=== PATIENT | female | born 1940 | race Caucasian/White ===

== ENCOUNTER 2018-08-30 08:45 | Inpatient (IN) | payer MEDICAID, MEDICARE, OTHER ==
[~2018-08-30] VITALS: Ht 144.8 cm; Wt 104.4 kg
[~2018-08-30 08:45] MED LIST: ACET325T9 PO; ASPI-630 PO; BENZ1LOZ48 MM; BISA10SU2 RC; BUSP5TAB PO; CHOL10003 PO; DEXT38GE2 PO; DICY20TA3 PO; DIVA125C2 PO; DULO30CA2 PO; EMU OIL TP; GABA600T PO; INSU100V13 SQ; LEVO150T5 PO; LEVO25TA4 PO; LIDO700A4 TP; LISI-334 PO; MAGN2400 PO; MELA3TAB2 PO; MEMA28CA PO; MICO45CR VG; MORP15TA80 PO; NA P133E2 RC; NITR1PAT5 TD; NYST15PO9 TP; OMEP20CA10 PO; ONDA4TAB10 PO; OXYC5TAB88 PO; POLY17PO5 PO; PREN1TAB58 PO; QUET50TA5 PO; RISP0.5T24 PO; SALI45SP PO; SENN8.6T67 PO; SIME125C PO; TAMS0.4C97 PO; TRAZ-120 PO; TRAZ-86 PO; [UNRECOGNIZED DRUG - MIXTURE] TP
[2018-08-30] MEDS ORDERED: MAG HYDROX/AL HYDROX/SIMETH 30 ML ORAL.SUSP PO PRN (10:15)
[2018-08-30] MEDS ORDERED: MAGNESIUM HYDROXIDE 2,400 MG/30 ML ORAL.SUSP. PO PRN ×2 (10:15→11:15)
[2018-08-30] MEDS ORDERED: ACETAMINOPHEN 325 MG TABLET PO PRN (10:15)
[2018-08-30] MEDS ORDERED: METHYL SALICYLATE/MENTHOL TOPICAL OINTMENT 29GM TUBE. TP PRN (10:15)
[2018-08-30] MEDS ORDERED: DEXT15DR5 OU (11:03)
[2018-08-30] MEDS ORDERED: CAPS42.513 TP (11:03)
[2018-08-30] MEDS ORDERED: INSU100I17 SQ (11:03)
[2018-08-30] MEDS ORDERED: POTA10TA10 PO (11:03)
[2018-08-30] MEDS ORDERED: [UNRECOGNIZED DRUG - CODE] PO (11:03)
[2018-08-30] MEDS ORDERED: METF500T16 PO (11:03)
[2018-08-30] MEDS ORDERED: IPRA3AMP29 NEB (11:03)
[2018-08-30] MEDS ORDERED: FURO20TA3 PO (11:03)
[2018-08-30] MEDS ORDERED: LIDO76.5 TP (11:03)
[2018-08-30] MEDS ORDERED: QUET100T4 PO (11:03)
[2018-08-30] MEDS ORDERED: IPRATRPIUM/ALBUTEROL 0.5/2.5MG 3 ML NEBU. NEB PRN (11:15)
[2018-08-30] MEDS ORDERED: guaiFENesin 300 MG/15 ML LIQUID PO PRN (11:15)
[2018-08-30] MEDS ORDERED: NITR100C62 PO (11:33)
[2018-08-30] MEDS ORDERED: QUEtiapine 50 MG TABLET. PO ONE (12:00)
[2018-08-30] MEDS ORDERED: MEMANTINE 10 MG TABLET. PO ONE (12:00)
[2018-08-30] MEDS: INSULIN LISPRO 300 UNITS/3 ML INSULN.PEN. SQ SCH ×2 (12:38→17:48)
[2018-08-30 13:53] LABS: BILIRUBIN,URINE NEG (NEG); CLARITY,URINE CLOUDY; COLOR,URINE AMBER; GLUCOSE,URINE NEG (NEG); NITRITE,URINE NEG (NEG); RBC,URINE 0 /HPF (0-2); UROBILINOGEN,URINE 0.2 mg/dL (0.2 mg/dL)
[2018-08-30 13:54] LABS: BACTERIA,URINE FEW /HPF (0-FEW); SQUAMOUS EPITHELIAL CELL,UR OCC /LPF
[2018-08-30] MEDS: oxyCODONE IR 5 MG TABLET PO SCH ×2 (13:58→21:04)
[2018-08-30] MEDS: GABAPENTIN 400 MG CAPSULE. PO SCH ×2 (13:58→21:05)
--- NOTE | 2018-08-30 17:16 | EKG ---
[address] [address] Test Date: 2018-08-30 Test Time: 16:08:53 Pat Name: DENYS MIDDLETON Department: Room: [address] [place] [address] Gender: F Sightseeing Guide: : 1940 Requested By: GRAEME DIAZ Order Number: [id number] Reading MD: Measurements Intervals [place] Rate: 95 P: 39 DC: 188 QRS: 9 QRSD: 76 T: 66 QT: 340 QTc: 430 Interpretive Statements SINUS RHYTHM ATRIAL PREMATURE COMPLEX(ES) NO SPECIFIC ECG ABNORMALITIES RI6.02 No previous ECG available for comparison
[2018-08-30] MEDS: metFORMIN 500 MG TABLET PO SCH (17:47)
[2018-08-30] MEDS: CAPSAICIN 0.025% TOPICAL CREAM 60GM TUBE. TP SCH (21:03)
[2018-08-30] MEDS: SENNOSIDES 8.6 MG TABLET PO SCH (21:04)
[2018-08-30] MEDS: QUEtiapine 50 MG TABLET. PO SCH (21:04)
[2018-08-30] MEDS: QUEtiapine 100 MG TABLET. PO SCH (21:04)
[2018-08-30] MEDS: MELATONIN 3 MG TABLET PO SCH (21:04)
[2018-08-30] MEDS: traZODone 150 MG TABLET. PO SCH (21:04)
[2018-08-30] MEDS: NYSTATIN TOPICAL POWDER 15GM BOTTLE. TP SCH (21:05)
[2018-08-30] MEDS: INSULIN GLARGINE 300 UNITS/3 ML INSULN.PEN. SQ SCH (21:11)
--- NOTE | 2018-08-30 22:34 | PDOC ---
Exam Note: Darren Note: Please also refer to the separate dictated note~for this date of service dictated separately. Discussed the patient with Nursing staff reviewed the chart.~Reviewed interim history and current functioning. Reviewed vital signs,~Labs/ Radiology~and current medications noted below. Continue current treatment with the changes noted in the dictated addendum note Assessment: Vital Signs/I&O: Vital Signs Date Time Temp Pulse Resp B/P (MAP) Pulse Ox O2 Delivery O2 Flow Rate FiO2 08/30/18 21:04 20 Room Air Labs: Laboratory Tests Test 08/30/18 12:10 08/30/18 13:10 08/30/18 16:25 08/30/18 19:41 Glucose (Fingerstick) 260 mg/dL (70-99) H 165 mg/dL (70-99) H 108 mg/dL (70-99) H Urine Collection Type Void Urine Color Ruthy Urine Clarity Cloudy Urine pH 5.5 Urine Specific Roberts 1.015 Urine Protein Neg (NEG-TRACE) Urine Glucose (UA) Neg mg/dL (NEG) Urine Ketones (Stick) Neg mg/dL (NEG) Urine Blood Neg (NEG) Urine Nitrite Neg (NEG) Urine Bilirubin Neg (NEG) Urine Urobilinogen Dipstick 0.2 mg/dL (0.2 mg/dL) Urine Leukocyte Esterase Mod (NEG) Urine RBC 0 /HPF (0-2) Urine WBC 5-10 /HPF (0-4) Urine Squamous Epithelial Cells Occ /LPF Urine Bacteria Few /HPF (0-FEW) Current Medications: Meds: Current Medications Medications (Trade) Dose Ordered Sig/Ruchi Route PRN Reason Start Time Stop Time Status Last Admin Dose Admin Nystatin (Nystop) 1 mara BID TP 08/30/18 21:00 08/30/18 21:05 Capsaicin (Zostrix) 1 mara BID TP 08/30/18 21:00 08/30/18 21:03 Gabapentin (Neurontin) 800 mg TID PO 08/30/18 14:00 08/30/18 21:05 Insulin Human Lispro (HumaLOG) 25 units TIDWMEALS SQ 08/30/18 12:00 08/30/18 17:48 Insulin Glargine (Lantus) 70 units QHS SQ 08/30/18 21:00 08/30/18 21:11 Melatonin 9 mg QHS PO 08/30/18 21:00 08/30/18 21:04 Metformin HCl (Glucophage) 500 mg BIDWMEALS PO 08/30/18 17:00 08/30/18 17:47 Oxycodone HCl (Roxicodone) 5 mg TID PO 08/30/18 14:00 08/30/18 21:04 Quetiapine Fumarate (SEROquel) 50 mg BID PO 08/30/18 21:00 08/30/18 21:04 Quetiapine Fumarate (SEROquel) 100 mg QHS PO 08/30/18 21:00 08/30/18 21:04 Sennosides (Senna) 8.6 mg BID PO 08/30/18 21:00 08/30/18 21:04 Trazodone HCl (Desyrel) 150 mg QHS PO 08/30/18 21:00 08/30/18 21:04 Memantine (Namenda) 10 mg 1X ONCE PO 08/30/18 12:00 08/30/18 12:01 DC 08/30/18 13:57 Quetiapine Fumarate (SEROquel) 50 mg 1X ONCE PO 08/30/18 12:00 08/30/18 12:01 DC 08/30/18 13:57 I have reviewed the current psychotropics carefully including drug interactions. Risk benefit ratio favors no change other than as noted in my dictated progress note. Diagnosis: Problems: (1) Bipolar affective, mixed, sev w/ psych (2) Anxiety disorder (3) Impulse control disorder (4) Mood disorder GRAEME DIAZ MD Aug 30, 2018 22:34
[2018-08-31] MEDS: LEVOTHYROXINE 150 MCG TABLET PO SCH (05:37)
[2018-08-31] MEDS: LEVOTHYROXINE 25 MCG TABLET. PO SCH (05:38)
[2018-08-31 05:52] VITALS: BP 133/79
[2018-08-31 08:21] LABS: BASO # 0.1 x10^3/uL (0.0-0.2); BASO % 1 % (0-3); EOS # 0.2 x10^3/uL (0.0-0.7); EOS % 3 % (0-3); HEMATOCRIT 37.2 % (36.0-47.0); HEMOGLOBIN 12.3 g/dL (12.0-15.5); LYMPH # 1.4 x10^3/uL (1.0-4.8); LYMPH % 17 % (24-48); MEAN CORPUSCULAR HEMOGLOBIN 28 pg (25-35); MEAN CORPUSCULAR HGB CONC 33 g/dL (31-37); MEAN CORPUSCULAR VOLUME 85 fL (79-100); MONO # 0.8 x10^3/uL (0.0-1.1); MONO % 9 % (0-9); NEUT # 5.7 x10^3uL (1.8-7.7); NEUT % 70 % (31-73); PLATELET COUNT 197 x10^3/uL (140-400); RED BLOOD COUNT 4.36 x10^6/uL (3.50-5.40); RED CELL DISTRIBUTION WIDTH 15.1 % (11.5-14.5); WHITE BLOOD COUNT 8.1 x10^3/uL (4.0-11.0)
[2018-08-31 08:29] LABS: ALBUMIN 3.6 g/dL (3.4-5.0); ALBUMIN/GLOBULIN RATIO 0.9 (1.0-1.7); CALCIUM 9.3 mg/dL (8.5-10.1); GFR 53.3; POTASSIUM 3.9 mmol/L (3.5-5.1); TOTAL BILIRUBIN 0.6 mg/dL (0.2-1.0); TOTAL PROTEIN 7.4 g/dL (6.4-8.2)
--- NOTE | 2018-08-31 08:57 | HP ---
ADMIT DATE: 08/30/2018 PSYCHIATRIC ADMISSION HISTORY AND EVALUATION IDENTIFYING DATA: The patient is an 78-year-old female, who resides at [facility] and was sent to the Emergency Room at [facility] very early in the morning hours of 08/30/2018. I was called by the nursing staff on [facility] around 5:00 a.m. on 08/30/2018 as the patient was in the ER referred by the shelter on account of making suicidal statements and "wanting to be with Reyes." She was upset about living in the shelter, wanted to live with her son. She is having active hallucinations, talking to voices in her head. She does have a history of bipolar disorder, mixed with psychotic features. She had failed outpatient psychiatric interventions resulting in this referral due to her dangerous behaviors with significant risk of suicide. CHIEF COMPLAINT: "I remember you." The patient was inpatient at this facility previously in 03/2016 and said she remembered me from then, but on further questioning was confused about who I was. HISTORY OF PRESENT ILLNESS: The patient has a long history of bipolar disorder, mixed with psychotic features. She has been residing at the above shelter for some time, but more recently has been getting more depressed, anxious, restless, paranoid. She has been wanting to elope from the facility, wanting to be with Reyes. She has had a poor appetite, sleep disturbance. No active homicidal ideation. She has had ongoing mood swings. She is reasonably oriented. PAST PSYCHIATRIC HISTORY: As above and she has been at inpatient with multiple psychiatric hospitalizations including [facility] in the past and [facility] at [facility] in 03/2016 as noted above. PAST MEDICAL AND SURGICAL HISTORY: Diabetes mellitus, hypothyroidism, GERD, hypertension, hyperlipidemia, arthritis, bilateral knee replacement, hysterectomy, thyroidectomy, cholecystectomy, history of dysphagia. UA on 08/29/2018 was positive at the [facility] Emergency Room. She does have a colostomy. ACCU-CHEKS: Before meals and at bedtime. DIET: Mechanical soft. MEDICATIONS: She takes it whole. Ambulates with walker or wheelchair. CODE STATUS: Full code. ALLERGIES: PENICILLIN, SULFA, CIPROFLOXACIN, LEVOFLOXACIN, ATIVAN, REMERON. CURRENT PSYCHOTROPICS: Melatonin 9 mg at bedtime, Namenda ER daily 24 mg, Seroquel 100 mg at bedtime and 50 mg b.i.d., trazodone 150 mg at bedtime. FAMILY HISTORY: Noncontributory. SOCIAL HISTORY: No history of alcohol, drug abuse, physical, sexual or elder abuse. She is not known to be a perpetrator. REACTION TO HOSPITALIZATION: The patient accepting of this. ASSETS: Cognitively reasonably intact, stable living at the shelter. MENTAL STATUS EXAMINATION: The patient was seen individually on the evening of 08/30/2018. She is quite animated, verbal, wanting me to pray for her. Speech coherent, rapid at times. Abstraction fair, computation impaired, language function intact, attention span short. She denies active suicidal ideation, but still making statements of wanting to be with Reyes. Short-term memory has some impairment, but she is oriented x 4. LABORATORY DATA: Reviewed. IMPRESSION: Bipolar 1 disorder, mixed with rule out psychotic features; anxiety disorder, unspecified; mild cognitive impairment; impulse control disorder; rest as above. PLAN: Admit to geropsychiatry unit at [facility]. I will see the patient daily individually from a psychiatric standpoint. Medical followup with Dr. Laird. Continue the patient on her current psychotropics. Consider Depakote as a mood stabilizer or Trileptal. We will make this decision after baseline assessment. Estimated length of stay 10-12 days. DISPOSITION: Plans back to shelter when stable. GRAEME DIAZ MD DR: RONNY/mello JOB#: [id number] / [id number]
[2018-08-31] MEDS: QUEtiapine 50 MG TABLET. PO SCH ×2 (08:58→20:31)
[2018-08-31] MEDS: SENNOSIDES 8.6 MG TABLET PO SCH ×2 (08:58→20:31)
[2018-08-31] MEDS: metFORMIN 500 MG TABLET PO SCH ×2 (08:58→17:09)
[2018-08-31] MEDS: NYSTATIN TOPICAL POWDER 15GM BOTTLE. TP SCH ×2 (09:00→20:32)
[2018-08-31] MEDS: TROLAMINE SALICYLATE 10% TOPICAL CREAM 85GM JAR. TP SCH (09:00)
[2018-08-31] MEDS: POLYVINYL ALCOHOL 1.4% OPHTH SOLUTION 15ML BOTTLE. OU SCH (09:05)
[2018-08-31] MEDS: ASPIRIN 81 MG TAB.CHEW PO SCH (09:05)
[2018-08-31] MEDS: TAMSULOSIN 0.4 MG CAP.ER.24H. PO SCH (09:05)
[2018-08-31] MEDS: POTASSIUM CHLORIDE 10 MEQ TABLET.ER. PO SCH (09:05)
[2018-08-31] MEDS: GABAPENTIN 400 MG CAPSULE. PO SCH ×3 (09:06→21:08)
[2018-08-31] MEDS: MEMANTINE 10 MG TABLET. PO SCH ×2 (09:06→20:31)
[2018-08-31] MEDS: FUROSEMIDE 20 MG TABLET PO SCH (09:06)
[2018-08-31] MEDS: LISINOPRIL 20 MG TABLET PO SCH (09:06)
[2018-08-31] MEDS: POLYETHYLENE GLYCOL 3350 17 GM PACKET. PO SCH (09:06)
[2018-08-31] MEDS: oxyCODONE IR 5 MG TABLET PO SCH ×3 (09:07→21:08)
[2018-08-31] MEDS: NITROGLYCERIN 0.2MG/HR PATCH. TD SCH (09:07)
[2018-08-31] MEDS: CAPSAICIN 0.025% TOPICAL CREAM 60GM TUBE. TP SCH ×2 (09:08→21:08)
[2018-08-31] MEDS: INSULIN LISPRO 300 UNITS/3 ML INSULN.PEN. SQ SCH ×3 (09:12→17:10)
[2018-08-31 15:45] VITALS: BP 120/65
[2018-08-31 17:07] LABS: THYROID STIM HORMONE (TSH) 6.305 uIU/mL (0.358-3.740)
[2018-08-31 20:06] LABS: THYROXINE 7.7 ug/dL (4.5-12.0)
[2018-08-31] MEDS: QUEtiapine 100 MG TABLET. PO SCH (20:31)
[2018-08-31] MEDS: traZODone 150 MG TABLET. PO SCH (20:31)
[2018-08-31] MEDS: MELATONIN 3 MG TABLET PO SCH (20:31)
[2018-08-31] MEDS: INSULIN GLARGINE 300 UNITS/3 ML INSULN.PEN. SQ SCH (20:32)
[2018-08-31] MEDS: DIVALPROEX 125 MG CAP.SPRINK PO SCH (21:08)
[2018-08-31] MEDS: PANTOPRAZOLE 40 MG TABLET. PO SCH (21:08)
--- NOTE | 2018-08-31 22:14 | PDOC ---
Exam Note: Darren Note: Please also refer to the separate dictated note~for this date of service dictated separately.~Patient seen individually. Discussed the patient with Nursing staff reviewed the chart.~Reviewed interim history and current functioning. Reviewed vital signs,~Labs/ Radiology~and current medications noted below. Continue current treatment with the changes noted in the dictated addendum note Assessment: Vital Signs/I&O: Vital Signs Date Time Temp Pulse Resp B/P (MAP) Pulse Ox O2 Delivery O2 Flow Rate FiO2 08/31/18 21:08 20 97 08/31/18 15:45 97.9 83 120/65 (83) 08/31/18 10:07 Room Air I & O 08/30/18 08/30/18 08/31/18 14:59 22:59 06:59 Intake Total 360 ml Balance 360 ml Labs: Laboratory Tests Test 08/31/18 05:54 08/31/18 07:33 08/31/18 07:41 08/31/18 12:11 Glucose (Fingerstick) 148 mg/dL (70-99) H 159 mg/dL (70-99) H 182 mg/dL (70-99) H White Blood Count 8.1 x10^3/uL (4.0-11.0) Red Blood Count 4.36 x10^6/uL (3.50-5.40) Hemoglobin 12.3 g/dL (12.0-15.5) Hematocrit 37.2 % (36.0-47.0) Mean Corpuscular Volume 85 fL (79-100) Mean Corpuscular Hemoglobin 28 pg (25-35) Mean Corpuscular Hemoglobin Concent 33 g/dL (31-37) Red Cell Distribution Width 15.1 % (11.5-14.5) H Platelet Count 197 x10^3/uL (140-400) Neutrophils (%) (Auto) 70 % (31-73) Lymphocytes (%) (Auto) 17 % (24-48) L Monocytes (%) (Auto) 9 % (0-9) Eosinophils (%) (Auto) 3 % (0-3) Basophils (%) (Auto) 1 % (0-3) Neutrophils # (Auto) 5.7 x10^3uL (1.8-7.7) Lymphocytes # (Auto) 1.4 x10^3/uL (1.0-4.8) Monocytes # (Auto) 0.8 x10^3/uL (0.0-1.1) Eosinophils # (Auto) 0.2 x10^3/uL (0.0-0.7) Basophils # (Auto) 0.1 x10^3/uL (0.0-0.2) Sodium Level 137 mmol/L (136-145) Potassium Level 3.9 mmol/L (3.5-5.1) Chloride Level 99 mmol/L (98-107) Carbon Dioxide Level 28 mmol/L (21-32) Anion Gap 10 (6-14) Blood Urea Nitrogen 13 mg/dL (7-20) Creatinine 1.0 mg/dL (0.6-1.0) Estimated GFR (Cockcroft-Gault) 53.3 BUN/Creatinine Ratio 13 (6-20) Glucose Level 156 mg/dL (70-99) H Calcium Level 9.3 mg/dL (8.5-10.1) Magnesium Level 2.0 mg/dL (1.8-2.4) Iron Level 44 ug/dL (50-170) L Total Iron Binding Capacity 240 ug/dL (250-450) L Iron Saturation 18 % (15-34) Total Bilirubin 0.6 mg/dL (0.2-1.0) Aspartate Amino Transferase (AST) 25 U/L (15-37) Alanine Aminotransferase (ALT) 27 U/L (14-59) Alkaline Phosphatase 94 U/L (46-116) Total Protein 7.4 g/dL (6.4-8.2) Albumin 3.6 g/dL (3.4-5.0) Albumin/Globulin Ratio 0.9 (1.0-1.7) L Triglycerides Level 138 mg/dL (0-150) Cholesterol Level 126 mg/dL (0-200) LDL Cholesterol, Calculated 73 mg/dL (0-100) VLDL Cholesterol, Calculated 27 mg/dL (0-40) Non-HDL Cholesterol Calculated 100 mg/dL (0-129) HDL Cholesterol 26 mg/dL (40-60) L Cholesterol/HDL Ratio 4.0 25-Hydroxy Vitamin D Total 23.5 ng/mL (30-100) L Thyroid Stimulating Hormone (TSH) 6.305 uIU/mL (0.358-3.740) Thyroxine (T4) 7.7 ug/dL (4.5-12.0) Total Triiodothyronine (TT3) 72 ng/dL (71-180) Treponema pallidum Antibody Nonreactive (Nonreactive) Test 08/31/18 16:45 08/31/18 19:26 Glucose (Fingerstick) 141 mg/dL (70-99) H 141 mg/dL (70-99) H Current Medications: Meds: Current Medications Medications (Trade) Dose Ordered Sig/Ruchi Route PRN Reason Start Time Stop Time Status Last Admin Dose Admin Lisinopril (Prinivil) 20 mg DAILY PO 08/31/18 09:00 08/31/18 09:06 Aspirin (Children'S Aspirin) 81 mg DAILYWBKFT PO 08/31/18 08:00 08/31/18 09:05 Levothyroxine Sodium (Synthroid) 12.5 mcg DAILY06 PO 08/31/18 06:00 08/31/18 05:38 Levothyroxine Sodium (Synthroid) 150 mcg DAILY06 PO 08/31/18 06:00 08/31/18 05:37 Memantine (Namenda) 10 mg BID PO 08/31/18 09:00 08/31/18 20:31 Nitroglycerin (Nitro-Dur 0.2mg) 1 patch DAILY TD 08/31/18 09:00 08/31/18 09:07 Furosemide (Lasix) 20 mg DAILY PO 08/31/18 09:00 08/31/18 09:06 Tamsulosin HCl (Flomax) 0.8 mg DAILY PO 08/31/18 09:00 08/31/18 09:05 Artificial Tears (Artificial Tears) 1 drop DAILY OU 08/31/18 09:00 08/31/18 09:05 Trolamine Salicylate (Myoplex) 1 mara DAILY TP 08/31/18 09:00 08/31/18 09:00 Pantoprazole Sodium (Protonix) 40 mg QHS PO 08/31/18 21:00 08/31/18 21:08 Polyethylene Glycol (miraLAX) 17 gm DAILY PO 08/31/18 09:00 08/31/18 09:06 Potassium Chloride (Klor-Con) 10 meq DAILYWBKFT PO 08/31/18 08:00 08/31/18 09:05 Divalproex Sodium (Depakote Sprinkles) 250 mg BID PO 08/31/18 21:00 08/31/18 21:08 I have reviewed the current psychotropics carefully including drug interactions. Risk benefit ratio favors no change other than as noted in my dictated progress note. Diagnosis: Problems: (1) Bipolar affective, mixed, sev w/ psych (2) Anxiety disorder (3) Impulse control disorder (4) Mood disorder GRAEME DIAZ MD Aug 31, 2018 22:14
[2018-09-01 06:00] VITALS: BP 135/68
[2018-09-01] MEDS: LEVOTHYROXINE 150 MCG TABLET PO SCH (06:16)
[2018-09-01] MEDS: LEVOTHYROXINE 25 MCG TABLET. PO SCH (06:16)
[2018-09-01] MEDS: ASPIRIN 81 MG TAB.CHEW PO SCH (08:05)
[2018-09-01] MEDS: metFORMIN 500 MG TABLET PO SCH ×3 (08:05→17:00)
[2018-09-01] MEDS: POTASSIUM CHLORIDE 10 MEQ TABLET.ER. PO SCH (08:06)
[2018-09-01] MEDS: INSULIN LISPRO 300 UNITS/3 ML INSULN.PEN. SQ SCH ×3 (08:06→17:00)
[2018-09-01] MEDS: TAMSULOSIN 0.4 MG CAP.ER.24H. PO SCH (08:07)
[2018-09-01] MEDS: DIVALPROEX 125 MG CAP.SPRINK PO SCH ×2 (08:07→19:16)
[2018-09-01] MEDS: POLYVINYL ALCOHOL 1.4% OPHTH SOLUTION 15ML BOTTLE. OU SCH (08:07)
[2018-09-01] MEDS: GABAPENTIN 400 MG CAPSULE. PO SCH ×3 (08:08→19:17)
[2018-09-01] MEDS: POLYETHYLENE GLYCOL 3350 17 GM PACKET. PO SCH (08:08)
[2018-09-01] MEDS: FUROSEMIDE 20 MG TABLET PO SCH (08:08)
[2018-09-01] MEDS: MEMANTINE 10 MG TABLET. PO SCH ×2 (08:08→19:17)
[2018-09-01] MEDS: LISINOPRIL 20 MG TABLET PO SCH (08:09)
[2018-09-01] MEDS: oxyCODONE IR 5 MG TABLET PO SCH ×3 (08:09→19:21)
[2018-09-01] MEDS: SENNOSIDES 8.6 MG TABLET PO SCH ×2 (08:09→19:18)
[2018-09-01] MEDS: NYSTATIN TOPICAL POWDER 15GM BOTTLE. TP SCH ×2 (08:10→19:21)
[2018-09-01] MEDS: NITROGLYCERIN 0.2MG/HR PATCH. TD SCH (08:10)
[2018-09-01] MEDS: QUEtiapine 50 MG TABLET. PO SCH ×2 (08:10→19:17)
[2018-09-01] MEDS: TROLAMINE SALICYLATE 10% TOPICAL CREAM 85GM JAR. TP SCH (08:11)
[2018-09-01] MEDS: CAPSAICIN 0.025% TOPICAL CREAM 60GM TUBE. TP SCH ×2 (08:11→19:21)
[2018-09-01] MEDS: TACROLIMUS 0.1% TP SCH ×2 (11:53→19:18)
[2018-09-01 13:08] LABS: HEMOGLOBIN A1C 7.8 % (4.8-5.6)
[2018-09-01 15:59] VITALS: BP 93/47
[2018-09-01 16:05] VITALS: BP 98/58
--- NOTE | 2018-09-01 16:17 | CONS ---
DATE OF CONSULTATION: 08/31/2018 REASON FOR CONSULTATION: Consult for medical management. HISTORY OF PRESENT ILLNESS: The patient is an 78-year-old female patient, resident at [facility]. She was seen at the Emergency Room of [facility] and was transferred to [facility] on account of suicidal ideation. She states she just wants to be with Reyes, upset with living in detention, wants to live with her son, hallucinating, talks to voices in her head, all this in a background of schizophrenia, was admitted to this unit for inpatient psychiatric stabilization. PAST MEDICAL HISTORY: Significant for the diabetes mellitus, hypothyroidism, gastroesophageal reflux disease, hypertension, hyperlipidemia, arthritis. PAST SURGICAL HISTORY: Significant for bilateral knee arthroplasty, hysterectomy, thyroidectomy, cholecystectomy. She is also known to have history of dysphagia and has had a colostomy. ALLERGIES: SHE IS ALLERGIC TO PENICILLIN, SULFA DRUGS, CIPROFLOXACIN, LEVOFLOXACIN, ATIVAN, AND REMERON. MEDICATIONS: She is currently on following medications: She is on nitrofurantoin monohydrate 100 mg twice a day, ipratropium bromide/albuterol sulfate 3 mL by nebulizer every 4 hours, tamsulosin for Flomax 0.8 mg daily, nitroglycerin for Nitro-Dur 0.2 mg per hour topically once a day, lisinopril 20 mg once a day, aspirin 81 mg once a day, oxycodone 5 mg 3 times a day, gabapentin 800 mg 3 times a day, trazodone 150 mg at bedtime, quetiapine fumarate for Seroquel 50 mg twice a day, Seroquel 100 mg at bedtime, Namenda extended release 28 mg daily and potassium chloride 10 mEq daily, furosemide 20 mg daily, Mucinex 100 mg every 4 hours. She is on Artificial Tears 15 mL 1 drop to both eyes daily, milk of magnesia 30 mL p.o. daily p.r.n. for constipation, polyethylene glycol for 17 g daily, senna 8.6 mg twice a day, omeprazole 20 mg at bedtime, metformin 500 mg twice a day. She is on NovoLog insulin 25 units subcutaneously 3 times a day before meals and Levemir insulin 70 units at bedtime. She is on levothyroxine 150 mcg, in fact, she is on 162.5 mg daily. Nystatin powder applied topically twice a day, lidocaine for Aspercreme 1 application topically daily. She is on capsaicin 1 application topically twice a day, melatonin 9 mg at bedtime. FAMILY HISTORY: Noncontributory. SOCIAL HISTORY: She is a resident at [facility]. She does not smoke, drink alcohol or recreational drugs. She ambulates with a walker and/or wheelchair. REVIEW OF SYSTEMS: As per history of present illness. PHYSICAL EXAMINATION GENERAL: When I examined her, she was sitting comfortably in her wheelchair, in no apparent distress. No pallor, jaundice, cyanosis, or thyromegaly. No jugular venous distension. No limb edema. VITAL SIGNS: Her heart rate was 83, blood pressure was 120/65, temperature was 97.9, respiratory rate 20, and oxygen saturation was 97%. HEAD, EYES, EAR, NOSE, AND THROAT: Normocephalic, atraumatic. NECK: Supple. HEART: Showed normal first and second heart sounds. No gallop, rub or murmur. CHEST: Clear to auscultation. No crepitation or rhonchi. ABDOMEN: Distended, soft, nontender. NEUROLOGIC: She was awake, alert, responding appropriately. All her cranial nerves intact. EXTREMITIES: She moves extremities without difficulty. She is mostly bed bound, wheelchair bound. She can walk with a walker. LABORATORY DATA: Her lab work this morning showed that her serum sodium was 137, potassium 3.9, chloride 99, bicarbonate 28, anion gap of 10, BUN 13, creatinine 1, estimated GFR was 53 mL per minute. Her glucose 156, calcium was 9.3, magnesium 2. Total bilirubin, AST, ALT, alkaline phosphatase were normal. Her total protein was 7.4, albumin was 3.6. Her white cell count was 8100, hemoglobin 12.3, hematocrit 37, MCV 85 and platelet count of 197,000. Her urinalysis showed the urine was cloudy with a pH of 5.5, specific gravity of 1.015. The urine was negative for protein, glucose, ketones, blood, nitrite. There was moderate amount of leukocyte esterase, no rbc's, 5-10 wbc's, and very few bacteria. IMPRESSION: In summary, this is an 78-year-old female patient who was evaluated at the Emergency Room of [facility] and was admitted to [facility] on account of making suicidal statement wanting to be with Reyes. She was upset about living in the detention, wanted to live with her son. She is having active hallucinations, talking to voices in her head. She does have a history of bipolar disorder, mixed, with psychotic features and apparently has failed outpatient psychiatric intervention, and therefore, she was admitted to this unit for inpatient psychiatric stabilization. Medically, she has multiple medical problems including type 2 diabetes mellitus, hypothyroidism, gastroesophageal reflux disease, hypertension, hyperlipidemia, osteoarthritis, dysphagia, and nursing staff are concerned that she has intertriginous candidiasis on both groins. She has also periorbital erythema which is probably some form of contact dermatitis. 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 PLAN: My plan is to start the patient on some form of treatment for her contact dermatitis for her periorbital erythema. I will add Diflucan to treat her vulvovaginal intertriginous candidiasis. Her blood sugar seems to be well controlled actually and I do not think she needs a stricter control at least for the time being. Thank you Dr. Meier for allowing me to participate in the care of this patient. GENEVIEVE SALAMANCA MD DR: YANCY/mello JOB#: [id number] / [id number]
[2018-09-01] MEDS: traZODone 150 MG TABLET. PO SCH (19:16)
[2018-09-01] MEDS: MELATONIN 3 MG TABLET PO SCH (19:16)
[2018-09-01] MEDS: PANTOPRAZOLE 40 MG TABLET. PO SCH (19:17)
[2018-09-01] MEDS: QUEtiapine 100 MG TABLET. PO SCH (19:18)
[2018-09-01] MEDS: INSULIN GLARGINE 300 UNITS/3 ML INSULN.PEN. SQ SCH (19:26)
--- NOTE | 2018-09-01 22:08 | PDOC ---
Exam Note: Darren Note: Please also refer to the separate dictated note~for this date of service dictated separately.~Patient seen individually. Discussed the patient with Nursing staff reviewed the chart.~Reviewed interim history and current functioning. Reviewed vital signs,~Labs/ Radiology~and current medications noted below. Continue current treatment with the changes noted in the dictated addendum note Assessment: Vital Signs/I&O: Vital Signs Date Time Temp Pulse Resp B/P (MAP) Pulse Ox O2 Delivery O2 Flow Rate FiO2 09/01/18 20:21 18 94 Room Air 09/01/18 16:05 98/58 (71) 09/01/18 15:59 97.2 90 I & O 08/31/18 08/31/18 09/01/18 14:59 22:59 06:59 Intake Total 840 ml 240 ml 100 ml Balance 840 ml 240 ml 100 ml Labs: Laboratory Tests Test 09/01/18 07:31 09/01/18 11:52 09/01/18 16:48 09/01/18 19:20 Glucose (Fingerstick) 106 mg/dL (70-99) H 199 mg/dL (70-99) H 153 mg/dL (70-99) H 160 mg/dL (70-99) H Current Medications: Meds: Current Medications Medications (Trade) Dose Ordered Sig/Ruchi Route PRN Reason Start Time Stop Time Status Last Admin Dose Admin Tacrolimus (Protopic) 1 mara BID TP 09/01/18 09:00 09/01/18 19:18 I have reviewed the current psychotropics carefully including drug interactions. Risk benefit ratio favors no change other than as noted in my dictated progress note. Diagnosis: Problems: (1) Bipolar affective, mixed, sev w/ psych (2) Anxiety disorder (3) Impulse control disorder (4) Mood disorder GRAEME DIAZ MD Sep 01, 2018 22:08
--- NOTE | 2018-09-02 00:18 | PN ---
DATE: 08/31/2018 PSYCHIATRIC PROGRESS NOTE. This late entry of 08/31/2018 covers the elements not covered in my initial note. SUBJECTIVE: I met with the patient in the evening. The patient slept 3-3/4 hours previous night. She has been somewhat obsessed regarding her colostomy, trying to interfere with this, but redirected. Remains anxious. REVIEW OF SYSTEMS: Other than above, complains of some redness of her eyes, will defer to Dr. Laird. No CV, , pulmonary, eye system symptoms on review other than above. MENTAL STATUS EXAM: Reasonably oriented, quite animated. Speech coherent, rapid at times, distracted. Abstraction fair, computation impaired, language function intact, attention span short. Mood and affect remain somewhat anxious, labile, grandiose at times. LABORATORY DATA: Reviewed. IMPRESSION: Bipolar 1 disorder, mixed with psychotic features; anxiety disorder, unspecified; impulse control disorder, unspecified. She denies active suicidal ideation. PLAN: Continue Seroquel, melatonin, along with trazodone at current dosage. We will start her on Depakote Sprinkles 250 mg twice a day as a mood stabilizer. Check CBC, CMP, valproic acid level in 3 days and adjust gradually to reach therapeutic level. She had responded well to Depakote as a mood stabilizer in the past and I have reviewed the past psychiatric records in some detail. MAN Matt DIAZ MD DR: RONNY/mello JOB#: [id number] / [id number]
[2018-09-02] MEDS: LEVOTHYROXINE 25 MCG TABLET. PO SCH (05:54)
[2018-09-02] MEDS: LEVOTHYROXINE 150 MCG TABLET PO SCH (05:54)
[2018-09-02 06:03] VITALS: BP 104/65
[2018-09-02] MEDS: POLYETHYLENE GLYCOL 3350 17 GM PACKET. PO SCH (08:56)
[2018-09-02] MEDS: TAMSULOSIN 0.4 MG CAP.ER.24H. PO SCH (08:57)
[2018-09-02] MEDS: ASPIRIN 81 MG TAB.CHEW PO SCH (08:57)
[2018-09-02] MEDS: DIVALPROEX 125 MG CAP.SPRINK PO SCH ×2 (08:57→19:36)
[2018-09-02] MEDS: NITROGLYCERIN 0.2MG/HR PATCH. TD SCH (08:57)
[2018-09-02] MEDS: LISINOPRIL 20 MG TABLET PO SCH (08:58)
[2018-09-02] MEDS: SENNOSIDES 8.6 MG TABLET PO SCH ×2 (08:58→19:36)
[2018-09-02] MEDS: FUROSEMIDE 20 MG TABLET PO SCH (08:58)
[2018-09-02] MEDS: POTASSIUM CHLORIDE 10 MEQ TABLET.ER. PO SCH (08:58)
[2018-09-02] MEDS: NYSTATIN TOPICAL POWDER 15GM BOTTLE. TP SCH ×2 (08:59→19:36)
[2018-09-02] MEDS: MEMANTINE 10 MG TABLET. PO SCH ×2 (08:59→19:37)
[2018-09-02] MEDS: metFORMIN 500 MG TABLET PO SCH ×2 (08:59→17:45)
[2018-09-02] MEDS: QUEtiapine 50 MG TABLET. PO SCH ×2 (08:59→19:36)
[2018-09-02] MEDS: TACROLIMUS 0.1% TP SCH ×2 (08:59→19:36)
[2018-09-02] MEDS: CAPSAICIN 0.025% TOPICAL CREAM 60GM TUBE. TP SCH ×2 (09:00→19:39)
[2018-09-02] MEDS: TROLAMINE SALICYLATE 10% TOPICAL CREAM 85GM JAR. TP SCH (09:00)
[2018-09-02] MEDS: POLYVINYL ALCOHOL 1.4% OPHTH SOLUTION 15ML BOTTLE. OU SCH ×2 (09:01→19:36)
[2018-09-02] MEDS: INSULIN LISPRO 300 UNITS/3 ML INSULN.PEN. SQ SCH ×3 (09:07→17:47)
[2018-09-02] MEDS: oxyCODONE IR 5 MG TABLET PO SCH ×3 (09:09→19:39)
[2018-09-02] MEDS: GABAPENTIN 400 MG CAPSULE. PO SCH ×3 (09:10→19:37)
[2018-09-02 16:32] VITALS: BP 97/61
[2018-09-02] MEDS: CHOLECALCIFEROL (VITAMIN D3) 50,000 UNIT CAPSULE PO SCH (17:45)
[2018-09-02] MEDS: traZODone 150 MG TABLET. PO SCH (19:36)
[2018-09-02] MEDS: MELATONIN 3 MG TABLET PO SCH (19:36)
[2018-09-02] MEDS: QUEtiapine 100 MG TABLET. PO SCH (19:37)
[2018-09-02] MEDS: PANTOPRAZOLE 40 MG TABLET. PO SCH (19:37)
[2018-09-02] MEDS: INSULIN GLARGINE 300 UNITS/3 ML INSULN.PEN. SQ SCH (19:41)
--- NOTE | 2018-09-02 22:35 | PDOC ---
Exam Note: Darren Note: Please also refer to the separate dictated note~for this date of service dictated separately.~Patient seen individually. Discussed the patient with Nursing staff reviewed the chart.~Reviewed interim history and current functioning. Reviewed vital signs,~Labs/ Radiology~and current medications noted below. Continue current treatment with the changes noted in the dictated addendum note Assessment: Vital Signs/I&O: Vital Signs Date Time Temp Pulse Resp B/P (MAP) Pulse Ox O2 Delivery O2 Flow Rate FiO2 09/02/18 20:39 96 09/02/18 16:32 98.1 98 18 97/61 (73) 09/01/18 20:21 Room Air I & O 09/01/18 09/01/18 09/02/18 15:00 23:00 07:00 Intake Total 360 ml 240 ml 120 ml Balance 360 ml 240 ml 120 ml Labs: Laboratory Tests Test 09/02/18 07:14 09/02/18 11:40 09/02/18 17:06 09/02/18 19:29 Glucose (Fingerstick) 108 mg/dL (70-99) H 236 mg/dL (70-99) H 136 mg/dL (70-99) H 173 mg/dL (70-99) H Current Medications: Meds: Current Medications Medications (Trade) Dose Ordered Sig/Ruchi Route PRN Reason Start Time Stop Time Status Last Admin Dose Admin Vitamin D (Vitamin D3) 50,000 unit WEEKLY PO 09/02/18 16:45 09/02/18 17:45 I have reviewed the current psychotropics carefully including drug interactions. Risk benefit ratio favors no change other than as noted in my dictated progress note. Diagnosis: Problems: (1) Bipolar affective, mixed, sev w/ psych (2) Anxiety disorder (3) Impulse control disorder (4) Mood disorder GRAEME DIAZ MD Sep 02, 2018 22:35
[2018-09-03] MEDS: LEVOTHYROXINE 150 MCG TABLET PO SCH (05:29)
[2018-09-03] MEDS: LEVOTHYROXINE 25 MCG TABLET. PO SCH (05:29)
[2018-09-03 05:53] VITALS: BP 102/54
[2018-09-03 06:53] LABS: BASO # 0.1 x10^3/uL (0.0-0.2); BASO % 1 % (0-3); EOS # 0.2 x10^3/uL (0.0-0.7); EOS % 3 % (0-3); HEMATOCRIT 36.2 % (36.0-47.0); LYMPH # 1.2 x10^3/uL (1.0-4.8); LYMPH % 15 % (24-48); MEAN CORPUSCULAR HEMOGLOBIN 28 pg (25-35); MEAN CORPUSCULAR HGB CONC 33 g/dL (31-37); MEAN CORPUSCULAR VOLUME 86 fL (79-100); MONO # 0.8 x10^3/uL (0.0-1.1); MONO % 11 % (0-9); NEUT # 5.5 x10^3uL (1.8-7.7); NEUT % 71 % (31-73); PLATELET COUNT 196 x10^3/uL (140-400); RED BLOOD COUNT 4.24 x10^6/uL (3.50-5.40); WHITE BLOOD COUNT 7.8 x10^3/uL (4.0-11.0)
[2018-09-03 07:20] LABS: ALBUMIN/GLOBULIN RATIO 0.8 (1.0-1.7); ALK PHOS 92 U/L (46-116); ALT (SGPT) 25 U/L (14-59); ANION GAP 6 (6-14); AST (SGOT) 18 U/L (15-37); BLOOD UREA NITROGEN 8 mg/dL (7-20); BUN/CREATININE RATIO 10 (6-20); CALCIUM 8.9 mg/dL (8.5-10.1); CARBON DIOXIDE 31 mmol/L (21-32); CHLORIDE 101 mmol/L (98-107); CREATININE 0.8 mg/dL (0.6-1.0); GLUCOSE 106 mg/dL (70-99); POTASSIUM 4.1 mmol/L (3.5-5.1); SODIUM 138 mmol/L (136-145); TOTAL BILIRUBIN 0.6 mg/dL (0.2-1.0); TOTAL PROTEIN 6.8 g/dL (6.4-8.2)
[2018-09-03 07:25] LABS: VAL ACID 42 mcg/mL (50-100)
[2018-09-03] MEDS: INSULIN LISPRO 300 UNITS/3 ML INSULN.PEN. SQ SCH ×3 (08:52→17:00)
[2018-09-03] MEDS: metFORMIN 500 MG TABLET PO SCH ×2 (09:00→17:19)
[2018-09-03] MEDS: POTASSIUM CHLORIDE 10 MEQ TABLET.ER. PO SCH (09:00)
[2018-09-03] MEDS: ASPIRIN 81 MG TAB.CHEW PO SCH (09:01)
[2018-09-03] MEDS: SENNOSIDES 8.6 MG TABLET PO SCH ×2 (09:01→19:57)
[2018-09-03] MEDS: DIVALPROEX 125 MG CAP.SPRINK PO SCH ×2 (09:01→20:01)
[2018-09-03] MEDS: MEMANTINE 10 MG TABLET. PO SCH ×2 (09:01→19:57)
[2018-09-03] MEDS: QUEtiapine 50 MG TABLET. PO SCH ×2 (09:01→19:57)
[2018-09-03] MEDS: TAMSULOSIN 0.4 MG CAP.ER.24H. PO SCH (09:01)
[2018-09-03] MEDS: NITROGLYCERIN 0.2MG/HR PATCH. TD SCH (09:01)
[2018-09-03] MEDS: FUROSEMIDE 20 MG TABLET PO SCH (09:02)
[2018-09-03] MEDS: POLYETHYLENE GLYCOL 3350 17 GM PACKET. PO SCH (09:02)
[2018-09-03] MEDS: GABAPENTIN 400 MG CAPSULE. PO SCH ×3 (09:07→19:57)
[2018-09-03] MEDS: LOSARTAN 50 MG TABLET. PO SCH (09:07)
[2018-09-03] MEDS: oxyCODONE IR 5 MG TABLET PO SCH ×3 (09:07→20:00)
[2018-09-03] MEDS: NYSTATIN TOPICAL POWDER 15GM BOTTLE. TP SCH ×2 (10:52→19:57)
[2018-09-03] MEDS: TROLAMINE SALICYLATE 10% TOPICAL CREAM 85GM JAR. TP SCH (11:16)
[2018-09-03] MEDS: TACROLIMUS 0.1% TP SCH ×2 (11:17→19:58)
[2018-09-03] MEDS: CAPSAICIN 0.025% TOPICAL CREAM 60GM TUBE. TP SCH ×2 (11:17→19:58)
[2018-09-03 15:42] VITALS: BP 101/69
[2018-09-03] MEDS: POLYVINYL ALCOHOL 1.4% OPHTH SOLUTION 15ML BOTTLE. OU SCH (19:56)
[2018-09-03] MEDS: PANTOPRAZOLE 40 MG TABLET. PO SCH (19:57)
[2018-09-03] MEDS: QUEtiapine 100 MG TABLET. PO SCH (19:57)
[2018-09-03] MEDS: traZODone 150 MG TABLET. PO SCH (19:57)
[2018-09-03] MEDS: MELATONIN 3 MG TABLET PO SCH (19:57)
[2018-09-03] MEDS: INSULIN GLARGINE 300 UNITS/3 ML INSULN.PEN. SQ SCH (20:02)
--- NOTE | 2018-09-03 22:09 | PN ---
DATE: 09/01/2018 PSYCHIATRIC PROGRESS NOTE This is a late entry 09/01/2018 covers elements not covered in my initial note. SUBJECTIVE: I met with the patient in the evening. The patient slept 9-1/4 hours previous night. She has been complaining of some ear problems and has dermatitis of her face. Ambulation impaired with walker. No CV, , pulmonary, eye, ENT system symptoms on review. She reportedly has wart on her bottom or could be the initial stage of herpes zoster. We will defer to Dr. Laird. She has been attending groups somewhat religiously preoccupied, wanting me to pray for her. No CV, , pulmonary, eye system symptoms on review. MENTAL STATUS EXAM: Reasonably oriented. Speech is coherent, abstraction fair, computation impaired, language function intact, attention span short. Mood and affect remain somewhat anxious, labile. LABORATORY DATA: Reviewed. IMPRESSION: Unchanged from initial note. PLAN: No change from initial note. GRAEME DIAZ MD DR: RONNY/mello JOB#: [id number] / [id number]
--- NOTE | 2018-09-03 22:12 | PDOC ---
Exam Note: Darren Note: Please also refer to the separate dictated note~for this date of service dictated separately.~Patient seen individually. Discussed the patient with Nursing staff reviewed the chart.~Reviewed interim history and current functioning. Reviewed vital signs,~Labs/ Radiology~and current medications noted below. Continue current treatment with the changes noted in the dictated addendum note Assessment: Vital Signs/I&O: Vital Signs Date Time Temp Pulse Resp B/P (MAP) Pulse Ox O2 Delivery O2 Flow Rate FiO2 09/03/18 21:00 92 09/03/18 15:42 97.8 78 19 101/69 (80) Room Air I & O 09/02/18 09/02/18 09/03/18 15:00 23:00 07:00 Intake Total 600 ml 360 ml 120 ml Balance 600 ml 360 ml 120 ml Labs: Laboratory Tests Test 09/03/18 06:33 09/03/18 07:18 09/03/18 11:41 09/03/18 16:35 White Blood Count 7.8 x10^3/uL (4.0-11.0) Red Blood Count 4.24 x10^6/uL (3.50-5.40) Hemoglobin 12.0 g/dL (12.0-15.5) Hematocrit 36.2 % (36.0-47.0) Mean Corpuscular Volume 86 fL (79-100) Mean Corpuscular Hemoglobin 28 pg (25-35) Mean Corpuscular Hemoglobin Concent 33 g/dL (31-37) Red Cell Distribution Width 15.0 % (11.5-14.5) H Platelet Count 196 x10^3/uL (140-400) Neutrophils (%) (Auto) 71 % (31-73) Lymphocytes (%) (Auto) 15 % (24-48) L Monocytes (%) (Auto) 11 % (0-9) H Eosinophils (%) (Auto) 3 % (0-3) Basophils (%) (Auto) 1 % (0-3) Neutrophils # (Auto) 5.5 x10^3uL (1.8-7.7) Lymphocytes # (Auto) 1.2 x10^3/uL (1.0-4.8) Monocytes # (Auto) 0.8 x10^3/uL (0.0-1.1) Eosinophils # (Auto) 0.2 x10^3/uL (0.0-0.7) Basophils # (Auto) 0.1 x10^3/uL (0.0-0.2) Sodium Level 138 mmol/L (136-145) Potassium Level 4.1 mmol/L (3.5-5.1) Chloride Level 101 mmol/L (98-107) Carbon Dioxide Level 31 mmol/L (21-32) Anion Gap 6 (6-14) Blood Urea Nitrogen 8 mg/dL (7-20) Creatinine 0.8 mg/dL (0.6-1.0) Estimated GFR (Cockcroft-Gault) 69.0 BUN/Creatinine Ratio 10 (6-20) Glucose Level 106 mg/dL (70-99) H Calcium Level 8.9 mg/dL (8.5-10.1) Total Bilirubin 0.6 mg/dL (0.2-1.0) Aspartate Amino Transferase (AST) 18 U/L (15-37) Alanine Aminotransferase (ALT) 25 U/L (14-59) Alkaline Phosphatase 92 U/L (46-116) Total Protein 6.8 g/dL (6.4-8.2) Albumin 3.0 g/dL (3.4-5.0) L Albumin/Globulin Ratio 0.8 (1.0-1.7) L Valproic Acid Level 42 mcg/mL (50-100) L Valproic Acid Last Dose Date 09/02/2018 Valproic Acid Last Dose Time 2100 Glucose (Fingerstick) 117 mg/dL (70-99) H 177 mg/dL (70-99) H 100 mg/dL (70-99) H Test 09/03/18 19:27 Glucose (Fingerstick) 169 mg/dL (70-99) H Current Medications: Meds: Current Medications Medications (Trade) Dose Ordered Sig/Ruchi Route PRN Reason Start Time Stop Time Status Last Admin Dose Admin Losartan Potassium (Cozaar) 100 mg DAILY PO 09/03/18 09:00 09/03/18 09:07 Divalproex Sodium (Depakote Sprinkles) 375 mg BID PO 09/03/18 21:00 09/03/18 20:01 I have reviewed the current psychotropics carefully including drug interactions. Risk benefit ratio favors no change other than as noted in my dictated progress note. Diagnosis: Problems: (1) Bipolar affective, mixed, sev w/ psych (2) Anxiety disorder (3) Impulse control disorder (4) Mood disorder GRAEME DIAZ MD Sep 03, 2018 22:12
--- NOTE | 2018-09-03 22:37 | PN ---
DATE: 09/02/2018 PSYCHIATRIC PROGRESS NOTE This is a late entry 09/02/2018 covers elements not covered in my initial note. SUBJECTIVE: I met with the patient in the evening and staffed at a treatment team meeting with the entire team in the morning. The patient slept 6-1/2 hours. Appetite 75%. She is attention seeking, anxious with ongoing mood lability, restless. REVIEW OF SYSTEMS: Ambulation impaired, in wheelchair, complains of some discomfort in her bottom. Dr. Laird is reviewing this. No CV, , pulmonary, eye system symptoms on review. MENTAL STATUS EXAM: Reasonably oriented. Speech coherent, rapid at times. Abstraction fair, computation impaired, language function intact, attention span short. She continues to want me to pray for her and I sat at some length with her to address this. LABORATORY DATA: Reviewed. IMPRESSION: Unchanged from initial note. PLAN: No change from initial note. We restarted her on Depakote. Labs and valproic acid level due on 09/03/2018. Continue Namenda, Seroquel along with trazodone and melatonin in the interim. MAN Matt DIAZ MD DR: RONNY/mello JOB#: [id number] / [id number]
--- NOTE | 2018-09-04 00:53 | PN ---
DATE: 09/03/2018 PSYCHIATRIC PROGRESS NOTE This note covers elements not covered in my initial note 09/03/2018. SUBJECTIVE: I met with the patient in the evening. The patient slept 5-3/4 hours previous night. She has been pleasant, took a nap in the afternoon. She pulled off her colostomy again today for a second day in a row. The valproic acid level 42. REVIEW OF SYSTEMS: No CV, , pulmonary, eye system symptoms on review. She does admit to some tiredness. MENTAL STATUS EXAM: Oriented to herself and situation. Speech is coherent, has some latency, rapid at times. Abstraction fair, computation impaired, language function intact, attention span short. Mood and affect remains somewhat labile and anxious. LABORATORY DATA: Reviewed. IMPRESSION: Unchanged from initial note. PLAN: The patient is currently on Depakote 250 b.i.d. with a lower level and increased to 375 b.i.d. Check CBC, CMP, valproic acid level in 3 days. Continue rest unchanged. GRAEME DIAZ MD DR: RONNY/mello JOB#: [id number] / [id number]
[2018-09-04] MEDS: LEVOTHYROXINE 25 MCG TABLET. PO SCH (05:49)
[2018-09-04] MEDS: LEVOTHYROXINE 150 MCG TABLET PO SCH (05:49)
[2018-09-04 05:59] VITALS: BP 131/66
[2018-09-04] MEDS: INSULIN LISPRO 300 UNITS/3 ML INSULN.PEN. SQ SCH ×3 (09:24→18:17)
[2018-09-04] MEDS: QUEtiapine 50 MG TABLET. PO SCH ×2 (09:54→19:44)
[2018-09-04] MEDS: POLYETHYLENE GLYCOL 3350 17 GM PACKET. PO SCH (09:54)
[2018-09-04] MEDS: LOSARTAN 50 MG TABLET. PO SCH (09:54)
[2018-09-04] MEDS: SENNOSIDES 8.6 MG TABLET PO SCH ×2 (09:55→19:44)
[2018-09-04] MEDS: metFORMIN 500 MG TABLET PO SCH ×2 (09:55→18:15)
[2018-09-04] MEDS: MEMANTINE 10 MG TABLET. PO SCH ×2 (09:55→19:44)
[2018-09-04] MEDS: ASPIRIN 81 MG TAB.CHEW PO SCH (09:55)
[2018-09-04] MEDS: FUROSEMIDE 20 MG TABLET PO SCH (09:55)
[2018-09-04] MEDS: DIVALPROEX 125 MG CAP.SPRINK PO SCH ×2 (09:55→19:44)
[2018-09-04] MEDS: POTASSIUM CHLORIDE 10 MEQ TABLET.ER. PO SCH (09:55)
[2018-09-04] MEDS: TAMSULOSIN 0.4 MG CAP.ER.24H. PO SCH (09:56)
[2018-09-04] MEDS: NITROGLYCERIN 0.2MG/HR PATCH. TD SCH (09:56)
[2018-09-04] MEDS: POLYVINYL ALCOHOL 1.4% OPHTH SOLUTION 15ML BOTTLE. OU SCH (09:57)
[2018-09-04] MEDS: CAPSAICIN 0.025% TOPICAL CREAM 60GM TUBE. TP SCH ×2 (09:57→19:45)
[2018-09-04] MEDS: NYSTATIN TOPICAL POWDER 15GM BOTTLE. TP SCH ×2 (09:57→19:43)
[2018-09-04] MEDS: TROLAMINE SALICYLATE 10% TOPICAL CREAM 85GM JAR. TP SCH (09:57)
[2018-09-04] MEDS: TACROLIMUS 0.1% TP SCH ×2 (09:57→19:45)
[2018-09-04] MEDS: oxyCODONE IR 5 MG TABLET PO SCH ×3 (10:01→19:47)
[2018-09-04] MEDS: GABAPENTIN 400 MG CAPSULE. PO SCH ×3 (10:02→19:44)
[2018-09-04 15:31] VITALS: BP 101/58
[2018-09-04] MEDS: MELATONIN 3 MG TABLET PO SCH (19:43)
[2018-09-04] MEDS: PANTOPRAZOLE 40 MG TABLET. PO SCH (19:44)
[2018-09-04] MEDS: traZODone 150 MG TABLET. PO SCH (19:44)
[2018-09-04] MEDS: QUEtiapine 100 MG TABLET. PO SCH (19:44)
[2018-09-04] MEDS: MUPIROCIN 2% TOPICAL OINTMENT 22GM TUBE. TP SCH (19:45)
[2018-09-04] MEDS: INSULIN GLARGINE 300 UNITS/3 ML INSULN.PEN. SQ SCH (19:46)
[2018-09-05] MEDS: LEVOTHYROXINE 150 MCG TABLET PO SCH (04:58)
[2018-09-05] MEDS: LEVOTHYROXINE 25 MCG TABLET. PO SCH (04:58)
[2018-09-05 06:21] VITALS: BP 106/63
[2018-09-05] MEDS: DIVALPROEX 125 MG CAP.SPRINK PO SCH ×2 (08:09→20:35)
[2018-09-05] MEDS: MEMANTINE 10 MG TABLET. PO SCH ×2 (08:10→20:35)
[2018-09-05] MEDS: metFORMIN 500 MG TABLET PO SCH ×2 (08:11→17:27)
[2018-09-05] MEDS: POTASSIUM CHLORIDE 10 MEQ TABLET.ER. PO SCH (08:11)
[2018-09-05] MEDS: QUEtiapine 50 MG TABLET. PO SCH ×2 (08:11→20:34)
[2018-09-05] MEDS: FUROSEMIDE 20 MG TABLET PO SCH (08:11)
[2018-09-05] MEDS: LOSARTAN 50 MG TABLET. PO SCH (08:12)
[2018-09-05] MEDS: SENNOSIDES 8.6 MG TABLET PO SCH ×2 (08:12→20:34)
[2018-09-05] MEDS: POLYETHYLENE GLYCOL 3350 17 GM PACKET. PO SCH (08:13)
[2018-09-05] MEDS: NITROGLYCERIN 0.2MG/HR PATCH. TD SCH (08:13)
[2018-09-05] MEDS: TAMSULOSIN 0.4 MG CAP.ER.24H. PO SCH (08:13)
[2018-09-05] MEDS: ASPIRIN 81 MG TAB.CHEW PO SCH (08:13)
[2018-09-05] MEDS: INSULIN LISPRO 300 UNITS/3 ML INSULN.PEN. SQ SCH ×3 (08:16→17:27)
[2018-09-05] MEDS: GABAPENTIN 400 MG CAPSULE. PO SCH ×3 (08:22→20:34)
[2018-09-05] MEDS: oxyCODONE IR 5 MG TABLET PO SCH ×3 (08:22→20:34)
[2018-09-05] MEDS: TROLAMINE SALICYLATE 10% TOPICAL CREAM 85GM JAR. TP SCH (09:51)
[2018-09-05] MEDS: MUPIROCIN 2% TOPICAL OINTMENT 22GM TUBE. TP SCH ×2 (09:51→20:37)
[2018-09-05] MEDS: TACROLIMUS 0.1% TP SCH ×2 (09:51→20:37)
[2018-09-05] MEDS: CAPSAICIN 0.025% TOPICAL CREAM 60GM TUBE. TP SCH ×2 (09:51→20:37)
[2018-09-05] MEDS: NYSTATIN TOPICAL POWDER 15GM BOTTLE. TP SCH ×2 (09:52→20:35)
--- NOTE | 2018-09-05 10:04 | PN ---
DATE: 09/04/2018 SUBJECTIVE: The patient was seen today, met with the staff, chart reviewed. Staff reports no problems and not presenting with any major physical problems. No recent falls. OBSERVATION: VITAL SIGNS: Temperature 97.8, blood pressure 131/66, pulse 82, respirations 20, O2 sat 94%. Slept about 6 hours last night. MEDICATIONS: The patient's medications reviewed. Currently, she is on Depakote 375 mg b.i.d., Namenda 10 mg b.i.d., trazodone 150 mg at night, Seroquel 50 mg b.i.d. and 100 mg at night, melatonin 9 mg at night, gabapentin 800 mg t.i.d. The patient's labs reviewed and within normal range. The patient's Depakote level is 42. ASSESSMENT: 1. Bipolar disorder, mixed, with psychotic features. 2. Anxiety disorder, unspecified. 3. Mild cognitive impairment. PLAN: Continue with the current treatment plan. LENGTH OF STAY: 5 days. PAT PAYAN MD DR: RONNIE/mello JOB#: [id number] / [id number]
[2018-09-05 11:20] LABS: BASO # 0.1 x10^3/uL (0.0-0.2); BASO % 1 % (0-3); EOS # 0.2 x10^3/uL (0.0-0.7); EOS % 3 % (0-3); HEMATOCRIT 36.2 % (36.0-47.0); HEMOGLOBIN 11.9 g/dL (12.0-15.5); LYMPH # 0.9 x10^3/uL (1.0-4.8); LYMPH % 16 % (24-48); MEAN CORPUSCULAR HEMOGLOBIN 28 pg (25-35); MEAN CORPUSCULAR HGB CONC 33 g/dL (31-37); MEAN CORPUSCULAR VOLUME 86 fL (79-100); MONO # 0.5 x10^3/uL (0.0-1.1); MONO % 8 % (0-9); NEUT # 4.3 x10^3uL (1.8-7.7); NEUT % 72 % (31-73); PLATELET COUNT 194 x10^3/uL (140-400); RED BLOOD COUNT 4.19 x10^6/uL (3.50-5.40); RED CELL DISTRIBUTION WIDTH 15.2 % (11.5-14.5); WHITE BLOOD COUNT 5.9 x10^3/uL (4.0-11.0)
[2018-09-05 11:33] LABS: ALBUMIN 2.9 g/dL (3.4-5.0); ALBUMIN/GLOBULIN RATIO 0.7 (1.0-1.7); CREATININE 0.8 mg/dL (0.6-1.0); POTASSIUM 4.6 mmol/L (3.5-5.1); TOTAL BILIRUBIN 0.3 mg/dL (0.2-1.0)
[2018-09-05 17:00] VITALS: BP 102/64
[2018-09-05] MEDS: PANTOPRAZOLE 40 MG TABLET. PO SCH (20:34)
[2018-09-05] MEDS: QUEtiapine 100 MG TABLET. PO SCH (20:34)
[2018-09-05] MEDS: MELATONIN 3 MG TABLET PO SCH (20:34)
[2018-09-05] MEDS: traZODone 150 MG TABLET. PO SCH (20:35)
[2018-09-05] MEDS: INSULIN GLARGINE 300 UNITS/3 ML INSULN.PEN. SQ SCH (20:36)
[2018-09-06] MEDS: LEVOTHYROXINE 150 MCG TABLET PO SCH (05:10)
[2018-09-06] MEDS: LEVOTHYROXINE 25 MCG TABLET. PO SCH (05:11)
[2018-09-06 06:14] VITALS: BP 126/83
[2018-09-06 07:18] LABS: BASO # 0.1 x10^3/uL (0.0-0.2); BASO % 1 % (0-3); EOS # 0.2 x10^3/uL (0.0-0.7); EOS % 3 % (0-3); HEMATOCRIT 35.5 % (36.0-47.0); HEMOGLOBIN 11.7 g/dL (12.0-15.5); LYMPH # 0.9 x10^3/uL (1.0-4.8); LYMPH % 16 % (24-48); MEAN CORPUSCULAR HEMOGLOBIN 28 pg (25-35); MEAN CORPUSCULAR HGB CONC 33 g/dL (31-37); MEAN CORPUSCULAR VOLUME 86 fL (79-100); MONO # 0.5 x10^3/uL (0.0-1.1); MONO % 10 % (0-9); NEUT # 3.9 x10^3uL (1.8-7.7); NEUT % 71 % (31-73); PLATELET COUNT 196 x10^3/uL (140-400); RED BLOOD COUNT 4.14 x10^6/uL (3.50-5.40); RED CELL DISTRIBUTION WIDTH 14.7 % (11.5-14.5); WHITE BLOOD COUNT 5.6 x10^3/uL (4.0-11.0)
[2018-09-06 07:29] LABS: ALBUMIN 2.8 g/dL (3.4-5.0); ALBUMIN/GLOBULIN RATIO 0.7 (1.0-1.7); ALK PHOS 88 U/L (46-116); ALT (SGPT) 21 U/L (14-59); ANION GAP 8 (6-14); AST (SGOT) 15 U/L (15-37); BLOOD UREA NITROGEN 9 mg/dL (7-20); BUN/CREATININE RATIO 10 (6-20); CALCIUM 8.8 mg/dL (8.5-10.1); CARBON DIOXIDE 30 mmol/L (21-32); CHLORIDE 101 mmol/L (98-107); CREATININE 0.9 mg/dL (0.6-1.0); GFR 60.2; GLUCOSE 101 mg/dL (70-99); POTASSIUM 4.1 mmol/L (3.5-5.1); SODIUM 139 mmol/L (136-145); TOTAL BILIRUBIN 0.3 mg/dL (0.2-1.0); TOTAL PROTEIN 6.7 g/dL (6.4-8.2)
[2018-09-06 07:34] LABS: VAL ACID 61 mcg/mL (50-100)
[2018-09-06] MEDS: LOSARTAN 50 MG TABLET. PO SCH (08:29)
[2018-09-06] MEDS: DIVALPROEX 125 MG CAP.SPRINK PO SCH ×2 (08:29→21:04)
[2018-09-06] MEDS: metFORMIN 500 MG TABLET PO SCH ×2 (08:29→17:27)
[2018-09-06] MEDS: TAMSULOSIN 0.4 MG CAP.ER.24H. PO SCH (08:30)
[2018-09-06] MEDS: SENNOSIDES 8.6 MG TABLET PO SCH ×2 (08:30→21:06)
[2018-09-06] MEDS: MEMANTINE 10 MG TABLET. PO SCH ×2 (08:30→21:04)
[2018-09-06] MEDS: QUEtiapine 50 MG TABLET. PO SCH ×2 (08:30→21:00)
[2018-09-06] MEDS: POTASSIUM CHLORIDE 10 MEQ TABLET.ER. PO SCH (08:30)
[2018-09-06] MEDS: FUROSEMIDE 20 MG TABLET PO SCH (08:30)
[2018-09-06] MEDS: GABAPENTIN 400 MG CAPSULE. PO SCH ×3 (08:30→21:05)
[2018-09-06] MEDS: NITROGLYCERIN 0.2MG/HR PATCH. TD SCH (08:31)
[2018-09-06] MEDS: POLYETHYLENE GLYCOL 3350 17 GM PACKET. PO SCH (08:31)
[2018-09-06] MEDS: ASPIRIN 81 MG TAB.CHEW PO SCH (08:33)
[2018-09-06] MEDS: oxyCODONE IR 5 MG TABLET PO SCH ×3 (08:34→21:04)
[2018-09-06] MEDS: POLYVINYL ALCOHOL 1.4% OPHTH SOLUTION 15ML BOTTLE. OU SCH (08:35)
[2018-09-06] MEDS: INSULIN LISPRO 300 UNITS/3 ML INSULN.PEN. SQ SCH ×3 (08:42→17:28)
[2018-09-06] MEDS: TACROLIMUS 0.1% TP SCH ×2 (09:51→13:32)
[2018-09-06] MEDS: TROLAMINE SALICYLATE 10% TOPICAL CREAM 85GM JAR. TP SCH (09:51)
[2018-09-06] MEDS: CAPSAICIN 0.025% TOPICAL CREAM 60GM TUBE. TP SCH ×2 (09:52→21:09)
[2018-09-06] MEDS: NYSTATIN TOPICAL POWDER 15GM BOTTLE. TP SCH ×2 (13:31→21:08)
[2018-09-06] MEDS: MUPIROCIN 2% TOPICAL OINTMENT 22GM TUBE. TP SCH ×2 (13:32→21:09)
--- NOTE | 2018-09-06 14:38 | PN ---
DATE: 09/05/2018 SUBJECTIVE: The patient was seen today, met with the staff, chart reviewed and staff reports no major behavior problems. Denies of any falls. OBSERVATION: VITAL SIGNS: Temperature 96.8, blood pressure 106/63, pulse 74, respirations 24, O2 sat 93%. Slept about 7 hours last night. Staff also reports she has periods where she tends to have increased sleep at night. CURRENT MEDICATIONS: The patient's current medications include Depakote 375 mg b.i.d., Namenda 10 mg b.i.d., trazodone 150 mg at night, Seroquel 50 mg b.i.d. and 100 mg at night, melatonin 9 mg at night and gabapentin 800 mg t.i.d. p.o. LABORATORY DATA: The patient's lab reviewed. ASSESSMENT: 1. Bipolar disorder, mixed, with psychotic features. 2. Anxiety disorder, unspecified. 3. Mild cognitive impairment. PLAN: To continue with the current treatment plan. LENGTH OF STAY: Three to five days. PAT PAYAN MD DR: RONNIE/mello JOB#: [id number] / [id number]
[2018-09-06 16:28] VITALS: BP 115/55
[2018-09-06] MEDS: QUEtiapine 100 MG TABLET. PO SCH (21:04)
[2018-09-06] MEDS: PANTOPRAZOLE 40 MG TABLET. PO SCH (21:04)
[2018-09-06] MEDS: MELATONIN 3 MG TABLET PO SCH (21:04)
[2018-09-06] MEDS: traZODone 150 MG TABLET. PO SCH (21:06)
[2018-09-06] MEDS: INSULIN GLARGINE 300 UNITS/3 ML INSULN.PEN. SQ SCH (21:11)
--- NOTE | 2018-09-07 03:51 | PN ---
DATE: 09/06/2018 SUBJECTIVE: The patient was seen today, met with the staff, chart reviewed, and also covering for Dr. Meier. Staff reports no behavioral problems. No falls. OBSERVATION: VITAL SIGNS: Temperature 97.7, blood pressure 126/83, pulse 88, respirations 20, O2 sat 92%. Slept about 6 hours last night. The patient's appetite improved. MEDICATIONS: The patient's current medications include Depakote 375 mg b.i.d., Namenda 10 mg b.i.d., trazodone 150 mg at night, Seroquel 50 mg b.i.d. and 100 mg at night, melatonin 9 mg at night and gabapentin 800 mg t.i.d. p.o. LABORATORY DATA: The patient's lab within normal limits. ASSESSMENT: 1. Bipolar disorder, mixed with psychotic features. 2. Anxiety disorder, unspecified. 3. Mild cognitive impairment. PLAN: To continue with the treatment. LENGTH OF STAY: 3-5 days. PAT PAYAN MD DR: RONNIE/mello JOB#: [id number] / [id number]
[2018-09-07] MEDS: LEVOTHYROXINE 150 MCG TABLET PO SCH (05:29)
[2018-09-07] MEDS: LEVOTHYROXINE 25 MCG TABLET. PO SCH (05:29)
[2018-09-07 06:05] VITALS: BP 122/72
[2018-09-07] MEDS: ASPIRIN 81 MG TAB.CHEW PO SCH (08:48)
[2018-09-07] MEDS: metFORMIN 500 MG TABLET PO SCH ×2 (08:48→17:02)
[2018-09-07] MEDS: POTASSIUM CHLORIDE 10 MEQ TABLET.ER. PO SCH (08:49)
[2018-09-07] MEDS: INSULIN LISPRO 300 UNITS/3 ML INSULN.PEN. SQ SCH ×3 (08:50→17:03)
[2018-09-07] MEDS: POLYVINYL ALCOHOL 1.4% OPHTH SOLUTION 15ML BOTTLE. OU SCH (08:50)
[2018-09-07] MEDS: LOSARTAN 50 MG TABLET. PO SCH (08:51)
[2018-09-07] MEDS: DIVALPROEX 125 MG CAP.SPRINK PO SCH ×2 (08:51→20:46)
[2018-09-07] MEDS: POLYETHYLENE GLYCOL 3350 17 GM PACKET. PO SCH (08:52)
[2018-09-07] MEDS: FUROSEMIDE 20 MG TABLET PO SCH (08:52)
[2018-09-07] MEDS: MEMANTINE 10 MG TABLET. PO SCH ×2 (08:52→20:46)
[2018-09-07] MEDS: TAMSULOSIN 0.4 MG CAP.ER.24H. PO SCH (08:52)
[2018-09-07] MEDS: GABAPENTIN 400 MG CAPSULE. PO SCH ×3 (08:53→20:46)
[2018-09-07] MEDS: QUEtiapine 50 MG TABLET. PO SCH ×2 (08:53→20:46)
[2018-09-07] MEDS: SENNOSIDES 8.6 MG TABLET PO SCH ×2 (08:53→20:46)
[2018-09-07] MEDS: NITROGLYCERIN 0.2MG/HR PATCH. TD SCH (08:54)
[2018-09-07] MEDS: MUPIROCIN 2% TOPICAL OINTMENT 22GM TUBE. TP SCH ×2 (08:55→20:53)
[2018-09-07] MEDS: TACROLIMUS 0.1% TP SCH ×2 (08:55→20:53)
[2018-09-07] MEDS: TROLAMINE SALICYLATE 10% TOPICAL CREAM 85GM JAR. TP SCH (08:55)
[2018-09-07] MEDS: CAPSAICIN 0.025% TOPICAL CREAM 60GM TUBE. TP SCH ×2 (08:55→20:54)
[2018-09-07] MEDS: NYSTATIN TOPICAL POWDER 15GM BOTTLE. TP SCH ×2 (08:56→20:53)
[2018-09-07] MEDS: oxyCODONE IR 5 MG TABLET PO SCH ×3 (11:44→20:48)
[2018-09-07 16:13] VITALS: BP 96/60
[2018-09-07] MEDS: PANTOPRAZOLE 40 MG TABLET. PO SCH (20:46)
[2018-09-07] MEDS: MELATONIN 3 MG TABLET PO SCH (20:46)
[2018-09-07] MEDS: traZODone 150 MG TABLET. PO SCH (20:46)
[2018-09-07] MEDS: QUEtiapine 100 MG TABLET. PO SCH (20:46)
[2018-09-07] MEDS: INSULIN GLARGINE 300 UNITS/3 ML INSULN.PEN. SQ SCH (20:53)
--- NOTE | 2018-09-07 23:32 | PN ---
DATE: 09/07/2018 SUBJECTIVE: The patient was seen today, met with the staff, chart reviewed. The patient continues to improve. No major behavior problems. OBSERVATION: VITAL SIGNS: Stable. Slept about 6 hours last night. The patient's appetite improved. MEDICATIONS: The patient's current medications include Depakote 375 mg b.i.d., Namenda 10 mg b.i.d., trazodone 150 mg at night, Seroquel 50 mg b.i.d. and 100 mg at night, melatonin 9 mg at night, and gabapentin 800 mg t.i.d. p.o. The patient is not having any side effects to the medications. The patient's Depakote level was 61. The patient still has episodes of high level of anxiety and agitation. ASSESSMENT: 1. Bipolar disorder, mixed, with psychotic features. 2. Anxiety disorder, unspecified. 3. Mild cognitive impairment. PLAN: To continue with the treatment. LENGTH OF STAY: 3-5 days. PAT PAYAN MD DR: RONNIE/mello JOB#: [id number] / [id number]
[2018-09-08] MEDS: LEVOTHYROXINE 25 MCG TABLET. PO SCH (05:35)
[2018-09-08] MEDS: LEVOTHYROXINE 150 MCG TABLET PO SCH (05:35)
[2018-09-08 06:17] VITALS: BP 96/58
[2018-09-08] MEDS: POLYVINYL ALCOHOL 1.4% OPHTH SOLUTION 15ML BOTTLE. OU SCH (08:14)
[2018-09-08] MEDS: POTASSIUM CHLORIDE 10 MEQ TABLET.ER. PO SCH (08:14)
[2018-09-08] MEDS: ASPIRIN 81 MG TAB.CHEW PO SCH (08:14)
[2018-09-08] MEDS: metFORMIN 500 MG TABLET PO SCH ×2 (08:14→17:14)
[2018-09-08 08:15] VITALS: BP 113/57
[2018-09-08] MEDS: LOSARTAN 50 MG TABLET. PO SCH (08:15)
[2018-09-08] MEDS: DIVALPROEX 125 MG CAP.SPRINK PO SCH ×2 (08:16→20:36)
[2018-09-08] MEDS: TAMSULOSIN 0.4 MG CAP.ER.24H. PO SCH (08:17)
[2018-09-08] MEDS: FUROSEMIDE 20 MG TABLET PO SCH (08:17)
[2018-09-08] MEDS: SENNOSIDES 8.6 MG TABLET PO SCH ×2 (08:18→20:45)
[2018-09-08] MEDS: MEMANTINE 10 MG TABLET. PO SCH ×2 (08:18→20:36)
[2018-09-08] MEDS: POLYETHYLENE GLYCOL 3350 17 GM PACKET. PO SCH (08:18)
[2018-09-08] MEDS: GABAPENTIN 400 MG CAPSULE. PO SCH ×3 (08:18→20:36)
[2018-09-08] MEDS: NITROGLYCERIN 0.2MG/HR PATCH. TD SCH (08:19)
[2018-09-08] MEDS: QUEtiapine 50 MG TABLET. PO SCH ×2 (08:19→20:36)
[2018-09-08] MEDS: TROLAMINE SALICYLATE 10% TOPICAL CREAM 85GM JAR. TP SCH (08:20)
[2018-09-08] MEDS: TACROLIMUS 0.1% TP SCH ×2 (08:20→21:49)
[2018-09-08] MEDS: MUPIROCIN 2% TOPICAL OINTMENT 22GM TUBE. TP SCH ×2 (08:20→21:49)
[2018-09-08] MEDS: NYSTATIN TOPICAL POWDER 15GM BOTTLE. TP SCH ×2 (08:21→21:49)
[2018-09-08] MEDS: CAPSAICIN 0.025% TOPICAL CREAM 60GM TUBE. TP SCH ×2 (08:21→21:50)
[2018-09-08] MEDS: oxyCODONE IR 5 MG TABLET PO SCH ×3 (08:46→20:40)
[2018-09-08] MEDS: INSULIN LISPRO 300 UNITS/3 ML INSULN.PEN. SQ SCH ×3 (08:48→17:16)
[2018-09-08 15:45] VITALS: BP 102/57
[2018-09-08] MEDS: QUEtiapine 100 MG TABLET. PO SCH (20:36)
[2018-09-08] MEDS: traZODone 150 MG TABLET. PO SCH (20:36)
[2018-09-08] MEDS: MELATONIN 3 MG TABLET PO SCH (20:36)
[2018-09-08] MEDS: PANTOPRAZOLE 40 MG TABLET. PO SCH (20:36)
[2018-09-08] MEDS: INSULIN GLARGINE 300 UNITS/3 ML INSULN.PEN. SQ SCH (20:43)
--- NOTE | 2018-09-08 23:45 | PN ---
DATE: 09/08/2018 SUBJECTIVE: The patient was seen today, met with the staff, chart reviewed and also covering for Dr. Meier. The patient continues to show improvement, somewhat withdrawn. No major behavior problems. OBJECTIVE: VITAL SIGNS: Temperature 97.6, blood pressure 96/58, pulse 67, respirations 18, O2 sat 91%. Slept about 7 hours last night. MEDICATIONS: The patient's current medications include Depakote 375 mg b.i.d., Namenda 10 mg b.i.d., trazodone 150 mg at night, Seroquel 50 mg b.i.d. and 100 mg at night, melatonin 9 mg at night, and gabapentin 800 mg t.i.d. p.o. The patient denies of any side effects to the medications. The patient still has episodes of increased anxiety and agitation. ASSESSMENT: 1. Bipolar disorder, mixed, with psychotic features. 2. Anxiety disorder, unspecified. 3. Mild cognitive impairment. PLAN: To continue with the treatment. LENGTH OF STAY: 3-5 days. PAT PAYAN MD DR: RONNIE/mello JOB#: [id number] / [id number]
[2018-09-09] MEDS: LEVOTHYROXINE 25 MCG TABLET. PO SCH (05:51)
[2018-09-09] MEDS: LEVOTHYROXINE 150 MCG TABLET PO SCH (05:51)
[2018-09-09 06:08] VITALS: BP 105/67
[2018-09-09] MEDS: metFORMIN 500 MG TABLET PO SCH ×2 (08:40→17:00)
[2018-09-09] MEDS: NITROGLYCERIN 0.2MG/HR PATCH. TD SCH (08:40)
[2018-09-09] MEDS: LOSARTAN 50 MG TABLET. PO SCH (08:41)
[2018-09-09] MEDS: POTASSIUM CHLORIDE 10 MEQ TABLET.ER. PO SCH (08:41)
[2018-09-09] MEDS: GABAPENTIN 400 MG CAPSULE. PO SCH ×3 (08:41→20:46)
[2018-09-09] MEDS: TAMSULOSIN 0.4 MG CAP.ER.24H. PO SCH (08:41)
[2018-09-09] MEDS: QUEtiapine 50 MG TABLET. PO SCH ×2 (08:42→20:46)
[2018-09-09] MEDS: DIVALPROEX 125 MG CAP.SPRINK PO SCH ×2 (08:42→20:46)
[2018-09-09] MEDS: POLYETHYLENE GLYCOL 3350 17 GM PACKET. PO SCH (08:43)
[2018-09-09] MEDS: FUROSEMIDE 20 MG TABLET PO SCH (08:43)
[2018-09-09] MEDS: ASPIRIN 81 MG TAB.CHEW PO SCH (08:43)
[2018-09-09] MEDS: SENNOSIDES 8.6 MG TABLET PO SCH ×2 (08:43→21:00)
[2018-09-09] MEDS: CHOLECALCIFEROL (VITAMIN D3) 50,000 UNIT CAPSULE PO SCH (08:43)
[2018-09-09] MEDS: MEMANTINE 10 MG TABLET. PO SCH ×2 (08:43→20:46)
[2018-09-09] MEDS: MUPIROCIN 2% TOPICAL OINTMENT 22GM TUBE. TP SCH ×2 (08:43→22:46)
[2018-09-09] MEDS: oxyCODONE IR 5 MG TABLET PO SCH ×3 (08:43→20:46)
[2018-09-09] MEDS: NYSTATIN TOPICAL POWDER 15GM BOTTLE. TP SCH ×2 (08:44→22:46)
[2018-09-09] MEDS: TROLAMINE SALICYLATE 10% TOPICAL CREAM 85GM JAR. TP SCH (08:44)
[2018-09-09] MEDS: TACROLIMUS 0.1% TP SCH ×2 (08:44→22:47)
[2018-09-09] MEDS: CAPSAICIN 0.025% TOPICAL CREAM 60GM TUBE. TP SCH ×2 (08:44→22:47)
[2018-09-09] MEDS: POLYVINYL ALCOHOL 1.4% OPHTH SOLUTION 15ML BOTTLE. OU SCH (08:46)
[2018-09-09] MEDS: INSULIN LISPRO 300 UNITS/3 ML INSULN.PEN. SQ SCH ×3 (08:56→17:27)
[2018-09-09 15:56] VITALS: BP 134/68
[2018-09-09] MEDS: QUEtiapine 100 MG TABLET. PO SCH (20:41)
[2018-09-09] MEDS: MELATONIN 3 MG TABLET PO SCH (20:41)
[2018-09-09] MEDS: traZODone 150 MG TABLET. PO SCH (20:41)
[2018-09-09] MEDS: PANTOPRAZOLE 40 MG TABLET. PO SCH (20:41)
[2018-09-09] MEDS: INSULIN GLARGINE 300 UNITS/3 ML INSULN.PEN. SQ SCH (20:47)
--- NOTE | 2018-09-10 00:14 | PN ---
DATE: 09/09/2018 SUBJECTIVE: The patient was seen today, met with the staff, chart reviewed. Staff reports continued behavior problems. She tried to pull her colostomy bag. The patient is resistive to care at times. OBSERVATION: VITAL SIGNS: Temperature 97.5, blood pressure 105/67, pulse 82, respirations 20, O2 sat 92%. Slept about 6-1/2 hours last night. The patient's appetite is fair. MEDICATIONS: The patient's current medications include Depakote 375 mg b.i.d. p.o., and the Depakote level was 61, Namenda 10 mg b.i.d., trazodone 150 mg at night. The patient is also on Seroquel 50 mg b.i.d. and 100 mg at night, melatonin 9 mg at night, gabapentin 800 mg t.i.d. The patient denies of any side effects. ASSESSMENT: 1. Bipolar disorder, mixed, with psychotic features. 2. Anxiety disorder, unspecified. 3. Mild cognitive impairment. PLAN: To continue with the treatment. LENGTH OF STAY: 3-5 days. PAT PAYAN MD DR: RONNIE/mello JOB#: [id number] / [id number]
[2018-09-10] MEDS: LEVOTHYROXINE 150 MCG TABLET PO SCH (06:08)
[2018-09-10] MEDS: LEVOTHYROXINE 25 MCG TABLET. PO SCH (06:09)
[2018-09-10 06:13] VITALS: BP 164/78
[2018-09-10] MEDS: QUEtiapine 50 MG TABLET. PO SCH ×2 (08:27→19:26)
[2018-09-10] MEDS: FUROSEMIDE 20 MG TABLET PO SCH (08:28)
[2018-09-10] MEDS: DIVALPROEX 125 MG CAP.SPRINK PO SCH ×2 (08:28→19:26)
[2018-09-10] MEDS: POTASSIUM CHLORIDE 10 MEQ TABLET.ER. PO SCH (08:28)
[2018-09-10] MEDS: NITROGLYCERIN 0.2MG/HR PATCH. TD SCH (08:28)
[2018-09-10] MEDS: SENNOSIDES 8.6 MG TABLET PO SCH ×3 (08:28→19:45)
[2018-09-10] MEDS: TAMSULOSIN 0.4 MG CAP.ER.24H. PO SCH (08:29)
[2018-09-10] MEDS: LOSARTAN 50 MG TABLET. PO SCH (08:29)
[2018-09-10] MEDS: ASPIRIN 81 MG TAB.CHEW PO SCH (08:29)
[2018-09-10] MEDS: MEMANTINE 10 MG TABLET. PO SCH ×2 (08:29→19:26)
[2018-09-10] MEDS: POLYETHYLENE GLYCOL 3350 17 GM PACKET. PO SCH ×2 (08:30→08:45)
[2018-09-10] MEDS: NYSTATIN TOPICAL POWDER 15GM BOTTLE. TP SCH ×2 (08:31→19:27)
[2018-09-10] MEDS: TACROLIMUS 0.1% TP SCH ×2 (08:31→19:27)
[2018-09-10] MEDS: POLYVINYL ALCOHOL 1.4% OPHTH SOLUTION 15ML BOTTLE. OU SCH (08:31)
[2018-09-10] MEDS: CAPSAICIN 0.025% TOPICAL CREAM 60GM TUBE. TP SCH ×2 (08:31→19:27)
[2018-09-10] MEDS: MUPIROCIN 2% TOPICAL OINTMENT 22GM TUBE. TP SCH ×2 (08:31→19:27)
[2018-09-10] MEDS: TROLAMINE SALICYLATE 10% TOPICAL CREAM 85GM JAR. TP SCH (08:32)
[2018-09-10] MEDS: GABAPENTIN 400 MG CAPSULE. PO SCH ×3 (08:33→19:32)
[2018-09-10] MEDS: metFORMIN 500 MG TABLET PO SCH ×2 (08:33→17:14)
[2018-09-10] MEDS: INSULIN LISPRO 300 UNITS/3 ML INSULN.PEN. SQ SCH ×3 (08:35→17:32)
[2018-09-10] MEDS: oxyCODONE IR 5 MG TABLET PO SCH ×3 (09:56→19:32)
[2018-09-10 15:53] VITALS: BP 120/66
[2018-09-10] MEDS: MELATONIN 3 MG TABLET PO SCH (19:26)
[2018-09-10] MEDS: QUEtiapine 100 MG TABLET. PO SCH (19:26)
[2018-09-10] MEDS: PANTOPRAZOLE 40 MG TABLET. PO SCH (19:26)
[2018-09-10] MEDS: traZODone 150 MG TABLET. PO SCH (19:26)
[2018-09-10] MEDS: INSULIN GLARGINE 300 UNITS/3 ML INSULN.PEN. SQ SCH (19:33)
--- NOTE | 2018-09-10 22:49 | PN ---
DATE: 09/10/2018 SUBJECTIVE: The patient was seen today, met with the staff, chart was reviewed. The patient had a good day today, calmer, cooperative, took her medications. OBJECTIVE: VITAL SIGNS: Temperature 97.5, blood pressure 164/78, pulse 78, respirations 20, O2 sat 96%. Slept about 8 hours last night. The patient's appetite improved. MEDICATIONS: The patient's current medications include Depakote 375 mg b.i.d. p.o., Namenda 10 mg b.i.d., trazodone 150 mg at night, Seroquel 50 mg b.i.d. and 100 mg at night. The patient also is on melatonin 9 mg at night, and gabapentin 800 mg t.i.d. p.o. The patient's Depakote level 61. ASSESSMENT: 1. Bipolar disorder, mixed, with psychotic features. 2. Anxiety disorder, unspecified. 3. Mild cognitive impairment. PLAN: To continue with the treatment. LENGTH OF STAY: 3-5 days. PAT PAYAN MD DR: RONNIE/mello JOB#: [id number] / [id number]
[2018-09-11] MEDS: LEVOTHYROXINE 150 MCG TABLET PO SCH (05:47)
[2018-09-11] MEDS: LEVOTHYROXINE 25 MCG TABLET. PO SCH (05:48)
[2018-09-11 06:15] VITALS: BP 113/64
[2018-09-11] MEDS: INSULIN LISPRO 300 UNITS/3 ML INSULN.PEN. SQ SCH ×3 (07:50→16:46)
[2018-09-11] MEDS: DIVALPROEX 125 MG CAP.SPRINK PO SCH ×2 (07:50→19:26)
[2018-09-11] MEDS: POLYETHYLENE GLYCOL 3350 17 GM PACKET. PO SCH (07:52)
[2018-09-11] MEDS: FUROSEMIDE 20 MG TABLET PO SCH (07:52)
[2018-09-11] MEDS: NITROGLYCERIN 0.2MG/HR PATCH. TD SCH (07:52)
[2018-09-11] MEDS: LOSARTAN 50 MG TABLET. PO SCH (07:53)
[2018-09-11] MEDS: TAMSULOSIN 0.4 MG CAP.ER.24H. PO SCH (07:53)
[2018-09-11] MEDS: POTASSIUM CHLORIDE 10 MEQ TABLET.ER. PO SCH (07:54)
[2018-09-11] MEDS: metFORMIN 500 MG TABLET PO SCH ×2 (07:55→16:35)
[2018-09-11] MEDS: ASPIRIN 81 MG TAB.CHEW PO SCH (07:55)
[2018-09-11] MEDS: MEMANTINE 10 MG TABLET. PO SCH ×2 (07:55→19:25)
[2018-09-11] MEDS: QUEtiapine 50 MG TABLET. PO SCH ×2 (07:55→19:25)
[2018-09-11] MEDS: MUPIROCIN 2% TOPICAL OINTMENT 22GM TUBE. TP SCH ×2 (07:58→19:27)
[2018-09-11] MEDS: NYSTATIN TOPICAL POWDER 15GM BOTTLE. TP SCH ×2 (07:58→19:28)
[2018-09-11] MEDS: TROLAMINE SALICYLATE 10% TOPICAL CREAM 85GM JAR. TP SCH (07:58)
[2018-09-11] MEDS: TACROLIMUS 0.1% TP SCH ×2 (07:58→19:26)
[2018-09-11] MEDS: POLYVINYL ALCOHOL 1.4% OPHTH SOLUTION 15ML BOTTLE. OU SCH (07:58)
[2018-09-11] MEDS: CAPSAICIN 0.025% TOPICAL CREAM 60GM TUBE. TP SCH ×2 (07:59→19:26)
[2018-09-11] MEDS: oxyCODONE IR 5 MG TABLET PO SCH ×3 (08:02→19:28)
[2018-09-11] MEDS: SENNOSIDES 8.6 MG TABLET PO SCH ×2 (08:03→19:27)
[2018-09-11] MEDS: GABAPENTIN 400 MG CAPSULE. PO SCH ×3 (08:27→19:33)
[2018-09-11 15:46] VITALS: BP 100/69
[2018-09-11] MEDS: MELATONIN 3 MG TABLET PO SCH (19:25)
[2018-09-11] MEDS: traZODone 150 MG TABLET. PO SCH (19:26)
[2018-09-11] MEDS: QUEtiapine 100 MG TABLET. PO SCH (19:26)
[2018-09-11] MEDS: PANTOPRAZOLE 40 MG TABLET. PO SCH (19:26)
[2018-09-11] MEDS: INSULIN GLARGINE 300 UNITS/3 ML INSULN.PEN. SQ SCH (19:29)
--- NOTE | 2018-09-11 22:01 | PDOC ---
Exam Note: Darren Note: Please also refer to the separate dictated note~for this date of service dictated separately.~Patient seen individually. Discussed the patient with Nursing staff reviewed the chart.~Reviewed interim history and current functioning. Reviewed vital signs,~Labs/ Radiology~and current medications noted below. Continue current treatment with the changes noted in the dictated addendum note Assessment: Vital Signs/I&O: Vital Signs Date Time Temp Pulse Resp B/P (MAP) Pulse Ox O2 Delivery O2 Flow Rate FiO2 09/11/18 20:28 92 09/11/18 15:46 98.3 82 18 100/69 (79) Room Air I & O 09/10/18 09/10/18 09/11/18 14:59 22:59 06:59 Intake Total 720 ml 240 ml 120 ml Balance 720 ml 240 ml 120 ml Labs: Laboratory Tests Test 09/11/18 07:18 09/11/18 07:45 09/11/18 11:38 09/11/18 16:33 Glucose (Fingerstick) 157 mg/dL (70-99) H 173 mg/dL (70-99) H 144 mg/dL (70-99) H Ammonia 21 mcmol/L (11-34) Test 09/11/18 19:18 Glucose (Fingerstick) 179 mg/dL (70-99) H Current Medications: I have reviewed the current psychotropics carefully including drug interactions. Risk benefit ratio favors no change other than as noted in my dictated progress note. Diagnosis: Problems: (1) Bipolar affective, mixed, sev w/ psych (2) Anxiety disorder (3) Impulse control disorder (4) Mood disorder GRAEME DIAZ MD Sep 11, 2018 22:01
[2018-09-12] MEDS: LEVOTHYROXINE 150 MCG TABLET PO SCH (05:31)
[2018-09-12 06:15] VITALS: BP 118/74
[2018-09-12] MEDS: POLYETHYLENE GLYCOL 3350 17 GM PACKET. PO SCH (08:01)
[2018-09-12] MEDS: LOSARTAN 50 MG TABLET. PO SCH (08:01)
[2018-09-12] MEDS: DIVALPROEX 125 MG CAP.SPRINK PO SCH ×2 (08:01→19:27)
[2018-09-12] MEDS: NITROGLYCERIN 0.2MG/HR PATCH. TD SCH (08:01)
[2018-09-12] MEDS: SENNOSIDES 8.6 MG TABLET PO SCH ×2 (08:02→19:27)
[2018-09-12] MEDS: FUROSEMIDE 20 MG TABLET PO SCH (08:02)
[2018-09-12] MEDS: MEMANTINE 10 MG TABLET. PO SCH ×2 (08:02→19:27)
[2018-09-12] MEDS: ASPIRIN 81 MG TAB.CHEW PO SCH (08:02)
[2018-09-12] MEDS: metFORMIN 500 MG TABLET PO SCH ×2 (08:02→17:16)
[2018-09-12] MEDS: TAMSULOSIN 0.4 MG CAP.ER.24H. PO SCH (08:02)
[2018-09-12] MEDS: oxyCODONE IR 5 MG TABLET PO SCH ×3 (08:08→19:30)
[2018-09-12] MEDS: INSULIN LISPRO 300 UNITS/3 ML INSULN.PEN. SQ SCH ×3 (08:09→18:09)
[2018-09-12] MEDS: POTASSIUM CHLORIDE 10 MEQ TABLET.ER. PO SCH (08:09)
[2018-09-12] MEDS: QUEtiapine 50 MG TABLET. PO SCH ×2 (08:09→19:27)
[2018-09-12] MEDS: GABAPENTIN 400 MG CAPSULE. PO SCH ×3 (08:09→19:27)
[2018-09-12] MEDS: TROLAMINE SALICYLATE 10% TOPICAL CREAM 85GM JAR. TP SCH (08:10)
[2018-09-12] MEDS: NYSTATIN TOPICAL POWDER 15GM BOTTLE. TP SCH ×2 (08:10→19:28)
[2018-09-12] MEDS: POLYVINYL ALCOHOL 1.4% OPHTH SOLUTION 15ML BOTTLE. OU SCH (08:10)
[2018-09-12] MEDS: CAPSAICIN 0.025% TOPICAL CREAM 60GM TUBE. TP SCH ×2 (08:10→19:28)
[2018-09-12] MEDS: TACROLIMUS 0.1% TP SCH ×2 (08:10→19:28)
[2018-09-12] MEDS: MUPIROCIN 2% TOPICAL OINTMENT 22GM TUBE. TP SCH ×2 (08:10→19:28)
[2018-09-12] MEDS: LEVOTHYROXINE 25 MCG TABLET. PO SCH (08:11)
[2018-09-12 08:37] LABS: BASO % 1 % (0-3); EOS # 0.1 x10^3/uL (0.0-0.7); EOS % 2 % (0-3); HEMATOCRIT 39.2 % (36.0-47.0); HEMOGLOBIN 12.8 g/dL (12.0-15.5); LYMPH # 0.9 x10^3/uL (1.0-4.8); LYMPH % 18 % (24-48); MEAN CORPUSCULAR HEMOGLOBIN 28 pg (25-35); MEAN CORPUSCULAR HGB CONC 33 g/dL (31-37); MEAN CORPUSCULAR VOLUME 86 fL (79-100); MONO # 0.5 x10^3/uL (0.0-1.1); MONO % 11 % (0-9); NEUT # 3.4 x10^3uL (1.8-7.7); NEUT % 69 % (31-73); PLATELET COUNT 194 x10^3/uL (140-400); RED BLOOD COUNT 4.57 x10^6/uL (3.50-5.40)
[2018-09-12 09:00] LABS: ALBUMIN/GLOBULIN RATIO 0.8 (1.0-1.7); CALCIUM 8.9 mg/dL (8.5-10.1); CREATININE 0.8 mg/dL (0.6-1.0); POTASSIUM 4.2 mmol/L (3.5-5.1); TOTAL BILIRUBIN 0.4 mg/dL (0.2-1.0); TOTAL PROTEIN 6.9 g/dL (6.4-8.2)
[2018-09-12 16:48] VITALS: BP 127/71
[2018-09-12] MEDS: PANTOPRAZOLE 40 MG TABLET. PO SCH (19:26)
[2018-09-12] MEDS: traZODone 150 MG TABLET. PO SCH (19:27)
[2018-09-12] MEDS: MELATONIN 3 MG TABLET PO SCH (19:27)
[2018-09-12] MEDS: QUEtiapine 100 MG TABLET. PO SCH (19:27)
[2018-09-12] MEDS: INSULIN GLARGINE 300 UNITS/3 ML INSULN.PEN. SQ SCH (19:34)
--- NOTE | 2018-09-12 22:42 | PDOC ---
Exam Note: Darren Note: Please also refer to the separate dictated note~for this date of service dictated separately.~Patient seen individually. Discussed the patient with Nursing staff reviewed the chart.~Reviewed interim history and current functioning. Reviewed vital signs,~Labs/ Radiology~and current medications noted below. Continue current treatment with the changes noted in the dictated addendum note Assessment: Vital Signs/I&O: Vital Signs Date Time Temp Pulse Resp B/P (MAP) Pulse Ox O2 Delivery O2 Flow Rate FiO2 09/12/18 20:30 18 95 09/12/18 16:48 98.2 75 127/71 (89) 09/12/18 09:44 Room Air I & O 09/11/18 09/11/18 09/12/18 14:59 22:59 06:59 Intake Total 700 ml 240 ml 120 ml Balance 700 ml 240 ml 120 ml Labs: Laboratory Tests Test 09/12/18 07:26 09/12/18 07:54 09/12/18 11:43 09/12/18 17:08 Glucose (Fingerstick) 116 mg/dL (70-99) H 130 mg/dL (70-99) H 167 mg/dL (70-99) H White Blood Count 5.0 x10^3/uL (4.0-11.0) Red Blood Count 4.57 x10^6/uL (3.50-5.40) Hemoglobin 12.8 g/dL (12.0-15.5) Hematocrit 39.2 % (36.0-47.0) Mean Corpuscular Volume 86 fL (79-100) Mean Corpuscular Hemoglobin 28 pg (25-35) Mean Corpuscular Hemoglobin Concent 33 g/dL (31-37) Red Cell Distribution Width 15.0 % (11.5-14.5) H Platelet Count 194 x10^3/uL (140-400) Neutrophils (%) (Auto) 69 % (31-73) Lymphocytes (%) (Auto) 18 % (24-48) L Monocytes (%) (Auto) 11 % (0-9) H Eosinophils (%) (Auto) 2 % (0-3) Basophils (%) (Auto) 1 % (0-3) Neutrophils # (Auto) 3.4 x10^3uL (1.8-7.7) Lymphocytes # (Auto) 0.9 x10^3/uL (1.0-4.8) L Monocytes # (Auto) 0.5 x10^3/uL (0.0-1.1) Eosinophils # (Auto) 0.1 x10^3/uL (0.0-0.7) Basophils # (Auto) 0.0 x10^3/uL (0.0-0.2) Sodium Level 140 mmol/L (136-145) Potassium Level 4.2 mmol/L (3.5-5.1) Chloride Level 103 mmol/L (98-107) Carbon Dioxide Level 31 mmol/L (21-32) Anion Gap 6 (6-14) Blood Urea Nitrogen 7 mg/dL (7-20) Creatinine 0.8 mg/dL (0.6-1.0) Estimated GFR (Cockcroft-Gault) 69.0 BUN/Creatinine Ratio 9 (6-20) Glucose Level 108 mg/dL (70-99) H Calcium Level 8.9 mg/dL (8.5-10.1) Total Bilirubin 0.4 mg/dL (0.2-1.0) Aspartate Amino Transferase (AST) 20 U/L (15-37) Alanine Aminotransferase (ALT) 21 U/L (14-59) Alkaline Phosphatase 91 U/L (46-116) Total Protein 6.9 g/dL (6.4-8.2) Albumin 3.0 g/dL (3.4-5.0) L Albumin/Globulin Ratio 0.8 (1.0-1.7) L Test 09/12/18 19:41 Glucose (Fingerstick) 177 mg/dL (70-99) H Current Medications: I have reviewed the current psychotropics carefully including drug interactions. Risk benefit ratio favors no change other than as noted in my dictated progress note. Diagnosis: Problems: (1) Bipolar affective, mixed, sev w/ psych (2) Anxiety disorder (3) Impulse control disorder (4) Mood disorder GRAEME DIAZ MD Sep 12, 2018 22:42
[2018-09-13 06:06] VITALS: BP 105/54
[2018-09-13] MEDS: LEVOTHYROXINE 25 MCG TABLET. PO SCH (06:22)
[2018-09-13] MEDS: LEVOTHYROXINE 150 MCG TABLET PO SCH (06:22)
[2018-09-13] MEDS: DIVALPROEX 125 MG CAP.SPRINK PO SCH ×2 (08:06→20:29)
[2018-09-13] MEDS: TAMSULOSIN 0.4 MG CAP.ER.24H. PO SCH (08:06)
[2018-09-13] MEDS: NITROGLYCERIN 0.2MG/HR PATCH. TD SCH (08:06)
[2018-09-13] MEDS: metFORMIN 500 MG TABLET PO SCH ×3 (08:07→20:29)
[2018-09-13] MEDS: ASPIRIN 81 MG TAB.CHEW PO SCH (08:07)
[2018-09-13] MEDS: FUROSEMIDE 20 MG TABLET PO SCH (08:07)
[2018-09-13] MEDS: SENNOSIDES 8.6 MG TABLET PO SCH ×2 (08:07→20:29)
[2018-09-13] MEDS: LOSARTAN 50 MG TABLET. PO SCH (08:07)
[2018-09-13] MEDS: POTASSIUM CHLORIDE 10 MEQ TABLET.ER. PO SCH (08:08)
[2018-09-13] MEDS: MEMANTINE 10 MG TABLET. PO SCH ×2 (08:08→20:29)
[2018-09-13] MEDS: POLYETHYLENE GLYCOL 3350 17 GM PACKET. PO SCH (08:08)
[2018-09-13] MEDS: TACROLIMUS 0.1% TP SCH ×2 (08:11→22:32)
[2018-09-13] MEDS: MUPIROCIN 2% TOPICAL OINTMENT 22GM TUBE. TP SCH ×2 (08:11→22:33)
[2018-09-13] MEDS: CAPSAICIN 0.025% TOPICAL CREAM 60GM TUBE. TP SCH ×2 (08:12→22:32)
[2018-09-13] MEDS: TROLAMINE SALICYLATE 10% TOPICAL CREAM 85GM JAR. TP SCH (08:12)
[2018-09-13] MEDS: NYSTATIN TOPICAL POWDER 15GM BOTTLE. TP SCH ×2 (08:12→22:33)
[2018-09-13] MEDS: POLYVINYL ALCOHOL 1.4% OPHTH SOLUTION 15ML BOTTLE. OU SCH (08:14)
[2018-09-13] MEDS: QUEtiapine 50 MG TABLET. PO SCH ×2 (08:17→20:29)
[2018-09-13] MEDS: oxyCODONE IR 5 MG TABLET PO SCH ×3 (08:17→20:31)
[2018-09-13] MEDS: GABAPENTIN 400 MG CAPSULE. PO SCH ×3 (08:17→20:30)
[2018-09-13] MEDS: INSULIN LISPRO 300 UNITS/3 ML INSULN.PEN. SQ SCH ×3 (08:18→18:04)
[2018-09-13 16:34] VITALS: BP 128/76
--- NOTE | 2018-09-13 16:53 | PN ---
DATE: 09/11/2018 This is a late entry, 09/11/2018, covers elements not covered in my initial note. SUBJECTIVE: I met with the patient in the evening. Reviewed information with Dr. Cantu, who covered for me over the past one week. The patient has done somewhat better. Senna and MiraLax were held as constipation is better. She has been interfering with her colostomy per nursing staff. She does complain of back pain and pain in her extremities, and is on scheduled oxycodone. I will defer to Dr. Laird. Other than this, no CV, , pulmonary, eye system symptoms on review. MENTAL STATUS EXAM: Oriented to herself and situation. Speech has some latency, coherent. Abstraction fair, computation impaired, language function intact, attention span short. Mood and affect is improved, less paranoid, less depressed. Valproic acid level 61. IMPRESSION: Unchanged from initial note. PLAN: No change from initial note. GRAEME DIAZ MD DR: RONNY/mello JOB#: [id number] / [id number]
[2018-09-13] MEDS: traZODone 150 MG TABLET. PO SCH (20:28)
[2018-09-13] MEDS: PANTOPRAZOLE 40 MG TABLET. PO SCH (20:29)
[2018-09-13] MEDS: QUEtiapine 100 MG TABLET. PO SCH (20:29)
[2018-09-13] MEDS: MELATONIN 3 MG TABLET PO SCH (20:30)
[2018-09-13] MEDS: INSULIN GLARGINE 300 UNITS/3 ML INSULN.PEN. SQ SCH (22:14)
--- NOTE | 2018-09-13 22:37 | PDOC ---
Exam Note: Darren Note: Please also refer to the separate dictated note~for this date of service dictated separately.~Patient seen individually. Discussed the patient with Nursing staff reviewed the chart.~Reviewed interim history and current functioning. Reviewed vital signs,~Labs/ Radiology~and current medications noted below. Continue current treatment with the changes noted in the dictated addendum note Assessment: Vital Signs/I&O: Vital Signs Date Time Temp Pulse Resp B/P (MAP) Pulse Ox O2 Delivery O2 Flow Rate FiO2 09/13/18 21:31 18 95 09/13/18 16:34 98.9 78 128/76 (93) 09/12/18 09:44 Room Air I & O 09/12/18 09/12/18 09/13/18 14:59 22:59 06:59 Intake Total 720 ml 480 ml Balance 720 ml 480 ml Labs: Laboratory Tests Test 09/13/18 07:26 09/13/18 12:03 09/13/18 17:25 09/13/18 19:28 Glucose (Fingerstick) 102 mg/dL (70-99) H 166 mg/dL (70-99) H 154 mg/dL (70-99) H 146 mg/dL (70-99) H Current Medications: I have reviewed the current psychotropics carefully including drug interactions. Risk benefit ratio favors no change other than as noted in my dictated progress note. Diagnosis: Problems: (1) Bipolar affective, mixed, sev w/ psych (2) Anxiety disorder (3) Impulse control disorder (4) Mood disorder GRAEME DIAZ MD Sep 13, 2018 22:37
--- NOTE | 2018-09-14 02:31 | PN ---
DATE: 09/12/2018 PSYCHIATRIC PROGRESS NOTE This is a late entry 09/12/2018, covers the elements not covered in my initial note. SUBJECTIVE: I met with the patient in the evening. The patient slept 6-3/4 hours previous night. She still complains of ongoing pain, but otherwise mood lability is improved. No CV, , pulmonary, eye system symptoms on review. MENTAL STATUS EXAM: Reasonably oriented. Speech is coherent, abstraction fair, computation impaired, language function intact, attention span short. Mood and affect, somewhat anxious, withdrawn at times. LABORATORY DATA: Reviewed. IMPRESSION: Schizoaffective disorder, bipolar type, mixed with psychotic features; anxiety disorder, unspecified; major depressive disorder. PLAN: Continue Seroquel, melatonin, Namenda, and trazodone along with Depakote at current dosage. Valproic acid level is 61, therapeutic for now. MAN Matt DIAZ MD DR: RONNY/mello JOB#: [id number] / [id number]
[2018-09-14] MEDS: LEVOTHYROXINE 25 MCG TABLET. PO SCH (05:45)
[2018-09-14] MEDS: LEVOTHYROXINE 150 MCG TABLET PO SCH (05:45)
[2018-09-14 06:09] VITALS: BP 121/69
[2018-09-14] MEDS: POLYETHYLENE GLYCOL 3350 17 GM PACKET. PO SCH (07:37)
[2018-09-14] MEDS: NITROGLYCERIN 0.2MG/HR PATCH. TD SCH (07:38)
[2018-09-14] MEDS: MEMANTINE 10 MG TABLET. PO SCH ×2 (07:39→19:47)
[2018-09-14] MEDS: POTASSIUM CHLORIDE 10 MEQ TABLET.ER. PO SCH (07:39)
[2018-09-14] MEDS: TAMSULOSIN 0.4 MG CAP.ER.24H. PO SCH (07:39)
[2018-09-14] MEDS: SENNOSIDES 8.6 MG TABLET PO SCH ×2 (07:39→19:46)
[2018-09-14] MEDS: FUROSEMIDE 20 MG TABLET PO SCH (07:39)
[2018-09-14] MEDS: QUEtiapine 50 MG TABLET. PO SCH ×2 (07:39→19:46)
[2018-09-14] MEDS: DIVALPROEX 125 MG CAP.SPRINK PO SCH ×2 (07:39→19:46)
[2018-09-14] MEDS: metFORMIN 500 MG TABLET PO SCH (07:40)
[2018-09-14] MEDS: LOSARTAN 50 MG TABLET. PO SCH (07:40)
[2018-09-14] MEDS: ASPIRIN 81 MG TAB.CHEW PO SCH (07:40)
[2018-09-14] MEDS: GABAPENTIN 400 MG CAPSULE. PO SCH ×3 (07:42→19:49)
[2018-09-14] MEDS: oxyCODONE IR 5 MG TABLET PO SCH ×3 (07:42→19:49)
[2018-09-14] MEDS: TROLAMINE SALICYLATE 10% TOPICAL CREAM 85GM JAR. TP SCH (07:44)
[2018-09-14] MEDS: TACROLIMUS 0.1% TP SCH ×2 (07:44→20:02)
[2018-09-14] MEDS: CAPSAICIN 0.025% TOPICAL CREAM 60GM TUBE. TP SCH ×2 (07:44→20:03)
[2018-09-14] MEDS: POLYVINYL ALCOHOL 1.4% OPHTH SOLUTION 15ML BOTTLE. OU SCH (07:45)
[2018-09-14] MEDS: MUPIROCIN 2% TOPICAL OINTMENT 22GM TUBE. TP SCH ×2 (07:45→20:02)
[2018-09-14] MEDS: NYSTATIN TOPICAL POWDER 15GM BOTTLE. TP SCH ×2 (07:45→20:02)
[2018-09-14] MEDS: INSULIN LISPRO 300 UNITS/3 ML INSULN.PEN. SQ SCH ×3 (07:56→18:26)
[2018-09-14 16:11] VITALS: BP 126/70
[2018-09-14] MEDS: PANTOPRAZOLE 40 MG TABLET. PO SCH (19:46)
[2018-09-14] MEDS: traZODone 150 MG TABLET. PO SCH (19:47)
[2018-09-14] MEDS: QUEtiapine 100 MG TABLET. PO SCH (19:47)
[2018-09-14] MEDS: MELATONIN 3 MG TABLET PO SCH (19:47)
[2018-09-14] MEDS: INSULIN GLARGINE 300 UNITS/3 ML INSULN.PEN. SQ SCH (19:53)
--- NOTE | 2018-09-14 22:05 | PN ---
DATE: 09/13/2018 PSYCHIATRIC PROGRESS NOTE This late entry 09/13/2018 covers elements not covered in my initial note. SUBJECTIVE: I met with the patient evening of 09/13/2018. The patient slept 6 hours previous evening. She has been compliant with her medications. REVIEW OF SYSTEMS: Still complains of chronic pain in back and extremities. This is a constant complaint from her. No CV, , pulmonary, eye, ENT system symptoms on review. MENTAL STATUS EXAM: Reasonably oriented. Speech is coherent, but has a typical rhythm. Abstraction fair, computation impaired, language function intact, attention span short. Mood and affect remain somewhat anxious, labile, but improved. No active hallucinations noted. LABORATORY DATA: Reviewed. IMPRESSION: Unchanged from initial note. PLAN: Continue current psychotropics. Valproic acid level will be repeated. Maintain melatonin, Namenda, Seroquel, trazodone, and Depakote for now. GRAEME DIAZ MD DR: RONNY/mello JOB#: [id number] / [id number]
--- NOTE | 2018-09-14 22:37 | PDOC ---
Exam Note: Darren Note: Please also refer to the separate dictated note~for this date of service dictated separately.~Patient seen individually. Discussed the patient with Nursing staff reviewed the chart.~Reviewed interim history and current functioning. Reviewed vital signs,~Labs/ Radiology~and current medications noted below. Continue current treatment with the changes noted in the dictated addendum note Assessment: Vital Signs/I&O: Vital Signs Date Time Temp Pulse Resp B/P (MAP) Pulse Ox O2 Delivery O2 Flow Rate FiO2 09/14/18 19:49 18 96 Room Air 09/14/18 16:11 98.0 79 126/70 (88) I & O 09/13/18 09/13/18 09/14/18 14:59 22:59 06:59 Intake Total 720 ml 240 ml 360 ml Balance 720 ml 240 ml 360 ml Labs: Laboratory Tests Test 09/14/18 07:34 09/14/18 12:00 09/14/18 17:08 09/14/18 19:22 Glucose (Fingerstick) 105 mg/dL (70-99) H 113 mg/dL (70-99) H 94 mg/dL (70-99) 123 mg/dL (70-99) H Current Medications: I have reviewed the current psychotropics carefully including drug interactions. Risk benefit ratio favors no change other than as noted in my dictated progress note. Diagnosis: Problems: (1) Bipolar affective, mixed, sev w/ psych (2) Anxiety disorder (3) Impulse control disorder (4) Mood disorder (5) Major depressive disorder GRAEME DIAZ MD Sep 14, 2018 22:37
[2018-09-15] MEDS ORDERED: ACET325T9 PO (04:04)
[2018-09-15] MEDS ORDERED: CHOL500021 PO (04:06)
[2018-09-15] MEDS ORDERED: LOSA100T14 PO (04:09)
[2018-09-15] MEDS ORDERED: MAG30ORA2 PO (04:11)
[2018-09-15] MEDS ORDERED: MAGN400O7 PO (04:13)
[2018-09-15] MEDS ORDERED: METH29OI TP (04:16)
[2018-09-15] MEDS ORDERED: MUPI15CR8 TP (04:20)
[2018-09-15] MEDS ORDERED: OLAN5TAB5 PO (04:22)
[2018-09-15] MEDS ORDERED: DIVA125C2 PO (04:23)
[2018-09-15] MEDS ORDERED: TACR100O2 TP (04:28)
[2018-09-15] MEDS: LEVOTHYROXINE 25 MCG TABLET. PO SCH (05:53)
[2018-09-15] MEDS: LEVOTHYROXINE 150 MCG TABLET PO SCH (05:53)
[2018-09-15 06:11] VITALS: BP 118/66
[2018-09-15] MEDS: ASPIRIN 81 MG TAB.CHEW PO SCH (08:49)
[2018-09-15] MEDS: metFORMIN 500 MG TABLET PO SCH (08:49)
[2018-09-15] MEDS: POTASSIUM CHLORIDE 10 MEQ TABLET.ER. PO SCH (08:50)
[2018-09-15] MEDS: POLYVINYL ALCOHOL 1.4% OPHTH SOLUTION 15ML BOTTLE. OU SCH (08:50)
[2018-09-15 08:51] VITALS: BP 118/66
[2018-09-15] MEDS: DIVALPROEX 125 MG CAP.SPRINK PO SCH (08:51)
[2018-09-15] MEDS: LOSARTAN 50 MG TABLET. PO SCH (08:51)
[2018-09-15] MEDS: TAMSULOSIN 0.4 MG CAP.ER.24H. PO SCH (08:52)
[2018-09-15] MEDS: MEMANTINE 10 MG TABLET. PO SCH (08:52)
[2018-09-15] MEDS: SENNOSIDES 8.6 MG TABLET PO SCH (08:52)
[2018-09-15] MEDS: QUEtiapine 50 MG TABLET. PO SCH (08:52)
[2018-09-15] MEDS: FUROSEMIDE 20 MG TABLET PO SCH (08:52)
[2018-09-15] MEDS: POLYETHYLENE GLYCOL 3350 17 GM PACKET. PO SCH (08:52)
[2018-09-15] MEDS: MUPIROCIN 2% TOPICAL OINTMENT 22GM TUBE. TP SCH (08:53)
[2018-09-15] MEDS: TACROLIMUS 0.1% TP SCH (08:53)
[2018-09-15] MEDS: NITROGLYCERIN 0.2MG/HR PATCH. TD SCH (08:53)
[2018-09-15] MEDS: NYSTATIN TOPICAL POWDER 15GM BOTTLE. TP SCH (08:53)
[2018-09-15] MEDS: CAPSAICIN 0.025% TOPICAL CREAM 60GM TUBE. TP SCH (08:53)
[2018-09-15] MEDS: TROLAMINE SALICYLATE 10% TOPICAL CREAM 85GM JAR. TP SCH (08:53)
[2018-09-15] MEDS: GABAPENTIN 400 MG CAPSULE. PO SCH (08:56)
[2018-09-15] MEDS: INSULIN LISPRO 300 UNITS/3 ML INSULN.PEN. SQ SCH (08:57)
[2018-09-15] MEDS: oxyCODONE IR 5 MG TABLET PO SCH (08:57)
--- NOTE | 2018-09-15 18:41 | PDOC ---
Exam Note: Darren Note: Please also refer to the separate dictated note~for this date of service dictated separately.~Patient seen individually. Discussed the patient with Nursing staff reviewed the chart.~Reviewed interim history and current functioning. Reviewed vital signs,~Labs/ Radiology~and current medications noted below. Continue current treatment with the changes noted in the dictated addendum note Assessment: Vital Signs/I&O: Vital Signs Date Time Temp Pulse Resp B/P (MAP) Pulse Ox O2 Delivery O2 Flow Rate FiO2 09/15/18 09:57 18 09/15/18 08:51 79 118/66 09/15/18 06:11 98.2 92 Room Air I & O 09/14/18 09/14/18 09/15/18 15:00 23:00 07:00 Intake Total 720 ml 360 ml Balance 720 ml 360 ml Labs: Laboratory Tests Test 09/14/18 19:22 09/15/18 07:21 09/15/18 11:22 Glucose (Fingerstick) 123 mg/dL (70-99) H 95 mg/dL (70-99) 128 mg/dL (70-99) H Current Medications: I have reviewed the current psychotropics carefully including drug interactions. Risk benefit ratio favors no change other than as noted in my dictated progress note. Diagnosis: Problems: (1) Major depressive disorder (2) Mood disorder (3) Anxiety disorder (4) Impulse control disorder (5) Bipolar affective, mixed, sev w/ psych GRAEME DIAZ MD Sep 15, 2018 18:41
--- NOTE | 2018-09-15 19:24 | DS ---
DATE OF DISCHARGE: 09/15/2018 DISCHARGE SUMMARY/PSYCHIATRIC PROGRESS NOTE. This note covers the elements not covered in my initial note 09/15/2018. REASON FOR ADMISSION: Please refer to the admission history for details. Briefly, the patient is an 78-year-old female referred to us from the Emergency Room at [facility] after she presented there from [facility] on account of suicidal ideation and "wanting to be with Reyes". She was upset about living in correction, wanted to live with her son. She was having active hallucinations, talking to voices in her head. She had failed outpatient psychiatric interventions for her schizoaffective disorder, bipolar type. Behaviors were deemed dangerous, unmanageable, failed outpatient psychiatric interventions at the correction, resulting in this referral from the Emergency Room. SIGNIFICANT FINDINGS AND CLINICAL COURSE: Following admission, the patient was seen daily individually by myself from a psychiatric standpoint, medical followup with Dr. Laird. Admission UA was positive, but culture showed mixed yulia. She remains somewhat anxious, depressed with some marked mood lability initially. Adjustments were made in her psychotropics. She seemed to respond to a combination of Seroquel 50 mg b.i.d. and 100 mg at bedtime, Namenda 10 mg b.i.d., melatonin 9 mg at bedtime, trazodone 150 mg at bedtime, Depakote was adjusted to 375 mg b.i.d. with Valproic acid level therapeutic at 61 and Zyprexa was used p.r.n. REVIEW OF SYSTEMS: Prior to discharge on 09/15/2018, no CV, , pulmonary, eye, ENT system symptoms on review, does complain of back pain. MENTAL STATUS EXAM: Oriented to herself and situation. Speech has some latency, typical mannerisms. Abstraction fair, computation impaired, language function intact, attention span short. Mood and affect improved with improved mood lability. No suicidal or homicidal ideation. LABORATORY DATA: Reviewed. FINAL DIAGNOSES: Bipolar 1 disorder, mixed with psychotic features, in partial remission; anxiety disorder, unspecified; impulse control disorder, unspecified. Rest unchanged from admission. DISCHARGE MEDICATIONS: Please refer to the MRAD. DISCHARGE INSTRUCTIONS: Outpatient psychiatric and medical followup at the correction. Time for discharge day management is greater than 30 minutes. MAN Matt DIAZ MD DR: Huber JOB#: [id number] / [id number]
--- NOTE | 2018-09-16 00:21 | PN ---
DATE: 09/14/2018 PSYCHIATRIC PROGRESS NOTE This late entry, 09/14, covers elements not covered in my initial note. SUBJECTIVE: I met with the patient evening of 09/14. The patient slept 6 hours previous night. Overall, she has been fairly appropriate on the unit, less anxious, less labile. No suicidal ideation. REVIEW OF SYSTEMS: Ambulation impaired, in wheelchair. No CV, , pulmonary, eye, ENT system symptoms on review. Does complain of some back pain and extremity pain. MENTAL STATUS EXAM: Oriented to herself and situation. Speech is coherent, less pressured. Abstraction fair, computation somewhat impaired, language function intact, attention span short. Mood and affect appears improved, less labile, less anxious, less psychotic. LABORATORY DATA: Reviewed. IMPRESSION: Unchanged from initial note. PLAN: No change from initial note with possible discharge to [facility] on 09/15. MAN Matt DIAZ MD DR: RONNY/mello JOB#: [id number] / [id number]
== END 2018-09-15 11:50 | DRG 885 ==
LOC: GEROPSY 08:45
PROVIDERS: ADMIT Psychiatry & Neurology Psychiatry; ATTEND Psychiatry & Neurology Psychiatry
DX: F31.64 Bipolar disorder, current episode mixed, severe, with psychotic features (principal); R45.851 Suicidal ideations; E11.9 Type 2 diabetes mellitus without complications; E78.5 Hyperlipidemia, unspecified; E89.0 Postprocedural hypothyroidism; F41.9 Anxiety disorder, unspecified; F63.9 Impulse disorder, unspecified; G31.84 Mild cognitive impairment of uncertain or unknown etiology; I10 Essential (primary) hypertension; K21.9 Gastro-esophageal reflux disease without esophagitis; K59.00 Constipation, unspecified; M19.90 Unspecified osteoarthritis, unspecified site; R13.10 Dysphagia, unspecified; Z79.899 Other long term (current) drug therapy; Z90.710 Acquired absence of both cervix and uterus; Z93.3 Colostomy status; Z96.653 Presence of artificial knee joint, bilateral
CPT/HCPCS: 36415; 80053; 80061; 80164; 81001; 82140; 82306; 82947; 83036; 83540; 83550; 83735; 84436; 84443; 84480; 85025; 86592; 87086; 93005; J1815; 92610; 97110

== ENCOUNTER 2019-05-12 18:22 | Inpatient (IN) | payer MEDICARE, MEDICAID ==
[~2019-05-12] VITALS: Ht 157.5 cm; Wt 102.3 kg
[~2019-05-12 18:22] MED LIST changes: -BISA10SU2 RC; +BISA10SU4 RC; +CAPS42.513 TP; +CHOL500021 PO; +DEXT15DR5 OU; +FURO20TA3 PO; +INSU100I17 SQ; +IPRA3AMP29 NEB; +LIDO76.5 TP; +LOSA100T14 PO; +MAG30ORA2 PO; -MAGN2400 PO; +MAGN24003 PO; +MAGN400O7 PO; -MELA3TAB2 PO; +MELA3TAB4 PO; +METF500T16 PO; +METH28OI2 TP; +MUPI15CR8 TP; +NITR100C62 PO; -NITR1PAT5 TD; +NITR1PAT72 TD; +OLAN5TAB5 PO; -OMEP20CA10 PO; +OMEP20CA16 PO; +POTA10TA10 PO; +QUET100T4 PO; +TACR100O2 TP; +TRAZ-125 PO; -TRAZ-86 PO; +[UNRECOGNIZED DRUG - CODE] PO
--- NOTE | 2019-05-12 18:54 | PHYS DOC ---
Past History Past Medical History: A-Fib, Angina, Anxiety, Bipolar, Dementia, Diabetes, Hypothyroid, Schizophrenia Past Surgical History: No Surgical History Alcohol Use: None Drug Use: None Adult General Chief Complaint Chief Complaint: MEDICAL CLEARANCE [facility] HPI Patient is an 79-year-old female, who presents to the emergency department for evaluation, for increasing restlessness, and paranoia, for medical clearance. BHU admit. She denies any complaints of pain that are new for her at this time. She does have chronic chest and abdominal pain which is not new. She has a nitroglycerin patch in place which is chronic for her. She has not had any nausea, or vomiting. There are no alleviating, or exacerbating factors to her symptoms otherwise. Review of Systems Review of Systems Constitutional: Denies fever or chills [] Eyes: Denies change in visual acuity, redness, or eye pain [] HENT: Denies nasal congestion or sore throat [] Respiratory: Denies cough or shortness of breath [] Cardiovascular: No additional information not addressed in HPI [] GI: Denies new abdominal pain, nausea, vomiting, bloody stools or diarrhea [] : Denies dysuria or hematuria [] Musculoskeletal: Denies back pain or joint pain [] Integument: Denies rash or skin lesions [] Neurologic: Denies headache, focal weakness or sensory changes [] Endocrine: Denies polyuria or polydipsia [] All other systems were reviewed and found to be within normal limits, except as documented in this note. Allergies Allergies Allergies Coded Allergies Type Severity Reaction Last Updated Verified Penicillins Allergy Intermediate 08/31/18 Yes Sulfa (Sulfonamide Antibiotics) Allergy Intermediate 08/31/18 Yes ciprofloxacin Allergy Intermediate 03/14/16 Yes divalproex sodium Allergy Intermediate 08/31/18 Yes levofloxacin Allergy Intermediate 03/14/16 Yes lorazepam Allergy Intermediate 03/14/16 Yes Physical Exam Physical Exam PHYSICAL EXAM: CONSTITUTIONAL: Well developed, well nourished HEAD: normocephalic, atraumatic EENT: PERRL, EOMI. Conjunctivae normal color, sclerae non-icteric; moist mucous membranes. NECK: Supple, non-tender; no meningismus. LUNGS: Lungs CTA, breathing even and unlabored. Normal air movement. HEART: Regular rate and rhythm, no murmur CHEST: No deformity; non-tender ABDOMEN: The abdomen is soft, and non-tender, no masses or bruits. EXTREM: Normal ROM; no deformity, no calf tenderness. Normal pulses palpable in all extremities. There is no pedal edema. SKIN: No rash; no diaphoresis NEURO: Alert; normal speech and cognition; CN's grossly intact; strength grossly intact without focal deficit. BACK: No CVA TTP. Current Patient Data Lab Results Laboratory Tests Test 05/12/19 19:00 05/12/19 19:05 White Blood Count 6.6 x10^3/uL Red Blood Count 4.18 x10^6/uL Hemoglobin 12.1 g/dL Hematocrit 37.0 % Mean Corpuscular Volume 89 fL Mean Corpuscular Hemoglobin 29 pg Mean Corpuscular Hemoglobin Concent 33 g/dL Red Cell Distribution Width 14.6 % Platelet Count 157 x10^3/uL Neutrophils (%) (Auto) 60 % Lymphocytes (%) (Auto) 22 % Monocytes (%) (Auto) 12 % Eosinophils (%) (Auto) 3 % Basophils (%) (Auto) 2 % Neutrophils # (Auto) 4.0 x10^3uL Lymphocytes # (Auto) 1.5 x10^3/uL Monocytes # (Auto) 0.8 x10^3/uL Eosinophils # (Auto) 0.2 x10^3/uL Basophils # (Auto) 0.1 x10^3/uL Sodium Level 136 mmol/L Potassium Level 4.7 mmol/L Chloride Level 99 mmol/L Carbon Dioxide Level 25 mmol/L Anion Gap 12 Blood Urea Nitrogen 8 mg/dL Creatinine 0.8 mg/dL Estimated GFR (Cockcroft-Gault) 68.8 BUN/Creatinine Ratio 10 Glucose Level 157 mg/dL Calcium Level 8.9 mg/dL Magnesium Level 2.0 mg/dL Total Bilirubin 0.2 mg/dL Aspartate Amino Transf (AST/SGOT) 16 U/L Alanine Aminotransferase (ALT/SGPT) 18 U/L Alkaline Phosphatase 83 U/L Troponin I Quantitative 0.017 ng/mL Total Protein 6.5 g/dL Albumin 3.1 g/dL Albumin/Globulin Ratio 0.9 Lipase 174 U/L Urine Collection Type Unknown Urine Color Yellow Urine Clarity Clear Urine pH 5.5 Urine Specific [place] 1.015 Urine Protein Neg Urine Glucose (UA) Neg mg/dL Urine Ketones (Stick) Neg mg/dL Urine Blood Trace Urine Nitrite Neg Urine Bilirubin Neg Urine Urobilinogen Dipstick 0.2 mg/dL Urine Leukocyte Esterase Neg Urine RBC Rare /HPF Urine WBC Rare /HPF Urine Squamous Epithelial Cells Occ /LPF Urine Bacteria 0 /HPF EKG EKG Normal sinus rhythm at a rate of 105 beats for minute,[] leftward axis, normal intervals, poor anterior R-wave progression without acute ischemic ST/T changes. Nonspecific changes are present. Radiology/Procedures Radiology/Procedures [] Course & Med Decision Making Course & Med Decision Making Pertinent Labs and Imaging studies reviewed. (See chart for details) [] Dragon Disclaimer Dragon Disclaimer This electronic medical record was generated, in whole or in part, using a voice recognition dictation system. Departure Departure: Impression: Primary Impression: Dementia with behavioral disturbance Disposition: ADMITTED INPATIENT ([facility]) Condition: STABLE Referrals: PCP,UNKNOWN (PCP) FLORENCIA KELLOGG MD May 12, 2019 18:54
[2019-05-12 19:22] LABS: BASO # 0.1 x10^3/uL (0.0-0.2); BASO % 2 % (0-3); EOS # 0.2 x10^3/uL (0.0-0.7); EOS % 3 % (0-3); HEMOGLOBIN 12.1 g/dL (12.0-15.5); LYMPH # 1.5 x10^3/uL (1.0-4.8); LYMPH % 22 % (24-48); MEAN CORPUSCULAR HEMOGLOBIN 29 pg (25-35); MEAN CORPUSCULAR HGB CONC 33 g/dL (31-37); MEAN CORPUSCULAR VOLUME 89 fL (79-100); MONO # 0.8 x10^3/uL (0.0-1.1); MONO % 12 % (0-9); NEUT % 60 % (31-73); PLATELET COUNT 157 x10^3/uL (140-400); RED BLOOD COUNT 4.18 x10^6/uL (3.50-5.40); RED CELL DISTRIBUTION WIDTH 14.6 % (11.5-14.5); WHITE BLOOD COUNT 6.6 x10^3/uL (4.0-11.0)
[2019-05-12 19:25] LABS: CALCIUM 8.9 mg/dL (8.5-10.1); CREATININE 0.8 mg/dL (0.6-1.0); GFR 68.8; POTASSIUM 4.7 mmol/L (3.5-5.1)
[2019-05-12 19:30] LABS: ALBUMIN 3.1 g/dL (3.4-5.0); ALBUMIN/GLOBULIN RATIO 0.9 (1.0-1.7); TOTAL BILIRUBIN 0.2 mg/dL (0.2-1.0); TOTAL PROTEIN 6.5 g/dL (6.4-8.2)
[2019-05-12 19:49] LABS: BACTERIA,URINE 0 /HPF (0-FEW); BILIRUBIN,URINE NEG (NEG); CLARITY,URINE CLEAR; COLOR,URINE YELLOW; GLUCOSE,URINE NEG (NEG); NITRITE,URINE NEG (NEG); RBC,URINE RARE /HPF (0-2); SQUAMOUS EPITHELIAL CELL,UR OCC /LPF; UROBILINOGEN,URINE 0.2 mg/dL (0.2 mg/dL); WBC,URINE RARE /HPF (0-4)
[2019-05-12] MEDS ORDERED: IPRATRPIUM/ALBUTEROL 0.5/2.5MG 3 ML NEBU. NEB PRN (22:00)
[2019-05-12] MEDS ORDERED: TRAM50TA PO (22:20)
[2019-05-12] MEDS ORDERED: MULT-735 PO (22:20)
[2019-05-12] MEDS ORDERED: INSU100I11 SQ ×3 (22:20)
[2019-05-12] MEDS ORDERED: HYDR25CA PO (22:20)
[2019-05-12] MEDS ORDERED: LEVO175T5 PO (22:20)
[2019-05-12] MEDS ORDERED: INSU100V13 SQ (22:20)
[2019-05-12] MEDS ORDERED: METF10007 PO (22:20)
[2019-05-12] MEDS ORDERED: traMADol 50 MG TABLET PO PRN (22:30)
[2019-05-12] MEDS ORDERED: hydrOXYzine PAMOATE 25 MG CAPSULE PO PRN (22:30)
[2019-05-12] MEDS: oxyCODONE IR 5 MG TABLET PO SCH (22:45)
[2019-05-12] MEDS: SENNOSIDES 8.6 MG TABLET PO SCH (22:45)
[2019-05-12] MEDS: DIVALPROEX 125 MG CAP.SPRINK PO SCH (22:45)
[2019-05-12] MEDS: traMADol 50 MG TABLET PO SCH (22:45)
[2019-05-12] MEDS: MEMANTINE 10 MG TABLET. PO SCH (22:45)
[2019-05-12] MEDS: MELATONIN 3 MG TABLET PO SCH (22:45)
[2019-05-12] MEDS: GABAPENTIN 400 MG CAPSULE. PO SCH (22:45)
[2019-05-12] MEDS: traZODone 100 MG TABLET. PO SCH (22:45)
[2019-05-12] MEDS: QUEtiapine 100 MG TABLET. PO SCH (22:45)
[2019-05-12] MEDS ORDERED: INSULIN GLARGINE SYRINGE. SQ SCH (23:00)
[2019-05-12] MEDS: INSULIN GLARGINE SYRINGE. SQ SCH (23:00)
[2019-05-12] MEDS ORDERED: ONDANSETRON ODT 4 MG TAB.RAPDIS PO PRN (23:15)
--- NOTE | 2019-05-12 23:42 | EKG ---
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
[2019-05-13] MEDS ORDERED: QUET25TA5 PO ×2 (00:55→03:09)
[2019-05-13] MEDS ORDERED: ACETAMINOPHEN 325 MG TABLET PO PRN (01:00)
[2019-05-13] MEDS ORDERED: DEXTROSE 50% 25 GM / 50ML DISP.SYRIN. IV PRN (01:00)
[2019-05-13] MEDS ORDERED: MAG HYDROX/AL HYDROX/SIMETH 30 ML ORAL.SUSP PO PRN (01:00)
[2019-05-13] MEDS ORDERED: METHYL SALICYLATE/MENTHOL TOPICAL OINTMENT 57GM TUBE. TP PRN (01:00)
[2019-05-13] MEDS ORDERED: MAGNESIUM HYDROXIDE 2,400 MG/30 ML ORAL.SUSP. PO PRN (01:00)
[2019-05-13 01:45] VITALS: BP 136/70
[2019-05-13] MEDS: oxyCODONE IR 5 MG TABLET PO SCH ×4 (02:32→21:13)
[2019-05-13] MEDS: LEVOTHYROXINE 175 MCG TABLET PO SCH (06:19)
[2019-05-13 06:38] VITALS: BP 113/53
[2019-05-13] MEDS: INSULIN LISPRO 300 UNITS/3 ML VIAL. SQ SCH ×6 (08:00→17:00)
[2019-05-13] MEDS ORDERED: INSULIN LISPRO 300 UNITS/3 ML VIAL. SQ SCH (08:00)
[2019-05-13] MEDS: LIDOCAINE (700MG/PATCH) PATCH. TD SCH (08:27)
[2019-05-13] MEDS: POLYVINYL ALCOHOL/POVIDONE/PF OPHTH SOLUTION DROPERETTE. OU SCH (08:27)
[2019-05-13] MEDS: FUROSEMIDE 20 MG TABLET PO SCH (08:28)
[2019-05-13] MEDS: MEMANTINE 10 MG TABLET. PO SCH ×2 (08:28→21:14)
[2019-05-13] MEDS: metFORMIN 500 MG TABLET PO SCH ×2 (08:28→17:00)
[2019-05-13] MEDS: traMADol 50 MG TABLET PO SCH ×2 (08:28→21:14)
[2019-05-13] MEDS: GABAPENTIN 400 MG CAPSULE. PO SCH ×3 (08:28→21:15)
[2019-05-13] MEDS: MULTIVITAMIN with MINERAL TABLET. PO SCH (08:28)
[2019-05-13] MEDS: TAMSULOSIN 0.4 MG CAP.ER.24H. PO SCH (08:29)
[2019-05-13] MEDS: SENNOSIDES 8.6 MG TABLET PO SCH ×2 (08:29→21:15)
[2019-05-13] MEDS: QUEtiapine 25 MG TABLET. PO SCH ×2 (08:29→16:00)
[2019-05-13] MEDS: POTASSIUM CHLORIDE 10 MEQ TABLET.ER. PO SCH (08:29)
[2019-05-13] MEDS: LOSARTAN 50 MG TABLET. PO SCH (08:29)
[2019-05-13] MEDS: NYSTATIN TOPICAL POWDER 15GM BOTTLE. TP SCH ×2 (08:30→21:11)
[2019-05-13] MEDS: ASPIRIN 81 MG TAB.CHEW PO SCH (08:30)
[2019-05-13] MEDS: NITROGLYCERIN 0.2MG/HR PATCH. TD SCH (08:30)
[2019-05-13] MEDS: DIVALPROEX 125 MG CAP.SPRINK PO SCH ×2 (08:30→21:13)
[2019-05-13] MEDS: POLYETHYLENE GLYCOL 3350 17 GM PACKET. PO SCH (08:30)
[2019-05-13] MEDS ORDERED: oxyCODONE IR 5 MG TABLET PO SCH (09:00)
[2019-05-13] MEDS ORDERED: MEMANTINE 10 MG TABLET. PO SCH (09:00)
[2019-05-13] MEDS ORDERED: GABAPENTIN 400 MG CAPSULE. PO SCH (09:00)
[2019-05-13] MEDS ORDERED: DIVALPROEX 125 MG CAP.SPRINK PO SCH (09:00)
[2019-05-13] MEDS ORDERED: SENNOSIDES 8.6 MG TABLET PO SCH (09:00)
[2019-05-13 10:12] LABS: ALBUMIN 3.2 g/dL (3.4-5.0); ALBUMIN/GLOBULIN RATIO 0.8 (1.0-1.7); ALK PHOS 83 U/L (46-116); ALT (SGPT) 17 U/L (14-59); ANION GAP 11 (6-14); AST (SGOT) 12 U/L (15-37); BLOOD UREA NITROGEN 8 mg/dL (7-20); BUN/CREATININE RATIO 10 (6-20); CALCIUM 8.8 mg/dL (8.5-10.1); CARBON DIOXIDE 27 mmol/L (21-32); CHLORIDE 100 mmol/L (98-107); CREATININE 0.8 mg/dL (0.6-1.0); GFR 68.8; GLUCOSE 202 mg/dL (70-99); MAGNESIUM 1.9 mg/dL (1.8-2.4); POTASSIUM 4.5 mmol/L (3.5-5.1); SODIUM 138 mmol/L (136-145); TOTAL BILIRUBIN 0.2 mg/dL (0.2-1.0); TOTAL PROTEIN 7.2 g/dL (6.4-8.2)
[2019-05-13 10:23] LABS: VAL ACID 65 mcg/mL (50-100)
[2019-05-13 16:33] VITALS: BP 90/54
[2019-05-13] MEDS ORDERED: traZODone 100 MG TABLET. PO SCH (21:00)
[2019-05-13] MEDS ORDERED: QUEtiapine 100 MG TABLET. PO SCH (21:00)
[2019-05-13] MEDS ORDERED: MELATONIN 3 MG TABLET PO SCH (21:00)
[2019-05-13] MEDS: traZODone 100 MG TABLET. PO SCH (21:14)
[2019-05-13] MEDS: QUEtiapine 100 MG TABLET. PO SCH (21:15)
[2019-05-13] MEDS: MELATONIN 3 MG TABLET PO SCH (21:16)
[2019-05-13] MEDS: INSULIN GLARGINE SYRINGE. SQ SCH (21:19)
--- NOTE | 2019-05-13 21:27 | PDOC ---
Exam Note: Darren Note: Please also refer to the separate dictated note~for this date of service dictated separately. Discussed the patient with Nursing staff reviewed the chart.~Reviewed interim history and current functioning. Reviewed vital signs,~Labs/ Radiology~and current medications noted below. Continue current treatment with the changes noted in the dictated addendum note Assessment: Vital Signs/I&O: Vital Signs Date Time Temp Pulse Resp B/P (MAP) Pulse Ox O2 Delivery O2 Flow Rate FiO2 05/13/19 16:33 97.3 78 18 90/54 (66) 95 05/12/19 18:45 Room Air Labs: Laboratory Tests Test 05/12/19 22:39 05/13/19 08:17 05/13/19 09:40 05/13/19 11:51 Glucose (Fingerstick) 154 mg/dL (70-99) H 141 mg/dL (70-99) H 132 mg/dL (70-99) H Sodium Level 138 mmol/L (136-145) Potassium Level 4.5 mmol/L (3.5-5.1) Chloride Level 100 mmol/L (98-107) Carbon Dioxide Level 27 mmol/L (21-32) Anion Gap 11 (6-14) Blood Urea Nitrogen 8 mg/dL (7-20) Creatinine 0.8 mg/dL (0.6-1.0) Estimated GFR (Cockcroft-Gault) 68.8 BUN/Creatinine Ratio 10 (6-20) Glucose Level 202 mg/dL (70-99) H Calcium Level 8.8 mg/dL (8.5-10.1) Magnesium Level 1.9 mg/dL (1.8-2.4) Total Bilirubin 0.2 mg/dL (0.2-1.0) Aspartate Amino Transferase (AST) 12 U/L (15-37) L Alanine Aminotransferase (ALT) 17 U/L (14-59) Alkaline Phosphatase 83 U/L (46-116) Total Protein 7.2 g/dL (6.4-8.2) Albumin 3.2 g/dL (3.4-5.0) L Albumin/Globulin Ratio 0.8 (1.0-1.7) L Vitamin B12 Level 759 pg/mL (247-911) 25-Hydroxy Vitamin D Total 42.0 ng/mL (30-100) Thyroxine (T4) 8.0 ug/dL (4.5-12.0) Total Triiodothyronine (TT3) 68 ng/dL (71-180) L Valproic Acid Level 65 mcg/mL (50-100) Valproic Acid Last Dose Date 05/12/19 Valproic Acid Last Dose Time 0900 Treponema pallidum Antibody Nonreactive (Nonreactive) Test 05/13/19 16:57 05/13/19 19:19 Glucose (Fingerstick) 142 mg/dL (70-99) H 182 mg/dL (70-99) H Current Medications: Meds: Current Medications Medications (Trade) Dose Ordered Sig/Ruchi Route PRN Reason Start Time Stop Time Status Last Admin Dose Admin Aspirin (Children'S Aspirin) 81 mg DAILY PO 05/13/19 09:00 05/13/19 08:30 Furosemide (Lasix) 20 mg DAILY PO 05/13/19 09:00 05/13/19 08:28 Nitroglycerin (Nitro-Dur 0.2mg) 1 patch DAILY TD 05/13/19 09:00 05/13/19 08:30 Nystatin (Nystop) 1 mara BID TP 05/13/19 09:00 05/13/19 21:11 Polyethylene Glycol (miraLAX) 17 gm DAILY PO 05/13/19 09:00 05/13/19 08:30 Tamsulosin HCl (Flomax) 0.8 mg DAILY PO 05/13/19 09:00 05/13/19 08:29 Artificial Tears (Refresh Classic) 1 drop DAILY OU 05/13/19 09:00 05/13/19 08:27 Lidocaine (Lidoderm) 1 patch DAILY TD 05/13/19 09:00 05/13/19 08:27 Losartan Potassium (Cozaar) 100 mg DAILY PO 05/13/19 09:00 05/13/19 08:29 Potassium Chloride (Klor-Con) 10 meq DAILYWBKFT PO 05/13/19 08:00 05/13/19 08:29 Insulin Human Lispro (HumaLOG) 7 units DAILYWLUN SQ 05/13/19 12:00 05/13/19 12:00 Insulin Human Lispro (HumaLOG) 9 units DAILYWSUP SQ 05/13/19 17:00 05/13/19 17:00 Levothyroxine Sodium (Synthroid) 175 mcg DAILY06 PO 05/13/19 06:00 05/13/19 06:19 Metformin HCl (Glucophage) 500 mg BIDWMEALS PO 05/13/19 08:00 05/13/19 17:00 Multivitamins/ Calcium (Thera-M Plus) 1 tab DAILY PO 05/13/19 09:00 05/13/19 08:28 Divalproex Sodium (Depakote Sprinkles) 375 mg BID PO 05/12/19 22:45 05/13/19 21:13 Gabapentin (Neurontin) 800 mg TID PO 05/12/19 22:45 05/13/19 21:15 Insulin Human Lispro (HumaLOG) 10 units DAILYWBKFT SQ 05/13/19 08:00 05/13/19 08:00 Melatonin (Melatonin) 9 mg HS PO 05/12/19 22:45 05/13/19 21:16 Memantine (Namenda) 10 mg BID PO 05/12/19 22:45 05/13/19 21:14 Oxycodone HCl (Roxicodone) 5 mg TID PO 05/12/19 22:45 05/13/19 21:13 Quetiapine Fumarate (SEROquel) 100 mg QHS PO 05/12/19 22:45 05/13/19 21:15 Sennosides (Senna) 8.6 mg BID PO 05/12/19 22:45 05/13/19 21:15 Tramadol HCl (Ultram) 50 mg BID PO 05/12/19 22:45 05/13/19 21:14 Trazodone HCl (Desyrel) 150 mg HS PO 05/12/19 22:45 05/13/19 21:14 Insulin Glargine (Lantus Syringe) 35 unit QHS SQ 05/12/19 23:00 05/13/19 21:19 Ondansetron HCl (Zofran Odt) 4 mg PRN Q8HRS PRN PO NAUSEA/VOMITING 05/12/19 23:15 05/12/19 23:24 Quetiapine Fumarate (SEROquel) 25 mg BID94 PO 05/13/19 09:00 05/13/19 16:00 I have reviewed the current psychotropics carefully including drug interactions. Risk benefit ratio favors no change other than as noted in my dictated progress note. Diagnosis: Problems: (1) Bipolar affective, mixed, sev w/ psych (2) Anxiety disorder (3) Impulse control disorder (4) Mood disorder (5) Major depressive disorder GRAEME DIAZ MD May 13, 2019 21:27
--- NOTE | 2019-05-13 23:01 | CONS ---
DATE OF CONSULTATION: REASON FOR CONSULTATION: Medical management. HISTORY OF PRESENT ILLNESS: The patient is an 79-year-old female patient who was admitted on account of declining memory, is extremely restless, hyperfocused, paranoid, very suspicious, and aggressive towards staff, threatening staff, ripping her colostomy bag off and on throwing it, all this in a background of bipolar disorder, mixed with psychotic features, anxiety disorder, unspecified; impulse control disorder with mild cognitive impairment. She was actually admitted to this facility on 08/31/2018. PAST MEDICAL HISTORY: Significant for type 2 diabetes mellitus, hypothyroidism, gastroesophageal reflux disease, hypertension, hyperlipidemia, and generalized osteoarthritis. PAST SURGICAL HISTORY: Significant for bilateral knee arthroplasty, hysterectomy, thyroidectomy, cholecystectomy. She is also known to have history of dysphagia and has had a colostomy, although she does not know exactly why she had a colostomy. ALLERGIES: SHE IS ALLERGIC TO PENICILLIN, SULFA DRUGS, CIPROFLOXACIN, LEVOFLOXACIN, ATIVAN, AND REMERON. MEDICATIONS: She is currently on ipratropium bromide, albuterol sulfate in 3 mL by nebulizer every 4 hours, tamsulosin 0.4 mg daily. She is on nitroglycerin 0.4 mg sublingually as needed, losartan potassium 100 mg once a day, aspirin 81 mg once a day, oxycodone 5 mg 3 times a day, tramadol 50 mg twice a day, divalproex sodium 375 mg twice a day, gabapentin 600 mg 3 times a day, trazodone 150 mg at bedtime, quetiapine fumarate for Seroquel 100 mg at bedtime, Seroquel 25 mg twice a day. She is on hydroxyzine pamoate 25 mg every 6 hours, Namenda XR 28 mg once a day. She is on potassium chloride 10 mEq once a day, furosemide 20 mg once a day, artificial tears 1 drop to both eyes daily, polyethylene glycol 17 grams daily. She is on Senna-S 1 tablet twice a day, metformin 1000 mg twice a day, Levemir insulin 35 units at bedtime and Humalog insulin 9 units before breakfast, 9 units before supper, and 7 units before lunch. She is also on levothyroxine sodium 175 mcg once a day, nystatin powder applied topically twice a day, Lidoderm cream for Aspercreme applied topically daily for back pain, cholecalciferol, vitamin D 50,000 international unit once a week, and multivitamin 1 tablet once a day, melatonin 9 mg at bedtime. REVIEW OF SYSTEMS: The patient complained of low back pain and also severe pain in her rectal area. PHYSICAL EXAMINATION: GENERAL: When I examined her, she was pale, but no jaundice or cyanosis. No lymphadenopathy, no thyromegaly. No jugular venous distention. No limb edema. VITAL SIGNS: Her heart rate was 78, blood pressure was 90/54, her temperature was 97.3, respiratory rate was 18, and oxygen saturation was 95%. HEAD, EYES, EARS, NOSE AND THROAT: Normocephalic, atraumatic. NECK: Supple. HEART: Showed normal first and second heart sounds. No gallop, rub, or murmur. CHEST: Clear to auscultation. No crepitation or rhonchi. ABDOMEN: Distended, soft, nontender with a colostomy bag in the left lower quadrant. There is no tenderness. No guarding or rigidity. No organomegaly. All hernial orifices intact. Bowel sounds normal. NEUROLOGIC: She was demented, but without but without any obvious lateralizing sign. All cranial nerves are intact. EXTREMITIES: She moves extremities without difficulty, although she is mostly bedbound. LABORATORY DATA: Showed a white cell count 6600, hemoglobin 12, hematocrit 37, MCV 89, and platelet count 257,000. Her serum sodium was 138, potassium 4.5, chloride 100, bicarbonate 27, anion gap of 11, BUN 8, creatinine 0.8, estimated GFR was 69 mL per minute. Her glucose was 102, calcium was 8.8, magnesium was 1.9. Total bilirubin, AST, ALT, alkaline phosphatase were normal. Total protein was 7.2, albumin was 3.2, serum lipase was 174. Urinalysis was essentially unremarkable and toxic screen showed a valproic acid at 65 mcg/mL, which is well within therapeutic range. IMPRESSION: So in summary, this is an 80-year-old female patient, resident at [facility], who was admitted on account of declining memory, is extremely restless, hyperfocused, paranoid, very suspicious and aggressive towards the staff, threatening staff, ripping her colostomy bag off and throwing it, all this in a background of bipolar disorder, mixed with psychotic features, anxiety disorder, impulse control disorder with mild cognitive impairment. Medically, she has multiple medical problems including hypertension, hyperlipidemia, and hypothyroidism. The patient all in all seemed to be medically stable. I reviewed all her lab works, seemed to be well within acceptable range. Her vital signs are stable. I will continue with all her current medication for the time being. We will review all her lab works that are still pending at the time of this dictation and make any necessary recommendation. Thank you, Dr. Meier for allowing me to participate in the care of this patient. GENEVIEVE SALAMANCA MD DR: YANCY/mello JOB#: [id number] / [id number]
[2019-05-14] MEDS: LEVOTHYROXINE 175 MCG TABLET PO SCH (05:19)
[2019-05-14 06:41] VITALS: BP 106/61
[2019-05-14] MEDS: INSULIN LISPRO 300 UNITS/3 ML VIAL. SQ SCH ×6 (08:00→17:00)
[2019-05-14] MEDS: metFORMIN 500 MG TABLET PO SCH ×2 (08:08→17:00)
[2019-05-14] MEDS: SENNOSIDES 8.6 MG TABLET PO SCH ×2 (08:08→19:44)
[2019-05-14] MEDS: ASPIRIN 81 MG TAB.CHEW PO SCH (08:09)
[2019-05-14] MEDS: TAMSULOSIN 0.4 MG CAP.ER.24H. PO SCH (08:09)
[2019-05-14] MEDS: LOSARTAN 50 MG TABLET. PO SCH (08:09)
[2019-05-14] MEDS: POTASSIUM CHLORIDE 10 MEQ TABLET.ER. PO SCH (08:09)
[2019-05-14] MEDS: GABAPENTIN 400 MG CAPSULE. PO SCH ×3 (08:09→19:45)
[2019-05-14] MEDS: DIVALPROEX 125 MG CAP.SPRINK PO SCH ×2 (08:10→19:46)
[2019-05-14] MEDS: FUROSEMIDE 20 MG TABLET PO SCH (08:10)
[2019-05-14] MEDS: POLYETHYLENE GLYCOL 3350 17 GM PACKET. PO SCH (08:10)
[2019-05-14] MEDS: QUEtiapine 25 MG TABLET. PO SCH ×3 (08:10→21:00)
[2019-05-14] MEDS: MEMANTINE 10 MG TABLET. PO SCH ×2 (08:10→19:44)
[2019-05-14] MEDS: MULTIVITAMIN with MINERAL TABLET. PO SCH (08:10)
[2019-05-14] MEDS: oxyCODONE IR 5 MG TABLET PO SCH ×3 (08:11→19:45)
[2019-05-14] MEDS: POLYVINYL ALCOHOL/POVIDONE/PF OPHTH SOLUTION DROPERETTE. OU SCH (08:21)
[2019-05-14] MEDS: NYSTATIN TOPICAL POWDER 15GM BOTTLE. TP SCH ×2 (08:22→19:46)
[2019-05-14] MEDS: NITROGLYCERIN 0.2MG/HR PATCH. TD SCH (08:22)
[2019-05-14] MEDS: LIDOCAINE (700MG/PATCH) PATCH. TD SCH (08:22)
[2019-05-14] MEDS: traMADol 50 MG TABLET PO SCH ×2 (08:27→19:46)
[2019-05-14 10:18] LABS: BASO # 0.1 x10^3/uL (0.0-0.2); BASO % 1 % (0-3); EOS # 0.3 x10^3/uL (0.0-0.7); EOS % 5 % (0-3); HEMATOCRIT 39.4 % (36.0-47.0); HEMOGLOBIN 12.6 g/dL (12.0-15.5); LYMPH # 1.4 x10^3/uL (1.0-4.8); LYMPH % 21 % (24-48); MEAN CORPUSCULAR HEMOGLOBIN 29 pg (25-35); MEAN CORPUSCULAR HGB CONC 32 g/dL (31-37); MEAN CORPUSCULAR VOLUME 91 fL (79-100); MONO # 0.7 x10^3/uL (0.0-1.1); MONO % 11 % (0-9); NEUT % 62 % (31-73); PLATELET COUNT 132 x10^3/uL (140-400); RED BLOOD COUNT 4.36 x10^6/uL (3.50-5.40); RED CELL DISTRIBUTION WIDTH 15.1 % (11.5-14.5); WHITE BLOOD COUNT 6.4 x10^3/uL (4.0-11.0)
[2019-05-14] MEDS: traZODone 100 MG TABLET. PO SCH (19:45)
[2019-05-14] MEDS: MELATONIN 3 MG TABLET PO SCH (19:46)
[2019-05-14] MEDS: QUEtiapine 100 MG TABLET. PO SCH ×2 (19:46→21:36)
[2019-05-14] MEDS: INSULIN GLARGINE SYRINGE. SQ SCH (20:05)
--- NOTE | 2019-05-14 21:27 | PDOC ---
Exam Note: Darren Note: Please also refer to the separate dictated note~for this date of service dictated separately.~Patient seen individually. Discussed the patient with Nursing staff reviewed the chart.~Reviewed interim history and current functioning. Reviewed vital signs,~Labs/ Radiology~and current medications noted below. Continue current treatment with the changes noted in the dictated addendum note Assessment: Vital Signs/I&O: Vital Signs Date Time Temp Pulse Resp B/P (MAP) Pulse Ox O2 Delivery O2 Flow Rate FiO2 05/14/19 08:09 82 106/61 05/14/19 06:41 97.8 20 95 05/12/19 18:45 Room Air I & O 05/13/19 05/13/19 05/14/19 15:00 23:00 07:00 Intake Total 960 ml 480 ml 240 ml Balance 960 ml 480 ml 240 ml Labs: Laboratory Tests Test 05/14/19 08:42 05/14/19 09:24 05/14/19 12:04 05/14/19 17:12 Glucose (Fingerstick) 124 mg/dL (70-99) H 133 mg/dL (70-99) H 169 mg/dL (70-99) H White Blood Count 6.4 x10^3/uL (4.0-11.0) Red Blood Count 4.36 x10^6/uL (3.50-5.40) Hemoglobin 12.6 g/dL (12.0-15.5) Hematocrit 39.4 % (36.0-47.0) Mean Corpuscular Volume 91 fL (79-100) Mean Corpuscular Hemoglobin 29 pg (25-35) Mean Corpuscular Hemoglobin Concent 32 g/dL (31-37) Red Cell Distribution Width 15.1 % (11.5-14.5) H Platelet Count 132 x10^3/uL (140-400) L Neutrophils (%) (Auto) 62 % (31-73) Lymphocytes (%) (Auto) 21 % (24-48) L Monocytes (%) (Auto) 11 % (0-9) H Eosinophils (%) (Auto) 5 % (0-3) H Basophils (%) (Auto) 1 % (0-3) Neutrophils # (Auto) 4.0 x10^3uL (1.8-7.7) Lymphocytes # (Auto) 1.4 x10^3/uL (1.0-4.8) Monocytes # (Auto) 0.7 x10^3/uL (0.0-1.1) Eosinophils # (Auto) 0.3 x10^3/uL (0.0-0.7) Basophils # (Auto) 0.1 x10^3/uL (0.0-0.2) Current Medications: I have reviewed the current psychotropics carefully including drug interactions. Risk benefit ratio favors no change other than as noted in my dictated progress note. Diagnosis: Problems: (1) Bipolar affective, mixed, sev w/ psych (2) Anxiety disorder (3) Impulse control disorder (4) Mood disorder (5) Major depressive disorder GRAEME DIAZ MD May 14, 2019 21:27
[2019-05-14 21:43] VITALS: BP 110/70
[2019-05-15 05:21] VITALS: BP 102/53
[2019-05-15] MEDS: LEVOTHYROXINE 175 MCG TABLET PO SCH (05:52)
[2019-05-15] MEDS: INSULIN LISPRO 300 UNITS/3 ML VIAL. SQ SCH ×6 (08:00→17:00)
[2019-05-15] MEDS: NYSTATIN TOPICAL POWDER 15GM BOTTLE. TP SCH ×2 (08:48→20:46)
[2019-05-15] MEDS: NITROGLYCERIN 0.2MG/HR PATCH. TD SCH (08:48)
[2019-05-15] MEDS: POLYETHYLENE GLYCOL 3350 17 GM PACKET. PO SCH (08:48)
[2019-05-15] MEDS: LIDOCAINE (700MG/PATCH) PATCH. TD SCH (08:48)
[2019-05-15] MEDS: DIVALPROEX 125 MG CAP.SPRINK PO SCH ×2 (08:49→20:50)
[2019-05-15] MEDS: TAMSULOSIN 0.4 MG CAP.ER.24H. PO SCH (08:50)
[2019-05-15] MEDS: MEMANTINE 10 MG TABLET. PO SCH ×2 (08:50→20:47)
[2019-05-15] MEDS: MULTIVITAMIN with MINERAL TABLET. PO SCH (08:50)
[2019-05-15] MEDS: oxyCODONE IR 5 MG TABLET PO SCH ×3 (08:50→20:47)
[2019-05-15] MEDS: ASPIRIN 81 MG TAB.CHEW PO SCH (08:51)
[2019-05-15] MEDS: traMADol 50 MG TABLET PO SCH ×2 (08:51→20:47)
[2019-05-15] MEDS: GABAPENTIN 400 MG CAPSULE. PO SCH ×3 (08:51→20:50)
[2019-05-15] MEDS: metFORMIN 500 MG TABLET PO SCH ×2 (08:51→17:00)
[2019-05-15] MEDS: SENNOSIDES 8.6 MG TABLET PO SCH ×2 (08:51→20:47)
[2019-05-15] MEDS: FUROSEMIDE 20 MG TABLET PO SCH (08:51)
[2019-05-15] MEDS: POLYVINYL ALCOHOL/POVIDONE/PF OPHTH SOLUTION DROPERETTE. OU SCH (08:52)
[2019-05-15] MEDS: POTASSIUM CHLORIDE 10 MEQ TABLET.ER. PO SCH (08:52)
[2019-05-15] MEDS: LOSARTAN 50 MG TABLET. PO SCH (09:02)
--- NOTE | 2019-05-15 09:42 | HP ---
ADMIT DATE: PSYCHIATRIC ADMISSION HISTORY AND EVALUATION This late entry 05/13/2019 covers elements not covered in my initial note. I met with the patient evening of 05/13/2019. IDENTIFYING DATA: The patient is an 79-year-old female, who is referred back to us from [facility] by Dr. Ramirez, her primary care physician, on account of worsening mood swings, declining memory, being extremely restless, hypo-focused, paranoid, very suspicious and aggressive towards staff, threatening staff. She has been raping her colostomy bag, often throwing it. Behaviors have been unmanageable, dangerous, has failed outpatient psychiatric interventions resulting in this referral. CHIEF COMPLAINT: "I am okay." HISTORY OF PRESENT ILLNESS: The patient has a long history of bipolar disorder, mixed with psychotic features. More recently, she has been extremely manic, grandiose, agitated with marked mood lability and paranoia. She has been throwing her colostomy bag, totally unmanageable at the facility and more confused resulting in this referral. No active suicidal or homicidal ideation. PAST PSYCHIATRIC HISTORY: As above. MEDICAL HISTORY: Positive for polyneuropathy, type 2 diabetes mellitus, low back pain, osteoarthritis, hypertension, GERD, hyperlipidemia, hypothyroidism, frequent falls, spinal fusion, muscle weakness, dry eyes, dysphagia, edema, urinary retention, tremors. UA on 05/12/2019 was negative. ALLERGIES: CIPRO, DEPAKOTE, LEVOFLOXACIN, ATIVAN, PENICILLIN, SULFONAMIDE. ACCU-CHEKS: A.c. and at bed bedtime. DIET: Mechanical soft, diabetic. Ambulates with wheelchair, 1-person assist. CURRENT PSYCHOTROPICS: Seroquel 25 mg b.i.d., Namenda 10 b.i.d., melatonin 9 mg at bedtime, Seroquel 100 mg at bedtime, trazodone 150 mg at bedtime, Depakote ER 375 b.i.d., gabapentin 800 mg t.i.d., hydroxyzine p.r.n. Bowel movement, she has a colostomy. FAMILY HISTORY: Noncontributory. SOCIAL HISTORY: No history of alcohol, drug abuse; physical, sexual or elder abuse. She is not known to be a perpetrator. REACTION TO HOSPITALIZATION: The patient is accepting of it. ASSETS: Supportive living at the halfway. MENTAL STATUS EXAMINATION: The patient was seen individually evening of 05/13/2019. She recognized me from her prior hospitalization. She is oriented to herself and situation. Speech: Has some latency, coherent. Abstraction fair, computation impaired, language function intact, attention span short. Mood and affect labile. She is quite paranoid, suspicious. No suicidal or homicidal ideation. LABORATORY DATA: Reviewed. IMPRESSION: Bipolar 1 disorder, mixed with psychotic features; anxiety disorder, unspecified; impulse control disorder, unspecified; mild cognitive impairment. Rest as above. PLAN: Admit to Geropsychiatry Unit at [facility]. I will see the patient daily individually from a psychiatric standpoint. Medical followup with Dr. Laird. Continue the patient on her current psychotropics. Observe baseline, then adjust as clinically indicated. ESTIMATED LENGTH OF STAY: 10-12 days. DISPOSITION: Plans back to halfway when stable. GRAEME DIAZ MD DR: RONNY/mello JOB#: [id number] / [id number]
[2019-05-15] MEDS: QUEtiapine 25 MG TABLET. PO SCH ×2 (16:00→20:47)
[2019-05-15 16:19] VITALS: BP 119/57
[2019-05-15] MEDS: MELATONIN 3 MG TABLET PO SCH (20:51)
[2019-05-15] MEDS: traZODone 100 MG TABLET. PO SCH (20:51)
[2019-05-15] MEDS: INSULIN GLARGINE SYRINGE. SQ SCH (20:53)
[2019-05-15] MEDS ORDERED: QUEtiapine 100 MG TABLET. PO ONE (21:15)
--- NOTE | 2019-05-15 21:32 | PDOC ---
Exam Note: Darren Note: Please also refer to the separate dictated note~for this date of service dictated separately.~Patient seen individually. Discussed the patient with Nursing staff reviewed the chart.~Reviewed interim history and current functioning. Reviewed vital signs,~Labs/ Radiology~and current medications noted below. Continue current treatment with the changes noted in the dictated addendum note Assessment: Vital Signs/I&O: Vital Signs Date Time Temp Pulse Resp B/P (MAP) Pulse Ox O2 Delivery O2 Flow Rate FiO2 05/15/19 20:47 95 05/15/19 16:19 97.6 73 18 119/57 (77) 05/12/19 18:45 Room Air I & O 05/14/19 05/14/19 05/15/19 15:00 23:00 07:00 Intake Total 700 ml 720 ml Balance 700 ml 720 ml Labs: Laboratory Tests Test 05/15/19 08:07 05/15/19 11:58 05/15/19 17:26 05/15/19 20:10 Glucose (Fingerstick) 138 mg/dL (70-99) H 162 mg/dL (70-99) H 125 mg/dL (70-99) H 142 mg/dL (70-99) H Current Medications: Meds: Current Medications Medications (Trade) Dose Ordered Sig/Ruchi Route PRN Reason Start Time Stop Time Status Last Admin Dose Admin Quetiapine Fumarate (SEROquel) 100 mg QHS PO 05/15/19 21:00 05/14/19 21:36 Quetiapine Fumarate (SEROquel) 25 mg DAILY@1600 PO 05/15/19 16:00 05/15/19 16:00 Quetiapine Fumarate (SEROquel) 100 mg 1X ONCE PO 05/15/19 21:15 05/15/19 21:16 DC 05/15/19 21:15 I have reviewed the current psychotropics carefully including drug interactions. Risk benefit ratio favors no change other than as noted in my dictated progress note. Diagnosis: Problems: (1) Bipolar affective, mixed, sev w/ psych (2) Anxiety disorder (3) Impulse control disorder (4) Mood disorder (5) Major depressive disorder (6) Mild cognitive impairment GRAEME DIAZ MD May 15, 2019 21:32
[2019-05-16] MEDS: LEVOTHYROXINE 175 MCG TABLET PO SCH (05:44)
[2019-05-16 06:06] VITALS: BP 154/74
[2019-05-16] MEDS: INSULIN LISPRO 300 UNITS/3 ML VIAL. SQ SCH ×6 (08:00→17:12)
[2019-05-16] MEDS: NYSTATIN TOPICAL POWDER 15GM BOTTLE. TP SCH ×2 (08:39→20:06)
[2019-05-16] MEDS: LIDOCAINE (700MG/PATCH) PATCH. TD SCH (08:39)
[2019-05-16] MEDS: POLYETHYLENE GLYCOL 3350 17 GM PACKET. PO SCH (08:40)
[2019-05-16] MEDS: POLYVINYL ALCOHOL/POVIDONE/PF OPHTH SOLUTION DROPERETTE. OU SCH (08:40)
[2019-05-16] MEDS: DIVALPROEX 125 MG CAP.SPRINK PO SCH ×2 (08:41→20:06)
[2019-05-16] MEDS: MEMANTINE 10 MG TABLET. PO SCH ×2 (08:41→20:05)
[2019-05-16] MEDS: LOSARTAN 50 MG TABLET. PO SCH (08:41)
[2019-05-16] MEDS: TAMSULOSIN 0.4 MG CAP.ER.24H. PO SCH (08:41)
[2019-05-16] MEDS: SENNOSIDES 8.6 MG TABLET PO SCH ×2 (08:42→20:06)
[2019-05-16] MEDS: FUROSEMIDE 20 MG TABLET PO SCH (08:42)
[2019-05-16] MEDS: GABAPENTIN 400 MG CAPSULE. PO SCH ×3 (08:42→20:06)
[2019-05-16] MEDS: ASPIRIN 81 MG TAB.CHEW PO SCH (08:42)
[2019-05-16] MEDS: POTASSIUM CHLORIDE 10 MEQ TABLET.ER. PO SCH (08:42)
[2019-05-16] MEDS: metFORMIN 500 MG TABLET PO SCH ×2 (08:42→17:11)
[2019-05-16] MEDS: MULTIVITAMIN with MINERAL TABLET. PO SCH (08:43)
[2019-05-16] MEDS: oxyCODONE IR 5 MG TABLET PO SCH ×3 (08:43→20:05)
[2019-05-16] MEDS: NITROGLYCERIN 0.2MG/HR PATCH. TD SCH (08:44)
[2019-05-16] MEDS: traMADol 50 MG TABLET PO SCH ×2 (08:44→20:05)
--- NOTE | 2019-05-16 10:37 | TX PLAN ---
Interdisciplinary Tx Plan Admission Information May 12, 2019 at 20:16 Legal Status (on Admission): Voluntary, DPOA DPOA/Guardian Name: CODY Meyer Contact Other Contact Name: [facility] Other Contact Verified Code Status: DNR Allergies: Coded Allergies: Penicillins (Verified Allergy, Intermediate, 08/31/18) Sulfa (Sulfonamide Antibiotics) (Verified Allergy, Intermediate, 08/31/18) ciprofloxacin (Verified Allergy, Intermediate, 03/14/16) divalproex sodium (Verified Allergy, Intermediate, 08/31/18) levofloxacin (Verified Allergy, Intermediate, 03/14/16) lorazepam (Verified Allergy, Intermediate, 03/14/16) Estimated Length of Stay: 10 Diagnoses Primary Diagnosis: Bipolar I Disorder Mixed with Psychotic Features, Anxiety Disorder unspecified, Impulse Control Disorder unspecified, mild cognitive impairment Reasons for Admission: Aggressive, Agitated, Combative, Suspicious/paranoid Problem in Patient's Words: "I don't know." Problems Active Problems: Per pt. intake, pt. was extremely restless, hyper-focused, paranoid, ripping and throwing colostomy bag, very suspicious, aggressive towards staff, threatening staff, and declining memory. Inactive Problems: Pt. is compliant with medication and cooperative with cares. Pt Strengths/Limitations Ability for [place]: Poor Cognitive Functioning/Ability: Fair Communication Skills/Ability: Fair Financial Resources: Fair Insight/Judgement: Poor Intellectual Ability: Fair Physical Health: Poor Social Skills: Fair Stability in Family: Fair Verbal Skills: Fair Discharge Criteria Discharge Criteria: Adequate arrangements @DC, Improved behavior, Improved mood/thought Preliminary Discharge Plan Preliminary DC Plan: Current Living Arrange. Special Precautions Special Precautions: Agitation/Assault Fall Risk: High Initial D/C Plan Pt. will return to [facility]. Identified Discharge Needs: Follow Up with PCP. Currently Utilized Resources Currently Utilized Resources/P: Dr. Miranda - Psychologist Dr. Sharp - PCP Identified Problems/Hx/Goals Objectives/Short-Term Goals Short Term Goals: Control abnormal behavior, Dec. Aggression, Dec. Outbursts, Medication Stabilization, Monitor Med Effects, Promote Coping Skill Short Term Goals in Patient's: Pt. shamale to answer at this time. 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 Education: Pt. reports she quit school in the "8th grade." Community Follow-up Follow Up with PCP and Psychologist Community Provider/Family Inpu: Unable to reach family at this time. Treatment Plan Explained Patient/Bulk Picker had this treatment plan explained to him/her as indicated by the signature below and has been given the opportunity to ask questions and make suggestions: Date: Patient/Bulk Picker Signature: Patient/Bulk Picker Decline: No Additional Comments Unable to reach family at this time. WADE ESTRADA May 16, 2019 10:36
[2019-05-16 14:20] LABS: THYROID STIM HORMONE (TSH) 2.013 uIU/mL (0.358-3.740)
[2019-05-16 15:55] VITALS: BP 113/54
[2019-05-16] MEDS: QUEtiapine 25 MG TABLET. PO SCH ×2 (16:34→20:06)
[2019-05-16] MEDS: traZODone 100 MG TABLET. PO SCH (20:04)
[2019-05-16] MEDS: MELATONIN 3 MG TABLET PO SCH (20:05)
[2019-05-16] MEDS: QUEtiapine 100 MG TABLET. PO SCH (20:06)
[2019-05-16] MEDS: INSULIN GLARGINE SYRINGE. SQ SCH (21:15)
--- NOTE | 2019-05-16 21:21 | PDOC ---
Exam Note: Darren Note: Please also refer to the separate dictated note~for this date of service dictated separately.~Patient seen individually. Discussed the patient with Nursing staff reviewed the chart.~Reviewed interim history and current functioning. Reviewed vital signs,~Labs/ Radiology~and current medications noted below. Continue current treatment with the changes noted in the dictated addendum note Assessment: Vital Signs/I&O: Vital Signs Date Time Temp Pulse Resp B/P (MAP) Pulse Ox O2 Delivery O2 Flow Rate FiO2 05/16/19 21:11 91 05/16/19 15:55 97.7 78 16 113/54 (73) 05/12/19 18:45 Room Air I & O 05/15/19 05/15/19 05/16/19 15:00 23:00 07:00 Intake Total 480 ml 240 ml 120 ml Balance 480 ml 240 ml 120 ml Labs: Laboratory Tests Test 05/16/19 07:34 05/16/19 11:52 05/16/19 16:45 05/16/19 20:18 Glucose (Fingerstick) 133 mg/dL (70-99) H 140 mg/dL (70-99) H 146 mg/dL (70-99) H 157 mg/dL (70-99) H Current Medications: I have reviewed the current psychotropics carefully including drug interactions. Risk benefit ratio favors no change other than as noted in my dictated progress note. Diagnosis: Problems: (1) Mild cognitive impairment (2) Bipolar affective, mixed, sev w/ psych (3) Anxiety disorder (4) Impulse control disorder (5) Mood disorder (6) Major depressive disorder GRAEME DIAZ MD May 16, 2019 21:21
--- NOTE | 2019-05-16 21:38 | PN ---
DATE: 05/15/2019 PSYCHIATRIC PROGRESS NOTE This late entry 05/15/2019 covers the elements not covered in my initial note. SUBJECTIVE: I met with the patient in the evening of 05/15/2019. The patient slept 8 hours previous night per EMEKA Maddox. The patient has been drowsy, compliant with medications, not disruptive. REVIEW OF SYSTEMS: Ambulation impaired, in wheelchair. No CV, , pulmonary, eye, ENT system symptoms on review. MENTAL STATUS EXAM: Oriented to herself and situation. Speech has some latency, coherent. Abstraction fair, computation impaired, language function intact, attention span short. Mood and affect remains somewhat withdrawn and labile. LABORATORY DATA: Reviewed. IMPRESSION: Unchanged from initial note. PLAN: No change from initial note. MAN Matt DIAZ MD DR: RONNY/mello JOB#: [id number] / [id number]
--- NOTE | 2019-05-17 00:57 | PN ---
DATE: 05/14/2019 PSYCHIATRIC PROGRESS NOTE This late entry 05/14/2019 covers elements not covered in my initial note. SUBJECTIVE: I met with the patient in the evening of 05/14/2019. Per Mariah, the patient slept 7-1/2 hours previous night. Reportedly, previous evening, she was pretending to be asleep, was awake for a while. During the day on 05/14/2019, talking about being drowsy, but has not pulled off her colostomy bag or otherwise being disruptive. REVIEW OF SYSTEMS: Ambulation impaired, in wheelchair. GI symptoms related to colostomy bag. No CV, , pulmonary, eye system symptoms on review. Valproic acid level therapeutic at 65. MENTAL STATUS EXAM: Oriented to herself and situation. Speech has some latency, coherent. Abstraction fair, computation impaired, language function intact, attention span short. Mood and affect remain somewhat anxious, labile. LABORATORY DATA: Reviewed. IMPRESSION: Bipolar disorder, mixed with psychotic features, in partial remission. Rest unchanged. PLAN: Due to her daytime drowsiness, we will stop the 25 mg Seroquel at 9:00 a.m., continue 25 mg at 4 p.m. and increase at bedtime from 100 mg at bedtime to 125 mg at bedtime to compensate for the morning drop. Continue Depakote, Namenda, melatonin, Neurontin, trazodone and Vistaril as p.r.n. MAN Matt DIAZ MD DR: RONNY/mello JOB#: [id number] / [id number]
[2019-05-17] MEDS: LEVOTHYROXINE 175 MCG TABLET PO SCH (05:45)
[2019-05-17 06:28] VITALS: BP 106/57
[2019-05-17] MEDS: INSULIN LISPRO 300 UNITS/3 ML VIAL. SQ SCH ×6 (08:00→17:14)
[2019-05-17] MEDS: GABAPENTIN 400 MG CAPSULE. PO SCH ×3 (08:20→21:00)
[2019-05-17] MEDS: DIVALPROEX 125 MG CAP.SPRINK PO SCH ×2 (08:20→21:00)
[2019-05-17] MEDS: SENNOSIDES 8.6 MG TABLET PO SCH ×2 (08:20→21:00)
[2019-05-17] MEDS: MULTIVITAMIN with MINERAL TABLET. PO SCH (08:20)
[2019-05-17] MEDS: ASPIRIN 81 MG TAB.CHEW PO SCH (08:20)
[2019-05-17] MEDS: metFORMIN 500 MG TABLET PO SCH ×2 (08:21→17:11)
[2019-05-17] MEDS: MEMANTINE 10 MG TABLET. PO SCH ×2 (08:21→21:00)
[2019-05-17] MEDS: TAMSULOSIN 0.4 MG CAP.ER.24H. PO SCH (08:21)
[2019-05-17] MEDS: POTASSIUM CHLORIDE 10 MEQ TABLET.ER. PO SCH (08:21)
[2019-05-17] MEDS: POLYVINYL ALCOHOL/POVIDONE/PF OPHTH SOLUTION DROPERETTE. OU SCH (08:22)
[2019-05-17] MEDS: LOSARTAN 50 MG TABLET. PO SCH (08:22)
[2019-05-17] MEDS: POLYETHYLENE GLYCOL 3350 17 GM PACKET. PO SCH (08:23)
[2019-05-17] MEDS: FUROSEMIDE 20 MG TABLET PO SCH (08:23)
[2019-05-17] MEDS: traMADol 50 MG TABLET PO SCH ×2 (08:24→21:00)
[2019-05-17] MEDS: oxyCODONE IR 5 MG TABLET PO SCH ×3 (08:24→21:00)
[2019-05-17] MEDS: NYSTATIN TOPICAL POWDER 15GM BOTTLE. TP SCH ×2 (08:25→21:00)
[2019-05-17] MEDS: LIDOCAINE (700MG/PATCH) PATCH. TD SCH (08:25)
[2019-05-17] MEDS: NITROGLYCERIN 0.2MG/HR PATCH. TD SCH (08:25)
[2019-05-17 16:13] VITALS: BP 123/69
[2019-05-17] MEDS: QUEtiapine 25 MG TABLET. PO SCH ×2 (17:11→21:00)
[2019-05-17] MEDS: MELATONIN 3 MG TABLET PO SCH (21:00)
[2019-05-17] MEDS: QUEtiapine 100 MG TABLET. PO SCH (21:00)
[2019-05-17] MEDS: traZODone 100 MG TABLET. PO SCH (21:00)
[2019-05-17] MEDS: INSULIN GLARGINE SYRINGE. SQ SCH (21:02)
[2019-05-17 21:05] LABS: BASO % 1 % (0-3); EOS # 0.2 x10^3/uL (0.0-0.7); EOS % 5 % (0-3); HEMATOCRIT 37.3 % (36.0-47.0); HEMOGLOBIN 12.1 g/dL (12.0-15.5); LYMPH # 1.5 x10^3/uL (1.0-4.8); LYMPH % 30 % (24-48); MEAN CORPUSCULAR HEMOGLOBIN 29 pg (25-35); MEAN CORPUSCULAR HGB CONC 32 g/dL (31-37); MEAN CORPUSCULAR VOLUME 90 fL (79-100); MONO # 0.7 x10^3/uL (0.0-1.1); MONO % 13 % (0-9); NEUT # 2.6 x10^3uL (1.8-7.7); NEUT % 51 % (31-73); PLATELET COUNT 124 x10^3/uL (140-400); RED BLOOD COUNT 4.16 x10^6/uL (3.50-5.40); RED CELL DISTRIBUTION WIDTH 14.9 % (11.5-14.5)
[2019-05-17 21:18] LABS: ALBUMIN/GLOBULIN RATIO 0.8 (1.0-1.7); CALCIUM 8.9 mg/dL (8.5-10.1); CREATININE 0.8 mg/dL (0.6-1.0); GFR 68.8; POTASSIUM 4.2 mmol/L (3.5-5.1); TOTAL BILIRUBIN 0.3 mg/dL (0.2-1.0); TOTAL PROTEIN 6.7 g/dL (6.4-8.2)
--- NOTE | 2019-05-17 21:31 | PDOC ---
Exam Note: Darren Note: Please also refer to the separate dictated note~for this date of service dictated separately.~Patient seen individually. Discussed the patient with Nursing staff reviewed the chart.~Reviewed interim history and current functioning. Reviewed vital signs,~Labs/ Radiology~and current medications noted below. Continue current treatment with the changes noted in the dictated addendum note Assessment: Vital Signs/I&O: Vital Signs Date Time Temp Pulse Resp B/P (MAP) Pulse Ox O2 Delivery O2 Flow Rate FiO2 05/17/19 17:15 18 91 Room Air 05/17/19 16:13 97.6 76 123/69 (87) I & O 05/16/19 05/16/19 05/17/19 14:59 22:59 06:59 Intake Total 720 ml 280 ml 120 ml Balance 720 ml 280 ml 120 ml Labs: Laboratory Tests Test 05/17/19 08:02 05/17/19 11:52 05/17/19 19:55 05/17/19 20:52 Glucose (Fingerstick) 97 mg/dL (70-99) 157 mg/dL (70-99) H 148 mg/dL (70-99) H White Blood Count 5.0 x10^3/uL (4.0-11.0) Red Blood Count 4.16 x10^6/uL (3.50-5.40) Hemoglobin 12.1 g/dL (12.0-15.5) Hematocrit 37.3 % (36.0-47.0) Mean Corpuscular Volume 90 fL (79-100) Mean Corpuscular Hemoglobin 29 pg (25-35) Mean Corpuscular Hemoglobin Concent 32 g/dL (31-37) Red Cell Distribution Width 14.9 % (11.5-14.5) H Platelet Count 124 x10^3/uL (140-400) L Neutrophils (%) (Auto) 51 % (31-73) Lymphocytes (%) (Auto) 30 % (24-48) Monocytes (%) (Auto) 13 % (0-9) H Eosinophils (%) (Auto) 5 % (0-3) H Basophils (%) (Auto) 1 % (0-3) Neutrophils # (Auto) 2.6 x10^3uL (1.8-7.7) Lymphocytes # (Auto) 1.5 x10^3/uL (1.0-4.8) Monocytes # (Auto) 0.7 x10^3/uL (0.0-1.1) Eosinophils # (Auto) 0.2 x10^3/uL (0.0-0.7) Basophils # (Auto) 0.0 x10^3/uL (0.0-0.2) Sodium Level 139 mmol/L (136-145) Potassium Level 4.2 mmol/L (3.5-5.1) Chloride Level 100 mmol/L (98-107) Carbon Dioxide Level 32 mmol/L (21-32) Anion Gap 7 (6-14) Blood Urea Nitrogen 18 mg/dL (7-20) Creatinine 0.8 mg/dL (0.6-1.0) Estimated GFR (Cockcroft-Gault) 68.8 BUN/Creatinine Ratio 23 (6-20) H Glucose Level 130 mg/dL (70-99) H Calcium Level 8.9 mg/dL (8.5-10.1) Total Bilirubin 0.3 mg/dL (0.2-1.0) Aspartate Amino Transferase (AST) 19 U/L (15-37) Alanine Aminotransferase (ALT) 18 U/L (14-59) Alkaline Phosphatase 83 U/L (46-116) Total Protein 6.7 g/dL (6.4-8.2) Albumin 3.0 g/dL (3.4-5.0) L Albumin/Globulin Ratio 0.8 (1.0-1.7) L Current Medications: I have reviewed the current psychotropics carefully including drug interactions. Risk benefit ratio favors no change other than as noted in my dictated progress note. Diagnosis: Problems: (1) Mild cognitive impairment (2) Bipolar affective, mixed, sev w/ psych (3) Anxiety disorder (4) Impulse control disorder (5) Mood disorder (6) Major depressive disorder GRAEME DIAZ MD May 17, 2019 21:31
--- NOTE | 2019-05-18 04:18 | PN ---
DATE: 05/17/2019 PSYCHIATRIC PROGRESS NOTE This late entry 05/16/2019 covers elements not covered in my initial note. SUBJECTIVE: I met with the patient in the evening. The patient slept 7-1/2 hours previous night per EMEKA Garza. She has been fairly cooperative on the unit, less restless and less paranoid. Emma, social service staff had informed staff that the daughter wants to be informed of any medication changes and I have made the nursing staff aware of this. REVIEW OF SYSTEMS: Ambulation impaired, in wheelchair. No CV, , pulmonary, eye system symptoms on review. MENTAL STATUS EXAM: Oriented to herself, situation. Speech has some latency, coherent, often responses monosyllabic. Abstraction fair, computation impaired, language function intact, attention span short. Mood and affect withdrawn. LABORATORY DATA: Reviewed. IMPRESSION: Bipolar disorder, mixed with psychotic features. Rest unchanged. PLAN: No change from initial note. GRAEME DIAZ MD DR: RONNY/mello JOB#: [id number] / [id number]
[2019-05-18] MEDS: LEVOTHYROXINE 175 MCG TABLET PO SCH (05:46)
[2019-05-18 06:01] VITALS: BP 102/52
[2019-05-18] MEDS: INSULIN LISPRO 300 UNITS/3 ML VIAL. SQ SCH ×6 (08:00→17:32)
[2019-05-18] MEDS: POTASSIUM CHLORIDE 10 MEQ TABLET.ER. PO SCH (08:18)
[2019-05-18] MEDS: FUROSEMIDE 20 MG TABLET PO SCH (08:18)
[2019-05-18] MEDS: NYSTATIN TOPICAL POWDER 15GM BOTTLE. TP SCH ×2 (08:19→20:19)
[2019-05-18] MEDS: DIVALPROEX 125 MG CAP.SPRINK PO SCH ×2 (08:19→20:21)
[2019-05-18] MEDS: POLYVINYL ALCOHOL/POVIDONE/PF OPHTH SOLUTION DROPERETTE. OU SCH (08:19)
[2019-05-18] MEDS: NITROGLYCERIN 0.2MG/HR PATCH. TD SCH (08:19)
[2019-05-18] MEDS: TAMSULOSIN 0.4 MG CAP.ER.24H. PO SCH (08:20)
[2019-05-18] MEDS: ASPIRIN 81 MG TAB.CHEW PO SCH (08:20)
[2019-05-18] MEDS: SENNOSIDES 8.6 MG TABLET PO SCH ×2 (08:20→20:29)
[2019-05-18] MEDS: metFORMIN 500 MG TABLET PO SCH (08:20)
[2019-05-18] MEDS: LOSARTAN 50 MG TABLET. PO SCH (08:20)
[2019-05-18] MEDS: MEMANTINE 10 MG TABLET. PO SCH ×2 (08:21→20:20)
[2019-05-18] MEDS: POLYETHYLENE GLYCOL 3350 17 GM PACKET. PO SCH (08:21)
[2019-05-18] MEDS: GABAPENTIN 400 MG CAPSULE. PO SCH ×3 (08:21→20:21)
[2019-05-18] MEDS: MULTIVITAMIN with MINERAL TABLET. PO SCH (08:21)
[2019-05-18] MEDS: oxyCODONE IR 5 MG TABLET PO SCH ×3 (08:22→20:22)
[2019-05-18] MEDS: traMADol 50 MG TABLET PO SCH ×2 (08:22→20:21)
[2019-05-18] MEDS: LIDOCAINE (700MG/PATCH) PATCH. TD SCH (08:59)
[2019-05-18] MEDS ORDERED: POLYETHYLENE GLYCOL 3350 17 GM PACKET. PO PRN (15:30)
[2019-05-18 16:00] VITALS: BP 117/59
--- NOTE | 2019-05-18 17:06 | RAD ---
L-spine 3 views INDICATION: Low back pain COMPARISON: None. TECHNIQUE: AP, lateral and coned-down lateral views of the lumbar spine were obtained. FINDINGS: 5 lumbar type vertebrae. Alignment shows exaggeration of normal lumbar lordosis with mild anterolisthesis of L3 on L4, and of L4 on L5. Surgical changes from previous posterior spinal fusion at L4-L5 with interbody graft is noted. No hardware complications are apparent. No acute fracture or aggressive appearing osseous lesions are seen. The discs are narrowed posteriorly, most notably at L2-L3 and at L3-L4 and well. L4-L5 is surgically fused with residual anterolisthesis, and L5-S1 shows a bulging, calcified disc. Soft tissues show abdominal aortic calcifications and evidence of previous cholecystectomy. IMPRESSION: Postop changes in the lower lumbar spine in the setting of multilevel lumbar degenerative spondylosis and exaggerated lumbar lordosis but no acute or aggressive osseous lesions noted by plain film. Electronically signed by: Michael Wolff MD (05/18/2019 5:04 PM) [id number]
[2019-05-18] MEDS: QUEtiapine 25 MG TABLET. PO SCH ×2 (17:27→20:21)
[2019-05-18] MEDS: MELATONIN 3 MG TABLET PO SCH (20:20)
[2019-05-18] MEDS: QUEtiapine 100 MG TABLET. PO SCH (20:21)
[2019-05-18] MEDS: traZODone 100 MG TABLET. PO SCH (20:22)
[2019-05-18] MEDS: INSULIN GLARGINE SYRINGE. SQ SCH (20:32)
--- NOTE | 2019-05-18 21:28 | PDOC ---
Exam Note: Darren Note: Please also refer to the separate dictated note~for this date of service dictated separately.~Patient seen individually. Discussed the patient with Nursing staff reviewed the chart.~Reviewed interim history and current functioning. Reviewed vital signs,~Labs/ Radiology~and current medications noted below. Continue current treatment with the changes noted in the dictated addendum note Assessment: Vital Signs/I&O: Vital Signs Date Time Temp Pulse Resp B/P (MAP) Pulse Ox O2 Delivery O2 Flow Rate FiO2 05/18/19 21:21 95 05/18/19 16:00 98.2 83 18 117/59 (78) 05/18/19 16:00 Room Air I & O 05/17/19 05/17/19 05/18/19 15:00 23:00 07:00 Intake Total 960 ml 340 ml Balance 960 ml 340 ml Labs: Laboratory Tests Test 05/18/19 07:35 05/18/19 19:04 Glucose (Fingerstick) 133 mg/dL (70-99) H 205 mg/dL (70-99) H Current Medications: I have reviewed the current psychotropics carefully including drug interactions. Risk benefit ratio favors no change other than as noted in my dictated progress note. Diagnosis: Problems: (1) Mild cognitive impairment (2) Bipolar affective, mixed, sev w/ psych (3) Anxiety disorder (4) Impulse control disorder (5) Mood disorder (6) Major depressive disorder GRAEME DIAZ MD May 18, 2019 21:28
--- NOTE | 2019-05-19 00:15 | PN ---
DATE: 05/17/2019 PSYCHIATRIC PROGRESS NOTE This late entry of 05/17/2019 covers the elements not covered in my initial note. SUBJECTIVE: I met with the patient in the evening of 05/17/2019. Per EMEKA Terrazas, the patient slept 7-3/4 hours the previous night. She has been fairly cooperative on the unit, a little anxious. REVIEW OF SYSTEMS: Ambulation impaired, in wheelchair. No CV, , pulmonary, eye system symptoms on review. MENTAL STATUS EXAM: Oriented to herself and situation. Speech moderate latency, coherent. Abstraction fair, computation impaired, language function intact. Mood and affect showing improvement. LABORATORY DATA: Reviewed. No clear psychotic symptoms. IMPRESSION: Unchanged from initial note. PLAN: No change from initial note. GRAEME DIAZ MD DR: RONNY/mello JOB#: [id number] / [id number]
[2019-05-19] MEDS: LEVOTHYROXINE 175 MCG TABLET PO SCH (05:50)
[2019-05-19 06:13] VITALS: BP 148/48
[2019-05-19] MEDS: INSULIN LISPRO 300 UNITS/3 ML VIAL. SQ SCH ×6 (08:00→17:35)
[2019-05-19] MEDS: MULTIVITAMIN with MINERAL TABLET. PO SCH (08:58)
[2019-05-19] MEDS: DIVALPROEX 125 MG CAP.SPRINK PO SCH ×2 (08:58→20:05)
[2019-05-19] MEDS: traMADol 50 MG TABLET PO SCH ×2 (08:58→20:05)
[2019-05-19] MEDS: SENNOSIDES 8.6 MG TABLET PO SCH ×2 (08:59→20:05)
[2019-05-19] MEDS: TAMSULOSIN 0.4 MG CAP.ER.24H. PO SCH (08:59)
[2019-05-19] MEDS: GABAPENTIN 400 MG CAPSULE. PO SCH ×3 (08:59→20:05)
[2019-05-19] MEDS: LOSARTAN 50 MG TABLET. PO SCH (08:59)
[2019-05-19] MEDS ORDERED: CHOLECALCIFEROL (VITAMIN D3) 50,000 UNIT CAPSULE PO SCH (09:00)
[2019-05-19] MEDS: MEMANTINE 10 MG TABLET. PO SCH ×2 (09:00→20:05)
[2019-05-19] MEDS: NITROGLYCERIN 0.2MG/HR PATCH. TD SCH (09:00)
[2019-05-19] MEDS: ASPIRIN 81 MG TAB.CHEW PO SCH (09:00)
[2019-05-19] MEDS: POTASSIUM CHLORIDE 10 MEQ TABLET.ER. PO SCH (09:00)
[2019-05-19] MEDS: metFORMIN XR 500 MG TAB.ER.24H PO SCH (09:00)
[2019-05-19] MEDS: POLYVINYL ALCOHOL/POVIDONE/PF OPHTH SOLUTION DROPERETTE. OU SCH (09:00)
[2019-05-19] MEDS: oxyCODONE IR 5 MG TABLET PO SCH ×3 (09:00→20:04)
[2019-05-19] MEDS: FUROSEMIDE 20 MG TABLET PO SCH (09:01)
[2019-05-19] MEDS: NYSTATIN TOPICAL POWDER 15GM BOTTLE. TP SCH ×2 (09:02→20:02)
[2019-05-19] MEDS: LIDOCAINE (700MG/PATCH) PATCH. TD SCH (09:02)
[2019-05-19 16:28] VITALS: BP 100/58
[2019-05-19] MEDS: QUEtiapine 25 MG TABLET. PO SCH (16:40)
[2019-05-19] MEDS: MELATONIN 3 MG TABLET PO SCH (20:03)
[2019-05-19] MEDS: QUEtiapine 100 MG TABLET. PO SCH (20:03)
[2019-05-19] MEDS: QUEtiapine 50 MG TABLET. PO SCH (20:03)
[2019-05-19] MEDS: traZODone 100 MG TABLET. PO SCH (20:04)
[2019-05-19] MEDS: INSULIN GLARGINE SYRINGE. SQ SCH (20:13)
--- NOTE | 2019-05-19 21:24 | PDOC ---
Exam Note: Darren Note: Please also refer to the separate dictated note~for this date of service dictated separately.~Patient seen individually. Discussed the patient with Nursing staff reviewed the chart.~Reviewed interim history and current functioning. Reviewed vital signs,~Labs/ Radiology~and current medications noted below. Continue current treatment with the changes noted in the dictated addendum note Assessment: Vital Signs/I&O: Vital Signs Date Time Temp Pulse Resp B/P (MAP) Pulse Ox O2 Delivery O2 Flow Rate FiO2 05/19/19 20:05 95 05/19/19 16:28 97.8 67 16 100/58 (72) 05/19/19 06:13 Room Air I & O 05/18/19 05/18/19 05/19/19 15:00 23:00 07:00 Intake Total 720 ml 600 ml Balance 720 ml 600 ml Labs: Laboratory Tests Test 05/19/19 08:08 05/19/19 11:42 05/19/19 13:35 05/19/19 17:28 Glucose (Fingerstick) 125 mg/dL (70-99) H 213 mg/dL (70-99) H 120 mg/dL (70-99) H Ammonia < 10 mcmol/L (11-34) L Current Medications: Meds: Current Medications Medications (Trade) Dose Ordered Sig/Ruchi Route PRN Reason Start Time Stop Time Status Last Admin Dose Admin Vitamin D (Vitamin D3) 50,000 unit WEEKLY PO 05/19/19 09:00 05/19/19 09:00 Metformin HCl (Glucophage Xr) 500 mg DAILYWBKFT PO 05/19/19 08:00 05/19/19 09:00 Quetiapine Fumarate (SEROquel) 50 mg QHS PO 05/19/19 21:00 05/19/19 20:03 Quetiapine Fumarate (SEROquel) 100 mg QHS PO 05/19/19 21:00 05/19/19 20:03 I have reviewed the current psychotropics carefully including drug interactions. Risk benefit ratio favors no change other than as noted in my dictated progress note. Diagnosis: Problems: (1) Mild cognitive impairment (2) Bipolar affective, mixed, sev w/ psych (3) Anxiety disorder (4) Impulse control disorder (5) Mood disorder (6) Major depressive disorder GRAEME DIAZ MD May 19, 2019 21:24
[2019-05-20] MEDS: LEVOTHYROXINE 175 MCG TABLET PO SCH (06:31)
[2019-05-20 07:05] VITALS: BP 91/47
[2019-05-20] MEDS: INSULIN LISPRO 300 UNITS/3 ML VIAL. SQ SCH ×6 (08:00→17:00)
[2019-05-20] MEDS: POTASSIUM CHLORIDE 10 MEQ TABLET.ER. PO SCH (08:16)
[2019-05-20] MEDS: ASPIRIN 81 MG TAB.CHEW PO SCH (08:16)
[2019-05-20] MEDS: oxyCODONE IR 5 MG TABLET PO SCH ×3 (08:16→20:11)
[2019-05-20] MEDS: FUROSEMIDE 20 MG TABLET PO SCH (08:16)
[2019-05-20] MEDS: SENNOSIDES 8.6 MG TABLET PO SCH ×2 (08:17→20:10)
[2019-05-20] MEDS: MULTIVITAMIN with MINERAL TABLET. PO SCH (08:17)
[2019-05-20] MEDS: metFORMIN XR 500 MG TAB.ER.24H PO SCH (08:17)
[2019-05-20] MEDS: GABAPENTIN 400 MG CAPSULE. PO SCH ×3 (08:17→20:09)
[2019-05-20] MEDS: TAMSULOSIN 0.4 MG CAP.ER.24H. PO SCH (08:17)
[2019-05-20] MEDS: DIVALPROEX 125 MG CAP.SPRINK PO SCH ×2 (08:17→20:09)
[2019-05-20] MEDS: POLYVINYL ALCOHOL/POVIDONE/PF OPHTH SOLUTION DROPERETTE. OU SCH (08:18)
[2019-05-20] MEDS: MEMANTINE 10 MG TABLET. PO SCH ×2 (08:18→20:10)
[2019-05-20] MEDS: LOSARTAN 50 MG TABLET. PO SCH (08:18)
[2019-05-20] MEDS: traMADol 50 MG TABLET PO SCH ×2 (08:18→20:12)
[2019-05-20] MEDS: NITROGLYCERIN 0.2MG/HR PATCH. TD SCH (08:19)
[2019-05-20] MEDS: LIDOCAINE (700MG/PATCH) PATCH. TD SCH (08:19)
[2019-05-20] MEDS: NYSTATIN TOPICAL POWDER 15GM BOTTLE. TP SCH ×2 (08:29→20:24)
[2019-05-20 15:47] VITALS: BP 119/70
[2019-05-20] MEDS: QUEtiapine 25 MG TABLET. PO SCH (17:47)
[2019-05-20] MEDS: QUEtiapine 50 MG TABLET. PO SCH (20:09)
[2019-05-20] MEDS: MELATONIN 3 MG TABLET PO SCH (20:09)
[2019-05-20] MEDS: traZODone 100 MG TABLET. PO SCH (20:10)
[2019-05-20] MEDS: QUEtiapine 100 MG TABLET. PO SCH (20:10)
--- NOTE | 2019-05-20 20:14 | PN ---
DATE: 05/18/2019 PSYCHIATRIC PROGRESS NOTE This late entry, 05/17, covers the elements not covered in my initial note. SUBJECTIVE: I met with the patient in the evening of 05/17. Per EMEKA Terrazas, the patient slept 4-1/4 hours previous night. She has been somewhat drowsy. Medications were held previous night. Awake during the day all day on 05/17. Questioning repeatedly who sent her here and why. Labs to be checked on 05/15. She does have some short-term memory deficits, but gets anxious and repeats the same questions as I met with her at length in the evening. Platelet count slightly low at 124. We will defer to Dr. Laird. REVIEW OF SYSTEMS: Ambulation impaired, in wheelchair. No CV, , pulmonary, eye, ENT systems symptoms on review. MENTAL STATUS EXAM: Oriented to herself and situation. Speech is coherent, abstraction fair, computation impaired, language function intact. Mood and affect somewhat labile, anxious. LABORATORY DATA: Reviewed. IMPRESSION: Bipolar 1 disorder, mixed with psychotic features; anxiety disorder, unspecified; impulse control disorder. Rest unchanged. PLAN: No change from initial note. Continue psychotropics mentioned in my initial note. MAN Matt DIAZ MD DR: RONNY/mello JOB#: [id number] / [id number]
[2019-05-20] MEDS: INSULIN GLARGINE SYRINGE. SQ SCH (20:16)
--- NOTE | 2019-05-20 21:27 | PDOC ---
Exam Note: Darren Note: Please also refer to the separate dictated note~for this date of service dictated separately.~Patient seen individually. Discussed the patient with Nursing staff reviewed the chart.~Reviewed interim history and current functioning. Reviewed vital signs,~Labs/ Radiology~and current medications noted below. Continue current treatment with the changes noted in the dictated addendum note Assessment: Vital Signs/I&O: Vital Signs Date Time Temp Pulse Resp B/P (MAP) Pulse Ox O2 Delivery O2 Flow Rate FiO2 05/20/19 21:11 99 05/20/19 15:47 98.0 102 20 119/70 (86) 05/19/19 06:13 Room Air I & O 05/19/19 05/19/19 05/20/19 15:00 23:00 07:00 Intake Total 480 ml 240 ml 240 ml Balance 480 ml 240 ml 240 ml Labs: Laboratory Tests Test 05/20/19 07:45 05/20/19 11:16 05/20/19 19:00 Glucose (Fingerstick) 111 mg/dL (70-99) H 148 mg/dL (70-99) H 197 mg/dL (70-99) H Current Medications: I have reviewed the current psychotropics carefully including drug interactions. Risk benefit ratio favors no change other than as noted in my dictated progress note. Diagnosis: Problems: (1) Mild cognitive impairment (2) Bipolar affective, mixed, sev w/ psych (3) Anxiety disorder (4) Impulse control disorder (5) Mood disorder (6) Major depressive disorder GRAEME DIAZ MD May 20, 2019 21:27
--- NOTE | 2019-05-21 01:07 | PN ---
DATE: 05/19/2019 PSYCHIATRIC PROGRESS NOTE This late entry 05/19/2019 covers elements not covered in my initial note. SUBJECTIVE: I met with the patient evening of 05/19/2019 at length repeatedly as the patient wanted me back. She had some further questions to ask me. Also staffed at a treatment team meeting with the entire team in the morning and the patient's daughter, Alma attended the conference. Alma gave a very detailed and pertinent history of the patient's worsening psychosis on steroids, multiple changes in her psychotropics in the past and felt she has done best on the Seroquel as a mood stabilizer while avoiding many of the other PRNs and daughter felt she had not responded to Vistaril in the past and we will stop it as well. Sleeping 6 hours average, somewhat withdrawn. Appetite 75%. REVIEW OF SYSTEMS: Ambulation impaired, in wheelchair. No CV, , pulmonary, eye system symptoms on review. MENTAL STATUS EXAMINATION: Oriented to herself and situation. Speech coherent, rapid at times. Abstraction fair, computation impaired, language function intact, attention span short. Mood and affect remain somewhat anxious, labile at times, grandiose. LABORATORY DATA: Reviewed. IMPRESSION: Bipolar 1 disorder, mixed with psychotic features; anxiety disorder, unspecified; mild cognitive impairment. PLAN: Check ammonia level. Valproic acid level therapeutic at 65. Stop the Vistaril p.r.n. Continue Seroquel 25 mg 1600 and increase bedtime dosage from 125 mg to 150 mg at bedtime. Continue Neurontin, Namenda, melatonin, Depakote, trazodone for now. Adjust further as clinically indicated. GRAEME DIAZ MD DR: RONNY/mello JOB#: [id number] / [id number]
[2019-05-21] MEDS: LEVOTHYROXINE 175 MCG TABLET PO SCH (05:10)
[2019-05-21 06:38] VITALS: BP 136/71
[2019-05-21] MEDS: INSULIN LISPRO 300 UNITS/3 ML VIAL. SQ SCH ×6 (08:00→17:00)
[2019-05-21] MEDS: ASPIRIN 81 MG TAB.CHEW PO SCH (08:47)
[2019-05-21] MEDS: POLYVINYL ALCOHOL/POVIDONE/PF OPHTH SOLUTION DROPERETTE. OU SCH (08:47)
[2019-05-21] MEDS: LIDOCAINE (700MG/PATCH) PATCH. TD SCH (08:47)
[2019-05-21] MEDS: SENNOSIDES 8.6 MG TABLET PO SCH ×2 (08:47→20:27)
[2019-05-21] MEDS: GABAPENTIN 400 MG CAPSULE. PO SCH ×3 (08:48→20:28)
[2019-05-21] MEDS: POTASSIUM CHLORIDE 10 MEQ TABLET.ER. PO SCH (08:48)
[2019-05-21] MEDS: metFORMIN XR 500 MG TAB.ER.24H PO SCH (08:48)
[2019-05-21] MEDS: MEMANTINE 10 MG TABLET. PO SCH ×2 (08:48→20:27)
[2019-05-21] MEDS: DIVALPROEX 125 MG CAP.SPRINK PO SCH ×2 (08:48→20:27)
[2019-05-21] MEDS: LOSARTAN 50 MG TABLET. PO SCH (08:48)
[2019-05-21] MEDS: FUROSEMIDE 20 MG TABLET PO SCH (08:49)
[2019-05-21] MEDS: oxyCODONE IR 5 MG TABLET PO SCH ×3 (08:49→20:31)
[2019-05-21] MEDS: MULTIVITAMIN with MINERAL TABLET. PO SCH (08:49)
[2019-05-21] MEDS: traMADol 50 MG TABLET PO SCH ×2 (08:49→20:31)
[2019-05-21] MEDS: TAMSULOSIN 0.4 MG CAP.ER.24H. PO SCH (08:49)
[2019-05-21] MEDS: NYSTATIN TOPICAL POWDER 15GM BOTTLE. TP SCH ×2 (08:50→20:35)
[2019-05-21] MEDS: NITROGLYCERIN 0.2MG/HR PATCH. TD SCH (08:50)
[2019-05-21] MEDS: QUEtiapine 25 MG TABLET. PO SCH (16:00)
[2019-05-21 16:01] VITALS: BP 112/67
[2019-05-21] MEDS: QUEtiapine 100 MG TABLET. PO SCH (20:27)
[2019-05-21] MEDS: traZODone 100 MG TABLET. PO SCH (20:27)
[2019-05-21] MEDS: MELATONIN 3 MG TABLET PO SCH (20:27)
[2019-05-21] MEDS: QUEtiapine 50 MG TABLET. PO SCH (20:27)
[2019-05-21] MEDS: INSULIN GLARGINE SYRINGE. SQ SCH (20:45)
--- NOTE | 2019-05-21 21:20 | PDOC ---
Exam Note: Darren Note: Please also refer to the separate dictated note~for this date of service dictated separately.~Patient seen individually. Discussed the patient with Nursing staff reviewed the chart.~Reviewed interim history and current functioning. Reviewed vital signs,~Labs/ Radiology~and current medications noted below. Continue current treatment with the changes noted in the dictated addendum note Assessment: Vital Signs/I&O: Vital Signs Date Time Temp Pulse Resp B/P (MAP) Pulse Ox O2 Delivery O2 Flow Rate FiO2 05/21/19 20:31 18 Room Air 05/21/19 16:01 97.1 84 112/67 (82) 93 I & O 05/20/19 05/20/19 05/21/19 15:00 23:00 07:00 Intake Total 480 ml 480 ml 240 ml Balance 480 ml 480 ml 240 ml Labs: Laboratory Tests Test 05/21/19 07:44 05/21/19 16:45 05/21/19 20:22 Glucose (Fingerstick) 140 mg/dL (70-99) H 174 mg/dL (70-99) H 174 mg/dL (70-99) H Current Medications: I have reviewed the current psychotropics carefully including drug interactions. Risk benefit ratio favors no change other than as noted in my dictated progress note. Diagnosis: Problems: (1) Mild cognitive impairment (2) Bipolar affective, mixed, sev w/ psych (3) Anxiety disorder (4) Impulse control disorder (5) Mood disorder (6) Major depressive disorder GRAEME DIAZ MD May 21, 2019 21:20
[2019-05-22] MEDS: LEVOTHYROXINE 175 MCG TABLET PO SCH (04:58)
[2019-05-22 06:28] VITALS: BP 108/63
[2019-05-22] MEDS: INSULIN LISPRO 300 UNITS/3 ML VIAL. SQ SCH ×6 (08:21→17:14)
[2019-05-22] MEDS: MULTIVITAMIN with MINERAL TABLET. PO SCH (08:22)
[2019-05-22] MEDS: SENNOSIDES 8.6 MG TABLET PO SCH ×2 (08:22→19:53)
[2019-05-22] MEDS: MEMANTINE 10 MG TABLET. PO SCH ×2 (08:22→19:53)
[2019-05-22] MEDS: metFORMIN XR 500 MG TAB.ER.24H PO SCH (08:22)
[2019-05-22] MEDS: POTASSIUM CHLORIDE 10 MEQ TABLET.ER. PO SCH (08:22)
[2019-05-22] MEDS: traMADol 50 MG TABLET PO SCH ×2 (08:23→19:53)
[2019-05-22] MEDS: POLYVINYL ALCOHOL/POVIDONE/PF OPHTH SOLUTION DROPERETTE. OU SCH (08:26)
[2019-05-22] MEDS: DIVALPROEX 125 MG CAP.SPRINK PO SCH ×2 (08:26→19:52)
[2019-05-22] MEDS: LOSARTAN 50 MG TABLET. PO SCH (08:26)
[2019-05-22] MEDS: GABAPENTIN 400 MG CAPSULE. PO SCH ×3 (08:26→19:53)
[2019-05-22] MEDS: ASPIRIN 81 MG TAB.CHEW PO SCH (08:27)
[2019-05-22] MEDS: TAMSULOSIN 0.4 MG CAP.ER.24H. PO SCH (08:27)
[2019-05-22] MEDS: FUROSEMIDE 20 MG TABLET PO SCH (08:27)
[2019-05-22] MEDS: oxyCODONE IR 5 MG TABLET PO SCH ×3 (08:27→19:52)
[2019-05-22] MEDS: NYSTATIN TOPICAL POWDER 15GM BOTTLE. TP SCH ×2 (08:27→19:51)
[2019-05-22] MEDS: NITROGLYCERIN 0.2MG/HR PATCH. TD SCH (08:28)
[2019-05-22] MEDS: LIDOCAINE (700MG/PATCH) PATCH. TD SCH (08:28)
[2019-05-22 11:51] LABS: BASO % 1 % (0-3); EOS # 0.2 x10^3/uL (0.0-0.7); EOS % 4 % (0-3); HEMATOCRIT 35.4 % (36.0-47.0); HEMOGLOBIN 11.7 g/dL (12.0-15.5); LYMPH % 16 % (24-48); MEAN CORPUSCULAR HEMOGLOBIN 30 pg (25-35); MEAN CORPUSCULAR HGB CONC 33 g/dL (31-37); MEAN CORPUSCULAR VOLUME 89 fL (79-100); MONO # 0.6 x10^3/uL (0.0-1.1); MONO % 9 % (0-9); NEUT # 4.5 x10^3uL (1.8-7.7); NEUT % 71 % (31-73); PLATELET COUNT 116 x10^3/uL (140-400); RED BLOOD COUNT 3.97 x10^6/uL (3.50-5.40); RED CELL DISTRIBUTION WIDTH 14.8 % (11.5-14.5); WHITE BLOOD COUNT 6.3 x10^3/uL (4.0-11.0)
[2019-05-22 12:23] LABS: ALBUMIN 2.9 g/dL (3.4-5.0); ALBUMIN/GLOBULIN RATIO 0.8 (1.0-1.7); CALCIUM 9.1 mg/dL (8.5-10.1); CREATININE 0.9 mg/dL (0.6-1.0); GFR 60.1; POTASSIUM 4.4 mmol/L (3.5-5.1); TOTAL BILIRUBIN 0.2 mg/dL (0.2-1.0); TOTAL PROTEIN 6.5 g/dL (6.4-8.2)
[2019-05-22 15:35] VITALS: BP 103/56
[2019-05-22] MEDS: QUEtiapine 25 MG TABLET. PO SCH (17:12)
[2019-05-22 19:21] VITALS: BP 130/61
[2019-05-22] MEDS: MELATONIN 3 MG TABLET PO SCH (19:51)
[2019-05-22] MEDS: QUEtiapine 100 MG TABLET. PO SCH (19:52)
[2019-05-22] MEDS: traZODone 100 MG TABLET. PO SCH (19:52)
[2019-05-22] MEDS: QUEtiapine 50 MG TABLET. PO SCH (19:52)
[2019-05-22] MEDS: INSULIN GLARGINE SYRINGE. SQ SCH (19:56)
--- NOTE | 2019-05-22 22:11 | PN ---
DATE: PSYCHIATRIC PROGRESS NOTE This late entry 05/21/2019 covers the elements not covered in my initial note. SUBJECTIVE: I met with the patient in the evening of 05/21/2019. Per EMEKA Bajwa, the patient slept 6-1/4 hours previous night. She is compliant with her medications, cooperative. REVIEW OF SYSTEMS: Ambulation impaired, in wheelchair. No CV, , pulmonary, eye system symptoms on review. MENTAL STATUS EXAM: Oriented to herself and situation. Speech coherent, somewhat repetitive, abstraction fair, computation impaired, language function intact, attention span short. Mood and affect still labile, but improved. LABORATORY DATA: Reviewed. IMPRESSION: Unchanged from initial note. PLAN: No change from initial note. Maintain Seroquel, Namenda, melatonin, trazodone, Depakote, and gabapentin. Valproic acid level therapeutic at __. MAN Matt DIAZ MD DR: RONNY/mello JOB#: [id number] / [id number]
--- NOTE | 2019-05-22 22:41 | PDOC ---
Exam Note: Darren Note: Please also refer to the separate dictated note~for this date of service dictated separately.~Patient seen individually. Discussed the patient with Nursing staff reviewed the chart.~Reviewed interim history and current functioning. Reviewed vital signs,~Labs/ Radiology~and current medications noted below. Continue current treatment with the changes noted in the dictated addendum note Assessment: Vital Signs/I&O: Vital Signs Date Time Temp Pulse Resp B/P (MAP) Pulse Ox O2 Delivery O2 Flow Rate FiO2 05/22/19 20:52 95 05/22/19 19:21 69 16 130/61 (84) Room Air 05/22/19 15:35 97.1 I & O 05/21/19 05/21/19 05/22/19 15:00 23:00 07:00 Intake Total 720 ml 600 ml 120 ml Balance 720 ml 600 ml 120 ml Labs: Laboratory Tests Test 05/22/19 07:26 05/22/19 11:43 05/22/19 11:56 05/22/19 16:52 Glucose (Fingerstick) 109 mg/dL (70-99) H 158 mg/dL (70-99) H 105 mg/dL (70-99) H White Blood Count 6.3 x10^3/uL (4.0-11.0) Red Blood Count 3.97 x10^6/uL (3.50-5.40) Hemoglobin 11.7 g/dL (12.0-15.5) L Hematocrit 35.4 % (36.0-47.0) L Mean Corpuscular Volume 89 fL (79-100) Mean Corpuscular Hemoglobin 30 pg (25-35) Mean Corpuscular Hemoglobin Concent 33 g/dL (31-37) Red Cell Distribution Width 14.8 % (11.5-14.5) H Platelet Count 116 x10^3/uL (140-400) L Neutrophils (%) (Auto) 71 % (31-73) Lymphocytes (%) (Auto) 16 % (24-48) L Monocytes (%) (Auto) 9 % (0-9) Eosinophils (%) (Auto) 4 % (0-3) H Basophils (%) (Auto) 1 % (0-3) Neutrophils # (Auto) 4.5 x10^3uL (1.8-7.7) Lymphocytes # (Auto) 1.0 x10^3/uL (1.0-4.8) Monocytes # (Auto) 0.6 x10^3/uL (0.0-1.1) Eosinophils # (Auto) 0.2 x10^3/uL (0.0-0.7) Basophils # (Auto) 0.0 x10^3/uL (0.0-0.2) Sodium Level 142 mmol/L (136-145) Potassium Level 4.4 mmol/L (3.5-5.1) Chloride Level 104 mmol/L (98-107) Carbon Dioxide Level 34 mmol/L (21-32) H Anion Gap 4 (6-14) L Blood Urea Nitrogen 13 mg/dL (7-20) Creatinine 0.9 mg/dL (0.6-1.0) Estimated GFR (Cockcroft-Gault) 60.1 BUN/Creatinine Ratio 14 (6-20) Glucose Level 168 mg/dL (70-99) H Calcium Level 9.1 mg/dL (8.5-10.1) Total Bilirubin 0.2 mg/dL (0.2-1.0) Aspartate Amino Transferase (AST) 19 U/L (15-37) Alanine Aminotransferase (ALT) 19 U/L (14-59) Alkaline Phosphatase 80 U/L (46-116) Total Protein 6.5 g/dL (6.4-8.2) Albumin 2.9 g/dL (3.4-5.0) L Albumin/Globulin Ratio 0.8 (1.0-1.7) L Test 05/22/19 19:53 Glucose (Fingerstick) 140 mg/dL (70-99) H Current Medications: I have reviewed the current psychotropics carefully including drug interactions. Risk benefit ratio favors no change other than as noted in my dictated progress note. Diagnosis: Problems: (1) Mild cognitive impairment (2) Bipolar affective, mixed, sev w/ psych (3) Anxiety disorder (4) Impulse control disorder (5) Mood disorder (6) Major depressive disorder GRAEME DIAZ MD May 22, 2019 22:41
[2019-05-23] MEDS: LEVOTHYROXINE 175 MCG TABLET PO SCH (05:10)
[2019-05-23 06:26] VITALS: BP 135/75
[2019-05-23] MEDS: INSULIN LISPRO 300 UNITS/3 ML VIAL. SQ SCH ×6 (08:00→17:44)
[2019-05-23] MEDS: NYSTATIN TOPICAL POWDER 15GM BOTTLE. TP SCH ×2 (08:18→20:50)
[2019-05-23] MEDS: LIDOCAINE (700MG/PATCH) PATCH. TD SCH (08:18)
[2019-05-23] MEDS: DIVALPROEX 125 MG CAP.SPRINK PO SCH ×2 (08:19→20:50)
[2019-05-23] MEDS: MULTIVITAMIN with MINERAL TABLET. PO SCH (08:19)
[2019-05-23] MEDS: TAMSULOSIN 0.4 MG CAP.ER.24H. PO SCH (08:19)
[2019-05-23] MEDS: ASPIRIN 81 MG TAB.CHEW PO SCH (08:20)
[2019-05-23] MEDS: metFORMIN XR 500 MG TAB.ER.24H PO SCH (08:20)
[2019-05-23] MEDS: SENNOSIDES 8.6 MG TABLET PO SCH ×2 (08:20→20:50)
[2019-05-23] MEDS: LOSARTAN 50 MG TABLET. PO SCH (08:20)
[2019-05-23] MEDS: MEMANTINE 10 MG TABLET. PO SCH ×2 (08:21→20:49)
[2019-05-23] MEDS: POTASSIUM CHLORIDE 10 MEQ TABLET.ER. PO SCH (08:21)
[2019-05-23] MEDS: FUROSEMIDE 20 MG TABLET PO SCH (08:21)
[2019-05-23] MEDS: POLYVINYL ALCOHOL/POVIDONE/PF OPHTH SOLUTION DROPERETTE. OU SCH (08:21)
[2019-05-23] MEDS: NITROGLYCERIN 0.2MG/HR PATCH. TD SCH (08:22)
[2019-05-23] MEDS: GABAPENTIN 400 MG CAPSULE. PO SCH ×3 (09:40→20:48)
[2019-05-23] MEDS: oxyCODONE IR 5 MG TABLET PO SCH ×3 (09:40→20:49)
[2019-05-23] MEDS: traMADol 50 MG TABLET PO SCH ×2 (09:41→20:50)
[2019-05-23 16:16] VITALS: BP 143/69
--- NOTE | 2019-05-23 16:31 | PN ---
DATE: 05/20/2019 PSYCHIATRIC PROGRESS NOTE This late entry 05/20/2019 covers elements not covered in my initial note. SUBJECTIVE: I met with the patient in the evening. Per Mariah RN, the patient had walked about 50 feet with therapy, quite an improvement. She slept 7-1/4 hours previous night. REVIEW OF SYSTEMS: Ambulation impaired, in wheelchair. No CV, , pulmonary, eye, ENT system symptoms on review. MENTAL STATUS EXAMINATION: Oriented to herself and situation. Speech coherent, has some latency. Abstraction fair, computation impaired, language function intact. Mood and affect somewhat anxious, labile, but improved. LABORATORY DATA: Reviewed. IMPRESSION: Unchanged from initial note. PLAN: No change from initial note. MAN Matt DIAZ MD DR: RONNY/mello JOB#: [id number] / [id number]
[2019-05-23] MEDS: QUEtiapine 25 MG TABLET. PO SCH (17:32)
[2019-05-23] MEDS: INSULIN GLARGINE SYRINGE. SQ SCH (20:46)
[2019-05-23] MEDS: traZODone 100 MG TABLET. PO SCH (20:47)
[2019-05-23] MEDS: QUEtiapine 50 MG TABLET. PO SCH (20:48)
[2019-05-23] MEDS: MELATONIN 3 MG TABLET PO SCH (20:48)
[2019-05-23] MEDS: QUEtiapine 100 MG TABLET. PO SCH (20:48)
--- NOTE | 2019-05-23 21:50 | PDOC ---
Exam Note: Darren Note: Please also refer to the separate dictated note~for this date of service dictated separately.~Patient seen individually. Discussed the patient with Nursing staff reviewed the chart.~Reviewed interim history and current functioning. Reviewed vital signs,~Labs/ Radiology~and current medications noted below. Continue current treatment with the changes noted in the dictated addendum note Assessment: Vital Signs/I&O: Vital Signs Date Time Temp Pulse Resp B/P (MAP) Pulse Ox O2 Delivery O2 Flow Rate FiO2 05/23/19 20:50 14 05/23/19 16:16 98.6 72 143/69 (93) 93 05/22/19 19:21 Room Air I & O 05/22/19 05/22/19 05/23/19 15:00 23:00 07:00 Intake Total 820 ml 390 ml 120 ml Balance 820 ml 390 ml 120 ml Labs: Laboratory Tests Test 05/23/19 07:18 05/23/19 12:12 05/23/19 16:52 05/23/19 19:02 Glucose (Fingerstick) 131 mg/dL (70-99) H 158 mg/dL (70-99) H 178 mg/dL (70-99) H 193 mg/dL (70-99) H Current Medications: I have reviewed the current psychotropics carefully including drug interactions. Risk benefit ratio favors no change other than as noted in my dictated progress note. Diagnosis: Problems: (1) Mild cognitive impairment (2) Bipolar affective, mixed, sev w/ psych (3) Anxiety disorder (4) Impulse control disorder (5) Mood disorder (6) Major depressive disorder GRAEME DIAZ MD May 23, 2019 21:50
[2019-05-24] MEDS ORDERED: LIDO700A21 TP (01:05)
[2019-05-24] MEDS ORDERED: MAG-115 PO (01:08)
[2019-05-24] MEDS ORDERED: MAGN24003 PO (01:10)
[2019-05-24] MEDS ORDERED: METH57CR17 TP (01:12)
[2019-05-24] MEDS ORDERED: ONDA4TAB7 PO (01:13)
[2019-05-24] MEDS ORDERED: ACET325S PO (01:14)
[2019-05-24] MEDS ORDERED: INSU100I41 SQ (01:51)
--- NOTE | 2019-05-24 03:36 | PN ---
DATE: 05/22/2019 This late entry 05/22/2019 covers elements not covered in my initial note. SUBJECTIVE: I met with the patient evening of 05/22/2019. Per EMEKA Garcia, the patient slept 5-3/4 hours previous night. She is compliant with her medications, calm, pleasant, cooperative, a little anxious at times. REVIEW OF SYSTEMS: Ambulation impaired, in wheelchair. No CV, , pulmonary, eye system symptoms on review. MENTAL STATUS EXAM: Oriented to herself and situation. Speech coherent, a little pressured at times as I met with her. Abstraction fair, computation impaired, language function intact, attention span short. Mood and affect remain somewhat withdrawn at times, labile at others. LABORATORY DATA: Reviewed. IMPRESSION: Unchanged from initial note. PLAN: No change from initial note. MAN Matt DIAZ MD DR: RONNY/mello JOB#: [id number] / [id number]
[2019-05-24] MEDS: LEVOTHYROXINE 175 MCG TABLET PO SCH (05:45)
[2019-05-24 06:25] VITALS: BP 128/55
[2019-05-24] MEDS: INSULIN LISPRO 300 UNITS/3 ML VIAL. SQ SCH ×2 (09:20→09:21)
[2019-05-24] MEDS: LIDOCAINE (700MG/PATCH) PATCH. TD SCH (09:23)
[2019-05-24] MEDS: NYSTATIN TOPICAL POWDER 15GM BOTTLE. TP SCH (09:23)
[2019-05-24] MEDS: SENNOSIDES 8.6 MG TABLET PO SCH (09:24)
[2019-05-24] MEDS: DIVALPROEX 125 MG CAP.SPRINK PO SCH (09:24)
[2019-05-24] MEDS: MEMANTINE 10 MG TABLET. PO SCH (09:24)
[2019-05-24] MEDS: metFORMIN XR 500 MG TAB.ER.24H PO SCH (09:24)
[2019-05-24 09:25] VITALS: BP 128/55
[2019-05-24] MEDS: LOSARTAN 50 MG TABLET. PO SCH (09:25)
[2019-05-24] MEDS: POTASSIUM CHLORIDE 10 MEQ TABLET.ER. PO SCH (09:25)
[2019-05-24] MEDS: MULTIVITAMIN with MINERAL TABLET. PO SCH (09:25)
[2019-05-24] MEDS: GABAPENTIN 400 MG CAPSULE. PO SCH (09:25)
[2019-05-24] MEDS: oxyCODONE IR 5 MG TABLET PO SCH (09:25)
[2019-05-24] MEDS: FUROSEMIDE 20 MG TABLET PO SCH (09:25)
[2019-05-24] MEDS: traMADol 50 MG TABLET PO SCH (09:26)
[2019-05-24] MEDS: TAMSULOSIN 0.4 MG CAP.ER.24H. PO SCH (09:26)
[2019-05-24] MEDS: ASPIRIN 81 MG TAB.CHEW PO SCH (09:27)
[2019-05-24] MEDS: POLYVINYL ALCOHOL/POVIDONE/PF OPHTH SOLUTION DROPERETTE. OU SCH (09:35)
[2019-05-24] MEDS: NITROGLYCERIN 0.2MG/HR PATCH. TD SCH (09:36)
--- NOTE | 2019-05-24 19:28 | DS ---
DATE OF DISCHARGE: 05/24/2019 DISCHARGE SUMMARY AND PSYCHIATRIC PROGRESS NOTE This note covers elements not covered in my initial note of 05/24/2019. REASON FOR ADMISSION: Please refer to the admission history for details. Briefly, the patient is an 79-year-old female with a diagnosis of bipolar disorder, admitted from [facility], referred by primary care physician on account of declining memory being extremely restless, hyperfocused, paranoid, very suspicious, and aggressive towards staff, threatening staff, ripping her colostomy bag off and throwing it around. The patient had failed outpatient psychiatric interventions. Behaviors were deemed dangerous, unmanageable at the facility resulting in this referral. SIGNIFICANT FINDINGS AND CLINICAL COURSE: Following admission, the patient was seen daily individually from a psychiatric standpoint by myself, following medically per Dr. Laird. She is quite anxious, restless, labile. Adjustments were made in her psychotropic. She seemed to respond to a combination of Seroquel 25 mg at 1600, Namenda 10 mg b.i.d., melatonin 9 mg at bedtime, Seroquel 150 mg at bedtime, trazodone 150 mg at bedtime, Depakote Sprinkles 375 mg b.i.d. with a valproic acid level therapeutic at 65, gabapentin 800 mg t.i.d. REVIEW OF SYSTEMS: Prior to discharge on 05/24/2019 review of systems; ambulation impaired, in wheelchair, hard of hearing. No CV, , pulmonary, eye system symptoms on review. MENTAL STATUS EXAM: Oriented to herself and situation. Speech moderate latency, often responses monosyllabic. Abstraction fair, computation impaired, language function intact. Attention span improved. Mood and affect is improved. No suicidal or homicidal ideation prior to discharge and she was not aggressive, agitated or throwing her colostomy bag around. CONDITION AT DISCHARGE: Improved. FINAL DIAGNOSES: Bipolar 1 disorder, mixed with psychotic features. Anxiety disorder, unspecified; impulse control disorder; mild cognitive impairment. Rest unchanged from admission. DISCHARGE MEDICATIONS: Please refer to the MRAD. DISCHARGE INSTRUCTIONS: Outpatient psychiatric and medical followup at the [facility]. Time for discharge day management greater than 30 minutes. GRAEME DIAZ MD DR: RONNY/mello JOB#: [id number] / [id number]
--- NOTE | 2019-05-24 20:07 | PN ---
DATE: 05/23/2019 PSYCHIATRIC PROGRESS NOTE This late entry 05/23/2019 covers elements not covered in my initial note. SUBJECTIVE: I met with the patient evening of 05/23/2019. Per EMEKA Valdez, the patient slept 7 hours previous night. She remains a little withdrawn, anxious at times, but generally doing better. REVIEW OF SYSTEMS: Hard of hearing, impaired ambulation in wheelchair. No CV, , pulmonary, eye system symptoms on review. MENTAL STATUS EXAM: Oriented to herself and situation. Speech has some latency, often responses monosyllabic. Abstraction fair, computation impaired, language function intact. Mood and affect somewhat withdrawn, but improved. LABORATORY DATA: Reviewed. She has not been agitated, aggressive. IMPRESSION: Unchanged from initial note. PLAN: No change from initial note. Possible discharge back to longterm. DICTATION ENDS HERE MAN Matt DIAZ MD DR: RONNY/mello JOB#: [id number] / [id number]
--- NOTE | 2019-05-24 21:54 | PDOC ---
Exam Note: Darren Note: Please also refer to the separate dictated note~for this date of service dictated separately.~Patient seen individually. Discussed the patient with Nursing staff reviewed the chart.~Reviewed interim history and current functioning. Reviewed vital signs,~Labs/ Radiology~and current medications noted below. Continue current treatment with the changes noted in the dictated addendum note Assessment: Vital Signs/I&O: Vital Signs Date Time Temp Pulse Resp B/P (MAP) Pulse Ox O2 Delivery O2 Flow Rate FiO2 05/24/19 09:26 Room Air 05/24/19 09:25 64 128/55 05/24/19 06:25 97.3 18 95 I & O 05/23/19 05/23/19 05/24/19 15:00 23:00 07:00 Intake Total 720 ml 360 ml Balance 720 ml 360 ml Labs: Laboratory Tests Test 05/24/19 07:25 Glucose (Fingerstick) 101 mg/dL (70-99) H Current Medications: I have reviewed the current psychotropics carefully including drug interactions. Risk benefit ratio favors no change other than as noted in my dictated progress note. Diagnosis: Problems: (1) Mild cognitive impairment (2) Bipolar affective, mixed, sev w/ psych (3) Anxiety disorder (4) Impulse control disorder (5) Mood disorder (6) Major depressive disorder GRAEME DIAZ MD May 24, 2019 21:54
== END 2019-05-24 11:50 | DRG 885 ==
LOC: ER 18:22 → GEROPSY 20:16
PROVIDERS: ADMIT Psychiatry & Neurology Psychiatry; ATTEND Psychiatry & Neurology Psychiatry
DX: F31.64 Bipolar disorder, current episode mixed, severe, with psychotic features (principal); F03.91 Unspecified dementia, unspecified severity, with behavioral disturbance; F63.9 Impulse disorder, unspecified; F41.9 Anxiety disorder, unspecified; Z93.3 Colostomy status; E11.9 Type 2 diabetes mellitus without complications; E78.5 Hyperlipidemia, unspecified; E89.0 Postprocedural hypothyroidism; H91.90 Unspecified hearing loss, unspecified ear; I10 Essential (primary) hypertension; I48.91 Unspecified atrial fibrillation; Z96.653 Presence of artificial knee joint, bilateral; Z98.1 Arthrodesis status; K21.9 Gastro-esophageal reflux disease without esophagitis; Z88.1 Allergy status to other antibiotic agents; Z88.0 Allergy status to penicillin; Z79.899 Other long term (current) drug therapy; Z90.710 Acquired absence of both cervix and uterus; Z90.49 Acquired absence of other specified parts of digestive tract; Z88.2 Allergy status to sulfonamides; Z88.8 Allergy status to other drugs, medicaments and biological substances
CPT/HCPCS: 36415; 72100; 80053; 80061; 80164; 81001; 82140; 82306; 82607; 82947; 83540; 83550; 83690; 83735; 84436; 84443; 84480; 84484; 85025; 86592; 93005; J1815; Q0162; 97110; 97530; 97535; 99285-25

== ENCOUNTER 2021-07-03 03:33 | Inpatient (IN) | payer MEDICARE, MEDICAID ==
[~2021-07-03] VITALS: Ht 157.5 cm; Wt 103.5 kg
[~2021-07-03 03:33] MED LIST changes: +ACET325S PO; -BENZ1LOZ48 MM; +BENZ1LOZ61 MM; -CAPS42.513 TP; +CAPS42.514 TP; +DICY20TA PO; -DICY20TA3 PO; +HYDR25CA PO; +INSU100I11 SQ; +INSU100I41 SQ; +LEVO175T5 PO; +LIDO700A21 TP; -LISI-334 PO; +LISI20TA18 PO; +MAG-115 PO; +METF10007 PO; +METH57CR17 TP; +MULT-735 PO; -OLAN5TAB5 PO; +OLAN5TAB99 PO; +ONDA4TAB7 PO; +QUET25TA5 PO; +TRAM50TA PO; +[UNRECOGNIZED DRUG - CODE] PO; -[UNRECOGNIZED DRUG - CODE] PO
[2021-07-03 04:11] VITALS: BP 173/82
[2021-07-03] MEDS ORDERED: POLYETHYLENE GLYCOL 3350 17 GM PACKET. PO PRN (04:30)
[2021-07-03] MEDS ORDERED: MAG HYDROX/AL HYDROX/SIMETH 30 ML ORAL.SUSP PO PRN (04:30)
[2021-07-03] MEDS ORDERED: METHYL SALICYLATE/MENTHOL TOPICAL OINTMENT 57GM TUBE. TP PRN (04:30)
[2021-07-03] MEDS ORDERED: MAGNESIUM HYDROXIDE 2,400 MG/30 ML ORAL.SUSP. PO PRN (04:30)
[2021-07-03] MEDS ORDERED: ACETAMINOPHEN 325 MG TABLET PO PRN (04:30)
[2021-07-03] MEDS ORDERED: POLY15DR27 EACHEYE (04:44)
[2021-07-03] MEDS ORDERED: traZODone 50 MG TABLET. PO PRN (04:45)
[2021-07-03] MEDS ORDERED: TRAZ-120 PO (04:52)
[2021-07-03] MEDS ORDERED: GABA-586 PO (04:52)
[2021-07-03] MEDS ORDERED: BUSP5TAB PO (04:52)
[2021-07-03] MEDS ORDERED: HYDR-2155 PO (04:52)
[2021-07-03] MEDS ORDERED: ACET500P23 PO (04:52)
[2021-07-03] MEDS ORDERED: LIDO700A21 TP (04:52)
[2021-07-03] MEDS ORDERED: LEVO150T5 PO (04:52)
[2021-07-03 07:26] LABS: BASO # 0.1 x10^3/uL (0.0-0.2); BASO % 1 % (0-3); EOS # 0.2 x10^3/uL (0.0-0.7); EOS % 4 % (0-3); HEMATOCRIT 35.2 % (36.0-47.0); HEMOGLOBIN 11.6 g/dL (12.0-15.5); LYMPH # 1.3 x10^3/uL (1.0-4.8); LYMPH % 19 % (24-48); MEAN CORPUSCULAR HEMOGLOBIN 28 pg (25-35); MEAN CORPUSCULAR HGB CONC 33 g/dL (31-37); MEAN CORPUSCULAR VOLUME 84 fL (79-100); MONO # 0.5 x10^3/uL (0.0-1.1); MONO % 8 % (0-9); NEUT # 4.6 x10^3uL (1.8-7.7); NEUT % 68 % (31-73); PLATELET COUNT 128 x10^3/uL (140-400); RED BLOOD COUNT 4.19 x10^6/uL (3.50-5.40); RED CELL DISTRIBUTION WIDTH 15.1 % (11.5-14.5); WHITE BLOOD COUNT 6.7 x10^3/uL (4.0-11.0)
[2021-07-03 07:43] LABS: ALBUMIN 3.5 g/dL (3.4-5.0); ALBUMIN/GLOBULIN RATIO 1.1 (1.0-1.7); MAGNESIUM 2.1 mg/dL (1.8-2.4); TOTAL BILIRUBIN 0.4 mg/dL (0.2-1.0); TOTAL PROTEIN 6.8 g/dL (6.4-8.2)
[2021-07-03] MEDS: LEVOTHYROXINE 150 MCG TABLET PO SCH (08:29)
[2021-07-03] MEDS: busPIRone 5 MG TABLET. PO SCH ×3 (08:29→21:04)
[2021-07-03] MEDS: GABAPENTIN 300 MG CAPSULE. PO SCH ×2 (08:29→21:05)
[2021-07-03] MEDS: QUEtiapine 25 MG TABLET. PO SCH ×2 (08:29→17:11)
[2021-07-03] MEDS: POLYVINYL ALCOHOL 1.4% OPHTH SOLUTION 15ML BOTTLE. OU SCH ×3 (08:31→21:02)
[2021-07-03] MEDS ORDERED: OLANZapine 2.5 MG TABLET PO PRN (09:15)
[2021-07-03 16:18] VITALS: BP 180/77
[2021-07-03 20:03] LABS: CHOLESTEROL/HDL RATIO 5.2; THYROID STIM HORMONE (TSH) 10.29 uIU/mL (0.358-3.740)
[2021-07-03] MEDS: PATCH REMOVAL. MC SCH (21:00)
[2021-07-03] MEDS: QUEtiapine 100 MG TABLET. PO SCH (21:02)
[2021-07-03] MEDS: TAMSULOSIN 0.4 MG CAP.ER.24H. PO SCH (21:02)
[2021-07-03] MEDS: MELATONIN 3 MG TABLET PO SCH (21:02)
[2021-07-03] MEDS: traZODone 100 MG TABLET. PO SCH (21:02)
--- NOTE | 2021-07-03 21:42 | PDOC ---
Exam Note: Darren Note: Please also refer to the separate dictated note~for this date of service dictated separately.~Patient seen individually. Discussed the patient with Nursing staff reviewed the chart.~Reviewed interim history and current functioning. Reviewed vital signs,~Labs/ Radiology~and current medications noted below. Continue current treatment with the changes noted in the dictated addendum note Assessment: Vital Signs/I&O: Vital Signs Date Time Temp Pulse Resp B/P (MAP) Pulse Ox O2 Delivery O2 Flow Rate FiO2 07/03/21 16:18 98.1 85 16 180/77 (111) 94 I & O 07/02/21 07/02/21 07/03/21 15:00 23:00 07:00 Intake Total 100 ml Balance 100 ml Labs: Laboratory Tests Test 07/03/21 06:25 07/03/21 07:35 07/03/21 17:11 White Blood Count 6.7 x10^3/uL (4.0-11.0) Red Blood Count 4.19 x10^6/uL (3.50-5.40) Hemoglobin 11.6 g/dL (12.0-15.5) L Hematocrit 35.2 % (36.0-47.0) L Mean Corpuscular Volume 84 fL (79-100) Mean Corpuscular Hemoglobin 28 pg (25-35) Mean Corpuscular Hemoglobin Concent 33 g/dL (31-37) Red Cell Distribution Width 15.1 % (11.5-14.5) H Platelet Count 128 x10^3/uL (140-400) L Neutrophils (%) (Auto) 68 % (31-73) Lymphocytes (%) (Auto) 19 % (24-48) L Monocytes (%) (Auto) 8 % (0-9) Eosinophils (%) (Auto) 4 % (0-3) H Basophils (%) (Auto) 1 % (0-3) Neutrophils # (Auto) 4.6 x10^3uL (1.8-7.7) Lymphocytes # (Auto) 1.3 x10^3/uL (1.0-4.8) Monocytes # (Auto) 0.5 x10^3/uL (0.0-1.1) Eosinophils # (Auto) 0.2 x10^3/uL (0.0-0.7) Basophils # (Auto) 0.1 x10^3/uL (0.0-0.2) D-Dimer (Erica) 0.89 mg/L (0.00-0.50) H Sodium Level 140 mmol/L (136-145) Potassium Level 4.0 mmol/L (3.5-5.1) Chloride Level 105 mmol/L (98-107) Carbon Dioxide Level 27 mmol/L (21-32) Anion Gap 8 (6-14) Blood Urea Nitrogen 14 mg/dL (7-20) Creatinine 1.0 mg/dL (0.6-1.0) Estimated GFR (Cockcroft-Gault) 53.0 BUN/Creatinine Ratio 14 (6-20) Glucose Level 194 mg/dL (70-99) H Calcium Level 9.0 mg/dL (8.5-10.1) Magnesium Level 2.1 mg/dL (1.8-2.4) Iron Level 71 ug/dL (50-170) Total Iron Binding Capacity 291 ug/dL (250-450) Iron Saturation 24 % (15-34) Total Bilirubin 0.4 mg/dL (0.2-1.0) Aspartate Amino Transferase (AST) 19 U/L (15-37) Alanine Aminotransferase (ALT) 28 U/L (14-59) Alkaline Phosphatase 97 U/L (46-116) Total Protein 6.8 g/dL (6.4-8.2) Albumin 3.5 g/dL (3.4-5.0) Albumin/Globulin Ratio 1.1 (1.0-1.7) Triglycerides Level 258 mg/dL (0-150) H Cholesterol Level 156 mg/dL (0-200) LDL Cholesterol, Calculated 74 mg/dL (0-100) VLDL Cholesterol, Calculated 52 mg/dL (0-40) H Non-HDL Cholesterol Calculated 126 mg/dL (0-129) HDL Cholesterol 30 mg/dL (40-60) L Cholesterol/HDL Ratio 5.2 25-Hydroxy Vitamin D Total 23.5 ng/mL (30-100) L Thyroid Stimulating Hormone (TSH) 10.290 uIU/mL (0.358-3.740) Treponema pallidum Antibody Nonreactive (Nonreactive) Glucose (Fingerstick) 203 mg/dL (70-99) H 191 mg/dL (70-99) H Current Medications: Meds: Current Medications Medications (Trade) Dose Ordered Sig/Ruchi Route PRN Reason Start Time Stop Time Status Last Admin Dose Admin Buspirone HCl (Buspar) 7.5 mg TID PO 07/03/21 09:00 07/03/21 21:04 Gabapentin (Neurontin) 300 mg BID PO 07/03/21 09:00 07/03/21 21:05 Levothyroxine Sodium (Synthroid) 150 mcg DAILY07 PO 07/03/21 07:00 07/03/21 08:29 Melatonin (Melatonin) 6 mg HS PO 07/03/21 21:00 07/03/21 21:02 Artificial Tears (Artificial Tears) 2 drop TID OU 07/03/21 09:00 07/03/21 21:02 Quetiapine Fumarate (SEROquel) 75 mg DAILY@0900,1700 PO 07/03/21 09:00 07/03/21 17:11 Quetiapine Fumarate (SEROquel) 100 mg QHS PO 07/03/21 21:00 07/03/21 21:02 Tamsulosin HCl (Flomax) 0.4 mg HS PO 07/03/21 21:00 07/03/21 21:02 Trazodone HCl (Desyrel) 100 mg HS PO 07/03/21 21:00 07/03/21 21:02 Miscellaneous (Lidoderm Patch Removal) 1 ea QHS MC 07/03/21 21:00 07/03/21 21:00 Olanzapine (ZyPREXA) 2.5 mg PRN DAILY PRN PO PSYCHOSIS 07/03/21 09:15 07/03/21 13:26 DC 07/03/21 09:14 I have reviewed the current psychotropics carefully including drug interactions. Risk benefit ratio favors no change other than as noted in my dictated progress note. Diagnosis: Problems: (1) Bipolar affective, mixed, sev w/ psych (2) Anxiety disorder (3) Impulse control disorder (4) Mild cognitive impairment GRAEME DIAZ MD Jul 03, 2021 21:42
[2021-07-03 22:07] LABS: BACTERIA,URINE FEW /HPF (0-FEW); CLARITY,URINE CLEAR; COLOR,URINE YELLOW; GLUCOSE,URINE NEG (NEG); NITRITE,URINE NEG (NEG); SQUAMOUS EPITHELIAL CELL,UR MANY /LPF; UROBILINOGEN,URINE 0.2 mg/dL (0.2 mg/dL)
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
[2021-07-03] MEDS: OLANZapine 2.5 MG TABLET PO PRN (22:11)
[2021-07-04] MEDS: LEVOTHYROXINE 150 MCG TABLET PO SCH (05:52)
[2021-07-04] MEDS: QUEtiapine 25 MG TABLET. PO SCH ×2 (08:41→17:35)
[2021-07-04] MEDS: GABAPENTIN 300 MG CAPSULE. PO SCH ×2 (08:41→21:55)
[2021-07-04] MEDS: POLYVINYL ALCOHOL 1.4% OPHTH SOLUTION 15ML BOTTLE. OU SCH ×3 (08:41→21:55)
[2021-07-04] MEDS: busPIRone 5 MG TABLET. PO SCH ×3 (08:42→21:53)
[2021-07-04] MEDS ORDERED: DEXTROSE 50% 25 GM / 50ML DISP.SYRIN. IV PRN (15:00)
[2021-07-04 15:46] VITALS: BP 135/64
[2021-07-04] MEDS: INSULIN LISPRO 300 UNITS/3 ML VIAL. SQ SCH (17:00)
--- NOTE | 2021-07-04 20:26 | EKG ---
[address] [address] Test Date: 2021-07-04 Test Time: 05:59:01 Pat Name: DENYS MIDDLETON Department: Room: [address] [place] [address] Gender: F Mobile Ui Designer: GWENDOLYN : 1940 Requested By: GRAEME DIAZ Order Number: [id number] Reading MD: Rene Garcia MD Measurements Intervals Reading Rate: 76 P: 90 AK: 188 QRS: 1 QRSD: 82 T: 46 QT: 400 QTc: 455 Interpretive Statements SINUS RHYTHM Electronically Signed On 07-22-2021 10:56:11 CDT by Rene Garcia MD
[2021-07-04] MEDS: PATCH REMOVAL. MC SCH (21:00)
--- NOTE | 2021-07-04 21:31 | PDOC ---
Exam Note: Darren Note: Please also refer to the separate dictated note~for this date of service dictated separately.~Patient seen individually. Discussed the patient with Nursing staff reviewed the chart.~Reviewed interim history and current functioning. Reviewed vital signs,~Labs/ Radiology~and current medications noted below. Continue current treatment with the changes noted in the dictated addendum note Assessment: Vital Signs/I&O: Vital Signs Date Time Temp Pulse Resp B/P (MAP) Pulse Ox O2 Delivery O2 Flow Rate FiO2 07/04/21 15:46 98.3 77 18 135/64 (87) 94 I & O 07/03/21 07/03/21 07/04/21 15:00 23:00 07:00 Intake Total 480 ml 240 ml Balance 480 ml 240 ml Labs: Laboratory Tests Test 07/04/21 12:12 07/04/21 17:04 07/04/21 19:24 Glucose (Fingerstick) 220 mg/dL (70-99) H 178 mg/dL (70-99) H 273 mg/dL (70-99) H Current Medications: Meds: Laboratory Tests Test 07/04/21 12:12 07/04/21 17:04 07/04/21 19:24 Glucose (Fingerstick) 220 mg/dL 178 mg/dL 273 mg/dL Current Medications Medications (Trade) Dose Ordered Sig/Ruchi Route PRN Reason Start Time Stop Time Status Last Admin Dose Admin Acetaminophen (Tylenol) 650 mg PRN Q6HRS PRN PO MILD PAIN / TEMP > 100.3'F 07/03/21 04:30 07/03/21 07:19 DC Multi-Ingredient Ointment (Analgesic Bly) 1 mara PRN QID PRN TP MUSCLE PAIN 07/03/21 04:30 Al Hydroxide/Mg Hydroxide (Mylanta Plus Xs) 15 ml PRN AFTMEALHC PRN PO DYSPEPSIA 07/03/21 04:30 Magnesium Hydroxide (Milk Of Magnesia) 2,400 mg PRN QHS PRN PO CONSTIPATION 2ND CHOICE 07/03/21 04:30 Polyethylene Glycol (miraLAX) 17 gm PRN DAILY PRN PO CONSTIPATION 1ST CHOICE 07/03/21 04:30 Buspirone HCl (Buspar) 7.5 mg TID PO 07/03/21 09:00 07/04/21 13:42 Gabapentin (Neurontin) 300 mg BID PO 07/03/21 09:00 07/04/21 08:41 Acetaminophen/ Hydrocodone Bitart (Lortab 5/325) 1 tab PRN Q6HRS PRN PO PAIN MODERATE/SEVERE 07/03/21 04:45 Levothyroxine Sodium (Synthroid) 150 mcg DAILY07 PO 07/03/21 07:00 07/04/21 05:52 Lidocaine (Lidoderm) 1 patch PRN DAILY PRN TP pain in lower back 07/03/21 04:45 Melatonin (Melatonin) 6 mg HS PO 07/03/21 21:00 07/03/21 21:02 Artificial Tears (Artificial Tears) 2 drop TID OU 07/03/21 09:00 07/04/21 13:42 Quetiapine Fumarate (SEROquel) 75 mg DAILY@0900,1700 PO 07/03/21 09:00 07/04/21 17:35 Quetiapine Fumarate (SEROquel) 100 mg QHS PO 07/03/21 21:00 07/03/21 21:02 Tamsulosin HCl (Flomax) 0.4 mg HS PO 07/03/21 21:00 07/03/21 21:02 Trazodone HCl (Desyrel) 12.5 mg PRN Q12HR PRN PO ANXIETY/AGITATION 07/03/21 04:45 Trazodone HCl (Desyrel) 100 mg HS PO 07/03/21 21:00 07/03/21 21:02 Acetaminophen (Tylenol) 500 mg PRN Q6HRS PRN PO MILD PAIN / TEMP > 100.3'F 07/03/21 05:15 Miscellaneous (Lidoderm Patch Removal) 1 ea QHS MC 07/03/21 21:00 07/03/21 21:00 Olanzapine (ZyPREXA) 2.5 mg PRN DAILY PRN PO PSYCHOSIS 07/03/21 09:15 07/03/21 13:26 DC 07/03/21 09:14 Olanzapine (ZyPREXA) 2.5 mg PRN Q2HR PRN PO PSYCHOSIS 07/03/21 14:10 07/03/21 22:11 Trazodone HCl (Desyrel) 100 mg PRN QHS PRN PO for sleep 07/04/21 11:45 Vitamin D (Vitamin D3) 50,000 unit WEEKLY PO 07/05/21 09:00 Insulin Glargine (Lantus Syringe) 10 unit QHS SQ 07/04/21 21:00 Insulin Human Lispro (HumaLOG) 0-7 UNITS TIDWMEALS SQ 07/04/21 17:00 07/04/21 17:00 Dextrose (Dextrose 50%-Water Syringe) 12.5 gm PRN Q15MIN PRN IV SEE COMMENTS 07/04/21 15:00 Current Medications Medications (Trade) Dose Ordered Sig/Ruchi Route PRN Reason Start Time Stop Time Status Last Admin Dose Admin Insulin Human Lispro (HumaLOG) 0-7 UNITS TIDWMEALS SQ 07/04/21 17:00 07/04/21 17:00 I have reviewed the current psychotropics carefully including drug interactions. Risk benefit ratio favors no change other than as noted in my dictated progress note. Diagnosis: Problems: (1) Mild cognitive impairment (2) Bipolar affective, mixed, sev w/ psych (3) Anxiety disorder (4) Impulse control disorder GRAEME DIAZ MD Jul 04, 2021 21:31
[2021-07-04] MEDS: traZODone 100 MG TABLET. PO SCH (21:53)
[2021-07-04] MEDS: TAMSULOSIN 0.4 MG CAP.ER.24H. PO SCH (21:53)
[2021-07-04] MEDS: MELATONIN 3 MG TABLET PO SCH (21:53)
[2021-07-04] MEDS: QUEtiapine 100 MG TABLET. PO SCH (21:53)
[2021-07-04] MEDS: INSULIN GLARGINE SYRINGE. SQ SCH (21:56)
--- NOTE | 2021-07-05 02:08 | CONS ---
DATE OF CONSULTATION: 07/04/2021 REASON FOR CONSULTATION: Medical management. HISTORY OF PRESENT ILLNESS: The patient is an 81-year-old female patient who was referred from [facility] Emergency Room where she presented from the skilled nursing on account of worsening mood swings, anxiety, name calling, being belligerent, agitated, pushing staff members, paranoid that others were talking about her. She was telling peers to shut up, had scratched the nurse in the chest. The Emergency Room said that she was throwing things and violent in the Emergency Room. She was unmanageable. Her behaviors were deemed dangerous, unmanageable and failed outpatient psychiatric intervention resulting admits in [facility] for inpatient psychiatric stabilization. PAST MEDICAL HISTORY: Medically, the patient has multiple medical problems including type 2 diabetes mellitus, hypothyroidism, hypertension, hyperlipidemia, arthritis and gastroesophageal reflux disease. She is also known to have chronic obstructive pulmonary disease, senile macular degeneration, impaired mobility, anemia, chronic back pain, gastroesophageal reflux disease, urinary retention. PAST SURGICAL HISTORY: Significant for bilateral knee arthroplasty, total abdominal hysterectomy, bilateral salpingo-oophorectomy, thyroidectomy, cholecystectomy. She is also known to have partial colectomy and colostomy and bilateral cataract extraction. ALLERGIES: SHE IS ALLERGIC TO CARBAPENEM, CARBONIC ANHYDRASE INHIBITORS, CEPHALOSPORINS, PENICILLIN, SULFA, SULFONYLUREAS, THIAZIDE, CIPROFLOXACIN, LEVOFLOXACIN, LORAZEPAM, MIRTAZAPINE, PREDNISONE AND TRAMADOL. MEDICATIONS: She is currently on following medications: She is on trazodone 100 mg at bedtime, tamsulosin 0.4 mg at bedtime, quetiapine fumarate 100 mg at bedtime, melatonin 6 mg at bedtime, olanzapine 2.5 mg every 2 hours, Seroquel 75 mg twice a day at 9:00 a.m. and 1700, artificial tears 2 drops to both eyes 3 times a day, gabapentin 300 mg twice a day, buspirone 7.5 mg 3 times a day, levothyroxine sodium for Synthroid 150 mcg once a day, acetaminophen 500 mg every 6 hours, Lidoderm patch apply topically on for 12 hours and off for 12 hours, hydrocodone/bitartrate 1 tablet every 6 hours, polyethylene glycol 17 grams daily p.r.n. for constipation, milk of magnesia 30 mL p.o. daily p.r.n. for constipation. FAMILY HISTORY: Noncontributory. SOCIAL HISTORY: She is a resident at [facility]. She does not smoke, drink alcohol or use any recreational drugs. She mostly wheelchair bound. REVIEW OF SYSTEMS: As per history of present illness. PHYSICAL EXAMINATION: GENERAL: When I examined her today, she looked somewhat pale, but no jaundice, cyanosis. No lymphadenopathy, no thyromegaly, no jugular venous distention, no limb edema. VITAL SIGNS: Her heart rate was 85, blood pressure was 180/77, temperature was 98.1, respiratory rate was 16 and oxygen saturation was 94%. HEAD, EYES, EARS, NOSE AND THROAT: Normocephalic, atraumatic. NECK: Supple. HEART: Normal first and second heart sounds. No gallop or murmur. CHEST: Shows central trachea, equal bilateral chest expansion, air entry, vesicular breath sounds. I could not appreciate any crepitation or rhonchi. ABDOMEN: Distended, soft, nontender. NEUROLOGIC: She is awake, alert, responding appropriately. All cranial nerves are intact. She moves extremities without difficulty, although she is mostly wheelchair bound. LABORATORY DATA: Her lab work showed a white cell count of 6.7, hemoglobin 11.6, hematocrit 35, MCV 84 and platelet count of 128,000. Her chemistry showed a serum sodium 140, potassium 4, chloride 105, bicarbonate 27, anion gap of 8, BUN 14, creatinine 1, estimated GFR was 53 mL per minute. Her glucose was 194, calcium was 9, magnesium was 2.1. Her hemoglobin A1c was 9%, her serum iron was 71, TIBC 291 and iron saturation was 24. Her total bilirubin, AST, ALT, alkaline phosphatase were normal. Total protein 6.8, albumin 3.5. Serum triglycerides was high at 258. Total cholesterol 156, LDL was 74, VLDL was 52, HDL was 30 and the ratio was 5.2. Her TSH was high at 10.290. Her total T4 was 5.7 mcg/dL and total T3 was only 63. Her 25-hydroxy vitamin D was 23.5. Her D-dimer was 0.89. Urinalysis showed that there is a trace leukocyte esterase, 1-2 rbc's, 11-20 wbc's and few bacteria and her Treponema pallidum antibody was nonreactive and coronavirus by PCR was not detectable. ASSESSMENT AND PLAN: In summary, this is an 81-year-old female patient, a resident at [facility], who was evaluated in the Emergency Room of [facility] and was admitted on account of worsening mood swings, anxiety, name calling, being belligerent, agitated, pushing staff members, paranoid that others were talking about her. She was telling peers to shut up, has scratched to the nurse in the chest. While in the Emergency Room, she was throwing things and violent in the Emergency Room and therefore, she was admitted to this facility for inpatient psychiatric stabilization. Medically, she has a multitude of medical problems including hypertension, hyperlipidemia, type 2 diabetes mellitus, hypothyroidism, gastroesophageal reflux disease and osteoarthritis. Her lab work showed that she has normochromic normocytic anemia and thrombocytopenia, which is longstanding and she also has her hypertriglyceridemia and hypercholesterolemia. Her 25-hydroxy vitamin D is low at 23 and her TSH is high, although her total T4 was normal, her total T3 was low at 63. She is already on Synthroid at 150 mcg once a day. My plan is to start her on cholecalciferol 50,000 units once a week. We need to make sure that she takes her Synthroid early in the morning at least an hour before breakfast and after one week, we will repeat her T3, T4, free T4. Her hemoglobin A1c was 9%. I do not see any oral hypoglycemic agents or insulin included in the treatment. I will start her on at least insulin sliding scale to start with for now and kidney function is normal, so we might start her on Amaryl and metformin if there is no contraindication. Thank you, Dr. Meier, for allowing me to participate in the care of this patient. YANCY/ELBA LARSEN: Chau TID: [id number]
[2021-07-05] MEDS: LEVOTHYROXINE 150 MCG TABLET PO SCH (06:00)
[2021-07-05 06:26] VITALS: BP 159/70
[2021-07-05] MEDS: INSULIN LISPRO 300 UNITS/3 ML VIAL. SQ SCH ×3 (08:00→17:00)
[2021-07-05] MEDS: CHOLECALCIFEROL (VITAMIN D3) 50,000 UNIT CAPSULE PO SCH (08:48)
[2021-07-05] MEDS: GABAPENTIN 300 MG CAPSULE. PO SCH ×2 (08:48→21:27)
[2021-07-05] MEDS: QUEtiapine 25 MG TABLET. PO SCH ×2 (08:48→17:23)
[2021-07-05] MEDS: busPIRone 5 MG TABLET. PO SCH ×3 (08:49→21:23)
[2021-07-05] MEDS: POLYVINYL ALCOHOL 1.4% OPHTH SOLUTION 15ML BOTTLE. OU SCH ×3 (08:51→21:26)
--- NOTE | 2021-07-05 09:03 | PDOC ---
Exam Note: Darren Note: This note is a late entry for 07/04/2021 covers elements not covered in my initial note. Subjective: The patient was reviewed at treatment team meeting individually in the morning on 07/04/2021 with Payal Perez, Teresita Arce, and Oneyda Engel (psychiatric social worker supervisor), Delores, activity therapy, and Aleida RN, discussed and reviewed the chart. The patient slept 6 hours in the morning. Her daughter Alma attended the treatment team meeting as well. She did not sleep at all last night. Appetite 35%. She takes her medications whole. Yesterday she was agitated, aggressive, scratching at staff members, had pulled off her colostomy bag and smeared fecal matter on the nursing staff. Creatinine is 1.0, BUN 14. Daughter indicated that the patient had been on Depakote in the past which is what she was taking when she left us here 2 years ago and was very stable. Nevertheless daughter feels Depakote caused her increased ammonia level, worse radha confusion and would prefer the patient not to be on Depakote anymore. We did clarify from [facility] but she was on the Depakote when she left there. Two weeks ago reportedly she was dehydrated and her Seroquel had been increased for the agitation. She also has a history of recent UTI and sepsis. Review of Systems: Ambulation impaired in wheelchair. No CV, , pulmonary, eye system symptoms on review. Mental Status Exam: Patient is oriented to herself and situation. I met with her in her room. Speech is coherent, rapid at times. Abstraction fair. Computation impaired. Language function intact. Attention span short. Mood and affect remains grandiose, labile,. Laboratory Data: Reviewed. Impression: Bipolar 1 disorder, mixed with psychotic features. Mild cognitive impairment. Anxiety disorder unspecified. Impulse control disorder unspecified. Plan: Continue current psychotropics including trazodone 100 mg h.s. We will add 100 mg h.s. p.r.n. insomnia and start her on lithium or Tegretol depending on further clarification from the daughter if the patient has been on either one of these in the past but the nursing staff will clarify and then we make a decision. Maintain rest unchanged. Reviewed drug interactions, risk-benefit ratio. Assessment: Vital Signs/I&O: Vital Signs Date Time Temp Pulse Resp B/P (MAP) Pulse Ox O2 Delivery O2 Flow Rate FiO2 07/05/21 06:26 97.4 78 18 159/70 (99) 95 Room Air I & O 07/04/21 07/04/21 07/05/21 15:00 23:00 07:00 Intake Total 1200 ml 440 ml Balance 1200 ml 440 ml Labs: Laboratory Tests Test 07/04/21 12:12 07/04/21 17:04 07/04/21 19:24 07/05/21 07:32 Glucose (Fingerstick) 220 mg/dL (70-99) H 178 mg/dL (70-99) H 273 mg/dL (70-99) H 219 mg/dL (70-99) H Current Medications: Meds: Current Medications Medications (Trade) Dose Ordered Sig/Rcuhi Route PRN Reason Start Time Stop Time Status Last Admin Dose Admin Vitamin D (Vitamin D3) 50,000 unit WEEKLY PO 07/05/21 09:00 07/05/21 08:48 Insulin Glargine (Lantus Syringe) 10 unit QHS SQ 07/04/21 21:00 07/04/21 21:56 Insulin Human Lispro (HumaLOG) 0-7 UNITS TIDWMEALS SQ 07/04/21 17:00 07/05/21 08:00 I have reviewed the current psychotropics carefully including drug interactions. Risk benefit ratio favors no change other than as noted in my dictated progress note. Diagnosis: Problems: (1) Bipolar affective, mixed, sev w/ psych (2) Anxiety disorder (3) Impulse control disorder (4) Mild cognitive impairment GRAEME DIAZ MD Jul 05, 2021 09:03
[2021-07-05] MEDS: OLANZapine 2.5 MG TABLET PO PRN (09:36)
[2021-07-05 15:30] VITALS: BP 161/68
[2021-07-05] MEDS: PATCH REMOVAL. MC SCH (21:00)
[2021-07-05] MEDS: MELATONIN 3 MG TABLET PO SCH (21:23)
[2021-07-05] MEDS: TAMSULOSIN 0.4 MG CAP.ER.24H. PO SCH (21:23)
[2021-07-05] MEDS: QUEtiapine 100 MG TABLET. PO SCH (21:24)
[2021-07-05] MEDS: traZODone 100 MG TABLET. PO SCH (21:24)
[2021-07-05] MEDS: INSULIN GLARGINE SYRINGE. SQ SCH (21:26)
--- NOTE | 2021-07-05 21:48 | PDOC ---
Exam Note: Darren Note: Please also refer to the separate dictated note~for this date of service dictated separately.~Patient seen individually. Discussed the patient with Nursing staff reviewed the chart.~Reviewed interim history and current functioning. Reviewed vital signs,~Labs/ Radiology~and current medications noted below. Continue current treatment with the changes noted in the dictated addendum note Assessment: Vital Signs/I&O: Vital Signs Date Time Temp Pulse Resp B/P (MAP) Pulse Ox O2 Delivery O2 Flow Rate FiO2 07/05/21 15:30 97.6 74 17 161/68 (99) 98 Room Air I & O 07/04/21 07/04/21 07/05/21 15:00 23:00 07:00 Intake Total 1200 ml 440 ml Balance 1200 ml 440 ml Labs: Laboratory Tests Test 07/05/21 07:32 07/05/21 11:03 07/05/21 16:32 07/05/21 19:20 Glucose (Fingerstick) 219 mg/dL (70-99) H 307 mg/dL (70-99) H 194 mg/dL (70-99) H 261 mg/dL (70-99) H Current Medications: Meds: Laboratory Tests Test 07/05/21 07:32 07/05/21 11:03 07/05/21 16:32 07/05/21 19:20 Glucose (Fingerstick) 219 mg/dL 307 mg/dL 194 mg/dL 261 mg/dL Current Medications Medications (Trade) Dose Ordered Sig/Ruchi Route PRN Reason Start Time Stop Time Status Last Admin Dose Admin Acetaminophen (Tylenol) 650 mg PRN Q6HRS PRN PO MILD PAIN / TEMP > 100.3'F 07/03/21 04:30 07/03/21 07:19 DC Multi-Ingredient Ointment (Analgesic Bowie) 1 mara PRN QID PRN TP MUSCLE PAIN 07/03/21 04:30 Al Hydroxide/Mg Hydroxide (Mylanta Plus Xs) 15 ml PRN AFTMEALHC PRN PO DYSPEPSIA 07/03/21 04:30 Magnesium Hydroxide (Milk Of Magnesia) 2,400 mg PRN QHS PRN PO CONSTIPATION 2ND CHOICE 07/03/21 04:30 Polyethylene Glycol (miraLAX) 17 gm PRN DAILY PRN PO CONSTIPATION 1ST CHOICE 07/03/21 04:30 Buspirone HCl (Buspar) 7.5 mg TID PO 07/03/21 09:00 07/05/21 21:23 Gabapentin (Neurontin) 300 mg BID PO 07/03/21 09:00 07/05/21 21:27 Acetaminophen/ Hydrocodone Bitart (Lortab 5/325) 1 tab PRN Q6HRS PRN PO PAIN MODERATE/SEVERE 07/03/21 04:45 Levothyroxine Sodium (Synthroid) 150 mcg DAILY07 PO 07/03/21 07:00 07/05/21 06:00 Lidocaine (Lidoderm) 1 patch PRN DAILY PRN TP pain in lower back 07/03/21 04:45 Melatonin (Melatonin) 6 mg HS PO 07/03/21 21:00 07/05/21 21:23 Artificial Tears (Artificial Tears) 2 drop TID OU 07/03/21 09:00 07/05/21 21:26 Quetiapine Fumarate (SEROquel) 75 mg DAILY@0900,1700 PO 07/03/21 09:00 07/05/21 17:23 Quetiapine Fumarate (SEROquel) 100 mg QHS PO 07/03/21 21:00 07/05/21 21:24 Tamsulosin HCl (Flomax) 0.4 mg HS PO 07/03/21 21:00 07/05/21 21:23 Trazodone HCl (Desyrel) 12.5 mg PRN Q12HR PRN PO ANXIETY/AGITATION 07/03/21 04:45 Trazodone HCl (Desyrel) 100 mg HS PO 07/03/21 21:00 07/05/21 21:24 Acetaminophen (Tylenol) 500 mg PRN Q6HRS PRN PO MILD PAIN / TEMP > 100.3'F 07/03/21 05:15 Miscellaneous (Lidoderm Patch Removal) 1 ea QHS MC 07/03/21 21:00 07/05/21 21:00 Olanzapine (ZyPREXA) 2.5 mg PRN DAILY PRN PO PSYCHOSIS 07/03/21 09:15 07/03/21 13:26 DC 07/03/21 09:14 Olanzapine (ZyPREXA) 2.5 mg PRN Q2HR PRN PO PSYCHOSIS 07/03/21 14:10 07/05/21 09:36 Trazodone HCl (Desyrel) 100 mg PRN QHS PRN PO for sleep 07/04/21 11:45 Vitamin D (Vitamin D3) 50,000 unit WEEKLY PO 07/05/21 09:00 07/05/21 08:48 Insulin Glargine (Lantus Syringe) 10 unit QHS SQ 07/04/21 21:00 07/05/21 21:26 Insulin Human Lispro (HumaLOG) 0-7 UNITS TIDWMEALS SQ 07/04/21 17:00 07/05/21 17:00 Dextrose (Dextrose 50%-Water Syringe) 12.5 gm PRN Q15MIN PRN IV SEE COMMENTS 07/04/21 15:00 Carbamazepine (TEGretol XR) 200 mg HS PO 07/05/21 21:00 07/05/21 21:25 Current Medications Medications (Trade) Dose Ordered Sig/Ruchi Route PRN Reason Start Time Stop Time Status Last Admin Dose Admin Vitamin D (Vitamin D3) 50,000 unit WEEKLY PO 07/05/21 09:00 07/05/21 08:48 Carbamazepine (TEGretol XR) 200 mg HS PO 07/05/21 21:00 07/05/21 21:25 I have reviewed the current psychotropics carefully including drug interactions. Risk benefit ratio favors no change other than as noted in my dictated progress note. Diagnosis: Problems: (1) Mild cognitive impairment (2) Bipolar affective, mixed, sev w/ psych (3) Anxiety disorder (4) Impulse control disorder GRAEME DIAZ MD Jul 05, 2021 21:48
[2021-07-06] MEDS: ACETAMINOPHEN 500 MG TABLET PO PRN ×2 (02:37→12:34)
[2021-07-06 05:24] VITALS: BP 137/63
[2021-07-06] MEDS: LEVOTHYROXINE 150 MCG TABLET PO SCH (05:39)
[2021-07-06] MEDS: INSULIN LISPRO 300 UNITS/3 ML VIAL. SQ SCH ×3 (08:00→17:00)
[2021-07-06] MEDS: QUEtiapine 25 MG TABLET. PO SCH ×2 (08:10→17:20)
[2021-07-06] MEDS: busPIRone 5 MG TABLET. PO SCH ×3 (08:10→20:15)
[2021-07-06] MEDS: GABAPENTIN 300 MG CAPSULE. PO SCH ×2 (08:10→20:15)
[2021-07-06] MEDS: POLYVINYL ALCOHOL 1.4% OPHTH SOLUTION 15ML BOTTLE. OU SCH ×3 (08:11→20:19)
[2021-07-06] MEDS: HYDROcodone/APAP 5/325MG 1 TAB TABLET PO PRN ×3 (08:18→20:19)
--- NOTE | 2021-07-06 08:30 | PDOC ---
Exam Note: Darren Note: This note is a late entry for 07/05/2021 covers elements not covered in my initial note. Subjective: The patient was reviewed at treatment team meeting individually in the morning on 07/05/2021 with Payal Perez, Teresita Arce, and Oneyda Engel (social media campaign manager), Delores, activity therapy, and Aleida HENDRICKSON, discussed and reviewed the chart. The patient slept 5-3/4 hours in the morning. She has been anxious, quite restless, wanting to be discharged. She is obsessing about her daughter coming to pick her up. She was on the telephone with the daughter, quite hyper later calmer. Daughter was given the choice of starting her on lithium or Tegretol for bipolar disorder and the daughter would prefer initiating Tegretol. We will start Tegretol XR 200 mg h.s. Check CBC, CMP, Tegretol level in 3 days. I met with her on the corridor outside her room. Review of Systems: Ambulation impaired, in wheelchair. No CV, , pulmonary, eye system symptoms on review. Mental Status Exam: Patient is reasonably oriented. Speech is coherent, rapid at times. Abstraction fair. Computation impaired. Language function intact. Attention span short. Mood and affect labile. Laboratory Data: Reviewed. Impression: Bipolar 1 disorder, mixed with psychotic features. Mild cognitive impairment. Anxiety disorder unspecified. Impulse control disorder unspecified. Plan: Continue current psychotropics. Start Tegretol. Maintain Seroquel, gabapentin, BuSpar, melatonin, trazodone. Rest unchanged for now. Assessment: Vital Signs/I&O: Vital Signs Date Time Temp Pulse Resp B/P (MAP) Pulse Ox O2 Delivery O2 Flow Rate FiO2 07/06/21 08:18 18 07/06/21 05:24 97.8 69 137/63 (87) 93 07/05/21 15:30 Room Air I & O 07/05/21 07/05/21 07/06/21 15:00 23:00 07:00 Intake Total 600 ml 720 ml Balance 600 ml 720 ml Labs: Laboratory Tests Test 07/05/21 11:03 07/05/21 16:32 07/05/21 19:20 07/06/21 07:51 Glucose (Fingerstick) 307 mg/dL (70-99) H 194 mg/dL (70-99) H 261 mg/dL (70-99) H 197 mg/dL (70-99) H Current Medications: Meds: Current Medications Medications (Trade) Dose Ordered Sig/Ruchi Route PRN Reason Start Time Stop Time Status Last Admin Dose Admin Vitamin D (Vitamin D3) 50,000 unit WEEKLY PO 07/05/21 09:00 07/05/21 08:48 Carbamazepine (TEGretol XR) 200 mg HS PO 07/05/21 21:00 07/05/21 21:25 I have reviewed the current psychotropics carefully including drug interactions. Risk benefit ratio favors no change other than as noted in my dictated progress note. Diagnosis: Problems: (1) Mild cognitive impairment (2) Bipolar affective, mixed, sev w/ psych (3) Anxiety disorder (4) Impulse control disorder GRAEME DIAZ MD Jul 06, 2021 08:29
[2021-07-06 16:02] VITALS: BP 152/76
[2021-07-06] MEDS: MELATONIN 3 MG TABLET PO SCH (20:14)
[2021-07-06] MEDS: QUEtiapine 100 MG TABLET. PO SCH (20:15)
[2021-07-06] MEDS: TAMSULOSIN 0.4 MG CAP.ER.24H. PO SCH (20:15)
[2021-07-06] MEDS: traZODone 100 MG TABLET. PO SCH (20:15)
[2021-07-06] MEDS: INSULIN GLARGINE SYRINGE. SQ SCH (20:18)
[2021-07-06] MEDS: PATCH REMOVAL. MC SCH (20:19)
[2021-07-06 20:41] LABS: BACTERIA,URINE 0 /HPF (0-FEW); CLARITY,URINE CLEAR; COLOR,URINE YELLOW; GLUCOSE,URINE NEG (NEG); NITRITE,URINE NEG (NEG); RBC,URINE RARE /HPF (0-2); SQUAMOUS EPITHELIAL CELL,UR MOD /LPF; UROBILINOGEN,URINE 0.2 mg/dL (0.2 mg/dL); WBC,URINE 0 /HPF (0-4)
--- NOTE | 2021-07-06 22:10 | PDOC ---
Exam Note: Darren Note: Please also refer to the separate dictated note~for this date of service dictated separately.~Patient seen individually. Discussed the patient with Nursing staff reviewed the chart.~Reviewed interim history and current functioning. Reviewed vital signs,~Labs/ Radiology~and current medications noted below. Continue current treatment with the changes noted in the dictated addendum note Assessment: Vital Signs/I&O: Vital Signs Date Time Temp Pulse Resp B/P (MAP) Pulse Ox O2 Delivery O2 Flow Rate FiO2 07/06/21 20:49 97 07/06/21 16:02 98.1 81 20 152/76 (101) 07/06/21 08:45 Room Air I & O 07/05/21 07/05/21 07/06/21 14:59 22:59 06:59 Intake Total 600 ml 720 ml Balance 600 ml 720 ml Labs: Laboratory Tests Test 07/06/21 07:51 07/06/21 11:32 07/06/21 16:48 07/06/21 19:34 Glucose (Fingerstick) 197 mg/dL (70-99) H 254 mg/dL (70-99) H 202 mg/dL (70-99) H 229 mg/dL (70-99) H Test 07/06/21 20:00 Urine Collection Type Clean catch Urine Color Yellow Urine Clarity Clear Urine pH 5.5 Urine Specific Frederic 1.015 Urine Protein Neg (NEG-TRACE) Urine Glucose (UA) Neg mg/dL (NEG) Urine Ketones (Stick) Neg mg/dL (NEG) Urine Blood Trace (NEG) Urine Nitrite Neg (NEG) Urine Bilirubin Neg (NEG) Urine Urobilinogen Dipstick 0.2 mg/dL (0.2 mg/dL) Urine Leukocyte Esterase Neg (NEG) Urine RBC Rare /HPF (0-2) Urine WBC 0 /HPF (0-4) Urine Squamous Epithelial Cells Mod /LPF Urine Bacteria 0 /HPF (0-FEW) Current Medications: I have reviewed the current psychotropics carefully including drug interactions. Risk benefit ratio favors no change other than as noted in my dictated progress note. Diagnosis: Problems: (1) Mild cognitive impairment (2) Bipolar affective, mixed, sev w/ psych (3) Anxiety disorder (4) Impulse control disorder GRAEME DIAZ MD Jul 06, 2021 22:10
[2021-07-07] MEDS: LEVOTHYROXINE 150 MCG TABLET PO SCH (05:52)
[2021-07-07 06:46] VITALS: BP 168/79
[2021-07-07] MEDS: INSULIN LISPRO 300 UNITS/3 ML VIAL. SQ SCH ×3 (08:00→17:52)
--- NOTE | 2021-07-07 08:36 | PDOC ---
Exam Note: Darren Note: This note is a late entry for 07/06/2021 covers elements not covered in my initial note. Subjective: The patient was seen individually on 07/06/2021, discussed and reviewed the chart with Kerri HENDRICKSON. The patient slept 5-3/4 hours in the morning. She was seen in the hallway outside her room. Short-term memory is impaired. She had a telephone call earlier today but then forgot she had had this when nursing questioned her. She is frequently wanting pain medications and gets forgetful that she has already taken it. Review of Systems: Ambulation impaired, in wheelchair. No CV, , pulmonary, eye system symptoms on review. Mental Status Exam: Patient is awake, alert, oriented. Speech is coherent, rapid at times. Abstraction fair. Computation impaired. Language function intact. Attention span short. Mood and affect remains labile. Laboratory Data: Reviewed. Impression: Bipolar 1 disorder, mixed with psychotic features. Mild cognitive impairment. Anxiety disorder unspecified. Impulse control disorder unspecified. Plan: Continue current psychotropics. We started Tegretol. Adjust to reach therapeutic level and then if bipolar symptoms persist, we will make further adjustments. Reviewed drug interactions and risk-benefit ratio. Assessment: Vital Signs/I&O: Vital Signs Date Time Temp Pulse Resp B/P (MAP) Pulse Ox O2 Delivery O2 Flow Rate FiO2 07/07/21 06:46 98.0 78 20 168/79 (108) 95 Room Air I & O 07/06/21 07/06/21 07/07/21 15:00 23:00 07:00 Intake Total 360 ml 360 ml Balance 360 ml 360 ml Labs: Laboratory Tests Test 07/06/21 11:32 07/06/21 16:48 07/06/21 19:34 07/06/21 20:00 Glucose (Fingerstick) 254 mg/dL (70-99) H 202 mg/dL (70-99) H 229 mg/dL (70-99) H Urine Collection Type Clean catch Urine Color Yellow Urine Clarity Clear Urine pH 5.5 Urine Specific Mulga 1.015 Urine Protein Neg (NEG-TRACE) Urine Glucose (UA) Neg mg/dL (NEG) Urine Ketones (Stick) Neg mg/dL (NEG) Urine Blood Trace (NEG) Urine Nitrite Neg (NEG) Urine Bilirubin Neg (NEG) Urine Urobilinogen Dipstick 0.2 mg/dL (0.2 mg/dL) Urine Leukocyte Esterase Neg (NEG) Urine RBC Rare /HPF (0-2) Urine WBC 0 /HPF (0-4) Urine Squamous Epithelial Cells Mod /LPF Urine Bacteria 0 /HPF (0-FEW) Test 07/07/21 07:49 Glucose (Fingerstick) 174 mg/dL (70-99) H Current Medications: I have reviewed the current psychotropics carefully including drug interactions. Risk benefit ratio favors no change other than as noted in my dictated progress note. Diagnosis: Problems: (1) Mild cognitive impairment (2) Bipolar affective, mixed, sev w/ psych (3) Anxiety disorder (4) Impulse control disorder GRAEME DIAZ MD Jul 07, 2021 08:36
[2021-07-07] MEDS: busPIRone 5 MG TABLET. PO SCH ×3 (09:00→20:01)
[2021-07-07] MEDS: POLYVINYL ALCOHOL 1.4% OPHTH SOLUTION 15ML BOTTLE. OU SCH ×3 (09:00→20:02)
[2021-07-07] MEDS: GABAPENTIN 300 MG CAPSULE. PO SCH ×2 (09:00→20:01)
[2021-07-07] MEDS: QUEtiapine 25 MG TABLET. PO SCH ×2 (09:00→17:49)
[2021-07-07] MEDS: HYDROcodone/APAP 5/325MG 1 TAB TABLET PO PRN ×2 (12:29→21:29)
[2021-07-07 15:58] VITALS: BP 147/67
[2021-07-07] MEDS: QUEtiapine 100 MG TABLET. PO SCH (20:01)
[2021-07-07] MEDS: traZODone 100 MG TABLET. PO SCH (20:01)
[2021-07-07] MEDS: TAMSULOSIN 0.4 MG CAP.ER.24H. PO SCH (20:01)
[2021-07-07] MEDS: MELATONIN 3 MG TABLET PO SCH (20:01)
[2021-07-07] MEDS: PATCH REMOVAL. MC SCH (20:02)
[2021-07-07] MEDS: INSULIN GLARGINE SYRINGE. SQ SCH (21:28)
--- NOTE | 2021-07-07 22:01 | PDOC ---
Exam Note: Darren Note: Please also refer to the separate dictated note~for this date of service dictated separately.~Patient seen individually. Discussed the patient with Nursing staff reviewed the chart.~Reviewed interim history and current functioning. Reviewed vital signs,~Labs/ Radiology~and current medications noted below. Continue current treatment with the changes noted in the dictated addendum note Assessment: Vital Signs/I&O: Vital Signs Date Time Temp Pulse Resp B/P (MAP) Pulse Ox O2 Delivery O2 Flow Rate FiO2 07/07/21 21:29 97 07/07/21 15:58 98.2 71 20 147/67 (93) 07/07/21 06:46 Room Air I & O 07/06/21 07/06/21 07/07/21 15:00 23:00 07:00 Intake Total 360 ml 360 ml Balance 360 ml 360 ml Labs: Laboratory Tests Test 07/07/21 07:49 07/07/21 11:52 07/07/21 17:05 07/07/21 20:13 Glucose (Fingerstick) 174 mg/dL (70-99) H 232 mg/dL (70-99) H 191 mg/dL (70-99) H 190 mg/dL (70-99) H Current Medications: Meds: Laboratory Tests Test 07/07/21 07:49 07/07/21 11:52 07/07/21 17:05 07/07/21 20:13 Glucose (Fingerstick) 174 mg/dL 232 mg/dL 191 mg/dL 190 mg/dL Current Medications Medications (Trade) Dose Ordered Sig/Ruchi Route PRN Reason Start Time Stop Time Status Last Admin Dose Admin Acetaminophen (Tylenol) 650 mg PRN Q6HRS PRN PO MILD PAIN / TEMP > 100.3'F 07/03/21 04:30 07/03/21 07:19 DC Multi-Ingredient Ointment (Analgesic [place]) 1 mara PRN QID PRN TP MUSCLE PAIN 07/03/21 04:30 Al Hydroxide/Mg Hydroxide (Mylanta Plus Xs) 15 ml PRN AFTMEALHC PRN PO DYSPEPSIA 07/03/21 04:30 Magnesium Hydroxide (Milk Of Magnesia) 2,400 mg PRN QHS PRN PO CONSTIPATION 2ND CHOICE 07/03/21 04:30 Polyethylene Glycol (miraLAX) 17 gm PRN DAILY PRN PO CONSTIPATION 1ST CHOICE 4/20/22 04:30 Buspirone HCl (Buspar) 7.5 mg TID PO 07/03/21 09:00 07/07/21 20:01 Gabapentin (Neurontin) 300 mg BID PO 07/03/21 09:00 07/07/21 20:01 Acetaminophen/ Hydrocodone Bitart (Lortab 5/325) 1 tab PRN Q6HRS PRN PO PAIN MODERATE/SEVERE 07/03/21 04:45 07/07/21 21:29 Levothyroxine Sodium (Synthroid) 150 mcg DAILY07 PO 07/03/21 07:00 07/07/21 05:52 Lidocaine (Lidoderm) 1 patch PRN DAILY PRN TP pain in lower back 07/03/21 04:45 Melatonin (Melatonin) 6 mg HS PO 07/03/21 21:00 07/07/21 20:01 Artificial Tears (Artificial Tears) 2 drop TID OU 07/03/21 09:00 07/07/21 20:02 Quetiapine Fumarate (SEROquel) 75 mg DAILY@0900,1700 PO 07/03/21 09:00 07/07/21 17:49 Quetiapine Fumarate (SEROquel) 100 mg QHS PO 07/03/21 21:00 07/07/21 20:01 Tamsulosin HCl (Flomax) 0.4 mg HS PO 07/03/21 21:00 07/07/21 20:01 Trazodone HCl (Desyrel) 12.5 mg PRN Q12HR PRN PO ANXIETY/AGITATION 07/03/21 04:45 Trazodone HCl (Desyrel) 100 mg HS PO 07/03/21 21:00 07/07/21 20:01 Acetaminophen (Tylenol) 500 mg PRN Q6HRS PRN PO MILD PAIN / TEMP > 100.3'F 07/03/21 05:15 07/06/21 12:34 Miscellaneous (Lidoderm Patch Removal) 1 ea QHS MC 07/03/21 21:00 07/07/21 20:02 Olanzapine (ZyPREXA) 2.5 mg PRN DAILY PRN PO PSYCHOSIS 07/03/21 09:15 07/03/21 13:26 DC 07/03/21 09:14 Olanzapine (ZyPREXA) 2.5 mg PRN Q2HR PRN PO PSYCHOSIS 07/03/21 14:10 07/05/21 09:36 Trazodone HCl (Desyrel) 100 mg PRN QHS PRN PO for sleep 07/04/21 11:45 Vitamin D (Vitamin D3) 50,000 unit WEEKLY PO 07/05/21 09:00 07/05/21 08:48 Insulin Glargine (Lantus Syringe) 10 unit QHS SQ 07/04/21 21:00 07/07/21 21:28 Insulin Human Lispro (HumaLOG) 0-7 UNITS TIDWMEALS SQ 07/04/21 17:00 07/07/21 17:52 Dextrose (Dextrose 50%-Water Syringe) 12.5 gm PRN Q15MIN PRN IV SEE COMMENTS 07/04/21 15:00 Carbamazepine (TEGretol XR) 200 mg HS PO 07/05/21 21:00 07/07/21 20:01 I have reviewed the current psychotropics carefully including drug interactions. Risk benefit ratio favors no change other than as noted in my dictated progress note. Diagnosis: Problems: (1) Mild cognitive impairment (2) Bipolar affective, mixed, sev w/ psych (3) Anxiety disorder (4) Impulse control disorder GRAEME DIAZ MD Jul 07, 2021 22:01
[2021-07-07] MEDS: traZODone 100 MG TABLET. PO PRN (23:07)
[2021-07-08 06:38] VITALS: BP 166/68
[2021-07-08] MEDS: LEVOTHYROXINE 150 MCG TABLET PO SCH (06:38)
[2021-07-08] MEDS: INSULIN LISPRO 300 UNITS/3 ML VIAL. SQ SCH ×3 (08:00→17:41)
[2021-07-08] MEDS: busPIRone 5 MG TABLET. PO SCH ×3 (08:52→20:53)
[2021-07-08] MEDS: QUEtiapine 25 MG TABLET. PO SCH ×2 (08:53→17:32)
[2021-07-08] MEDS: GABAPENTIN 300 MG CAPSULE. PO SCH ×2 (08:53→21:00)
[2021-07-08] MEDS: POLYVINYL ALCOHOL 1.4% OPHTH SOLUTION 15ML BOTTLE. OU SCH ×3 (08:54→20:58)
--- NOTE | 2021-07-08 09:42 | PDOC ---
Exam Note: Darren Note: This note is a late entry for 07/07/2021 covers elements not covered in my initial note. Subjective: The patient was seen individually on 07/07/2021, discussed and reviewed the chart with Kerri HENDRICKSON. The patient slept 7-1/4 hours in the morning. She did reasonably last night. She is alert and oriented x4. Today she has been demanding ripped off her colostomy bag and does choke on thin liquids. Speech study is awaited. Review of Systems: Ambulation impaired, in wheelchair. No CV, , pulmonary, eye system symptoms on review. Positive for tiredness. Mental Status Exam: Patient is oriented to herself and situation. Speech is coherent. Abstraction fair. Computation impaired. Language function intact. Mood and affect somewhat anxious, labile. Laboratory Data: Reviewed. Impression: Bipolar 1 disorder, mixed with psychotic features. Mild cognitive impairment. Anxiety disorder unspecified. Impulse control disorder unspecifi ed. Plan: Continue current psychotropics. Reviewed drug interactions and risk- benefit ratio. We will make further adjustments as clinically indicated. For now continue gabapentin, BuSpar, melatonin, Seroquel, trazodone. Assessment: Vital Signs/I&O: Vital Signs Date Time Temp Pulse Resp B/P (MAP) Pulse Ox O2 Delivery O2 Flow Rate FiO2 07/08/21 06:38 98.0 68 20 166/68 (100) 96 07/07/21 06:46 Room Air I & O 07/07/21 07/07/21 07/08/21 14:59 22:59 06:59 Intake Total 180 ml 120 ml Balance 180 ml 120 ml Labs: Laboratory Tests Test 07/07/21 11:52 07/07/21 17:05 07/07/21 20:13 07/08/21 07:47 Glucose (Fingerstick) 232 mg/dL (70-99) H 191 mg/dL (70-99) H 190 mg/dL (70-99) H 152 mg/dL (70-99) H Current Medications: I have reviewed the current psychotropics carefully including drug interactions. Risk benefit ratio favors no change other than as noted in my dictated progress note. Diagnosis: Problems: (1) Mild cognitive impairment (2) Bipolar affective, mixed, sev w/ psych (3) Anxiety disorder (4) Impulse control disorder GRAEME DIAZ MD Jul 08, 2021 09:42
[2021-07-08 09:46] LABS: BASO # 0.1 x10^3/uL (0.0-0.2); BASO % 1 % (0-3); EOS # 0.2 x10^3/uL (0.0-0.7); EOS % 3 % (0-3); HEMATOCRIT 34.5 % (36.0-47.0); HEMOGLOBIN 11.2 g/dL (12.0-15.5); LYMPH # 0.9 x10^3/uL (1.0-4.8); LYMPH % 15 % (24-48); MEAN CORPUSCULAR HEMOGLOBIN 28 pg (25-35); MEAN CORPUSCULAR HGB CONC 33 g/dL (31-37); MEAN CORPUSCULAR VOLUME 85 fL (79-100); MONO # 0.4 x10^3/uL (0.0-1.1); MONO % 6 % (0-9); NEUT # 4.5 x10^3uL (1.8-7.7); NEUT % 75 % (31-73); PLATELET COUNT 125 x10^3/uL (140-400); RED BLOOD COUNT 4.08 x10^6/uL (3.50-5.40); RED CELL DISTRIBUTION WIDTH 15.5 % (11.5-14.5)
[2021-07-08 10:13] LABS: ALBUMIN 3.3 g/dL (3.4-5.0); CALCIUM 8.3 mg/dL (8.5-10.1); TOTAL BILIRUBIN 0.3 mg/dL (0.2-1.0); TOTAL PROTEIN 6.6 g/dL (6.4-8.2)
[2021-07-08] MEDS: ACETAMINOPHEN 500 MG TABLET PO PRN (15:42)
[2021-07-08 16:01] VITALS: BP 182/72
[2021-07-08] MEDS: traZODone 100 MG TABLET. PO SCH (20:56)
[2021-07-08] MEDS: MELATONIN 3 MG TABLET PO SCH (20:56)
[2021-07-08] MEDS: QUEtiapine 100 MG TABLET. PO SCH (20:56)
[2021-07-08] MEDS: TAMSULOSIN 0.4 MG CAP.ER.24H. PO SCH (20:57)
[2021-07-08] MEDS: OLANZapine 2.5 MG TABLET PO PRN ×2 (21:10→23:35)
[2021-07-08] MEDS: INSULIN GLARGINE SYRINGE. SQ SCH (21:15)
[2021-07-08] MEDS: PATCH REMOVAL. MC SCH (21:16)
--- NOTE | 2021-07-08 21:26 | PDOC ---
Exam Note: Darren Note: Please also refer to the separate dictated note~for this date of service dictated separately.~Patient seen individually. Discussed the patient with Nursing staff reviewed the chart.~Reviewed interim history and current functioning. Reviewed vital signs,~Labs/ Radiology~and current medications noted below. Continue current treatment with the changes noted in the dictated addendum note Assessment: Vital Signs/I&O: Vital Signs Date Time Temp Pulse Resp B/P (MAP) Pulse Ox O2 Delivery O2 Flow Rate FiO2 07/08/21 16:01 98.2 77 16 182/72 (108) 95 07/07/21 06:46 Room Air I & O 07/07/21 07/07/21 07/08/21 15:00 23:00 07:00 Intake Total 180 ml 120 ml Balance 180 ml 120 ml Labs: Laboratory Tests Test 07/08/21 07:47 07/08/21 09:30 07/08/21 11:00 07/08/21 11:57 Glucose (Fingerstick) 152 mg/dL (70-99) H 194 mg/dL (70-99) H White Blood Count 6.0 x10^3/uL (4.0-11.0) Red Blood Count 4.08 x10^6/uL (3.50-5.40) Hemoglobin 11.2 g/dL (12.0-15.5) L Hematocrit 34.5 % (36.0-47.0) L Mean Corpuscular Volume 85 fL (79-100) Mean Corpuscular Hemoglobin 28 pg (25-35) Mean Corpuscular Hemoglobin Concent 33 g/dL (31-37) Red Cell Distribution Width 15.5 % (11.5-14.5) H Platelet Count 125 x10^3/uL (140-400) L Neutrophils (%) (Auto) 75 % (31-73) H Lymphocytes (%) (Auto) 15 % (24-48) L Monocytes (%) (Auto) 6 % (0-9) Eosinophils (%) (Auto) 3 % (0-3) Basophils (%) (Auto) 1 % (0-3) Neutrophils # (Auto) 4.5 x10^3uL (1.8-7.7) Lymphocytes # (Auto) 0.9 x10^3/uL (1.0-4.8) L Monocytes # (Auto) 0.4 x10^3/uL (0.0-1.1) Eosinophils # (Auto) 0.2 x10^3/uL (0.0-0.7) Basophils # (Auto) 0.1 x10^3/uL (0.0-0.2) Miscellaneous Test Comment (.) Sodium Level 137 mmol/L (136-145) Potassium Level 4.0 mmol/L (3.5-5.1) Chloride Level 102 mmol/L (98-107) Carbon Dioxide Level 27 mmol/L (21-32) Anion Gap 8 (6-14) Blood Urea Nitrogen 19 mg/dL (7-20) Creatinine 1.0 mg/dL (0.6-1.0) Estimated GFR (Cockcroft-Gault) 53.0 BUN/Creatinine Ratio 19 (6-20) Glucose Level 271 mg/dL (70-99) H Calcium Level 8.3 mg/dL (8.5-10.1) L Total Bilirubin 0.3 mg/dL (0.2-1.0) Aspartate Amino Transferase (AST) 17 U/L (15-37) Alanine Aminotransferase (ALT) 20 U/L (14-59) Alkaline Phosphatase 89 U/L (46-116) Total Protein 6.6 g/dL (6.4-8.2) Albumin 3.3 g/dL (3.4-5.0) L Albumin/Globulin Ratio 1.0 (1.0-1.7) POC SARS CoV-2 Antigen Negative (NEGATIVE) Test 07/08/21 17:03 07/08/21 19:54 Glucose (Fingerstick) 307 mg/dL (70-99) H 175 mg/dL (70-99) H Current Medications: Meds: Laboratory Tests Test 07/08/21 07:47 07/08/21 09:30 07/08/21 11:00 07/08/21 11:57 Glucose (Fingerstick) 152 mg/dL 194 mg/dL White Blood Count 6.0 x10^3/uL Red Blood Count 4.08 x10^6/uL Hemoglobin 11.2 g/dL Hematocrit 34.5 % Mean Corpuscular Volume 85 fL Mean Corpuscular Hemoglobin 28 pg Mean Corpuscular Hemoglobin Concent 33 g/dL Red Cell Distribution Width 15.5 % Platelet Count 125 x10^3/uL Neutrophils (%) (Auto) 75 % Lymphocytes (%) (Auto) 15 % Monocytes (%) (Auto) 6 % Eosinophils (%) (Auto) 3 % Basophils (%) (Auto) 1 % Neutrophils # (Auto) 4.5 x10^3uL Lymphocytes # (Auto) 0.9 x10^3/uL Monocytes # (Auto) 0.4 x10^3/uL Eosinophils # (Auto) 0.2 x10^3/uL Basophils # (Auto) 0.1 x10^3/uL Miscellaneous Test Comment Sodium Level 137 mmol/L Potassium Level 4.0 mmol/L Chloride Level 102 mmol/L Carbon Dioxide Level 27 mmol/L Anion Gap 8 Blood Urea Nitrogen 19 mg/dL Creatinine 1.0 mg/dL Estimated GFR (Cockcroft-Gault) 53.0 BUN/Creatinine Ratio 19 Glucose Level 271 mg/dL Calcium Level 8.3 mg/dL Total Bilirubin 0.3 mg/dL Aspartate Amino Transf (AST/SGOT) 17 U/L Alanine Aminotransferase (ALT/SGPT) 20 U/L Alkaline Phosphatase 89 U/L Total Protein 6.6 g/dL Albumin 3.3 g/dL Albumin/Globulin Ratio 1.0 POC SARS CoV-2 Antigen Negative Test 07/08/21 17:03 07/08/21 19:54 Glucose (Fingerstick) 307 mg/dL 175 mg/dL Current Medications Medications (Trade) Dose Ordered Sig/Ruchi Route PRN Reason Start Time Stop Time Status Last Admin Dose Admin Acetaminophen (Tylenol) 650 mg PRN Q6HRS PRN PO MILD PAIN / TEMP > 100.3'F 07/03/21 04:30 07/03/21 07:19 DC Multi-Ingredient Ointment (Analgesic [place]) 1 mara PRN QID PRN TP MUSCLE PAIN 07/03/21 04:30 Al Hydroxide/Mg Hydroxide (Mylanta Plus Xs) 15 ml PRN AFTMEALHC PRN PO DYSPEPSIA 07/03/21 04:30 Magnesium Hydroxide (Milk Of Magnesia) 2,400 mg PRN QHS PRN PO CONSTIPATION 2ND CHOICE 07/03/21 04:30 Polyethylene Glycol (miraLAX) 17 gm PRN DAILY PRN PO CONSTIPATION 1ST CHOICE 07/03/21 04:30 Buspirone HCl (Buspar) 7.5 mg TID PO 07/03/21 09:00 07/08/21 20:53 Gabapentin (Neurontin) 300 mg BID PO 07/03/21 09:00 07/08/21 21:00 Acetaminophen/ Hydrocodone Bitart (Lortab 5/325) 1 tab PRN Q6HRS PRN PO PAIN MODERATE/SEVERE 07/03/21 04:45 07/07/21 21:29 Levothyroxine Sodium (Synthroid) 150 mcg DAILY07 PO 07/03/21 07:00 07/08/21 06:38 Lidocaine (Lidoderm) 1 patch PRN DAILY PRN TP pain in lower back 07/03/21 04:45 Melatonin (Melatonin) 6 mg HS PO 07/03/21 21:00 07/08/21 20:56 Artificial Tears (Artificial Tears) 2 drop TID OU 07/03/21 09:00 07/08/21 20:58 Quetiapine Fumarate (SEROquel) 75 mg DAILY@0900,1700 PO 07/03/21 09:00 07/08/21 17:32 Quetiapine Fumarate (SEROquel) 100 mg QHS PO 07/03/21 21:00 07/08/21 20:56 Tamsulosin HCl (Flomax) 0.4 mg HS PO 07/03/21 21:00 07/08/21 20:57 Trazodone HCl (Desyrel) 12.5 mg PRN Q12HR PRN PO ANXIETY/AGITATION 07/03/21 04:45 Trazodone HCl (Desyrel) 100 mg HS PO 07/03/21 21:00 07/08/21 20:56 Acetaminophen (Tylenol) 500 mg PRN Q6HRS PRN PO MILD PAIN / TEMP > 100.3'F 07/03/21 05:15 07/08/21 15:42 Miscellaneous (Lidoderm Patch Removal) 1 ea QHS MC 07/03/21 21:00 07/08/21 21:16 Olanzapine (ZyPREXA) 2.5 mg PRN DAILY PRN PO PSYCHOSIS 07/03/21 09:15 07/03/21 13:26 DC 07/03/21 09:14 Olanzapine (ZyPREXA) 2.5 mg PRN Q2HR PRN PO PSYCHOSIS 07/03/21 14:10 07/08/21 21:10 Trazodone HCl (Desyrel) 100 mg PRN QHS PRN PO for sleep 07/04/21 11:45 07/07/21 23:07 Vitamin D (Vitamin D3) 50,000 unit WEEKLY PO 07/05/21 09:00 07/05/21 08:48 Insulin Glargine (Lantus Syringe) 10 unit QHS SQ 07/04/21 21:00 07/08/21 21:15 Insulin Human Lispro (HumaLOG) 0-7 UNITS TIDWMEALS SQ 07/04/21 17:00 07/08/21 17:41 Dextrose (Dextrose 50%-Water Syringe) 12.5 gm PRN Q15MIN PRN IV SEE COMMENTS 07/04/21 15:00 Carbamazepine (TEGretol XR) 200 mg HS PO 07/05/21 21:00 07/08/21 21:10 I have reviewed the current psychotropics carefully including drug interactions. Risk benefit ratio favors no change other than as noted in my dictated progress note. Diagnosis: Problems: (1) Mild cognitive impairment (2) Bipolar affective, mixed, sev w/ psych (3) Anxiety disorder (4) Impulse control disorder GRAEME DIAZ MD Jul 08, 2021 21:26
--- NOTE | 2021-07-08 22:59 | PDOC ---
Exam Note: Darren Note: This note is for 07/08/2021 covers elements not covered in my initial note. Subjective: The patient was seen individually on 07/08/2021, discussed and reviewed the chart with Elio HENDRICKSON. The patient slept 4-1/2 hours in the morning. She was somewhat agitated in the evening. No yelling is noted, still anxious, grandiose but better than before. I met with her individually. Review of Systems: Ambulation impaired, in wheelchair. No CV, , pulmonary, eye system symptoms on review. Mental Status Exam: Patient is oriented to herself and situation. Speech is c oherent, rapid at times. Abstraction fair. Computation impaired. Language function intact. Attention span short. Mood and affect remains labile. She is quite obsessive about discharge plans and I addressed with her with a little acceptance from her end. Laboratory Data: Reviewed. Impression: Bipolar 1 disorder, mixed with psychotic features. Mild cognitive impairment. Anxiety disorder unspecified. Impulse control disorder unspecified. Plan: Continue current psychotropics including BuSpar, gabapentin, melatonin, Seroquel, trazodone and Tegretol. Reviewed drug interactions and risk-benefit ratio. Follow labs level on the Tegretol. Adjust to reach therapeutic level. Assessment: Vital Signs/I&O: Vital Signs Date Time Temp Pulse Resp B/P (MAP) Pulse Ox O2 Delivery O2 Flow Rate FiO2 07/08/21 16:01 98.2 77 16 182/72 (108) 95 07/07/21 06:46 Room Air I & O 07/07/21 07/07/21 07/08/21 15:00 23:00 07:00 Intake Total 180 ml 120 ml Balance 180 ml 120 ml Labs: Laboratory Tests Test 07/08/21 07:47 07/08/21 09:30 07/08/21 11:00 07/08/21 11:57 Glucose (Fingerstick) 152 mg/dL (70-99) H 194 mg/dL (70-99) H White Blood Count 6.0 x10^3/uL (4.0-11.0) Red Blood Count 4.08 x10^6/uL (3.50-5.40) Hemoglobin 11.2 g/dL (12.0-15.5) L Hematocrit 34.5 % (36.0-47.0) L Mean Corpuscular Volume 85 fL (79-100) Mean Corpuscular Hemoglobin 28 pg (25-35) Mean Corpuscular Hemoglobin Concent 33 g/dL (31-37) Red Cell Distribution Width 15.5 % (11.5-14.5) H Platelet Count 125 x10^3/uL (140-400) L Neutrophils (%) (Auto) 75 % (31-73) H Lymphocytes (%) (Auto) 15 % (24-48) L Monocytes (%) (Auto) 6 % (0-9) Eosinophils (%) (Auto) 3 % (0-3) Basophils (%) (Auto) 1 % (0-3) Neutrophils # (Auto) 4.5 x10^3uL (1.8-7.7) Lymphocytes # (Auto) 0.9 x10^3/uL (1.0-4.8) L Monocytes # (Auto) 0.4 x10^3/uL (0.0-1.1) Eosinophils # (Auto) 0.2 x10^3/uL (0.0-0.7) Basophils # (Auto) 0.1 x10^3/uL (0.0-0.2) Miscellaneous Test Comment (.) Sodium Level 137 mmol/L (136-145) Potassium Level 4.0 mmol/L (3.5-5.1) Chloride Level 102 mmol/L (98-107) Carbon Dioxide Level 27 mmol/L (21-32) Anion Gap 8 (6-14) Blood Urea Nitrogen 19 mg/dL (7-20) Creatinine 1.0 mg/dL (0.6-1.0) Estimated GFR (Cockcroft-Gault) 53.0 BUN/Creatinine Ratio 19 (6-20) Glucose Level 271 mg/dL (70-99) H Calcium Level 8.3 mg/dL (8.5-10.1) L Total Bilirubin 0.3 mg/dL (0.2-1.0) Aspartate Amino Transferase (AST) 17 U/L (15-37) Alanine Aminotransferase (ALT) 20 U/L (14-59) Alkaline Phosphatase 89 U/L (46-116) Total Protein 6.6 g/dL (6.4-8.2) Albumin 3.3 g/dL (3.4-5.0) L Albumin/Globulin Ratio 1.0 (1.0-1.7) POC SARS CoV-2 Antigen Negative (NEGATIVE) Test 07/08/21 17:03 07/08/21 19:54 Glucose (Fingerstick) 307 mg/dL (70-99) H 175 mg/dL (70-99) H Current Medications: I have reviewed the current psychotropics carefully including drug interactions. Risk benefit ratio favors no change other than as noted in my dictated progress note. Diagnosis: Problems: (1) Mild cognitive impairment (2) Bipolar affective, mixed, sev w/ psych (3) Anxiety disorder (4) Impulse control disorder GRAEME DIAZ MD Jul 08, 2021 22:59
[2021-07-08] MEDS: traZODone 100 MG TABLET. PO PRN (23:35)
[2021-07-09] MEDS: ACETAMINOPHEN 500 MG TABLET PO PRN (04:30)
[2021-07-09 06:06] VITALS: BP 186/88
[2021-07-09] MEDS: LEVOTHYROXINE 150 MCG TABLET PO SCH (06:20)
[2021-07-09] MEDS: INSULIN LISPRO 300 UNITS/3 ML VIAL. SQ SCH ×3 (08:05→17:03)
[2021-07-09] MEDS: QUEtiapine 25 MG TABLET. PO SCH ×2 (08:30→16:54)
[2021-07-09] MEDS: busPIRone 5 MG TABLET. PO SCH ×3 (08:30→20:05)
[2021-07-09] MEDS: GABAPENTIN 300 MG CAPSULE. PO SCH ×2 (08:31→20:06)
[2021-07-09] MEDS: POLYVINYL ALCOHOL 1.4% OPHTH SOLUTION 15ML BOTTLE. OU SCH ×3 (08:32→20:07)
[2021-07-09] MEDS: HYDROcodone/APAP 5/325MG 1 TAB TABLET PO PRN ×3 (08:38→20:16)
[2021-07-09 16:12] VITALS: BP 171/76
[2021-07-09] MEDS ORDERED: amLODIPine BESYLATE 10 MG TABLET PO ONE (16:30)
[2021-07-09] MEDS: traZODone 100 MG TABLET. PO SCH (20:05)
[2021-07-09] MEDS: TAMSULOSIN 0.4 MG CAP.ER.24H. PO SCH (20:06)
[2021-07-09] MEDS: QUEtiapine 100 MG TABLET. PO SCH (20:06)
[2021-07-09] MEDS: MELATONIN 3 MG TABLET PO SCH (20:07)
[2021-07-09] MEDS: PATCH REMOVAL. MC SCH (20:07)
[2021-07-09] MEDS: INSULIN GLARGINE SYRINGE. SQ SCH (20:46)
--- NOTE | 2021-07-09 21:46 | PDOC ---
Exam Note: Darren Note: Please also refer to the separate dictated note~for this date of service dictated separately.~Patient seen individually. Discussed the patient with Nursing staff reviewed the chart.~Reviewed interim history and current functioning. Reviewed vital signs,~Labs/ Radiology~and current medications noted below. Continue current treatment with the changes noted in the dictated addendum note Assessment: Vital Signs/I&O: Vital Signs Date Time Temp Pulse Resp B/P (MAP) Pulse Ox O2 Delivery O2 Flow Rate FiO2 07/09/21 20:16 97 07/09/21 17:24 18 Room Air 07/09/21 16:56 70 171/76 07/09/21 16:12 97.8 I & O 07/08/21 07/08/21 07/09/21 15:00 23:00 07:00 Intake Total 480 ml 360 ml Balance 480 ml 360 ml Labs: Laboratory Tests Test 07/09/21 07:43 07/09/21 11:54 07/09/21 17:01 07/09/21 19:11 Glucose (Fingerstick) 158 mg/dL (70-99) H 208 mg/dL (70-99) H 263 mg/dL (70-99) H 219 mg/dL (70-99) H Current Medications: Meds: Laboratory Tests Test 07/09/21 07:43 07/09/21 11:54 07/09/21 17:01 07/09/21 19:11 Glucose (Fingerstick) 158 mg/dL 208 mg/dL 263 mg/dL 219 mg/dL Current Medications Medications (Trade) Dose Ordered Sig/Ruchi Route PRN Reason Start Time Stop Time Status Last Admin Dose Admin Acetaminophen (Tylenol) 650 mg PRN Q6HRS PRN PO MILD PAIN / TEMP > 100.3'F 07/03/21 04:30 07/03/21 07:19 DC Multi-Ingredient Ointment (Analgesic [place]) 1 mara PRN QID PRN TP MUSCLE PAIN 07/03/21 04:30 Al Hydroxide/Mg Hydroxide (Mylanta Plus Xs) 15 ml PRN AFTMEALHC PRN PO DYSPEPSIA 07/03/21 04:30 Magnesium Hydroxide (Milk Of Magnesia) 2,400 mg PRN QHS PRN PO CONSTIPATION 2ND CHOICE 07/03/21 04:30 Polyethylene Glycol (miraLAX) 17 gm PRN DAILY PRN PO CONSTIPATION 1ST CHOICE 07/03/21 04:30 Buspirone HCl (Buspar) 7.5 mg TID PO 07/03/21 09:00 07/09/21 20:05 Gabapentin (Neurontin) 300 mg BID PO 07/03/21 09:00 07/09/21 20:06 Acetaminophen/ Hydrocodone Bitart (Lortab 5/325) 1 tab PRN Q6HRS PRN PO PAIN MODERATE/SEVERE 07/03/21 04:45 07/09/21 20:16 Levothyroxine Sodium (Synthroid) 150 mcg DAILY07 PO 07/03/21 07:00 07/09/21 06:20 Lidocaine (Lidoderm) 1 patch PRN DAILY PRN TP pain in lower back 07/03/21 04:45 Melatonin (Melatonin) 6 mg HS PO 07/03/21 21:00 07/09/21 20:07 Artificial Tears (Artificial Tears) 2 drop TID OU 07/03/21 09:00 07/09/21 20:07 Quetiapine Fumarate (SEROquel) 75 mg DAILY@0900,1700 PO 07/03/21 09:00 07/09/21 16:54 Quetiapine Fumarate (SEROquel) 100 mg QHS PO 07/03/21 21:00 07/09/21 20:06 Tamsulosin HCl (Flomax) 0.4 mg HS PO 07/03/21 21:00 07/09/21 20:06 Trazodone HCl (Desyrel) 12.5 mg PRN Q12HR PRN PO ANXIETY/AGITATION 07/03/21 04:45 Trazodone HCl (Desyrel) 100 mg HS PO 07/03/21 21:00 07/09/21 20:05 Acetaminophen (Tylenol) 500 mg PRN Q6HRS PRN PO MILD PAIN / TEMP > 100.3'F 07/03/21 05:15 07/09/21 04:30 Miscellaneous (Lidoderm Patch Removal) 1 ea QHS MC 07/03/21 21:00 07/09/21 20:07 Olanzapine (ZyPREXA) 2.5 mg PRN DAILY PRN PO PSYCHOSIS 07/03/21 09:15 07/03/21 13:26 DC 07/03/21 09:14 Olanzapine (ZyPREXA) 2.5 mg PRN Q2HR PRN PO PSYCHOSIS 07/03/21 14:10 07/08/21 23:35 Trazodone HCl (Desyrel) 100 mg PRN QHS PRN PO for sleep 07/04/21 11:45 07/08/21 23:35 Vitamin D (Vitamin D3) 50,000 unit WEEKLY PO 07/05/21 09:00 07/05/21 08:48 Insulin Glargine (Lantus Syringe) 10 unit QHS SQ 07/04/21 21:00 07/09/21 20:46 Insulin Human Lispro (HumaLOG) 0-7 UNITS TIDWMEALS SQ 07/04/21 17:00 07/09/21 17:03 Dextrose (Dextrose 50%-Water Syringe) 12.5 gm PRN Q15MIN PRN IV SEE COMMENTS 07/04/21 15:00 Carbamazepine (TEGretol XR) 200 mg HS PO 07/05/21 21:00 07/09/21 17:34 DC 07/08/21 21:10 Amlodipine Besylate (Norvasc) 10 mg 1X ONCE PO 07/09/21 16:30 07/09/21 16:31 DC 07/09/21 16:56 Amlodipine Besylate (Norvasc) 10 mg DAILY PO 07/10/21 09:00 Carbamazepine (TEGretol XR) 400 mg BID PO 07/09/21 21:00 07/09/21 20:06 Current Medications Medications (Trade) Dose Ordered Sig/Ruchi Route PRN Reason Start Time Stop Time Status Last Admin Dose Admin Amlodipine Besylate (Norvasc) 10 mg 1X ONCE PO 07/09/21 16:30 07/09/21 16:31 DC 07/09/21 16:56 Carbamazepine (TEGretol XR) 400 mg BID PO 07/09/21 21:00 07/09/21 20:06 I have reviewed the current psychotropics carefully including drug interactions. Risk benefit ratio favors no change other than as noted in my dictated progress note. Diagnosis: Problems: (1) Mild cognitive impairment (2) Bipolar affective, mixed, sev w/ psych (3) Anxiety disorder (4) Impulse control disorder GRAEME DIAZ MD Jul 09, 2021 21:46
[2021-07-10 06:07] VITALS: BP 155/84
[2021-07-10] MEDS: LEVOTHYROXINE 150 MCG TABLET PO SCH (06:09)
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
[2021-07-10] MEDS: QUEtiapine 25 MG TABLET. PO SCH ×2 (08:19→17:05)
[2021-07-10] MEDS: amLODIPine BESYLATE 10 MG TABLET PO SCH (08:19)
[2021-07-10] MEDS: busPIRone 5 MG TABLET. PO SCH ×3 (08:19→19:40)
[2021-07-10] MEDS: GABAPENTIN 300 MG CAPSULE. PO SCH ×2 (08:19→19:39)
[2021-07-10] MEDS: POLYVINYL ALCOHOL 1.4% OPHTH SOLUTION 15ML BOTTLE. OU SCH ×3 (08:21→19:41)
[2021-07-10] MEDS: INSULIN LISPRO 300 UNITS/3 ML VIAL. SQ SCH ×3 (08:27→17:06)
[2021-07-10] MEDS: ACETAMINOPHEN 500 MG TABLET PO PRN (09:09)
[2021-07-10 15:41] VITALS: BP 159/78
[2021-07-10] MEDS: HYDROcodone/APAP 5/325MG 1 TAB TABLET PO PRN ×2 (15:52→21:02)
[2021-07-10] MEDS: OLANZapine 2.5 MG TABLET PO PRN (16:07)
[2021-07-10] MEDS: TAMSULOSIN 0.4 MG CAP.ER.24H. PO SCH (19:39)
[2021-07-10] MEDS: traZODone 100 MG TABLET. PO SCH (19:39)
[2021-07-10] MEDS: QUEtiapine 100 MG TABLET. PO SCH (19:39)
[2021-07-10] MEDS: MELATONIN 3 MG TABLET PO SCH (19:40)
[2021-07-10] MEDS: PATCH REMOVAL. MC SCH (19:41)
[2021-07-10] MEDS: INSULIN GLARGINE SYRINGE. SQ SCH (20:57)
--- NOTE | 2021-07-10 21:25 | PDOC ---
Exam Note: Darren Note: Please also refer to the separate dictated note~for this date of service dictated separately.~Patient seen individually. Discussed the patient with Nursing staff reviewed the chart.~Reviewed interim history and current functioning. Reviewed vital signs,~Labs/ Radiology~and current medications noted below. Continue current treatment with the changes noted in the dictated addendum note Assessment: Vital Signs/I&O: Vital Signs Date Time Temp Pulse Resp B/P (MAP) Pulse Ox O2 Delivery O2 Flow Rate FiO2 07/10/21 21:02 96 07/10/21 16:22 16 07/10/21 15:41 97.7 72 159/78 (105) Nasal Cannula I & O 0 07/09/21 07/09/21 07/10/21 15:00 23:00 07:00 Intake Total 680 ml 600 ml Balance 680 ml 600 ml Labs: Laboratory Tests Test 07/10/21 07:39 07/10/21 12:12 07/10/21 17:00 07/10/21 19:11 Glucose (Fingerstick) 176 mg/dL (70-99) H 266 mg/dL (70-99) H 255 mg/dL (70-99) H 235 mg/dL (70-99) H Current Medications: Meds: Laboratory Tests Test 07/10/21 07:39 07/10/21 12:12 07/10/21 17:00 07/10/21 19:11 Glucose (Fingerstick) 176 mg/dL 266 mg/dL 255 mg/dL 235 mg/dL Current Medications Medications (Trade) Dose Ordered Sig/Ruchi Route PRN Reason Start Time Stop Time Status Last Admin Dose Admin Acetaminophen (Tylenol) 650 mg PRN Q6HRS PRN PO MILD PAIN / TEMP > 100.3'F 07/03/21 04:30 07/03/21 07:19 DC Multi-Ingredient Ointment (Analgesic [place]) 1 mara PRN QID PRN TP MUSCLE PAIN 07/03/21 04:30 Al Hydroxide/Mg Hydroxide (Mylanta Plus Xs) 15 ml PRN AFTMEALHC PRN PO DYSPEPSIA 07/03/21 04:30 Magnesium Hydroxide (Milk Of Magnesia) 2,400 mg PRN QHS PRN PO CONSTIPATION 2ND CHOICE 07/03/21 04:30 Polyethylene Glycol (miraLAX) 17 gm PRN DAILY PRN PO CONSTIPATION 1ST CHOICE 07/03/21 04:30 Buspirone HCl (Buspar) 7.5 mg TID PO 07/03/21 09:00 07/10/21 19:40 Gabapentin (Neurontin) 300 mg BID PO 07/03/21 09:00 07/10/21 19:39 Acetaminophen/ Hydrocodone Bitart (Lortab 5/325) 1 tab PRN Q6HRS PRN PO PAIN MODERATE/SEVERE 07/03/21 04:45 07/10/21 21:02 Levothyroxine Sodium (Synthroid) 150 mcg DAILY07 PO 07/03/21 07:00 07/10/21 06:09 Lidocaine (Lidoderm) 1 patch PRN DAILY PRN TP pain in lower back 07/03/21 04:45 Melatonin (Melatonin) 6 mg HS PO 07/03/21 21:00 07/10/21 19:40 Artificial Tears (Artificial Tears) 2 drop TID OU 07/03/21 09:00 07/10/21 19:41 Quetiapine Fumarate (SEROquel) 75 mg DAILY@0900,1700 PO 07/03/21 09:00 07/10/21 17:05 Quetiapine Fumarate (SEROquel) 100 mg QHS PO 07/03/21 21:00 07/10/21 19:39 Tamsulosin HCl (Flomax) 0.4 mg HS PO 07/03/21 21:00 07/10/21 19:39 Trazodone HCl (Desyrel) 12.5 mg PRN Q12HR PRN PO ANXIETY/AGITATION 07/03/21 04:45 Trazodone HCl (Desyrel) 100 mg HS PO 07/03/21 21:00 07/10/21 19:39 Acetaminophen (Tylenol) 500 mg PRN Q6HRS PRN PO MILD PAIN / TEMP > 100.3'F 07/03/21 05:15 07/10/21 09:09 Miscellaneous (Lidoderm Patch Removal) 1 ea QHS MC 07/03/21 21:00 07/10/21 19:41 Olanzapine (ZyPREXA) 2.5 mg PRN DAILY PRN PO PSYCHOSIS 07/03/21 09:15 07/03/21 13:26 DC 07/03/21 09:14 Olanzapine (ZyPREXA) 2.5 mg PRN Q2HR PRN PO PSYCHOSIS 07/03/21 14:10 07/10/21 16:07 Trazodone HCl (Desyrel) 100 mg PRN QHS PRN PO for sleep 07/04/21 11:45 07/08/21 23:35 Vitamin D (Vitamin D3) 50,000 unit WEEKLY PO 07/05/21 09:00 07/05/21 08:48 Insulin Glargine (Lantus Syringe) 10 unit QHS SQ 07/04/21 21:00 07/10/21 20:57 Insulin Human Lispro (HumaLOG) 0-7 UNITS TIDWMEALS SQ 07/04/21 17:00 07/10/21 17:06 Dextrose (Dextrose 50%-Water Syringe) 12.5 gm PRN Q15MIN PRN IV SEE COMMENTS 07/04/21 15:00 Carbamazepine (TEGretol XR) 200 mg HS PO 07/05/21 21:00 07/09/21 17:34 DC 07/08/21 21:10 Amlodipine Besylate (Norvasc) 10 mg 1X ONCE PO 07/09/21 16:30 07/09/21 16:31 DC 07/09/21 16:56 Amlodipine Besylate (Norvasc) 10 mg DAILY PO 07/10/21 09:00 07/10/21 08:19 Carbamazepine (TEGretol XR) 400 mg BID PO 07/09/21 21:00 07/10/21 19:39 Current Medications Medications (Trade) Dose Ordered Sig/Ruchi Route PRN Reason Start Time Stop Time Status Last Admin Dose Admin Amlodipine Besylate (Norvasc) 10 mg DAILY PO 07/10/21 09:00 07/10/21 08:19 I have reviewed the current psychotropics carefully including drug interactions. Risk benefit ratio favors no change other than as noted in my dictated progress note. Diagnosis: Problems: (1) Mild cognitive impairment (2) Bipolar affective, mixed, sev w/ psych (3) Anxiety disorder (4) Impulse control disorder GRAEME DIAZ MD Jul 10, 2021 21:25
[2021-07-11 06:19] VITALS: BP 155/74
[2021-07-11] MEDS: LEVOTHYROXINE 150 MCG TABLET PO SCH (07:00)
--- NOTE | 2021-07-11 08:40 | PDOC ---
Exam Note: Darren Note: This note is for 07/10/2021 covers elements not covered in my initial note. Subjective: The patient was seen individually on 07/10/2021, discussed and reviewed the chart with Wilfredo MULLIGAN. The patient slept 6-3/4 hours in the morning. Overall she remains somewhat anxious. Earlier in the day she was quite restless, agitated, combative, kicking. Later in the day she was better. Review of Systems: Ambulation impaired, in wheelchair. No CV, , pulmonary, eye system symptoms on review. Mental Status Exam: Patient is oriented to herself and situation. I met with the patient several times on rounds today as she would follow me around constantly, repetitively asking me about discharge plans. I addressed this with her at great length repeatedly and she was somewhat forgetful. Speech is coherent, rapid at times. Abstraction fair. Computation impaired. Language function intact. Attention span short. Mood and affect remains labile and withdrawn. Laboratory Data: Reviewed. Impression: Bipolar 1 disorder, mixed with psychotic features. Mild cognitive impairment. Anxiety disorder unspecified. Impulse control disorder unspecified. Plan: Continue current psychotropics mentioned in my initial note. Reviewed drug interactions and risk-benefit ratio. Tegretol was just increased since the level on 200 mg was 3.6 and we will check labs and Tegretol level on the 400 mg h.s. of the extended release of Tegretol in about 2 days. Assessment: Vital Signs/I&O: Vital Signs Date Time Temp Pulse Resp B/P (MAP) Pulse Ox O2 Delivery O2 Flow Rate FiO2 07/11/21 06:19 97.8 73 20 155/74 (101) 96 Room Air I & O 07/10/21 07/10/21 07/11/21 15:00 23:00 07:00 Intake Total 720 ml 900 ml Balance 720 ml 900 ml Labs: Laboratory Tests Test 07/10/21 12:12 07/10/21 17:00 07/10/21 19:11 07/11/21 07:44 Glucose (Fingerstick) 266 mg/dL (70-99) H 255 mg/dL (70-99) H 235 mg/dL (70-99) H 183 mg/dL (70-99) H Current Medications: Meds: Current Medications Medications (Trade) Dose Ordered Sig/Ruchi Route PRN Reason Start Time Stop Time Status Last Admin Dose Admin Amlodipine Besylate (Norvasc) 10 mg DAILY PO 07/10/21 09:00 07/10/21 08:19 I have reviewed the current psychotropics carefully including drug interactions. Risk benefit ratio favors no change other than as noted in my dictated progress note. Diagnosis: Problems: (1) Mild cognitive impairment (2) Bipolar affective, mixed, sev w/ psych (3) Anxiety disorder (4) Impulse control disorder GRAEME DIAZ MD Jul 11, 2021 08:40
[2021-07-11] MEDS: busPIRone 5 MG TABLET. PO SCH ×3 (09:06→20:19)
[2021-07-11] MEDS: amLODIPine BESYLATE 10 MG TABLET PO SCH (09:06)
[2021-07-11] MEDS: QUEtiapine 25 MG TABLET. PO SCH ×2 (09:07→17:22)
[2021-07-11] MEDS: POLYVINYL ALCOHOL 1.4% OPHTH SOLUTION 15ML BOTTLE. OU SCH ×3 (09:07→20:20)
[2021-07-11] MEDS: GABAPENTIN 300 MG CAPSULE. PO SCH ×2 (09:08→20:19)
[2021-07-11] MEDS: INSULIN LISPRO 300 UNITS/3 ML VIAL. SQ SCH ×3 (09:20→17:00)
[2021-07-11] MEDS: HYDROcodone/APAP 5/325MG 1 TAB TABLET PO PRN ×2 (09:23→20:18)
[2021-07-11 12:12] LABS: THYROXINE 5.2 ug/dL (4.5-12.0)
[2021-07-11] MEDS: ACETAMINOPHEN 500 MG TABLET PO PRN (13:23)
[2021-07-11 15:36] VITALS: BP 132/73
[2021-07-11] MEDS: traZODone 100 MG TABLET. PO SCH (20:18)
[2021-07-11] MEDS: MELATONIN 3 MG TABLET PO SCH (20:19)
[2021-07-11] MEDS: TAMSULOSIN 0.4 MG CAP.ER.24H. PO SCH (20:19)
[2021-07-11] MEDS: QUEtiapine 100 MG TABLET. PO SCH (20:19)
[2021-07-11] MEDS: PATCH REMOVAL. MC SCH (20:21)
[2021-07-11] MEDS: INSULIN GLARGINE SYRINGE. SQ SCH (21:02)
--- NOTE | 2021-07-11 22:02 | PDOC ---
Exam Note: Darren Note: Please also refer to the separate dictated note~for this date of service dictated separately.~Patient seen individually. Discussed the patient with Nursing staff reviewed the chart.~Reviewed interim history and current functioning. Reviewed vital signs,~Labs/ Radiology~and current medications noted below. Continue current treatment with the changes noted in the dictated addendum note Assessment: Vital Signs/I&O: Vital Signs Date Time Temp Pulse Resp B/P (MAP) Pulse Ox O2 Delivery O2 Flow Rate FiO2 07/11/21 20:48 96 07/11/21 15:36 97.9 78 18 132/73 (92) 07/11/21 06:19 Room Air I & O 07/10/21 07/10/21 07/11/21 15:00 23:00 07:00 Intake Total 720 ml 900 ml Balance 720 ml 900 ml Labs: Laboratory Tests Test 07/11/21 06:05 07/11/21 07:44 07/11/21 12:15 07/11/21 16:18 Thyroxine (T4) 5.2 ug/dL (4.5-12.0) Total Triiodothyronine (TT3) 47 ng/dL (71-180) L Glucose (Fingerstick) 183 mg/dL (70-99) H 204 mg/dL (70-99) H 161 mg/dL (70-99) H Test 07/11/21 19:15 Glucose (Fingerstick) 205 mg/dL (70-99) H Current Medications: Meds: Laboratory Tests Test 07/11/21 06:05 07/11/21 07:44 07/11/21 12:15 07/11/21 16:18 Thyroxine (T4) 5.2 ug/dL Total Triiodothyronine 47 ng/dL Glucose (Fingerstick) 183 mg/dL 204 mg/dL 161 mg/dL Test 07/11/21 19:15 Glucose (Fingerstick) 205 mg/dL Current Medications Medications (Trade) Dose Ordered Sig/Ruchi Route PRN Reason Start Time Stop Time Status Last Admin Dose Admin Acetaminophen (Tylenol) 650 mg PRN Q6HRS PRN PO MILD PAIN / TEMP > 100.3'F 07/03/21 04:30 07/03/21 07:19 DC Multi-Ingredient Ointment (Analgesic [place]) 1 mara PRN QID PRN TP MUSCLE PAIN 07/03/21 04:30 Al Hydroxide/Mg Hydroxide (Mylanta Plus Xs) 15 ml PRN AFTMEALHC PRN PO DYSPEPSIA 07/03/21 04:30 Magnesium Hydroxide (Milk Of Magnesia) 2,400 mg PRN QHS PRN PO CONSTIPATION 2ND CHOICE 07/03/21 04:30 Polyethylene Glycol (miraLAX) 17 gm PRN DAILY PRN PO CONSTIPATION 1ST CHOICE 07/03/21 04:30 Buspirone HCl (Buspar) 7.5 mg TID PO 07/03/21 09:00 07/11/21 20:19 Gabapentin (Neurontin) 300 mg BID PO 07/03/21 09:00 07/11/21 21:47 DC 07/11/21 20:19 Acetaminophen/ Hydrocodone Bitart (Lortab 5/325) 1 tab PRN Q6HRS PRN PO PAIN MODERATE/SEVERE 07/03/21 04:45 07/11/21 20:18 Levothyroxine Sodium (Synthroid) 150 mcg DAILY07 PO 07/03/21 07:00 07/11/21 07:00 Lidocaine (Lidoderm) 1 patch PRN DAILY PRN TP pain in lower back 07/03/21 04:45 Melatonin (Melatonin) 6 mg HS PO 07/03/21 21:00 07/11/21 20:19 Artificial Tears (Artificial Tears) 2 drop TID OU 07/03/21 09:00 07/11/21 20:20 Quetiapine Fumarate (SEROquel) 75 mg DAILY@0900,1700 PO 07/03/21 09:00 07/11/21 17:22 Quetiapine Fumarate (SEROquel) 100 mg QHS PO 07/03/21 21:00 07/11/21 20:19 Tamsulosin HCl (Flomax) 0.4 mg HS PO 07/03/21 21:00 07/11/21 20:19 Trazodone HCl (Desyrel) 12.5 mg PRN Q12HR PRN PO ANXIETY/AGITATION 07/03/21 04:45 Trazodone HCl (Desyrel) 100 mg HS PO 07/03/21 21:00 07/11/21 20:18 Acetaminophen (Tylenol) 500 mg PRN Q6HRS PRN PO MILD PAIN / TEMP > 100.3'F 07/03/21 05:15 07/11/21 13:23 Miscellaneous (Lidoderm Patch Removal) 1 ea QHS MC 07/03/21 21:00 07/11/21 20:21 Olanzapine (ZyPREXA) 2.5 mg PRN DAILY PRN PO PSYCHOSIS 07/03/21 09:15 07/03/21 13:26 DC 07/03/21 09:14 Olanzapine (ZyPREXA) 2.5 mg PRN Q2HR PRN PO PSYCHOSIS 07/03/21 14:10 07/10/21 16:07 Trazodone HCl (Desyrel) 100 mg PRN QHS PRN PO for sleep 07/04/21 11:45 07/08/21 23:35 Vitamin D (Vitamin D3) 50,000 unit WEEKLY PO 07/05/21 09:00 07/05/21 08:48 Insulin Glargine (Lantus Syringe) 10 unit QHS SQ 07/04/21 21:00 07/11/21 21:02 Insulin Human Lispro (HumaLOG) 0-7 UNITS TIDWMEALS SQ 07/04/21 17:00 07/11/21 17:00 Dextrose (Dextrose 50%-Water Syringe) 12.5 gm PRN Q15MIN PRN IV SEE COMMENTS 07/04/21 15:00 Carbamazepine (TEGretol XR) 200 mg HS PO 07/05/21 21:00 07/09/21 17:34 DC 07/08/21 21:10 Amlodipine Besylate (Norvasc) 10 mg 1X ONCE PO 07/09/21 16:30 07/09/21 16:31 DC 07/09/21 16:56 Amlodipine Besylate (Norvasc) 10 mg DAILY PO 07/10/21 09:00 07/11/21 09:06 Carbamazepine (TEGretol XR) 400 mg BID PO 07/09/21 21:00 07/11/21 20:18 Gabapentin (Neurontin) 300 mg TIDAC PO 07/12/21 07:30 UNV I have reviewed the current psychotropics carefully including drug interactions. Risk benefit ratio favors no change other than as noted in my dictated progress note. Diagnosis: Problems: (1) Mild cognitive impairment (2) Bipolar affective, mixed, sev w/ psych (3) Anxiety disorder (4) Impulse control disorder EMILY,MAN M MD Jul 11, 2021 22:02
[2021-07-11 22:11] LABS: BACTERIA,URINE 0 /HPF (0-FEW); CLARITY,URINE CLEAR; COLOR,URINE YELLOW; GLUCOSE,URINE NEG (NEG); NITRITE,URINE NEG (NEG); RBC,URINE RARE /HPF (0-2); SQUAMOUS EPITHELIAL CELL,UR OCC /LPF; UROBILINOGEN,URINE 0.2 mg/dL (0.2 mg/dL); WBC,URINE RARE /HPF (0-4)
[2021-07-11] MEDS: traZODone 100 MG TABLET. PO PRN (22:39)
[2021-07-11] MEDS: OLANZapine 2.5 MG TABLET PO PRN (22:39)
[2021-07-12] MEDS: LEVOTHYROXINE 150 MCG TABLET PO SCH (05:20)
[2021-07-12 06:32] VITALS: BP 126/67
[2021-07-12 06:55] LABS: BASO # 0.1 x10^3/uL (0.0-0.2); BASO % 1 % (0-3); EOS # 0.2 x10^3/uL (0.0-0.7); EOS % 3 % (0-3); HEMATOCRIT 34.5 % (36.0-47.0); HEMOGLOBIN 11.2 g/dL (12.0-15.5); LYMPH # 1.2 x10^3/uL (1.0-4.8); LYMPH % 20 % (24-48); MEAN CORPUSCULAR HEMOGLOBIN 28 pg (25-35); MEAN CORPUSCULAR HGB CONC 33 g/dL (31-37); MEAN CORPUSCULAR VOLUME 85 fL (79-100); MONO # 0.4 x10^3/uL (0.0-1.1); MONO % 8 % (0-9); NEUT # 3.9 x10^3uL (1.8-7.7); NEUT % 67 % (31-73); PLATELET COUNT 131 x10^3/uL (140-400); RED BLOOD COUNT 4.06 x10^6/uL (3.50-5.40); RED CELL DISTRIBUTION WIDTH 15.7 % (11.5-14.5); WHITE BLOOD COUNT 5.7 x10^3/uL (4.0-11.0)
[2021-07-12 07:17] LABS: ALBUMIN 3.4 g/dL (3.4-5.0); ALBUMIN/GLOBULIN RATIO 0.9 (1.0-1.7); CALCIUM 8.8 mg/dL (8.5-10.1); TOTAL BILIRUBIN 0.3 mg/dL (0.2-1.0)
[2021-07-12] MEDS: INSULIN LISPRO 300 UNITS/3 ML VIAL. SQ SCH ×3 (08:00→17:00)
[2021-07-12] MEDS: busPIRone 5 MG TABLET. PO SCH ×3 (08:30→20:58)
[2021-07-12] MEDS: CHOLECALCIFEROL (VITAMIN D3) 50,000 UNIT CAPSULE PO SCH (08:31)
[2021-07-12] MEDS: QUEtiapine 25 MG TABLET. PO SCH ×2 (08:31→17:07)
[2021-07-12] MEDS: GABAPENTIN 300 MG CAPSULE. PO SCH ×3 (08:32→17:07)
[2021-07-12] MEDS: POLYVINYL ALCOHOL 1.4% OPHTH SOLUTION 15ML BOTTLE. OU SCH ×3 (08:40→20:58)
[2021-07-12] MEDS: amLODIPine BESYLATE 10 MG TABLET PO SCH (08:40)
--- NOTE | 2021-07-12 08:47 | PDOC ---
Exam Note: Darren Note: This note is a late entry for 07/11/2021 covers elements not covered in my initial note. Subjective: The patient was reviewed at treatment team meeting individually in the morning on 07/11/2021 with Payal Perez, Teresita Arce, and Oneyda Engel (aids social worker), Delores, activity therapy, and Aleida RN, discussed and reviewed the chart. The patient slept 6-1/2 hours in the morning. Patients daughter Aleida attended the treatment team meeting. We had a lengthy discussion about the patients diagnoses, progress. She is somewhat obsessive, anxious, hyperverbal. Appetite 80%. Average sleep 6-1/2 hours. Patient is needy, demanding, complains of back pain. She is always hungry per nursing report. She attended 7 groups in the past one week. Also discussed with Evita HENDRICKSON in the evening, little more irritable, hyperactive. We will repeat UA to rule out UTI. She has been demanding and banging doors towards evening. I met with her in the dayroom. Review of Systems: Ambulation impaired, in wheelchair. Hard of hearing. No CV, , pulmonary, eye system symptoms on review. Mental Status Exam: Patient is oriented to herself and situation. She remains somewhat hyperverbal, obsessing about discharge and I processed this with her. Speech is coherent. Abstraction fair. Computation impaired. Language function intact. Attention span short. Mood and affect remains anxious, withdrawn. Laboratory Data: Reviewed. Impression: Bipolar 1 disorder, mixed with psychotic features. Mild cognitive impairment. Anxiety disorder unspecified. Impulse control disorder unspecified. Plan: Continue current psychotropics mentioned in my initial note. Reviewed drug interactions and risk-benefit ratio. The patient remains somewhat anxious with ongoing mood lability. We will increase gabapentin from 300 mg b.i.d. to 300 mg t.i.d. Assessment: Vital Signs/I&O: Vital Signs Date Time Temp Pulse Resp B/P (MAP) Pulse Ox O2 Delivery O2 Flow Rate FiO2 07/12/21 08:40 69 126/67 07/12/21 06:32 97.9 19 95 Room Air I & O 07/11/21 07/11/21 07/12/21 15:00 23:00 07:00 Intake Total 1180 ml 580 ml Balance 1180 ml 580 ml Labs: Laboratory Tests Test 07/11/21 12:15 07/11/21 16:18 07/11/21 19:15 07/11/21 21:15 Glucose (Fingerstick) 204 mg/dL (70-99) H 161 mg/dL (70-99) H 205 mg/dL (70-99) H Urine Collection Type Void Urine Color Yellow Urine Clarity Clear Urine pH 7.0 Urine Specific [place] 1.010 Urine Protein Neg (NEG-TRACE) Urine Glucose (UA) Neg mg/dL (NEG) Urine Ketones (Stick) Neg mg/dL (NEG) Urine Blood Trace (NEG) Urine Nitrite Neg (NEG) Urine Bilirubin Neg (NEG) Urine Urobilinogen Dipstick 0.2 mg/dL (0.2 mg/dL) Urine Leukocyte Esterase Neg (NEG) Urine RBC Rare /HPF (0-2) Urine WBC Rare /HPF (0-4) Urine Squamous Epithelial Cells Occ /LPF Urine Bacteria 0 /HPF (0-FEW) Test 07/12/21 06:11 07/12/21 07:37 White Blood Count 5.7 x10^3/uL (4.0-11.0) Red Blood Count 4.06 x10^6/uL (3.50-5.40) Hemoglobin 11.2 g/dL (12.0-15.5) L Hematocrit 34.5 % (36.0-47.0) L Mean Corpuscular Volume 85 fL (79-100) Mean Corpuscular Hemoglobin 28 pg (25-35) Mean Corpuscular Hemoglobin Concent 33 g/dL (31-37) Red Cell Distribution Width 15.7 % (11.5-14.5) H Platelet Count 131 x10^3/uL (140-400) L Neutrophils (%) (Auto) 67 % (31-73) Lymphocytes (%) (Auto) 20 % (24-48) L Monocytes (%) (Auto) 8 % (0-9) Eosinophils (%) (Auto) 3 % (0-3) Basophils (%) (Auto) 1 % (0-3) Neutrophils # (Auto) 3.9 x10^3uL (1.8-7.7) Lymphocytes # (Auto) 1.2 x10^3/uL (1.0-4.8) Monocytes # (Auto) 0.4 x10^3/uL (0.0-1.1) Eosinophils # (Auto) 0.2 x10^3/uL (0.0-0.7) Basophils # (Auto) 0.1 x10^3/uL (0.0-0.2) Sodium Level Pending Potassium Level Pending Chloride Level Pending Carbon Dioxide Level 27 mmol/L (21-32) Anion Gap Pending Blood Urea Nitrogen 14 mg/dL (7-20) Creatinine 1.0 mg/dL (0.6-1.0) Estimated GFR (Cockcroft-Gault) 53.0 BUN/Creatinine Ratio 14 (6-20) Glucose Level 135 mg/dL (70-99) H Calcium Level 8.8 mg/dL (8.5-10.1) Total Bilirubin 0.3 mg/dL (0.2-1.0) Aspartate Amino Transferase (AST) 19 U/L (15-37) Alanine Aminotransferase (ALT) 26 U/L (14-59) Alkaline Phosphatase 94 U/L (46-116) Total Protein 7.0 g/dL (6.4-8.2) Albumin 3.4 g/dL (3.4-5.0) Albumin/Globulin Ratio 0.9 (1.0-1.7) L Glucose (Fingerstick) 160 mg/dL (70-99) H Current Medications: Meds: Current Medications Medications (Trade) Dose Ordered Sig/Ruchi Route PRN Reason Start Time Stop Time Status Last Admin Dose Admin Gabapentin (Neurontin) 300 mg TIDAC PO 07/12/21 07:30 07/12/21 08:32 I have reviewed the current psychotropics carefully including drug interactions. Risk benefit ratio favors no change other than as noted in my dictated progress note. Diagnosis: Problems: (1) Mild cognitive impairment (2) Bipolar affective, mixed, sev w/ psych (3) Anxiety disorder (4) Impulse control disorder GRAEME DIAZ MD Jul 12, 2021 08:47
[2021-07-12 17:18] VITALS: BP 143/72
[2021-07-12] MEDS: PATCH REMOVAL. MC SCH (20:54)
[2021-07-12] MEDS: QUEtiapine 100 MG TABLET. PO SCH (20:56)
[2021-07-12] MEDS: TAMSULOSIN 0.4 MG CAP.ER.24H. PO SCH (20:57)
[2021-07-12] MEDS: MELATONIN 3 MG TABLET PO SCH (20:57)
[2021-07-12] MEDS: traZODone 100 MG TABLET. PO SCH (20:58)
[2021-07-12] MEDS: INSULIN GLARGINE SYRINGE. SQ SCH (21:00)
--- NOTE | 2021-07-12 21:33 | PDOC ---
Exam Note: Darren Note: Please also refer to the separate dictated note~for this date of service dictated separately.~Patient seen individually. Discussed the patient with Nursing staff reviewed the chart.~Reviewed interim history and current functioning. Reviewed vital signs,~Labs/ Radiology~and current medications noted below. Continue current treatment with the changes noted in the dictated addendum note Assessment: Vital Signs/I&O: Vital Signs Date Time Temp Pulse Resp B/P (MAP) Pulse Ox O2 Delivery O2 Flow Rate FiO2 07/12/21 17:18 98.5 70 16 143/72 (95) 93 07/12/21 06:32 Room Air I & O 07/11/21 07/11/21 07/12/21 15:00 23:00 07:00 Intake Total 1180 ml 580 ml Balance 1180 ml 580 ml Labs: Laboratory Tests Test 07/12/21 06:11 07/12/21 07:37 07/12/21 11:39 07/12/21 16:49 White Blood Count 5.7 x10^3/uL (4.0-11.0) Red Blood Count 4.06 x10^6/uL (3.50-5.40) Hemoglobin 11.2 g/dL (12.0-15.5) L Hematocrit 34.5 % (36.0-47.0) L Mean Corpuscular Volume 85 fL (79-100) Mean Corpuscular Hemoglobin 28 pg (25-35) Mean Corpuscular Hemoglobin Concent 33 g/dL (31-37) Red Cell Distribution Width 15.7 % (11.5-14.5) H Platelet Count 131 x10^3/uL (140-400) L Neutrophils (%) (Auto) 67 % (31-73) Lymphocytes (%) (Auto) 20 % (24-48) L Monocytes (%) (Auto) 8 % (0-9) Eosinophils (%) (Auto) 3 % (0-3) Basophils (%) (Auto) 1 % (0-3) Neutrophils # (Auto) 3.9 x10^3uL (1.8-7.7) Lymphocytes # (Auto) 1.2 x10^3/uL (1.0-4.8) Monocytes # (Auto) 0.4 x10^3/uL (0.0-1.1) Eosinophils # (Auto) 0.2 x10^3/uL (0.0-0.7) Basophils # (Auto) 0.1 x10^3/uL (0.0-0.2) Miscellaneous Test Comment (.) Sodium Level 139 mmol/L (136-145) Potassium Level 4.0 mmol/L (3.5-5.1) Chloride Level 101 mmol/L (98-107) Carbon Dioxide Level 27 mmol/L (21-32) Anion Gap 11 (6-14) Blood Urea Nitrogen 14 mg/dL (7-20) Creatinine 1.0 mg/dL (0.6-1.0) Estimated GFR (Cockcroft-Gault) 53.0 BUN/Creatinine Ratio 14 (6-20) Glucose Level 135 mg/dL (70-99) H Calcium Level 8.8 mg/dL (8.5-10.1) Total Bilirubin 0.3 mg/dL (0.2-1.0) Aspartate Amino Transferase (AST) 19 U/L (15-37) Alanine Aminotransferase (ALT) 26 U/L (14-59) Alkaline Phosphatase 94 U/L (46-116) Total Protein 7.0 g/dL (6.4-8.2) Albumin 3.4 g/dL (3.4-5.0) Albumin/Globulin Ratio 0.9 (1.0-1.7) L Glucose (Fingerstick) 160 mg/dL (70-99) H 161 mg/dL (70-99) H 166 mg/dL (70-99) H Test 07/12/21 19:13 Glucose (Fingerstick) 231 mg/dL (70-99) H Current Medications: Meds: Laboratory Tests Test 07/12/21 06:11 07/12/21 07:37 07/12/21 11:39 07/12/21 16:49 White Blood Count 5.7 x10^3/uL Red Blood Count 4.06 x10^6/uL Hemoglobin 11.2 g/dL Hematocrit 34.5 % Mean Corpuscular Volume 85 fL Mean Corpuscular Hemoglobin 28 pg Mean Corpuscular Hemoglobin Concent 33 g/dL Red Cell Distribution Width 15.7 % Platelet Count 131 x10^3/uL Neutrophils (%) (Auto) 67 % Lymphocytes (%) (Auto) 20 % Monocytes (%) (Auto) 8 % Eosinophils (%) (Auto) 3 % Basophils (%) (Auto) 1 % Neutrophils # (Auto) 3.9 x10^3uL Lymphocytes # (Auto) 1.2 x10^3/uL Monocytes # (Auto) 0.4 x10^3/uL Eosinophils # (Auto) 0.2 x10^3/uL Basophils # (Auto) 0.1 x10^3/uL Miscellaneous Test Comment Sodium Level 139 mmol/L Potassium Level 4.0 mmol/L Chloride Level 101 mmol/L Carbon Dioxide Level 27 mmol/L Anion Gap 11 Blood Urea Nitrogen 14 mg/dL Creatinine 1.0 mg/dL Estimated GFR (Cockcroft-Gault) 53.0 BUN/Creatinine Ratio 14 Glucose Level 135 mg/dL Calcium Level 8.8 mg/dL Total Bilirubin 0.3 mg/dL Aspartate Amino Transf (AST/SGOT) 19 U/L Alanine Aminotransferase (ALT/SGPT) 26 U/L Alkaline Phosphatase 94 U/L Total Protein 7.0 g/dL Albumin 3.4 g/dL Albumin/Globulin Ratio 0.9 Glucose (Fingerstick) 160 mg/dL 161 mg/dL 166 mg/dL Test 07/12/21 19:13 Glucose (Fingerstick) 231 mg/dL Current Medications Medications (Trade) Dose Ordered Sig/Ruchi Route PRN Reason Start Time Stop Time Status Last Admin Dose Admin Acetaminophen (Tylenol) 650 mg PRN Q6HRS PRN PO MILD PAIN / TEMP > 100.3'F 07/03/21 04:30 07/03/21 07:19 DC Multi-Ingredient Ointment (Analgesic [place]) 1 mara PRN QID PRN TP MUSCLE PAIN 07/03/21 04:30 Al Hydroxide/Mg Hydroxide (Mylanta Plus Xs) 15 ml PRN AFTMEALHC PRN PO DYSPEPSIA 07/03/21 04:30 Magnesium Hydroxide (Milk Of Magnesia) 2,400 mg PRN QHS PRN PO CONSTIPATION 2ND CHOICE 07/03/21 04:30 Polyethylene Glycol (miraLAX) 17 gm PRN DAILY PRN PO CONSTIPATION 1ST CHOICE 07/03/21 04:30 Buspirone HCl (Buspar) 7.5 mg TID PO 07/03/21 09:00 07/12/21 20:58 Gabapentin (Neurontin) 300 mg BID PO 07/03/21 09:00 07/11/21 21:47 DC 07/11/21 20:19 Acetaminophen/ Hydrocodone Bitart (Lortab 5/325) 1 tab PRN Q6HRS PRN PO PAIN MODERATE/SEVERE 07/03/21 04:45 07/11/21 20:18 Levothyroxine Sodium (Synthroid) 150 mcg DAILY07 PO 07/03/21 07:00 07/12/21 05:20 Lidocaine (Lidoderm) 1 patch PRN DAILY PRN TP pain in lower back 07/03/21 04:45 Melatonin (Melatonin) 6 mg HS PO 07/03/21 21:00 07/12/21 20:57 Artificial Tears (Artificial Tears) 2 drop TID OU 07/03/21 09:00 07/12/21 20:58 Quetiapine Fumarate (SEROquel) 75 mg DAILY@0900,1700 PO 07/03/21 09:00 07/12/21 17:07 Quetiapine Fumarate (SEROquel) 100 mg QHS PO 07/03/21 21:00 07/12/21 20:56 Tamsulosin HCl (Flomax) 0.4 mg HS PO 07/03/21 21:00 07/12/21 20:57 Trazodone HCl (Desyrel) 12.5 mg PRN Q12HR PRN PO ANXIETY/AGITATION 07/03/21 04:45 Trazodone HCl (Desyrel) 100 mg HS PO 07/03/21 21:00 07/12/21 20:58 Acetaminophen (Tylenol) 500 mg PRN Q6HRS PRN PO MILD PAIN / TEMP > 100.3'F 07/03/21 05:15 07/11/21 13:23 Miscellaneous (Lidoderm Patch Removal) 1 ea QHS MC 07/03/21 21:00 07/12/21 20:54 Olanzapine (ZyPREXA) 2.5 mg PRN DAILY PRN PO PSYCHOSIS 07/03/21 09:15 07/03/21 13:26 DC 07/03/21 09:14 Olanzapine (ZyPREXA) 2.5 mg PRN Q2HR PRN PO PSYCHOSIS 07/03/21 14:10 07/11/21 22:39 Trazodone HCl (Desyrel) 100 mg PRN QHS PRN PO for sleep 07/04/21 11:45 07/11/21 22:39 Vitamin D (Vitamin D3) 50,000 unit WEEKLY PO 07/05/21 09:00 07/12/21 08:31 Insulin Glargine (Lantus Syringe) 10 unit QHS SQ 07/04/21 21:00 07/11/21 21:02 Insulin Human Lispro (HumaLOG) 0-7 UNITS TIDWMEALS SQ 07/04/21 17:00 07/12/21 17:00 Dextrose (Dextrose 50%-Water Syringe) 12.5 gm PRN Q15MIN PRN IV SEE COMMENTS 07/04/21 15:00 Carbamazepine (TEGretol XR) 200 mg HS PO 07/05/21 21:00 07/09/21 17:34 DC 07/08/21 21:10 Amlodipine Besylate (Norvasc) 10 mg 1X ONCE PO 07/09/21 16:30 07/09/21 16:31 DC 07/09/21 16:56 Amlodipine Besylate (Norvasc) 10 mg DAILY PO 07/10/21 09:00 07/12/21 08:40 Carbamazepine (TEGretol XR) 400 mg BID PO 07/09/21 21:00 07/12/21 20:56 Gabapentin (Neurontin) 300 mg TIDAC PO 07/12/21 07:30 07/12/21 17:07 Current Medications Medications (Trade) Dose Ordered Sig/Ruchi Route PRN Reason Start Time Stop Time Status Last Admin Dose Admin Gabapentin (Neurontin) 300 mg TIDAC PO 07/12/21 07:30 07/12/21 17:07 I have reviewed the current psychotropics carefully including drug interactions. Risk benefit ratio favors no change other than as noted in my dictated progress note. Diagnosis: Problems: (1) Mild cognitive impairment (2) Bipolar affective, mixed, sev w/ psych (3) Anxiety disorder (4) Impulse control disorder GRAEME DIAZ MD Jul 12, 2021 21:33
[2021-07-13] MEDS: OLANZapine 2.5 MG TABLET PO PRN ×4 (00:33→18:33)
[2021-07-13] MEDS: HYDROcodone/APAP 5/325MG 1 TAB TABLET PO PRN ×3 (02:40→17:12)
[2021-07-13] MEDS: LEVOTHYROXINE 150 MCG TABLET PO SCH (06:08)
[2021-07-13 06:14] VITALS: BP 148/70
[2021-07-13] MEDS: INSULIN LISPRO 300 UNITS/3 ML VIAL. SQ SCH ×3 (08:00→17:00)
[2021-07-13] MEDS: busPIRone 5 MG TABLET. PO SCH ×3 (08:38→19:49)
[2021-07-13] MEDS: GABAPENTIN 300 MG CAPSULE. PO SCH ×3 (08:39→17:13)
[2021-07-13] MEDS: POLYVINYL ALCOHOL 1.4% OPHTH SOLUTION 15ML BOTTLE. OU SCH ×3 (08:43→19:50)
[2021-07-13] MEDS: amLODIPine BESYLATE 10 MG TABLET PO SCH (08:43)
[2021-07-13] MEDS: QUEtiapine 25 MG TABLET. PO SCH ×2 (08:44→17:12)
--- NOTE | 2021-07-13 08:58 | PDOC ---
Exam Note: Darren Note: This note is a late entry for 07/12/2021 covers elements not covered in my initial note. Subjective: The patient was seen individually on 07/12/2021, discussed and reviewed the chart with Aleida HENDRICKSON. The patient slept 6-1/4 hours in the morning. She is repeatedly asking about discharge plans. She has been checking the doors. She had a fall after lunch. No injuries. Her daughter was wondering that the CT head could help assess any progression of her dementia. If none is being done in 6 months we will do it but not otherwise. Review of Systems: Positive for back pain. Impaired ambulation, in wheelchair. Hard of hearing. No CV, , pulmonary, eye system symptoms on review. Mental Status Exam: Patient is oriented to herself and situation. Speech is coherent. Abstraction fair. Computation impaired. Language function intact. Attention span short. Mood and affect remains anxious, withdrawn. Laboratory Data: Reviewed. Impression: Bipolar 1 disorder, mixed with psychotic features. Mild cognitive impairment. Anxiety disorder unspecified. Impulse control disorder unspecified. Plan: We have increased the gabapentin 300 mg t.i.d. Maintain rest of the psychotropics unchanged. Reviewed drug interactions and risk-benefit ratio. Assessment: Vital Signs/I&O: Vital Signs Date Time Temp Pulse Resp B/P (MAP) Pulse Ox O2 Delivery O2 Flow Rate FiO2 07/13/21 08:43 63 148/70 07/13/21 06:14 97.0 16 95 07/13/21 03:10 Room Air I & O 07/12/21 07/12/21 07/13/21 15:00 23:00 07:00 Intake Total 1000 ml 840 ml Balance 1000 ml 840 ml Labs: Laboratory Tests Test 07/12/21 11:39 07/12/21 16:49 07/12/21 19:13 07/13/21 07:39 Glucose (Fingerstick) 161 mg/dL (70-99) H 166 mg/dL (70-99) H 231 mg/dL (70-99) H 141 mg/dL (70-99) H Current Medications: I have reviewed the current psychotropics carefully including drug interactions. Risk benefit ratio favors no change other than as noted in my dictated progress note. Diagnosis: Problems: (1) Mild cognitive impairment (2) Bipolar affective, mixed, sev w/ psych (3) Anxiety disorder (4) Impulse control disorder GRAEME DIAZ MD Jul 13, 2021 08:58
[2021-07-13 15:45] VITALS: BP 149/67
[2021-07-13] MEDS: MELATONIN 3 MG TABLET PO SCH (19:49)
[2021-07-13] MEDS: TAMSULOSIN 0.4 MG CAP.ER.24H. PO SCH (19:49)
[2021-07-13] MEDS: traZODone 100 MG TABLET. PO SCH (19:49)
[2021-07-13] MEDS: QUEtiapine 100 MG TABLET. PO SCH (19:50)
[2021-07-13] MEDS: PATCH REMOVAL. MC SCH (19:50)
--- NOTE | 2021-07-13 21:50 | PDOC ---
Exam Note: Darren Note: Please also refer to the separate dictated note~for this date of service dictated separately.~Patient seen individually. Discussed the patient with Nursing staff reviewed the chart.~Reviewed interim history and current functioning. Reviewed vital signs,~Labs/ Radiology~and current medications noted below. Continue current treatment with the changes noted in the dictated addendum note Assessment: Vital Signs/I&O: Vital Signs Date Time Temp Pulse Resp B/P (MAP) Pulse Ox O2 Delivery O2 Flow Rate FiO2 07/13/21 17:45 16 07/13/21 15:45 98.4 74 149/67 (94) 97 07/13/21 03:10 Room Air I & O 07/12/21 07/12/21 07/13/21 15:00 23:00 07:00 Intake Total 1000 ml 840 ml Balance 1000 ml 840 ml Labs: Laboratory Tests Test 07/13/21 07:39 07/13/21 11:38 07/13/21 17:00 07/13/21 19:25 Glucose (Fingerstick) 141 mg/dL (70-99) H 236 mg/dL (70-99) H 195 mg/dL (70-99) H 245 mg/dL (70-99) H Current Medications: Meds: Laboratory Tests Test 07/13/21 07:39 07/13/21 11:38 07/13/21 17:00 07/13/21 19:25 Glucose (Fingerstick) 141 mg/dL 236 mg/dL 195 mg/dL 245 mg/dL Current Medications Medications (Trade) Dose Ordered Sig/Ruchi Route PRN Reason Start Time Stop Time Status Last Admin Dose Admin Acetaminophen (Tylenol) 650 mg PRN Q6HRS PRN PO MILD PAIN / TEMP > 100.3'F 07/03/21 04:30 07/03/21 07:19 DC Multi-Ingredient Ointment (Analgesic [place]) 1 mara PRN QID PRN TP MUSCLE PAIN 07/03/21 04:30 Al Hydroxide/Mg Hydroxide (Mylanta Plus Xs) 15 ml PRN AFTMEALHC PRN PO DYSPEPSIA 07/03/21 04:30 Magnesium Hydroxide (Milk Of Magnesia) 2,400 mg PRN QHS PRN PO CONSTIPATION 2ND CHOICE 07/03/21 04:30 Polyethylene Glycol (miraLAX) 17 gm PRN DAILY PRN PO CONSTIPATION 1ST CHOICE 07/03/21 04:30 Buspirone HCl (Buspar) 7.5 mg TID PO 07/03/21 09:00 07/13/21 19:49 Gabapentin (Neurontin) 300 mg BID PO 07/03/21 09:00 07/11/21 21:47 DC 07/11/21 20:19 Acetaminophen/ Hydrocodone Bitart (Lortab 5/325) 1 tab PRN Q6HRS PRN PO PAIN MODERATE/SEVERE 07/03/21 04:45 07/13/21 17:12 Levothyroxine Sodium (Synthroid) 150 mcg DAILY07 PO 07/03/21 07:00 07/13/21 06:08 Lidocaine (Lidoderm) 1 patch PRN DAILY PRN TP pain in lower back 07/03/21 04:45 Melatonin (Melatonin) 6 mg HS PO 07/03/21 21:00 07/13/21 19:49 Artificial Tears (Artificial Tears) 2 drop TID OU 07/03/21 09:00 07/13/21 19:50 Quetiapine Fumarate (SEROquel) 75 mg DAILY@0900,1700 PO 07/03/21 09:00 07/13/21 17:12 Quetiapine Fumarate (SEROquel) 100 mg QHS PO 07/03/21 21:00 07/13/21 19:50 Tamsulosin HCl (Flomax) 0.4 mg HS PO 07/03/21 21:00 07/13/21 19:49 Trazodone HCl (Desyrel) 12.5 mg PRN Q12HR PRN PO ANXIETY/AGITATION 07/03/21 04:45 Trazodone HCl (Desyrel) 100 mg HS PO 07/03/21 21:00 07/13/21 19:49 Acetaminophen (Tylenol) 500 mg PRN Q6HRS PRN PO MILD PAIN / TEMP > 100.3'F 07/03/21 05:15 07/11/21 13:23 Miscellaneous (Lidoderm Patch Removal) 1 ea QHS MC 07/03/21 21:00 07/13/21 19:50 Olanzapine (ZyPREXA) 2.5 mg PRN DAILY PRN PO PSYCHOSIS 07/03/21 09:15 07/03/21 13:26 DC 07/03/21 09:14 Olanzapine (ZyPREXA) 2.5 mg PRN Q2HR PRN PO PSYCHOSIS 07/03/21 14:10 07/13/21 18:33 Trazodone HCl (Desyrel) 100 mg PRN QHS PRN PO for sleep 07/04/21 11:45 07/11/21 22:39 Vitamin D (Vitamin D3) 50,000 unit WEEKLY PO 07/05/21 09:00 07/12/21 08:31 Insulin Glargine (Lantus Syringe) 10 unit QHS SQ 07/04/21 21:00 07/12/21 21:00 Insulin Human Lispro (HumaLOG) 0-7 UNITS TIDWMEALS SQ 07/04/21 17:00 07/13/21 17:00 Dextrose (Dextrose 50%-Water Syringe) 12.5 gm PRN Q15MIN PRN IV SEE COMMENTS 07/04/21 15:00 Carbamazepine (TEGretol XR) 200 mg HS PO 07/05/21 21:00 07/09/21 17:34 DC 07/08/21 21:10 Amlodipine Besylate (Norvasc) 10 mg 1X ONCE PO 07/09/21 16:30 07/09/21 16:31 DC 07/09/21 16:56 Amlodipine Besylate (Norvasc) 10 mg DAILY PO 07/10/21 09:00 07/13/21 08:43 Carbamazepine (TEGretol XR) 400 mg BID PO 07/09/21 21:00 07/13/21 19:49 Gabapentin (Neurontin) 300 mg TIDAC PO 07/12/21 07:30 07/13/21 17:13 I have reviewed the current psychotropics carefully including drug interactions. Risk benefit ratio favors no change other than as noted in my dictated progress note. Diagnosis: Problems: (1) Mild cognitive impairment (2) Bipolar affective, mixed, sev w/ psych (3) Anxiety disorder (4) Impulse control disorder GRAEME DIAZ MD Jul 13, 2021 21:50
[2021-07-13] MEDS: INSULIN GLARGINE SYRINGE. SQ SCH (21:52)
[2021-07-14] MEDS: LEVOTHYROXINE 150 MCG TABLET PO SCH (06:09)
[2021-07-14 06:18] VITALS: BP 147/68
[2021-07-14] MEDS: POLYVINYL ALCOHOL 1.4% OPHTH SOLUTION 15ML BOTTLE. OU SCH ×3 (08:56→20:37)
[2021-07-14] MEDS: busPIRone 5 MG TABLET. PO SCH ×3 (08:56→20:36)
[2021-07-14] MEDS: GABAPENTIN 300 MG CAPSULE. PO SCH ×3 (08:57→17:27)
[2021-07-14] MEDS: QUEtiapine 100 MG TABLET. PO SCH ×3 (08:57→20:39)
[2021-07-14] MEDS: amLODIPine BESYLATE 10 MG TABLET PO SCH (08:57)
[2021-07-14] MEDS: INSULIN LISPRO 300 UNITS/3 ML VIAL. SQ SCH ×3 (09:05→17:00)
[2021-07-14] MEDS: HYDROcodone/APAP 5/325MG 1 TAB TABLET PO PRN ×2 (15:07→20:39)
[2021-07-14 15:37] VITALS: BP 152/69
[2021-07-14] MEDS: OLANZapine 2.5 MG TABLET PO PRN (18:15)
[2021-07-14] MEDS: MELATONIN 3 MG TABLET PO SCH (20:36)
[2021-07-14] MEDS: traZODone 100 MG TABLET. PO SCH (20:36)
[2021-07-14] MEDS: TAMSULOSIN 0.4 MG CAP.ER.24H. PO SCH (20:36)
[2021-07-14] MEDS: PATCH REMOVAL. MC SCH (20:37)
[2021-07-14] MEDS: INSULIN GLARGINE SYRINGE. SQ SCH (20:41)
--- NOTE | 2021-07-14 21:30 | PDOC ---
Exam Note: Darren Note: Please also refer to the separate dictated note~for this date of service dictated separately.~Patient seen individually. Discussed the patient with Nursing staff reviewed the chart.~Reviewed interim history and current functioning. Reviewed vital signs,~Labs/ Radiology~and current medications noted below. Continue current treatment with the changes noted in the dictated addendum note Assessment: Vital Signs/I&O: Vital Signs Date Time Temp Pulse Resp B/P (MAP) Pulse Ox O2 Delivery O2 Flow Rate FiO2 07/14/21 21:09 92 07/14/21 15:37 98.0 66 22 152/69 (96) Room Air I & O 07/13/21 07/13/21 07/14/21 15:00 23:00 07:00 Intake Total 2400 ml 960 ml Balance 2400 ml 960 ml Labs: Laboratory Tests Test 07/14/21 07:43 07/14/21 11:57 07/14/21 16:59 07/14/21 19:15 Glucose (Fingerstick) 155 mg/dL (70-99) H 223 mg/dL (70-99) H 149 mg/dL (70-99) H 241 mg/dL (70-99) H Current Medications: Meds: Laboratory Tests Test 07/14/21 07:43 07/14/21 11:57 07/14/21 16:59 07/14/21 19:15 Glucose (Fingerstick) 155 mg/dL 223 mg/dL 149 mg/dL 241 mg/dL Current Medications Medications (Trade) Dose Ordered Sig/Ruchi Route PRN Reason Start Time Stop Time Status Last Admin Dose Admin Acetaminophen (Tylenol) 650 mg PRN Q6HRS PRN PO MILD PAIN / TEMP > 100.3'F 07/03/21 04:30 07/03/21 07:19 DC Multi-Ingredient Ointment (Analgesic [place]) 1 mara PRN QID PRN TP MUSCLE PAIN 07/03/21 04:30 Al Hydroxide/Mg Hydroxide (Mylanta Plus Xs) 15 ml PRN AFTMEALHC PRN PO DYSPEPSIA 07/03/21 04:30 Magnesium Hydroxide (Milk Of Magnesia) 2,400 mg PRN QHS PRN PO CONSTIPATION 2ND CHOICE 07/03/21 04:30 Polyethylene Glycol (miraLAX) 17 gm PRN DAILY PRN PO CONSTIPATION 1ST CHOICE 07/03/21 04:30 Buspirone HCl (Buspar) 7.5 mg TID PO 07/03/21 09:00 07/14/21 20:36 Gabapentin (Neurontin) 300 mg BID PO 07/03/21 09:00 07/11/21 21:47 DC 07/11/21 20:19 Acetaminophen/ Hydrocodone Bitart (Lortab 5/325) 1 tab PRN Q6HRS PRN PO PAIN MODERATE/SEVERE 07/03/21 04:45 07/14/21 20:39 Levothyroxine Sodium (Synthroid) 150 mcg DAILY07 PO 07/03/21 07:00 07/14/21 06:09 Lidocaine (Lidoderm) 1 patch PRN DAILY PRN TP pain in lower back 07/03/21 04:45 Melatonin (Melatonin) 6 mg HS PO 07/03/21 21:00 07/14/21 20:36 Artificial Tears (Artificial Tears) 2 drop TID OU 07/03/21 09:00 07/14/21 20:37 Quetiapine Fumarate (SEROquel) 75 mg DAILY@0900,1700 PO 07/03/21 09:00 07/13/21 23:43 DC 07/13/21 17:12 Quetiapine Fumarate (SEROquel) 100 mg QHS PO 07/03/21 21:00 07/13/21 23:43 DC 07/13/21 19:50 Tamsulosin HCl (Flomax) 0.4 mg HS PO 07/03/21 21:00 07/14/21 20:36 Trazodone HCl (Desyrel) 12.5 mg PRN Q12HR PRN PO ANXIETY/AGITATION 07/03/21 04:45 Trazodone HCl (Desyrel) 100 mg HS PO 07/03/21 21:00 07/14/21 20:36 Acetaminophen (Tylenol) 500 mg PRN Q6HRS PRN PO MILD PAIN / TEMP > 100.3'F 07/03/21 05:15 07/11/21 13:23 Miscellaneous (Lidoderm Patch Removal) 1 ea QHS MC 07/03/21 21:00 07/14/21 20:37 Olanzapine (ZyPREXA) 2.5 mg PRN DAILY PRN PO PSYCHOSIS 07/03/21 09:15 07/03/21 13:26 DC 07/03/21 09:14 Olanzapine (ZyPREXA) 2.5 mg PRN Q2HR PRN PO PSYCHOSIS 07/03/21 14:10 07/14/21 18:15 Trazodone HCl (Desyrel) 100 mg PRN QHS PRN PO for sleep 07/04/21 11:45 07/11/21 22:39 Vitamin D (Vitamin D3) 50,000 unit WEEKLY PO 07/05/21 09:00 07/12/21 08:31 Insulin Glargine (Lantus Syringe) 10 unit QHS SQ 07/04/21 21:00 07/14/21 20:41 Insulin Human Lispro (HumaLOG) 0-7 UNITS TIDWMEALS SQ 07/04/21 17:00 07/14/21 12:28 Dextrose (Dextrose 50%-Water Syringe) 12.5 gm PRN Q15MIN PRN IV SEE COMMENTS 07/04/21 15:00 Carbamazepine (TEGretol XR) 200 mg HS PO 07/05/21 21:00 07/09/21 17:34 DC 07/08/21 21:10 Amlodipine Besylate (Norvasc) 10 mg 1X ONCE PO 07/09/21 16:30 07/09/21 16:31 DC 07/09/21 16:56 Amlodipine Besylate (Norvasc) 10 mg DAILY PO 07/10/21 09:00 07/14/21 08:57 Carbamazepine (TEGretol XR) 400 mg BID PO 07/09/21 21:00 07/14/21 20:36 Gabapentin (Neurontin) 300 mg TIDAC PO 07/12/21 07:30 07/14/21 17:27 Quetiapine Fumarate (SEROquel) 100 mg TID@0900,1700,2100 PO 07/14/21 09:00 07/14/21 20:39 Current Medications Medications (Trade) Dose Ordered Sig/Ruchi Route PRN Reason Start Time Stop Time Status Last Admin Dose Admin Quetiapine Fumarate (SEROquel) 100 mg TID@0900,1700,2100 PO 07/14/21 09:00 07/14/21 20:39 I have reviewed the current psychotropics carefully including drug interactions. Risk benefit ratio favors no change other than as noted in my dictated progress note. Diagnosis: Problems: (1) Mild cognitive impairment (2) Bipolar affective, mixed, sev w/ psych (3) Anxiety disorder (4) Impulse control disorder GRAEME DIAZ MD July 14, 2021 21:30
[2021-07-15] MEDS: LEVOTHYROXINE 150 MCG TABLET PO SCH (06:00)
[2021-07-15 06:07] VITALS: BP 165/64
[2021-07-15 06:23] LABS: BASO # 0.1 x10^3/uL (0.0-0.2); BASO % 2 % (0-3); EOS # 0.2 x10^3/uL (0.0-0.7); EOS % 4 % (0-3); HEMATOCRIT 36.1 % (36.0-47.0); HEMOGLOBIN 11.7 g/dL (12.0-15.5); LYMPH # 1.3 x10^3/uL (1.0-4.8); LYMPH % 24 % (24-48); MEAN CORPUSCULAR HEMOGLOBIN 28 pg (25-35); MEAN CORPUSCULAR HGB CONC 32 g/dL (31-37); MEAN CORPUSCULAR VOLUME 86 fL (79-100); MONO # 0.5 x10^3/uL (0.0-1.1); MONO % 10 % (0-9); NEUT # 3.3 x10^3uL (1.8-7.7); NEUT % 61 % (31-73); PLATELET COUNT 142 x10^3/uL (140-400); RED BLOOD COUNT 4.22 x10^6/uL (3.50-5.40); RED CELL DISTRIBUTION WIDTH 15.8 % (11.5-14.5); WHITE BLOOD COUNT 5.3 x10^3/uL (4.0-11.0)
--- NOTE | 2021-07-15 06:39 | PDOC ---
Exam Note: Darren Note: This note is a late entry for 07/13/2021 covers elements not covered in my initial note. Subjective: The patient was seen individually on 07/13/2021, discussed and reviewed the chart with Kerri HENDRICKSON. The patient slept 2 hours in the morning. Tegretol level on 07/12 was 10.2, therapeutic. We will repeat it on Thursday morning. She has been intermittently hollering out, door checking, rattling the handle, needy. P.r.n. given to help with this and we will increase Seroquel to 100 mg 3 times a day. Review of Systems: Impaired ambulation, in wheelchair. Hard of hearing. No CV, , pulmonary, eye system symptoms on review. Mental Status Exam: Patient is oriented to herself and situation. I met with her in her room. Speech is coherent. Abstraction fair. Computation impaired. Language function intact. Attention span short. Mood and affect remains anxious, withdrawn. Laboratory Data: Reviewed. Impression: Bipolar 1 disorder, mixed with psychotic features. Mild cognitive impairment. Anxiety disorder unspecified. Impulse control disorder unspecified. Plan: Maintain rest of the psychotropics unchanged. Reviewed drug interactions and risk-benefit ratio. We will increase the Seroquel to 100 mg t.i.d. Adjust further as clinically indicated. Assessment: Vital Signs/I&O: Vital Signs Date Time Temp Pulse Resp B/P (MAP) Pulse Ox O2 Delivery O2 Flow Rate FiO2 07/15/21 06:07 98.0 66 20 165/64 (97) 92 07/14/21 15:37 Room Air I & O 07/14/21 07/14/21 07/15/21 15:00 23:00 07:00 Intake Total 1040 ml 600 ml Balance 1040 ml 600 ml Labs: Laboratory Tests Test 07/14/21 07:43 07/14/21 11:57 07/14/21 16:59 07/14/21 19:15 Glucose (Fingerstick) 155 mg/dL (70-99) H 223 mg/dL (70-99) H 149 mg/dL (70-99) H 241 mg/dL (70-99) H Test 07/15/21 06:04 White Blood Count 5.3 x10^3/uL (4.0-11.0) Red Blood Count 4.22 x10^6/uL (3.50-5.40) Hemoglobin 11.7 g/dL (12.0-15.5) L Hematocrit 36.1 % (36.0-47.0) Mean Corpuscular Volume 86 fL (79-100) Mean Corpuscular Hemoglobin 28 pg (25-35) Mean Corpuscular Hemoglobin Concent 32 g/dL (31-37) Red Cell Distribution Width 15.8 % (11.5-14.5) H Platelet Count 142 x10^3/uL (140-400) Neutrophils (%) (Auto) 61 % (31-73) Lymphocytes (%) (Auto) 24 % (24-48) Monocytes (%) (Auto) 10 % (0-9) H Eosinophils (%) (Auto) 4 % (0-3) H Basophils (%) (Auto) 2 % (0-3) Neutrophils # (Auto) 3.3 x10^3uL (1.8-7.7) Lymphocytes # (Auto) 1.3 x10^3/uL (1.0-4.8) Monocytes # (Auto) 0.5 x10^3/uL (0.0-1.1) Eosinophils # (Auto) 0.2 x10^3/uL (0.0-0.7) Basophils # (Auto) 0.1 x10^3/uL (0.0-0.2) Current Medications: Meds: Current Medications Medications (Trade) Dose Ordered Sig/Ruchi Route PRN Reason Start Time Stop Time Status Last Admin Dose Admin Quetiapine Fumarate (SEROquel) 100 mg TID@0900,1700,2100 PO 07/14/21 09:00 07/14/21 20:39 I have reviewed the current psychotropics carefully including drug interactions. Risk benefit ratio favors no change other than as noted in my dictated progress note. Diagnosis: Problems: (1) Mild cognitive impairment (2) Bipolar affective, mixed, sev w/ psych (3) Anxiety disorder (4) Impulse control disorder GRAEME DIAZ MD July 15, 2021 06:39
[2021-07-15 06:40] LABS: ALBUMIN 3.5 g/dL (3.4-5.0); ALBUMIN/GLOBULIN RATIO 0.9 (1.0-1.7); CALCIUM 8.9 mg/dL (8.5-10.1); POTASSIUM 3.9 mmol/L (3.5-5.1); TOTAL BILIRUBIN 0.3 mg/dL (0.2-1.0); TOTAL PROTEIN 7.3 g/dL (6.4-8.2)
--- NOTE | 2021-07-15 06:54 | PDOC ---
Exam Note: Darren Note: This note is a late entry for 07/14/2021 covers elements not covered in my initial note. Subjective: The patient was seen individually on 07/14/2021, discussed and reviewed the chart with Kerri HENDRICKSON. The patient slept 7 hours in the morning. She has been anxious, demanding. I met with her in her room, repeatedly banging windows at the nursing station, putting herself on the floor. She had the increased Seroquel and if this is ineffective we may look at alternatives. Review of Systems: Impaired ambulation, in wheelchair. Hard of hearing. No CV, , pulmonary, eye system symptoms on review. Mental Status Exam: Patient is oriented to herself and situation. Speech is coherent. Abstraction fair. Computation impaired. Language function intact. Attention span short. Mood and affect remains anxious, withdrawn. Laboratory Data: Reviewed. Impression: Bipolar 1 disorder, mixed with psychotic features. Mild cognitive impairment. Anxiety disorder unspecified. Impulse control disorder unspecified. Plan: Maintain rest of the psychotropics unchanged. Reviewed drug interactions and risk-benefit ratio. Assessment: Vital Signs/I&O: Vital Signs Date Time Temp Pulse Resp B/P (MAP) Pulse Ox O2 Delivery O2 Flow Rate FiO2 07/15/21 06:07 98.0 66 20 165/64 (97) 92 07/14/21 15:37 Room Air I & O 07/14/21 07/14/21 07/15/21 15:00 23:00 07:00 Intake Total 1040 ml 600 ml Balance 1040 ml 600 ml Labs: Laboratory Tests Test 07/14/21 07:43 07/14/21 11:57 07/14/21 16:59 07/14/21 19:15 Glucose (Fingerstick) 155 mg/dL (70-99) H 223 mg/dL (70-99) H 149 mg/dL (70-99) H 241 mg/dL (70-99) H Test 07/15/21 06:04 White Blood Count 5.3 x10^3/uL (4.0-11.0) Red Blood Count 4.22 x10^6/uL (3.50-5.40) Hemoglobin 11.7 g/dL (12.0-15.5) L Hematocrit 36.1 % (36.0-47.0) Mean Corpuscular Volume 86 fL (79-100) Mean Corpuscular Hemoglobin 28 pg (25-35) Mean Corpuscular Hemoglobin Concent 32 g/dL (31-37) Red Cell Distribution Width 15.8 % (11.5-14.5) H Platelet Count 142 x10^3/uL (140-400) Neutrophils (%) (Auto) 61 % (31-73) Lymphocytes (%) (Auto) 24 % (24-48) Monocytes (%) (Auto) 10 % (0-9) H Eosinophils (%) (Auto) 4 % (0-3) H Basophils (%) (Auto) 2 % (0-3) Neutrophils # (Auto) 3.3 x10^3uL (1.8-7.7) Lymphocytes # (Auto) 1.3 x10^3/uL (1.0-4.8) Monocytes # (Auto) 0.5 x10^3/uL (0.0-1.1) Eosinophils # (Auto) 0.2 x10^3/uL (0.0-0.7) Basophils # (Auto) 0.1 x10^3/uL (0.0-0.2) Sodium Level 139 mmol/L (136-145) Potassium Level 3.9 mmol/L (3.5-5.1) Chloride Level 103 mmol/L (98-107) Carbon Dioxide Level 26 mmol/L (21-32) Anion Gap 10 (6-14) Blood Urea Nitrogen 21 mg/dL (7-20) H Creatinine 1.0 mg/dL (0.6-1.0) Estimated GFR (Cockcroft-Gault) 53.0 BUN/Creatinine Ratio 21 (6-20) H Glucose Level 136 mg/dL (70-99) H Calcium Level 8.9 mg/dL (8.5-10.1) Total Bilirubin 0.3 mg/dL (0.2-1.0) Aspartate Amino Transferase (AST) 21 U/L (15-37) Alanine Aminotransferase (ALT) 31 U/L (14-59) Alkaline Phosphatase 100 U/L (46-116) Total Protein 7.3 g/dL (6.4-8.2) Albumin 3.5 g/dL (3.4-5.0) Albumin/Globulin Ratio 0.9 (1.0-1.7) L Current Medications: Meds: Current Medications Medications (Trade) Dose Ordered Sig/Ruchi Route PRN Reason Start Time Stop Time Status Last Admin Dose Admin Quetiapine Fumarate (SEROquel) 100 mg TID@0900,1700,2100 PO 07/14/21 09:00 07/14/21 20:39 I have reviewed the current psychotropics carefully including drug interactions. Risk benefit ratio favors no change other than as noted in my dictated progress note. Diagnosis: Problems: (1) Mild cognitive impairment (2) Bipolar affective, mixed, sev w/ psych (3) Anxiety disorder (4) Impulse control disorder GRAEME DIAZ MD July 15, 2021 06:54
[2021-07-15] MEDS: GABAPENTIN 300 MG CAPSULE. PO SCH ×3 (08:21→17:20)
[2021-07-15] MEDS: POLYVINYL ALCOHOL 1.4% OPHTH SOLUTION 15ML BOTTLE. OU SCH ×3 (08:21→20:13)
[2021-07-15] MEDS: QUEtiapine 100 MG TABLET. PO SCH ×3 (08:21→20:15)
[2021-07-15] MEDS: busPIRone 5 MG TABLET. PO SCH ×2 (08:21→13:28)
[2021-07-15] MEDS: amLODIPine BESYLATE 10 MG TABLET PO SCH (08:22)
[2021-07-15] MEDS: INSULIN LISPRO 300 UNITS/3 ML VIAL. SQ SCH ×3 (08:28→17:00)
[2021-07-15] MEDS: LIDOCAINE (700MG/PATCH) PATCH. TP PRN (09:49)
[2021-07-15] MEDS: OLANZapine 2.5 MG TABLET PO PRN ×2 (09:56→13:27)
[2021-07-15] MEDS: HYDROcodone/APAP 5/325MG 1 TAB TABLET PO PRN (12:27)
[2021-07-15 15:39] VITALS: BP 147/64
[2021-07-15] MEDS: PATCH REMOVAL. MC SCH (20:12)
[2021-07-15] MEDS: busPIRone 15 MG TABLET. PO SCH (20:14)
[2021-07-15] MEDS: MELATONIN 3 MG TABLET PO SCH (20:15)
[2021-07-15] MEDS: TAMSULOSIN 0.4 MG CAP.ER.24H. PO SCH (20:15)
[2021-07-15] MEDS: traZODone 100 MG TABLET. PO SCH (20:15)
[2021-07-15] MEDS: INSULIN GLARGINE SYRINGE. SQ SCH (20:17)
--- NOTE | 2021-07-15 21:32 | PDOC ---
Exam Note: Darren Note: Please also refer to the separate dictated note~for this date of service dictated separately.~Patient seen individually. Discussed the patient with Nursing staff reviewed the chart.~Reviewed interim history and current functioning. Reviewed vital signs,~Labs/ Radiology~and current medications noted below. Continue current treatment with the changes noted in the dictated addendum note Assessment: Vital Signs/I&O: Vital Signs Date Time Temp Pulse Resp B/P (MAP) Pulse Ox O2 Delivery O2 Flow Rate FiO2 07/15/21 15:39 97.8 77 20 147/64 (91) 95 07/14/21 15:37 Room Air I & O 07/14/21 07/14/21 07/15/21 15:00 23:00 07:00 Intake Total 1040 ml 600 ml Balance 1040 ml 600 ml Labs: Laboratory Tests Test 07/15/21 06:04 07/15/21 07:10 07/15/21 11:46 07/15/21 17:10 White Blood Count 5.3 x10^3/uL (4.0-11.0) Red Blood Count 4.22 x10^6/uL (3.50-5.40) Hemoglobin 11.7 g/dL (12.0-15.5) L Hematocrit 36.1 % (36.0-47.0) Mean Corpuscular Volume 86 fL (79-100) Mean Corpuscular Hemoglobin 28 pg (25-35) Mean Corpuscular Hemoglobin Concent 32 g/dL (31-37) Red Cell Distribution Width 15.8 % (11.5-14.5) H Platelet Count 142 x10^3/uL (140-400) Neutrophils (%) (Auto) 61 % (31-73) Lymphocytes (%) (Auto) 24 % (24-48) Monocytes (%) (Auto) 10 % (0-9) H Eosinophils (%) (Auto) 4 % (0-3) H Basophils (%) (Auto) 2 % (0-3) Neutrophils # (Auto) 3.3 x10^3uL (1.8-7.7) Lymphocytes # (Auto) 1.3 x10^3/uL (1.0-4.8) Monocytes # (Auto) 0.5 x10^3/uL (0.0-1.1) Eosinophils # (Auto) 0.2 x10^3/uL (0.0-0.7) Basophils # (Auto) 0.1 x10^3/uL (0.0-0.2) Miscellaneous Test Comment (.) Sodium Level 139 mmol/L (136-145) Potassium Level 3.9 mmol/L (3.5-5.1) Chloride Level 103 mmol/L (98-107) Carbon Dioxide Level 26 mmol/L (21-32) Anion Gap 10 (6-14) Blood Urea Nitrogen 21 mg/dL (7-20) H Creatinine 1.0 mg/dL (0.6-1.0) Estimated GFR (Cockcroft-Gault) 53.0 BUN/Creatinine Ratio 21 (6-20) H Glucose Level 136 mg/dL (70-99) H Calcium Level 8.9 mg/dL (8.5-10.1) Total Bilirubin 0.3 mg/dL (0.2-1.0) Aspartate Amino Transferase (AST) 21 U/L (15-37) Alanine Aminotransferase (ALT) 31 U/L (14-59) Alkaline Phosphatase 100 U/L (46-116) Total Protein 7.3 g/dL (6.4-8.2) Albumin 3.5 g/dL (3.4-5.0) Albumin/Globulin Ratio 0.9 (1.0-1.7) L Glucose (Fingerstick) 152 mg/dL (70-99) H 140 mg/dL (70-99) H 138 mg/dL (70-99) H Test 07/15/21 19:45 Glucose (Fingerstick) 236 mg/dL (70-99) H Current Medications: Meds: Laboratory Tests Test 07/15/21 06:04 07/15/21 07:10 07/15/21 11:46 07/15/21 17:10 White Blood Count 5.3 x10^3/uL Red Blood Count 4.22 x10^6/uL Hemoglobin 11.7 g/dL Hematocrit 36.1 % Mean Corpuscular Volume 86 fL Mean Corpuscular Hemoglobin 28 pg Mean Corpuscular Hemoglobin Concent 32 g/dL Red Cell Distribution Width 15.8 % Platelet Count 142 x10^3/uL Neutrophils (%) (Auto) 61 % Lymphocytes (%) (Auto) 24 % Monocytes (%) (Auto) 10 % Eosinophils (%) (Auto) 4 % Basophils (%) (Auto) 2 % Neutrophils # (Auto) 3.3 x10^3uL Lymphocytes # (Auto) 1.3 x10^3/uL Monocytes # (Auto) 0.5 x10^3/uL Eosinophils # (Auto) 0.2 x10^3/uL Basophils # (Auto) 0.1 x10^3/uL Miscellaneous Test Comment Sodium Level 139 mmol/L Potassium Level 3.9 mmol/L Chloride Level 103 mmol/L Carbon Dioxide Level 26 mmol/L Anion Gap 10 Blood Urea Nitrogen 21 mg/dL Creatinine 1.0 mg/dL Estimated GFR (Cockcroft-Gault) 53.0 BUN/Creatinine Ratio 21 Glucose Level 136 mg/dL Calcium Level 8.9 mg/dL Total Bilirubin 0.3 mg/dL Aspartate Amino Transf (AST/SGOT) 21 U/L Alanine Aminotransferase (ALT/SGPT) 31 U/L Alkaline Phosphatase 100 U/L Total Protein 7.3 g/dL Albumin 3.5 g/dL Albumin/Globulin Ratio 0.9 Glucose (Fingerstick) 152 mg/dL 140 mg/dL 138 mg/dL Test 07/15/21 19:45 Glucose (Fingerstick) 236 mg/dL Current Medications Medications (Trade) Dose Ordered Sig/Ruchi Route PRN Reason Start Time Stop Time Status Last Admin Dose Admin Acetaminophen (Tylenol) 650 mg PRN Q6HRS PRN PO MILD PAIN / TEMP > 100.3'F 07/03/21 04:30 07/03/21 07:19 DC Multi-Ingredient Ointment (Analgesic [place]) 1 mara PRN QID PRN TP MUSCLE PAIN 07/03/21 04:30 Al Hydroxide/Mg Hydroxide (Mylanta Plus Xs) 15 ml PRN AFTMEALHC PRN PO DYSPEPSIA 07/03/21 04:30 Magnesium Hydroxide (Milk Of Magnesia) 2,400 mg PRN QHS PRN PO CONSTIPATION 2ND CHOICE 07/03/21 04:30 Polyethylene Glycol (miraLAX) 17 gm PRN DAILY PRN PO CONSTIPATION 1ST CHOICE 07/03/21 04:30 Buspirone HCl (Buspar) 7.5 mg TID PO 07/03/21 09:00 07/15/21 16:56 DC 07/15/21 13:28 Gabapentin (Neurontin) 300 mg BID PO 07/03/21 09:00 07/11/21 21:47 DC 07/11/21 20:19 Acetaminophen/ Hydrocodone Bitart (Lortab 5/325) 1 tab PRN Q6HRS PRN PO PAIN MODERATE/SEVERE 07/03/21 04:45 07/15/21 12:27 Levothyroxine Sodium (Synthroid) 150 mcg DAILY07 PO 07/03/21 07:00 07/15/21 06:00 Lidocaine (Lidoderm) 1 patch PRN DAILY PRN TP pain in lower back 07/03/21 04:45 07/15/21 09:49 Melatonin (Melatonin) 6 mg HS PO 07/03/21 21:00 07/15/21 20:15 Artificial Tears (Artificial Tears) 2 drop TID OU 07/03/21 09:00 07/15/21 20:13 Quetiapine Fumarate (SEROquel) 75 mg DAILY@0900,1700 PO 07/03/21 09:00 07/13/21 23:43 DC 07/13/21 17:12 Quetiapine Fumarate (SEROquel) 100 mg QHS PO 07/03/21 21:00 07/13/21 23:43 DC 07/13/21 19:50 Tamsulosin HCl (Flomax) 0.4 mg HS PO 07/03/21 21:00 07/15/21 20:15 Trazodone HCl (Desyrel) 12.5 mg PRN Q12HR PRN PO ANXIETY/AGITATION 07/03/21 04:45 Trazodone HCl (Desyrel) 100 mg HS PO 07/03/21 21:00 07/15/21 20:15 Acetaminophen (Tylenol) 500 mg PRN Q6HRS PRN PO MILD PAIN / TEMP > 100.3'F 07/03/21 05:15 07/11/21 13:23 Miscellaneous (Lidoderm Patch Removal) 1 ea QHS MC 07/03/21 21:00 07/15/21 20:12 Olanzapine (ZyPREXA) 2.5 mg PRN DAILY PRN PO PSYCHOSIS 07/03/21 09:15 07/03/21 13:26 DC 07/03/21 09:14 Olanzapine (ZyPREXA) 2.5 mg PRN Q2HR PRN PO PSYCHOSIS 07/03/21 14:10 07/15/21 13:27 Trazodone HCl (Desyrel) 100 mg PRN QHS PRN PO for sleep 07/04/21 11:45 07/11/21 22:39 Vitamin D (Vitamin D3) 50,000 unit WEEKLY PO 07/05/21 09:00 07/12/21 08:31 Insulin Glargine (Lantus Syringe) 10 unit QHS SQ 07/04/21 21:00 07/15/21 20:17 Insulin Human Lispro (HumaLOG) 0-7 UNITS TIDWMEALS SQ 07/04/21 17:00 07/15/21 08:28 Dextrose (Dextrose 50%-Water Syringe) 12.5 gm PRN Q15MIN PRN IV SEE COMMENTS 07/04/21 15:00 Carbamazepine (TEGretol XR) 200 mg HS PO 07/05/21 21:00 07/09/21 17:34 DC 07/08/21 21:10 Amlodipine Besylate (Norvasc) 10 mg 1X ONCE PO 07/09/21 16:30 07/09/21 16:31 DC 07/09/21 16:56 Amlodipine Besylate (Norvasc) 10 mg DAILY PO 07/10/21 09:00 07/15/21 08:22 Carbamazepine (TEGretol XR) 400 mg BID PO 07/09/21 21:00 07/15/21 20:18 Gabapentin (Neurontin) 300 mg TIDAC PO 07/12/21 07:30 07/15/21 17:20 Quetiapine Fumarate (SEROquel) 100 mg TID@0900,1700,2100 PO 07/14/21 09:00 07/15/21 20:15 Buspirone HCl (Buspar) 15 mg TID PO 07/15/21 21:00 07/15/21 20:14 Current Medications Medications (Trade) Dose Ordered Sig/Ruchi Route PRN Reason Start Time Stop Time Status Last Admin Dose Admin Buspirone HCl (Buspar) 15 mg TID PO 07/15/21 21:00 07/15/21 20:14 I have reviewed the current psychotropics carefully including drug interactions. Risk benefit ratio favors no change other than as noted in my dictated progress note. Diagnosis: Problems: (1) Mild cognitive impairment (2) Bipolar affective, mixed, sev w/ psych (3) Anxiety disorder (4) Impulse control disorder GRAEME DIAZ MD July 15, 2021 21:32
[2021-07-16 06:07] VITALS: BP 132/69
[2021-07-16] MEDS: LEVOTHYROXINE 150 MCG TABLET PO SCH (06:08)
[2021-07-16] MEDS: QUEtiapine 100 MG TABLET. PO SCH ×3 (08:29→20:14)
[2021-07-16] MEDS: busPIRone 15 MG TABLET. PO SCH ×3 (08:29→20:14)
[2021-07-16] MEDS: GABAPENTIN 300 MG CAPSULE. PO SCH ×3 (08:30→16:27)
[2021-07-16] MEDS: POLYVINYL ALCOHOL 1.4% OPHTH SOLUTION 15ML BOTTLE. OU SCH ×3 (08:30→20:45)
[2021-07-16] MEDS: amLODIPine BESYLATE 10 MG TABLET PO SCH (08:30)
[2021-07-16] MEDS: INSULIN LISPRO 300 UNITS/3 ML VIAL. SQ SCH ×3 (08:31→17:33)
--- NOTE | 2021-07-16 10:01 | PDOC ---
Exam Note: Darren Note: This note is a late entry for 07/15/2021 covers elements not covered in my initial note. Subjective: The patient was seen individually on 07/15/2021, discussed and reviewed the chart with Yuliana HENDRICKSON. The patient slept 3-3/4 hours previous night. She has had a difficult day. She has been constantly yelling per nursing staff, beating on the door in the dayroom, trying to exit. Received Zyprexa at 9.55 a.m. and 1300 and another p.r.n. in the evening. Review of Systems: Impaired ambulation, in wheelchair. Hard of hearing. No CV, , pulmonary, eye system symptoms on review. Mental Status Exam: Patient is oriented to herself and situation. Speech is coherent. Abstraction fair. Computation impaired. Language function intact. Attention span short. Mood and affect remains anxious, withdrawn. Laboratory Data: Reviewed. Impression: Bipolar 1 disorder, mixed with psychotic features. Mild cognitive impairment. Anxiety disorder unspecified. Impulse control disorder unspecified. Plan: Maintain rest of the psychotropics unchanged. Reviewed drug interactions and risk-benefit ratio. Given her ongoing anxiety and mood lability despite being therapeutic on Tegretol level today is 10.2. In view of this we will increase BuSpar from 7.5 mg 3 times a day to 15 mg 3 times a day. Assessment: Vital Signs/I&O: Vital Signs Date Time Temp Pulse Resp B/P (MAP) Pulse Ox O2 Delivery O2 Flow Rate FiO2 07/16/21 08:30 66 132/69 07/16/21 06:07 97.8 18 92 Room Air I & O 07/15/21 07/15/21 07/16/21 15:00 23:00 07:00 Intake Total 1370 ml 600 ml Balance 1370 ml 600 ml Labs: Laboratory Tests Test 07/15/21 11:46 07/15/21 17:10 07/15/21 19:45 07/16/21 07:37 Glucose (Fingerstick) 140 mg/dL (70-99) H 138 mg/dL (70-99) H 236 mg/dL (70-99) H 147 mg/dL (70-99) H Current Medications: Meds: Current Medications Medications (Trade) Dose Ordered Sig/Ruchi Route PRN Reason Start Time Stop Time Status Last Admin Dose Admin Buspirone HCl (Buspar) 15 mg TID PO 07/15/21 21:00 07/16/21 08:29 I have reviewed the current psychotropics carefully including drug interactions. Risk benefit ratio favors no change other than as noted in my dictated progress note. Diagnosis: Problems: (1) Mild cognitive impairment (2) Bipolar affective, mixed, sev w/ psych (3) Anxiety disorder (4) Impulse control disorder GRAEME DIAZ MD July 16, 2021 10:01
[2021-07-16] MEDS: OLANZapine 2.5 MG TABLET PO PRN ×2 (14:07→16:28)
[2021-07-16] MEDS: HYDROcodone/APAP 5/325MG 1 TAB TABLET PO PRN (14:20)
[2021-07-16] MEDS ORDERED: OLANZapine 2.5 MG TABLET PO ONE (15:00)
[2021-07-16] MEDS: traZODone 50 MG TABLET. PO SCH (20:13)
[2021-07-16] MEDS: MELATONIN 3 MG TABLET PO SCH (20:14)
[2021-07-16] MEDS: TAMSULOSIN 0.4 MG CAP.ER.24H. PO SCH (20:14)
[2021-07-16] MEDS: traZODone 100 MG TABLET. PO SCH (20:15)
[2021-07-16] MEDS: PATCH REMOVAL. MC SCH (20:16)
[2021-07-16] MEDS: INSULIN GLARGINE SYRINGE. SQ SCH (20:44)
--- NOTE | 2021-07-16 21:43 | PDOC ---
Exam Note: Darren Note: Please also refer to the separate dictated note~for this date of service dictated separately.~Patient seen individually. Discussed the patient with Nursing staff reviewed the chart.~Reviewed interim history and current functioning. Reviewed vital signs,~Labs/ Radiology~and current medications noted below. Continue current treatment with the changes noted in the dictated addendum note Assessment: Vital Signs/I&O: Vital Signs Date Time Temp Pulse Resp B/P (MAP) Pulse Ox O2 Delivery O2 Flow Rate FiO2 07/16/21 14:50 18 Room Air 07/16/21 14:20 92 07/16/21 08:30 66 132/69 07/16/21 06:07 97.8 I & O 07/15/21 07/15/21 07/16/21 15:00 23:00 07:00 Intake Total 1370 ml 600 ml Balance 1370 ml 600 ml Labs: Laboratory Tests Test 07/16/21 07:37 07/16/21 12:00 07/16/21 16:48 07/16/21 19:00 Glucose (Fingerstick) 147 mg/dL (70-99) H 154 mg/dL (70-99) H 118 mg/dL (70-99) H 206 mg/dL (70-99) H Current Medications: Meds: Laboratory Tests Test 07/16/21 07:37 07/16/21 12:00 07/16/21 16:48 07/16/21 19:00 Glucose (Fingerstick) 147 mg/dL 154 mg/dL 118 mg/dL 206 mg/dL Current Medications Medications (Trade) Dose Ordered Sig/Ruchi Route PRN Reason Start Time Stop Time Status Last Admin Dose Admin Acetaminophen (Tylenol) 650 mg PRN Q6HRS PRN PO MILD PAIN / TEMP > 100.3'F 07/03/21 04:30 07/03/21 07:19 DC Multi-Ingredient Ointment (Analgesic [place]) 1 mara PRN QID PRN TP MUSCLE PAIN 07/03/21 04:30 Al Hydroxide/Mg Hydroxide (Mylanta Plus Xs) 15 ml PRN AFTMEALHC PRN PO DYSPEPSIA 07/03/21 04:30 Magnesium Hydroxide (Milk Of Magnesia) 2,400 mg PRN QHS PRN PO CONSTIPATION 2ND CHOICE 07/03/21 04:30 Polyethylene Glycol (miraLAX) 17 gm PRN DAILY PRN PO CONSTIPATION 1ST CHOICE 07/03/21 04:30 Buspirone HCl (Buspar) 7.5 mg TID PO 07/03/21 09:00 07/15/21 16:56 DC 07/15/21 13:28 Gabapentin (Neurontin) 300 mg BID PO 07/03/21 09:00 07/11/21 21:47 DC 07/11/21 20:19 Acetaminophen/ Hydrocodone Bitart (Lortab 5/325) 1 tab PRN Q6HRS PRN PO PAIN MODERATE/SEVERE 07/03/21 04:45 07/16/21 14:20 Levothyroxine Sodium (Synthroid) 150 mcg DAILY07 PO 07/03/21 07:00 07/16/21 06:08 Lidocaine (Lidoderm) 1 patch PRN DAILY PRN TP pain in lower back 07/03/21 04:45 07/15/21 09:49 Melatonin (Melatonin) 6 mg HS PO 07/03/21 21:00 07/16/21 20:14 Artificial Tears (Artificial Tears) 2 drop TID OU 07/03/21 09:00 07/16/21 20:45 Quetiapine Fumarate (SEROquel) 75 mg DAILY@0900,1700 PO 07/03/21 09:00 07/13/21 23:43 DC 07/13/21 17:12 Quetiapine Fumarate (SEROquel) 100 mg QHS PO 07/03/21 21:00 07/13/21 23:43 DC 07/13/21 19:50 Tamsulosin HCl (Flomax) 0.4 mg HS PO 07/03/21 21:00 07/16/21 20:14 Trazodone HCl (Desyrel) 12.5 mg PRN Q12HR PRN PO ANXIETY/AGITATION 07/03/21 04:45 Trazodone HCl (Desyrel) 100 mg HS PO 07/03/21 21:00 07/16/21 20:15 Acetaminophen (Tylenol) 500 mg PRN Q6HRS PRN PO MILD PAIN / TEMP > 100.3'F 07/03/21 05:15 07/11/21 13:23 Miscellaneous (Lidoderm Patch Removal) 1 ea QHS MC 07/03/21 21:00 07/16/21 20:16 Olanzapine (ZyPREXA) 2.5 mg PRN DAILY PRN PO PSYCHOSIS 07/03/21 09:15 07/03/21 13:26 DC 07/03/21 09:14 Olanzapine (ZyPREXA) 2.5 mg PRN Q2HR PRN PO PSYCHOSIS 07/03/21 14:10 07/16/21 14:56 DC 07/16/21 14:07 Trazodone HCl (Desyrel) 100 mg PRN QHS PRN PO for sleep 07/04/21 11:45 07/11/21 22:39 Vitamin D (Vitamin D3) 50,000 unit WEEKLY PO 07/05/21 09:00 07/12/21 08:31 Insulin Glargine (Lantus Syringe) 10 unit QHS SQ 07/04/21 21:00 07/16/21 20:44 Insulin Human Lispro (HumaLOG) 0-7 UNITS TIDWMEALS SQ 07/04/21 17:00 07/16/21 12:08 Dextrose (Dextrose 50%-Water Syringe) 12.5 gm PRN Q15MIN PRN IV SEE COMMENTS 07/04/21 15:00 Carbamazepine (TEGretol XR) 200 mg HS PO 07/05/21 21:00 07/09/21 17:34 DC 07/08/21 21:10 Amlodipine Besylate (Norvasc) 10 mg 1X ONCE PO 07/09/21 16:30 07/09/21 16:31 DC 07/09/21 16:56 Amlodipine Besylate (Norvasc) 10 mg DAILY PO 07/10/21 09:00 07/16/21 08:30 Carbamazepine (TEGretol XR) 400 mg BID PO 07/09/21 21:00 07/16/21 20:10 Gabapentin (Neurontin) 300 mg TIDAC PO 07/12/21 07:30 07/16/21 16:27 Quetiapine Fumarate (SEROquel) 100 mg TID@0900,1700,2100 PO 07/14/21 09:00 07/16/21 20:14 Buspirone HCl (Buspar) 15 mg TID PO 07/15/21 21:00 07/16/21 20:14 Olanzapine (ZyPREXA) 5 mg PRN Q2HRS PRN PO AGITATION 07/16/21 14:45 07/16/21 16:28 Olanzapine (ZyPREXA) 2.5 mg 1X ONCE PO 07/16/21 15:00 07/16/21 15:01 DC Trazodone HCl (Desyrel) 25 mg TID PO 07/16/21 21:00 07/16/21 20:13 Current Medications Medications (Trade) Dose Ordered Sig/Ruchi Route PRN Reason Start Time Stop Time Status Last Admin Dose Admin Olanzapine (ZyPREXA) 5 mg PRN Q2HRS PRN PO AGITATION 07/16/21 14:45 07/16/21 16:28 Trazodone HCl (Desyrel) 25 mg TID PO 07/16/21 21:00 07/16/21 20:13 I have reviewed the current psychotropics carefully including drug interactions. Risk benefit ratio favors no change other than as noted in my dictated progress note. Diagnosis: Problems: (1) Mild cognitive impairment (2) Bipolar affective, mixed, sev w/ psych (3) Anxiety disorder (4) Impulse control disorder GRAEME DIAZ MD July 16, 2021 21:43
[2021-07-17 05:55] VITALS: BP 133/67
--- NOTE | 2021-07-17 06:16 | PDOC ---
Exam Note: Darren Note: This note is a late entry for 07/16/2021 covers elements not covered in my initial note. Subjective: The patient was seen individually on 07/16/2021, discussed and reviewed the chart with Fern HENDRICKSON. The patient slept 7 hours previous night. Overall she has been quite agitated with pressure of speech, obsessive, ruminative. Review of Systems: Ambulation impaired, in wheelchair. Hard of hearing. No CV, , pulmonary, eye system symptoms on review. Reliability varies. Mental Status Exam: Patient is oriented to herself and situation. Speech is coherent, rapid at times. Abstraction fair. Computation impaired. Language function intact. Mood and affect labile. Laboratory Data: Reviewed. Impression: Bipolar 1 disorder, mixed with psychotic features. Mild cognitive impairment. Anxiety disorder unspecified. Impulse control disorder unspecified. Plan: Increase Zyprexa p.r.n. to 5 mg q.2h. p.r.n. psychosis and agitation max 20 mg in 24 hours. Start trazodone 25 mg 9 a.m., 1 p.m. and 5 p.m., to reduce anxiety and help with agitation. Maintain rest of the psychotropics unchanged. Reviewed drug interactions and risk-benefit ratio. Adjust as clinically indicated. Assessment: Vital Signs/I&O: Vital Signs Date Time Temp Pulse Resp B/P (MAP) Pulse Ox O2 Delivery O2 Flow Rate FiO2 07/17/21 05:55 97.9 62 16 133/67 (89) 93 07/16/21 14:50 Room Air I & O 07/16/21 07/16/21 07/17/21 15:00 23:00 07:00 Intake Total 960 ml 720 ml Balance 960 ml 720 ml Labs: Laboratory Tests Test 07/16/21 07:37 07/16/21 12:00 07/16/21 13:10 07/16/21 16:48 Glucose (Fingerstick) 147 mg/dL (70-99) H 154 mg/dL (70-99) H 118 mg/dL (70-99) H POC SARS CoV-2 Antigen Negative (NEGATIVE) Test 07/16/21 19:00 Glucose (Fingerstick) 206 mg/dL (70-99) H Current Medications: Meds: Current Medications Medications (Trade) Dose Ordered Sig/Ruchi Route PRN Reason Start Time Stop Time Status Last Admin Dose Admin Olanzapine (ZyPREXA) 5 mg PRN Q2HRS PRN PO AGITATION 07/16/21 14:45 07/16/21 16:28 Trazodone HCl (Desyrel) 25 mg TID PO 07/16/21 21:00 07/16/21 20:13 I have reviewed the current psychotropics carefully including drug interactions. Risk benefit ratio favors no change other than as noted in my dictated progress note. Diagnosis: Problems: (1) Mild cognitive impairment (2) Bipolar affective, mixed, sev w/ psych (3) Anxiety disorder (4) Impulse control disorder GRAEME DIAZ MD July 17, 2021 06:16
[2021-07-17] MEDS: LEVOTHYROXINE 150 MCG TABLET PO SCH (06:46)
[2021-07-17] MEDS: INSULIN LISPRO 300 UNITS/3 ML VIAL. SQ SCH ×3 (08:00→17:32)
[2021-07-17] MEDS: GABAPENTIN 300 MG CAPSULE. PO SCH ×3 (08:11→17:32)
[2021-07-17] MEDS: amLODIPine BESYLATE 10 MG TABLET PO SCH (08:12)
[2021-07-17] MEDS: busPIRone 15 MG TABLET. PO SCH ×3 (08:12→20:20)
[2021-07-17] MEDS: traZODone 50 MG TABLET. PO SCH ×3 (08:12→20:20)
[2021-07-17] MEDS: QUEtiapine 100 MG TABLET. PO SCH ×3 (08:13→20:20)
[2021-07-17] MEDS: POLYVINYL ALCOHOL 1.4% OPHTH SOLUTION 15ML BOTTLE. OU SCH ×3 (08:13→20:19)
[2021-07-17 16:02] VITALS: BP 130/77
[2021-07-17] MEDS: TAMSULOSIN 0.4 MG CAP.ER.24H. PO SCH (20:20)
[2021-07-17] MEDS: traZODone 100 MG TABLET. PO SCH (20:20)
[2021-07-17] MEDS: MELATONIN 3 MG TABLET PO SCH (20:20)
[2021-07-17] MEDS: PATCH REMOVAL. MC SCH (20:21)
[2021-07-17] MEDS: INSULIN GLARGINE SYRINGE. SQ SCH (21:18)
--- NOTE | 2021-07-17 21:32 | PDOC ---
Exam Note: Darren Note: Please also refer to the separate dictated note~for this date of service dictated separately.~Patient seen individually. Discussed the patient with Nursing staff reviewed the chart.~Reviewed interim history and current functioning. Reviewed vital signs,~Labs/ Radiology~and current medications noted below. Continue current treatment with the changes noted in the dictated addendum note Assessment: Vital Signs/I&O: Vital Signs Date Time Temp Pulse Resp B/P (MAP) Pulse Ox O2 Delivery O2 Flow Rate FiO2 07/17/21 16:02 98.2 72 20 130/77 (94) 96 Room Air I & O 07/16/21 07/16/21 07/17/21 15:00 23:00 07:00 Intake Total 960 ml 720 ml Balance 960 ml 720 ml Labs: Laboratory Tests Test 07/17/21 07:30 07/17/21 11:54 07/17/21 16:47 07/17/21 19:06 Glucose (Fingerstick) 140 mg/dL (70-99) H 174 mg/dL (70-99) H 176 mg/dL (70-99) H 206 mg/dL (70-99) H Current Medications: Meds: Laboratory Tests Test 07/17/21 07:30 07/17/21 11:54 07/17/21 16:47 07/17/21 19:06 Glucose (Fingerstick) 140 mg/dL 174 mg/dL 176 mg/dL 206 mg/dL Current Medications Medications (Trade) Dose Ordered Sig/Ruchi Route PRN Reason Start Time Stop Time Status Last Admin Dose Admin Acetaminophen (Tylenol) 650 mg PRN Q6HRS PRN PO MILD PAIN / TEMP > 100.3'F 07/03/21 04:30 07/03/21 07:19 DC Multi-Ingredient Ointment (Analgesic [place]) 1 mara PRN QID PRN TP MUSCLE PAIN 07/03/21 04:30 Al Hydroxide/Mg Hydroxide (Mylanta Plus Xs) 15 ml PRN AFTMEALHC PRN PO DYSPEPSIA 07/03/21 04:30 Magnesium Hydroxide (Milk Of Magnesia) 2,400 mg PRN QHS PRN PO CONSTIPATION 2ND CHOICE 07/03/21 04:30 Polyethylene Glycol (miraLAX) 17 gm PRN DAILY PRN PO CONSTIPATION 1ST CHOICE 07/03/21 04:30 Buspirone HCl (Buspar) 7.5 mg TID PO 07/03/21 09:00 07/15/21 16:56 DC 07/15/21 13:28 Gabapentin (Neurontin) 300 mg BID PO 07/03/21 09:00 07/11/21 21:47 DC 07/11/21 20:19 Acetaminophen/ Hydrocodone Bitart (Lortab 5/325) 1 tab PRN Q6HRS PRN PO PAIN MODERATE/SEVERE 07/03/21 04:45 07/16/21 14:20 Levothyroxine Sodium (Synthroid) 150 mcg DAILY07 PO 07/03/21 07:00 07/17/21 06:46 Lidocaine (Lidoderm) 1 patch PRN DAILY PRN TP pain in lower back 07/03/21 04:45 07/15/21 09:49 Melatonin (Melatonin) 6 mg HS PO 07/03/21 21:00 07/17/21 20:20 Artificial Tears (Artificial Tears) 2 drop TID OU 07/03/21 09:00 07/17/21 20:19 Quetiapine Fumarate (SEROquel) 75 mg DAILY@0900,1700 PO 07/03/21 09:00 07/13/21 23:43 DC 07/13/21 17:12 Quetiapine Fumarate (SEROquel) 100 mg QHS PO 07/03/21 21:00 07/13/21 23:43 DC 07/13/21 19:50 Tamsulosin HCl (Flomax) 0.4 mg HS PO 07/03/21 21:00 07/17/21 20:20 Trazodone HCl (Desyrel) 12.5 mg PRN Q12HR PRN PO ANXIETY/2ND CHOICE AGITATION 07/03/21 04:45 Trazodone HCl (Desyrel) 100 mg HS PO 07/03/21 21:00 07/17/21 20:20 Acetaminophen (Tylenol) 500 mg PRN Q6HRS PRN PO MILD PAIN / TEMP > 100.3'F 07/03/21 05:15 07/11/21 13:23 Miscellaneous (Lidoderm Patch Removal) 1 ea QHS MC 07/03/21 21:00 07/17/21 20:21 Olanzapine (ZyPREXA) 2.5 mg PRN DAILY PRN PO PSYCHOSIS 07/03/21 09:15 07/03/21 13:26 DC 07/03/21 09:14 Olanzapine (ZyPREXA) 2.5 mg PRN Q2HR PRN PO PSYCHOSIS 07/03/21 14:10 07/16/21 14:56 DC 07/16/21 14:07 Trazodone HCl (Desyrel) 100 mg PRN QHS PRN PO for sleep 07/04/21 11:45 07/11/21 22:39 Vitamin D (Vitamin D3) 50,000 unit WEEKLY PO 07/05/21 09:00 07/12/21 08:31 Insulin Glargine (Lantus Syringe) 10 unit QHS SQ 07/04/21 21:00 07/17/21 21:18 Insulin Human Lispro (HumaLOG) 0-7 UNITS TIDWMEALS SQ 07/04/21 17:00 07/17/21 17:32 Dextrose (Dextrose 50%-Water Syringe) 12.5 gm PRN Q15MIN PRN IV SEE COMMENTS 07/04/21 15:00 Carbamazepine (TEGretol XR) 200 mg HS PO 07/05/21 21:00 07/09/21 17:34 DC 07/08/21 21:10 Amlodipine Besylate (Norvasc) 10 mg 1X ONCE PO 07/09/21 16:30 07/09/21 16:31 DC 07/09/21 16:56 Amlodipine Besylate (Norvasc) 10 mg DAILY PO 07/10/21 09:00 07/17/21 08:12 Carbamazepine (TEGretol XR) 400 mg BID PO 07/09/21 21:00 07/17/21 20:19 Gabapentin (Neurontin) 300 mg TIDAC PO 07/12/21 07:30 07/17/21 17:32 Quetiapine Fumarate (SEROquel) 100 mg TID@0900,1700,2100 PO 07/14/21 09:00 07/17/21 20:20 Buspirone HCl (Buspar) 15 mg TID PO 07/15/21 21:00 07/17/21 20:20 Olanzapine (ZyPREXA) 5 mg PRN Q2HRS PRN PO 1ST CHOICE AGITATION 07/16/21 14:45 07/16/21 16:28 Olanzapine (ZyPREXA) 2.5 mg 1X ONCE PO 07/16/21 15:00 07/16/21 15:01 DC Trazodone HCl (Desyrel) 25 mg TID PO 07/16/21 21:00 07/17/21 20:20 I have reviewed the current psychotropics carefully including drug interactions. Risk benefit ratio favors no change other than as noted in my dictated progress note. Diagnosis: Problems: (1) Mild cognitive impairment (2) Bipolar affective, mixed, sev w/ psych (3) Anxiety disorder (4) Impulse control disorder GRAEME DIAZ MD July 17, 2021 21:32
[2021-07-18] MEDS: LEVOTHYROXINE 150 MCG TABLET PO SCH (05:37)
[2021-07-18 06:00] VITALS: BP 153/61
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
[2021-07-18] MEDS: GABAPENTIN 300 MG CAPSULE. PO SCH ×3 (07:58→17:09)
[2021-07-18] MEDS: amLODIPine BESYLATE 10 MG TABLET PO SCH (07:58)
[2021-07-18] MEDS: busPIRone 15 MG TABLET. PO SCH ×3 (07:59→20:40)
[2021-07-18] MEDS: traZODone 50 MG TABLET. PO SCH ×3 (07:59→20:40)
[2021-07-18] MEDS: QUEtiapine 100 MG TABLET. PO SCH ×3 (07:59→20:42)
[2021-07-18] MEDS: POLYVINYL ALCOHOL 1.4% OPHTH SOLUTION 15ML BOTTLE. OU SCH ×3 (07:59→20:41)
[2021-07-18] MEDS: INSULIN LISPRO 300 UNITS/3 ML VIAL. SQ SCH ×3 (08:01→17:12)
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
[2021-07-18] MEDS: HYDROcodone/APAP 5/325MG 1 TAB TABLET PO PRN (18:33)
[2021-07-18] MEDS: TAMSULOSIN 0.4 MG CAP.ER.24H. PO SCH (20:40)
[2021-07-18] MEDS: MELATONIN 3 MG TABLET PO SCH (20:40)
[2021-07-18] MEDS: traZODone 100 MG TABLET. PO SCH (20:40)
[2021-07-18] MEDS: PATCH REMOVAL. MC SCH (21:00)
--- NOTE | 2021-07-18 21:42 | PDOC ---
Exam Note: Darren Note: Please also refer to the separate dictated note~for this date of service dictated separately.~Patient seen individually. Discussed the patient with Nursing staff reviewed the chart.~Reviewed interim history and current functioning. Reviewed vital signs,~Labs/ Radiology~and current medications noted below. Continue current treatment with the changes noted in the dictated addendum note Assessment: Vital Signs/I&O: Vital Signs Date Time Temp Pulse Resp B/P (MAP) Pulse Ox O2 Delivery O2 Flow Rate FiO2 07/18/21 19:31 18 Room Air 07/18/21 18:33 93 07/18/21 07:58 66 153/61 07/18/21 06:00 97.8 I & O 07/17/21 07/17/21 07/18/21 15:00 23:00 07:00 Intake Total 1880 ml 960 ml Balance 1880 ml 960 ml Labs: Laboratory Tests Test 07/18/21 07:50 07/18/21 11:46 07/18/21 17:06 07/18/21 19:23 Glucose (Fingerstick) 162 mg/dL (70-99) H 235 mg/dL (70-99) H 199 mg/dL (70-99) H 261 mg/dL (70-99) H Current Medications: Meds: Laboratory Tests Test 07/18/21 07:50 07/18/21 11:46 07/18/21 17:06 07/18/21 19:23 Glucose (Fingerstick) 162 mg/dL 235 mg/dL 199 mg/dL 261 mg/dL Current Medications Medications (Trade) Dose Ordered Sig/Ruchi Route PRN Reason Start Time Stop Time Status Last Admin Dose Admin Acetaminophen (Tylenol) 650 mg PRN Q6HRS PRN PO MILD PAIN / TEMP > 100.3'F 07/03/21 04:30 07/03/21 07:19 DC Multi-Ingredient Ointment (Analgesic [place]) 1 mara PRN QID PRN TP MUSCLE PAIN 07/03/21 04:30 Al Hydroxide/Mg Hydroxide (Mylanta Plus Xs) 15 ml PRN AFTMEALHC PRN PO DYSPEPSIA 07/03/21 04:30 Magnesium Hydroxide (Milk Of Magnesia) 2,400 mg PRN QHS PRN PO CONSTIPATION 2ND CHOICE 07/03/21 04:30 Polyethylene Glycol (miraLAX) 17 gm PRN DAILY PRN PO CONSTIPATION 1ST CHOICE 07/03/21 04:30 Buspirone HCl (Buspar) 7.5 mg TID PO 07/03/21 09:00 07/15/21 16:56 DC 07/15/21 13:28 Gabapentin (Neurontin) 300 mg BID PO 07/03/21 09:00 07/11/21 21:47 DC 07/11/21 20:19 Acetaminophen/ Hydrocodone Bitart (Lortab 5/325) 1 tab PRN Q6HRS PRN PO PAIN MODERATE/SEVERE 07/03/21 04:45 07/18/21 18:33 Levothyroxine Sodium (Synthroid) 150 mcg DAILY07 PO 07/03/21 07:00 07/18/21 05:37 Lidocaine (Lidoderm) 1 patch PRN DAILY PRN TP pain in lower back 07/03/21 04:45 07/15/21 09:49 Melatonin (Melatonin) 6 mg HS PO 07/03/21 21:00 07/18/21 20:40 Artificial Tears (Artificial Tears) 2 drop TID OU 07/03/21 09:00 07/18/21 20:41 Quetiapine Fumarate (SEROquel) 75 mg DAILY@0900,1700 PO 07/03/21 09:00 07/13/21 23:43 DC 07/13/21 17:12 Quetiapine Fumarate (SEROquel) 100 mg QHS PO 07/03/21 21:00 07/13/21 23:43 DC 07/13/21 19:50 Tamsulosin HCl (Flomax) 0.4 mg HS PO 07/03/21 21:00 07/18/21 20:40 Trazodone HCl (Desyrel) 12.5 mg PRN Q12HR PRN PO ANXIETY/2ND CHOICE AGITATION 07/03/21 04:45 Trazodone HCl (Desyrel) 100 mg HS PO 07/03/21 21:00 07/18/21 20:40 Acetaminophen (Tylenol) 500 mg PRN Q6HRS PRN PO MILD PAIN / TEMP > 100.3'F 07/03/21 05:15 07/11/21 13:23 Miscellaneous (Lidoderm Patch Removal) 1 ea QHS MC 07/03/21 21:00 07/17/21 20:21 Olanzapine (ZyPREXA) 2.5 mg PRN DAILY PRN PO PSYCHOSIS 07/03/21 09:15 07/03/21 13:26 DC 07/03/21 09:14 Olanzapine (ZyPREXA) 2.5 mg PRN Q2HR PRN PO PSYCHOSIS 07/03/21 14:10 07/16/21 14:56 DC 07/16/21 14:07 Trazodone HCl (Desyrel) 100 mg PRN QHS PRN PO for sleep 07/04/21 11:45 07/11/21 22:39 Vitamin D (Vitamin D3) 50,000 unit WEEKLY PO 07/05/21 09:00 07/12/21 08:31 Insulin Glargine (Lantus Syringe) 10 unit QHS SQ 07/04/21 21:00 07/17/21 21:18 Insulin Human Lispro (HumaLOG) 0-7 UNITS TIDWMEALS SQ 07/04/21 17:00 07/18/21 17:12 Dextrose (Dextrose 50%-Water Syringe) 12.5 gm PRN Q15MIN PRN IV SEE COMMENTS 07/04/21 15:00 Carbamazepine (TEGretol XR) 200 mg HS PO 07/05/21 21:00 07/09/21 17:34 DC 07/08/21 21:10 Amlodipine Besylate (Norvasc) 10 mg 1X ONCE PO 07/09/21 16:30 07/09/21 16:31 DC 07/09/21 16:56 Amlodipine Besylate (Norvasc) 10 mg DAILY PO 07/10/21 09:00 07/18/21 07:58 Carbamazepine (TEGretol XR) 400 mg BID PO 07/09/21 21:00 07/18/21 20:39 Gabapentin (Neurontin) 300 mg TIDAC PO 07/12/21 07:30 07/18/21 17:09 Quetiapine Fumarate (SEROquel) 100 mg TID@0900,1700,2100 PO 07/14/21 09:00 07/18/21 20:42 Buspirone HCl (Buspar) 15 mg TID PO 07/15/21 21:00 07/18/21 20:40 Olanzapine (ZyPREXA) 5 mg PRN Q2HRS PRN PO 1ST CHOICE AGITATION 5/3/22 14:45 07/16/21 16:28 Olanzapine (ZyPREXA) 2.5 mg 1X ONCE PO 07/16/21 15:00 07/16/21 15:01 DC Trazodone HCl (Desyrel) 25 mg TID PO 07/16/21 21:00 07/18/21 20:40 I have reviewed the current psychotropics carefully including drug interactions. Risk benefit ratio favors no change other than as noted in my dictated progress note. Diagnosis: Problems: (1) Mild cognitive impairment (2) Bipolar affective, mixed, sev w/ psych (3) Anxiety disorder (4) Impulse control disorder GRAEME DIAZ MD July 18, 2021 21:42
[2021-07-18] MEDS: INSULIN GLARGINE SYRINGE. SQ SCH (21:51)
[2021-07-19] MEDS: LEVOTHYROXINE 150 MCG TABLET PO SCH (05:15)
[2021-07-19] MEDS: ACETAMINOPHEN 500 MG TABLET PO PRN ×2 (05:37→20:49)
[2021-07-19 05:51] VITALS: BP 153/78
[2021-07-19] MEDS: POLYVINYL ALCOHOL 1.4% OPHTH SOLUTION 15ML BOTTLE. OU SCH ×3 (05:52→20:48)
[2021-07-19] MEDS: CHOLECALCIFEROL (VITAMIN D3) 50,000 UNIT CAPSULE PO SCH (07:52)
[2021-07-19] MEDS: busPIRone 15 MG TABLET. PO SCH ×3 (07:52→20:51)
[2021-07-19] MEDS: GABAPENTIN 300 MG CAPSULE. PO SCH ×3 (07:52→17:33)
[2021-07-19] MEDS: QUEtiapine 100 MG TABLET. PO SCH ×3 (07:52→20:50)
[2021-07-19] MEDS: traZODone 50 MG TABLET. PO SCH ×3 (07:53→20:50)
[2021-07-19] MEDS: INSULIN LISPRO 300 UNITS/3 ML VIAL. SQ SCH ×3 (07:54→17:34)
[2021-07-19] MEDS: amLODIPine BESYLATE 10 MG TABLET PO SCH (07:54)
--- NOTE | 2021-07-19 07:55 | PDOC ---
Exam Note: Darren Note: This note is a late entry for 07/18/2021 covers elements not covered in my initial note. Subjective: The patient was reviewed at treatment team meeting individually in the morning on 07/18/2021 with Payal Perez, Teresita Arce, and Oneyda Engel (social work program coordinator), Delores, activity therapy, and Mk HENDRICKSON, discussed and reviewed the chart. The patient slept 8 hours previous night. Average sleep 6 hours. Appetite 100%. Her daughter Alma attended the treatment team meeting. She continues to be somewhat erratic, agitated, grandiose and irritable. Since starting trazodone she is slightly improved consequent to being a little more sedated. I had a very lengthy discussion with the daughter and daughter had many questions and suggestions on treatments and concerns about her progressive dementia and also discussed placement and appropriate residential facilities. I met with the patient in the evening in the dayroom. She was somewhat sedated seated in a wheelchair. Review of Systems: Ambulation impaired, in wheelchair. Hard of hearing. No CV, , pulmonary, eye system symptoms on review. She has vague somatic symptoms. Mental Status Exam: Patient is oriented to herself and situation. Speech is rapid at times. Abstraction fair. Computation impaired. Language function intact. Mood and affect labile, distractible. Laboratory Data: Reviewed. Impression: Bipolar 1 disorder, mixed with psychotic features. Mild cognitive impairment. Anxiety disorder unspecified. Impulse control disorder unspecified. Plan: Maintain rest of the psychotropics unchanged. Reviewed drug interactions and risk-benefit ratio. We may need to increase gabapentin further. Discussed with the daughter about the option of lithium. The patient has never been on lithium in the past for bipolar disorder and depending on how she does we may consider this as well. Adjust as clinically indicated. Assessment: Vital Signs/I&O: Vital Signs Date Time Temp Pulse Resp B/P (MAP) Pulse Ox O2 Delivery O2 Flow Rate FiO2 07/19/21 05:51 98.2 67 18 153/78 (103) 93 07/18/21 19:31 Room Air I & O 07/18/21 07/18/21 07/19/21 15:00 23:00 07:00 Intake Total 1080 ml 720 ml Balance 1080 ml 720 ml Labs: Laboratory Tests Test 07/18/21 11:46 07/18/21 17:06 07/18/21 19:23 07/19/21 07:43 Glucose (Fingerstick) 235 mg/dL (70-99) H 199 mg/dL (70-99) H 261 mg/dL (70-99) H 146 mg/dL (70-99) H Current Medications: I have reviewed the current psychotropics carefully including drug interactions. Risk benefit ratio favors no change other than as noted in my dictated progress note. Diagnosis: Problems: (1) Mild cognitive impairment (2) Bipolar affective, mixed, sev w/ psych (3) Anxiety disorder (4) Impulse control disorder GRAEME DIAZ MD July 19, 2021 07:55
[2021-07-19 15:55] VITALS: BP 154/76
[2021-07-19] MEDS: PATCH REMOVAL. MC SCH (20:46)
[2021-07-19] MEDS: TAMSULOSIN 0.4 MG CAP.ER.24H. PO SCH (20:49)
[2021-07-19] MEDS: traZODone 100 MG TABLET. PO SCH (20:50)
[2021-07-19] MEDS: MELATONIN 3 MG TABLET PO SCH (20:51)
[2021-07-19] MEDS: NEOMY/BACITR/POLYMYXIN OINT PACKET. TP SCH (20:57)
[2021-07-19] MEDS: INSULIN GLARGINE SYRINGE. SQ SCH (20:58)
--- NOTE | 2021-07-19 21:36 | PDOC ---
Exam Note: Darren Note: Please also refer to the separate dictated note~for this date of service dictated separately.~Patient seen individually. Discussed the patient with Nursing staff reviewed the chart.~Reviewed interim history and current functioning. Reviewed vital signs,~Labs/ Radiology~and current medications noted below. Continue current treatment with the changes noted in the dictated addendum note Assessment: Vital Signs/I&O: Vital Signs Date Time Temp Pulse Resp B/P (MAP) Pulse Ox O2 Delivery O2 Flow Rate FiO2 07/19/21 15:55 98.7 72 18 154/76 (102) 94 07/18/21 19:31 Room Air I & O 07/18/21 07/18/21 07/19/21 15:00 23:00 07:00 Intake Total 1080 ml 720 ml Balance 1080 ml 720 ml Labs: Laboratory Tests Test 07/19/21 07:43 07/19/21 11:25 07/19/21 17:08 07/19/21 19:16 Glucose (Fingerstick) 146 mg/dL (70-99) H 245 mg/dL (70-99) H 175 mg/dL (70-99) H 291 mg/dL (70-99) H Current Medications: Meds: Laboratory Tests Test 07/19/21 07:43 07/19/21 11:25 07/19/21 17:08 07/19/21 19:16 Glucose (Fingerstick) 146 mg/dL 245 mg/dL 175 mg/dL 291 mg/dL Current Medications Medications (Trade) Dose Ordered Sig/Ruchi Route PRN Reason Start Time Stop Time Status Last Admin Dose Admin Acetaminophen (Tylenol) 650 mg PRN Q6HRS PRN PO MILD PAIN / TEMP > 100.3'F 07/03/21 04:30 07/03/21 07:19 DC Multi-Ingredient Ointment (Analgesic [place]) 1 mara PRN QID PRN TP MUSCLE PAIN 07/03/21 04:30 Al Hydroxide/Mg Hydroxide (Mylanta Plus Xs) 15 ml PRN AFTMEALHC PRN PO DYSPEPSIA 07/03/21 04:30 Magnesium Hydroxide (Milk Of Magnesia) 2,400 mg PRN QHS PRN PO CONSTIPATION 2ND CHOICE 07/03/21 04:30 Polyethylene Glycol (miraLAX) 17 gm PRN DAILY PRN PO CONSTIPATION 1ST CHOICE 07/03/21 04:30 Buspirone HCl (Buspar) 7.5 mg TID PO 07/03/21 09:00 07/15/21 16:56 DC 07/15/21 13:28 Gabapentin (Neurontin) 300 mg BID PO 07/03/21 09:00 07/11/21 21:47 DC 07/11/21 20:19 Acetaminophen/ Hydrocodone Bitart (Lortab 5/325) 1 tab PRN Q6HRS PRN PO PAIN MODERATE/SEVERE 07/03/21 04:45 07/18/21 18:33 Levothyroxine Sodium (Synthroid) 150 mcg DAILY07 PO 07/03/21 07:00 07/19/21 05:15 Lidocaine (Lidoderm) 1 patch PRN DAILY PRN TP pain in lower back 07/03/21 04:45 07/15/21 09:49 Melatonin (Melatonin) 6 mg HS PO 07/03/21 21:00 07/19/21 20:51 Artificial Tears (Artificial Tears) 2 drop TID OU 07/03/21 09:00 07/19/21 20:48 Quetiapine Fumarate (SEROquel) 75 mg DAILY@0900,1700 PO 07/03/21 09:00 07/13/21 23:43 DC 07/13/21 17:12 Quetiapine Fumarate (SEROquel) 100 mg QHS PO 07/03/21 21:00 07/13/21 23:43 DC 07/13/21 19:50 Tamsulosin HCl (Flomax) 0.4 mg HS PO 07/03/21 21:00 07/19/21 20:49 Trazodone HCl (Desyrel) 12.5 mg PRN Q12HR PRN PO ANXIETY/2ND CHOICE AGITATION 07/03/21 04:45 Trazodone HCl (Desyrel) 100 mg HS PO 07/03/21 21:00 07/19/21 20:50 Acetaminophen (Tylenol) 500 mg PRN Q6HRS PRN PO MILD PAIN / TEMP > 100.3'F 07/03/21 05:15 07/19/21 20:49 Miscellaneous (Lidoderm Patch Removal) 1 ea QHS MC 07/03/21 21:00 07/19/21 20:46 Olanzapine (ZyPREXA) 2.5 mg PRN DAILY PRN PO PSYCHOSIS 07/03/21 09:15 07/03/21 13:26 DC 07/03/21 09:14 Olanzapine (ZyPREXA) 2.5 mg PRN Q2HR PRN PO PSYCHOSIS 07/03/21 14:10 07/16/21 14:56 DC 07/16/21 14:07 Trazodone HCl (Desyrel) 100 mg PRN QHS PRN PO for sleep 07/04/21 11:45 07/11/21 22:39 Vitamin D (Vitamin D3) 50,000 unit WEEKLY PO 07/05/21 09:00 07/19/21 07:52 Insulin Glargine (Lantus Syringe) 10 unit QHS SQ 07/04/21 21:00 07/19/21 20:58 Insulin Human Lispro (HumaLOG) 0-7 UNITS TIDWMEALS SQ 07/04/21 17:00 07/19/21 17:34 Dextrose (Dextrose 50%-Water Syringe) 12.5 gm PRN Q15MIN PRN IV SEE COMMENTS 07/04/21 15:00 Carbamazepine (TEGretol XR) 200 mg HS PO 07/05/21 21:00 07/09/21 17:34 DC 07/08/21 21:10 Amlodipine Besylate (Norvasc) 10 mg 1X ONCE PO 07/09/21 16:30 07/09/21 16:31 DC 07/09/21 16:56 Amlodipine Besylate (Norvasc) 10 mg DAILY PO 07/10/21 09:00 07/19/21 07:54 Carbamazepine (TEGretol XR) 400 mg BID PO 07/09/21 21:00 07/19/21 20:50 Gabapentin (Neurontin) 300 mg TIDAC PO 07/12/21 07:30 07/19/21 17:33 Quetiapine Fumarate (SEROquel) 100 mg TID@0900,1700,2100 PO 07/14/21 09:00 07/19/21 20:50 Buspirone HCl (Buspar) 15 mg TID PO 07/15/21 21:00 07/19/21 20:51 Olanzapine (ZyPREXA) 5 mg PRN Q2HRS PRN PO 1ST CHOICE AGITATION 07/16/21 14:45 07/16/21 16:28 Olanzapine (ZyPREXA) 2.5 mg 1X ONCE PO 07/16/21 15:00 07/16/21 15:01 DC Trazodone HCl (Desyrel) 25 mg TID PO 07/16/21 21:00 07/19/21 20:50 Neomycin/ Polymyxin/ Bacitracin (Triple Antibiotic Ointment) 1 pkt BID TP 07/19/21 21:00 07/19/21 20:57 Current Medications Medications (Trade) Dose Ordered Sig/Ruchi Route PRN Reason Start Time Stop Time Status Last Admin Dose Admin Neomycin/ Polymyxin/ Bacitracin (Triple Antibiotic Ointment) 1 pkt BID TP 07/19/21 21:00 07/19/21 20:57 I have reviewed the current psychotropics carefully including drug interactions. Risk benefit ratio favors no change other than as noted in my dictated progress note. Diagnosis: Problems: (1) Mild cognitive impairment (2) Bipolar affective, mixed, sev w/ psych (3) Anxiety disorder (4) Impulse control disorder GRAEME DIAZ MD July 19, 2021 21:36
[2021-07-20] MEDS: LEVOTHYROXINE 150 MCG TABLET PO SCH (05:14)
[2021-07-20 05:49] VITALS: BP 141/74
[2021-07-20] MEDS: GABAPENTIN 300 MG CAPSULE. PO SCH ×3 (07:42→16:30)
[2021-07-20] MEDS: NEOMY/BACITR/POLYMYXIN OINT PACKET. TP SCH ×2 (07:43→20:15)
[2021-07-20] MEDS: QUEtiapine 100 MG TABLET. PO SCH ×3 (07:43→20:11)
[2021-07-20] MEDS: amLODIPine BESYLATE 10 MG TABLET PO SCH (07:43)
[2021-07-20] MEDS: busPIRone 15 MG TABLET. PO SCH ×3 (07:43→20:12)
[2021-07-20] MEDS: traZODone 50 MG TABLET. PO SCH ×3 (07:43→20:15)
[2021-07-20] MEDS: POLYVINYL ALCOHOL 1.4% OPHTH SOLUTION 15ML BOTTLE. OU SCH ×3 (07:44→20:11)
[2021-07-20] MEDS: INSULIN LISPRO 300 UNITS/3 ML VIAL. SQ SCH ×3 (08:00→17:00)
[2021-07-20 15:00] VITALS: BP 140/76
[2021-07-20] MEDS: PATCH REMOVAL. MC SCH (20:10)
[2021-07-20] MEDS: TAMSULOSIN 0.4 MG CAP.ER.24H. PO SCH (20:11)
[2021-07-20] MEDS: INSULIN GLARGINE SYRINGE. SQ SCH (20:11)
[2021-07-20] MEDS: MELATONIN 3 MG TABLET PO SCH (20:14)
[2021-07-20] MEDS: traZODone 100 MG TABLET. PO SCH (20:15)
--- NOTE | 2021-07-20 21:56 | PDOC ---
Exam Note: Darren Note: This note is a late entry for 07/19/2021 covers elements not covered in my initial note. Subjective: The patient was seen individually on 07/19/2021, discussed and reviewed the chart with Mk HENDRICKSON. The patient slept 7-3/4 hours previous night. She remains attention seeking repeatedly obsessively asking the same questions specifically regarding discharge, obsessing wanting coffee at lunchtime, none was available, difficult to redirect. Review of Systems: Ambulation impaired, in wheelchair. Hard of hearing. No CV, , pulmonary, eye system symptoms on review. Mental Status Exam: Patient is oriented to herself and situation. She is somewhat hyperverbal, obsessive, ruminative, repeatedly asking me about discharge plans becoming abrasive and I will defer those to depending on how she does with her treatment and stabilization. Speech is rapid at times and she gets loud. Abstraction fair. Computation impaired. Language function intact. Mood and affect labile, distractible. Laboratory Data: Reviewed. Impression: Bipolar 1 disorder, mixed with psychotic features. Mild cognitive impairment. Anxiety disorder unspecified. Impulse control disorder unspecified. Plan: Continue current psychotropics unchanged. Reviewed drug interactions and risk-benefit ratio. Tegretol level is therapeutic. Consider lithium as a mood stabilizer. Assessment: Vital Signs/I&O: Vital Signs Date Time Temp Pulse Resp B/P (MAP) Pulse Ox O2 Delivery O2 Flow Rate FiO2 07/20/21 15:00 97.4 73 18 140/76 (97) 96 Room Air I & O 07/19/21 07/19/21 07/20/21 15:00 23:00 07:00 Intake Total 1200 ml 600 ml Balance 1200 ml 600 ml Labs: Laboratory Tests Test 07/20/21 08:07 07/20/21 11:46 07/20/21 16:59 07/20/21 19:25 Glucose (Fingerstick) 154 mg/dL (70-99) H 195 mg/dL (70-99) H 202 mg/dL (70-99) H 170 mg/dL (70-99) H Current Medications: I have reviewed the current psychotropics carefully including drug interactions. Risk benefit ratio favors no change other than as noted in my dictated progress note. Diagnosis: Problems: (1) Mild cognitive impairment (2) Bipolar affective, mixed, sev w/ psych (3) Anxiety disorder (4) Impulse control disorder GRAEME DIAZ MD July 20, 2021 21:56
--- NOTE | 2021-07-20 21:56 | PDOC ---
Exam Note: Darren Note: Please also refer to the separate dictated note~for this date of service dictated separately.~Patient seen individually. Discussed the patient with Nursing staff reviewed the chart.~Reviewed interim history and current functioning. Reviewed vital signs,~Labs/ Radiology~and current medications noted below. Continue current treatment with the changes noted in the dictated addendum note Assessment: Vital Signs/I&O: Vital Signs Date Time Temp Pulse Resp B/P (MAP) Pulse Ox O2 Delivery O2 Flow Rate FiO2 07/20/21 15:00 97.4 73 18 140/76 (97) 96 Room Air I & O 07/19/21 07/19/21 07/20/21 15:00 23:00 07:00 Intake Total 1200 ml 600 ml Balance 1200 ml 600 ml Labs: Laboratory Tests Test 07/20/21 08:07 07/20/21 11:46 07/20/21 16:59 07/20/21 19:25 Glucose (Fingerstick) 154 mg/dL (70-99) H 195 mg/dL (70-99) H 202 mg/dL (70-99) H 170 mg/dL (70-99) H Current Medications: Meds: Laboratory Tests Test 07/20/21 08:07 07/20/21 11:46 07/20/21 16:59 07/20/21 19:25 Glucose (Fingerstick) 154 mg/dL 195 mg/dL 202 mg/dL 170 mg/dL Current Medications Medications (Trade) Dose Ordered Sig/Ruchi Route PRN Reason Start Time Stop Time Status Last Admin Dose Admin Acetaminophen (Tylenol) 650 mg PRN Q6HRS PRN PO MILD PAIN / TEMP > 100.3'F 07/03/21 04:30 07/03/21 07:19 DC Multi-Ingredient Ointment (Analgesic [place]) 1 mara PRN QID PRN TP MUSCLE PAIN 07/03/21 04:30 Al Hydroxide/Mg Hydroxide (Mylanta Plus Xs) 15 ml PRN AFTMEALHC PRN PO DYSPEPSIA 07/03/21 04:30 Magnesium Hydroxide (Milk Of Magnesia) 2,400 mg PRN QHS PRN PO CONSTIPATION 2ND CHOICE 07/03/21 04:30 Polyethylene Glycol (miraLAX) 17 gm PRN DAILY PRN PO CONSTIPATION 1ST CHOICE 07/03/21 04:30 Buspirone HCl (Buspar) 7.5 mg TID PO 07/03/21 09:00 07/15/21 16:56 DC 07/15/21 13:28 Gabapentin (Neurontin) 300 mg BID PO 07/03/21 09:00 07/11/21 21:47 DC 07/11/21 20:19 Acetaminophen/ Hydrocodone Bitart (Lortab 5/325) 1 tab PRN Q6HRS PRN PO PAIN MODERATE/SEVERE 07/03/21 04:45 07/18/21 18:33 Levothyroxine Sodium (Synthroid) 150 mcg DAILY07 PO 07/03/21 07:00 07/20/21 05:14 Lidocaine (Lidoderm) 1 patch PRN DAILY PRN TP pain in lower back 07/03/21 04:45 07/15/21 09:49 Melatonin (Melatonin) 6 mg HS PO 07/03/21 21:00 07/20/21 20:14 Artificial Tears (Artificial Tears) 2 drop TID OU 07/03/21 09:00 07/20/21 20:11 Quetiapine Fumarate (SEROquel) 75 mg DAILY@0900,1700 PO 07/03/21 09:00 07/13/21 23:43 DC 07/13/21 17:12 Quetiapine Fumarate (SEROquel) 100 mg QHS PO 07/03/21 21:00 07/13/21 23:43 DC 07/13/21 19:50 Tamsulosin HCl (Flomax) 0.4 mg HS PO 07/03/21 21:00 07/20/21 20:11 Trazodone HCl (Desyrel) 12.5 mg PRN Q12HR PRN PO ANXIETY/2ND CHOICE AGITATION 07/03/21 04:45 Trazodone HCl (Desyrel) 100 mg HS PO 07/03/21 21:00 07/20/21 20:15 Acetaminophen (Tylenol) 500 mg PRN Q6HRS PRN PO MILD PAIN / TEMP > 100.3'F 07/03/21 05:15 07/19/21 20:49 Miscellaneous (Lidoderm Patch Removal) 1 ea QHS MC 07/03/21 21:00 07/20/21 20:10 Olanzapine (ZyPREXA) 2.5 mg PRN DAILY PRN PO PSYCHOSIS 07/03/21 09:15 07/03/21 13:26 DC 07/03/21 09:14 Olanzapine (ZyPREXA) 2.5 mg PRN Q2HR PRN PO PSYCHOSIS 07/03/21 14:10 07/16/21 14:56 DC 07/16/21 14:07 Trazodone HCl (Desyrel) 100 mg PRN QHS PRN PO for sleep 07/04/21 11:45 07/11/21 22:39 Vitamin D (Vitamin D3) 50,000 unit WEEKLY PO 07/05/21 09:00 07/19/21 07:52 Insulin Glargine (Lantus Syringe) 10 unit QHS SQ 07/04/21 21:00 07/20/21 20:11 Insulin Human Lispro (HumaLOG) 0-7 UNITS TIDWMEALS SQ 07/04/21 17:00 07/20/21 17:00 Dextrose (Dextrose 50%-Water Syringe) 12.5 gm PRN Q15MIN PRN IV SEE COMMENTS 07/04/21 15:00 Carbamazepine (TEGretol XR) 200 mg HS PO 07/05/21 21:00 07/09/21 17:34 DC 07/08/21 21:10 Amlodipine Besylate (Norvasc) 10 mg 1X ONCE PO 07/09/21 16:30 07/09/21 16:31 DC 07/09/21 16:56 Amlodipine Besylate (Norvasc) 10 mg DAILY PO 07/10/21 09:00 07/20/21 07:43 Carbamazepine (TEGretol XR) 400 mg BID PO 07/09/21 21:00 07/20/21 20:12 Gabapentin (Neurontin) 300 mg TIDAC PO 07/12/21 07:30 07/20/21 16:30 Quetiapine Fumarate (SEROquel) 100 mg TID@0900,1700,2100 PO 07/14/21 09:00 07/20/21 20:11 Buspirone HCl (Buspar) 15 mg TID PO 07/15/21 21:00 07/20/21 20:12 Olanzapine (ZyPREXA) 5 mg PRN Q2HRS PRN PO 1ST CHOICE AGITATION 07/16/21 14:45 07/16/21 16:28 Olanzapine (ZyPREXA) 2.5 mg 1X ONCE PO 07/16/21 15:00 07/16/21 15:01 DC Trazodone HCl (Desyrel) 25 mg TID PO 07/16/21 21:00 07/20/21 20:15 Neomycin/ Polymyxin/ Bacitracin (Triple Antibiotic Ointment) 1 pkt BID TP 07/19/21 21:00 07/20/21 20:15 I have reviewed the current psychotropics carefully including drug interactions. Risk benefit ratio favors no change other than as noted in my dictated progress note. Diagnosis: Problems: (1) Mild cognitive impairment (2) Bipolar affective, mixed, sev w/ psych (3) Anxiety disorder (4) Impulse control disorder GRAEME DIAZ MD July 20, 2021 21:56
[2021-07-21] MEDS: LEVOTHYROXINE 150 MCG TABLET PO SCH (05:36)
[2021-07-21 06:01] VITALS: BP 147/62
[2021-07-21] MEDS: GABAPENTIN 300 MG CAPSULE. PO SCH ×3 (07:58→16:30)
[2021-07-21] MEDS: POLYVINYL ALCOHOL 1.4% OPHTH SOLUTION 15ML BOTTLE. OU SCH ×3 (07:58→20:38)
[2021-07-21] MEDS: NEOMY/BACITR/POLYMYXIN OINT PACKET. TP SCH ×2 (07:59→20:35)
[2021-07-21] MEDS: busPIRone 15 MG TABLET. PO SCH ×3 (07:59→20:35)
[2021-07-21] MEDS: QUEtiapine 100 MG TABLET. PO SCH ×3 (07:59→20:35)
[2021-07-21] MEDS: amLODIPine BESYLATE 10 MG TABLET PO SCH (07:59)
[2021-07-21] MEDS: traZODone 50 MG TABLET. PO SCH ×3 (07:59→20:35)
[2021-07-21] MEDS: INSULIN LISPRO 300 UNITS/3 ML VIAL. SQ SCH ×3 (08:00→17:00)
[2021-07-21 15:50] VITALS: BP 147/78
[2021-07-21] MEDS: PATCH REMOVAL. MC SCH (20:34)
[2021-07-21] MEDS: MELATONIN 3 MG TABLET PO SCH (20:35)
[2021-07-21] MEDS: TAMSULOSIN 0.4 MG CAP.ER.24H. PO SCH (20:35)
[2021-07-21] MEDS: traZODone 100 MG TABLET. PO SCH (20:35)
[2021-07-21] MEDS: INSULIN GLARGINE SYRINGE. SQ SCH (20:37)
--- NOTE | 2021-07-21 21:47 | PDOC ---
Exam Note: Darren Note: Please also refer to the separate dictated note~for this date of service dictated separately.~Patient seen individually. Discussed the patient with Nursing staff reviewed the chart.~Reviewed interim history and current functioning. Reviewed vital signs,~Labs/ Radiology~and current medications noted below. Continue current treatment with the changes noted in the dictated addendum note Assessment: Vital Signs/I&O: Vital Signs Date Time Temp Pulse Resp B/P (MAP) Pulse Ox O2 Delivery O2 Flow Rate FiO2 07/21/21 15:50 97.8 63 18 147/78 (101) 97 Room Air I & O 07/20/21 07/20/21 07/21/21 15:00 23:00 07:00 Intake Total 660 ml 960 ml Balance 660 ml 960 ml Labs: Laboratory Tests Test 07/21/21 08:07 07/21/21 11:56 07/21/21 16:38 07/21/21 19:21 Glucose (Fingerstick) 154 mg/dL (70-99) H 223 mg/dL (70-99) H 131 mg/dL (70-99) H 256 mg/dL (70-99) H Current Medications: Meds: Laboratory Tests Test 07/21/21 08:07 07/21/21 11:56 07/21/21 16:38 07/21/21 19:21 Glucose (Fingerstick) 154 mg/dL 223 mg/dL 131 mg/dL 256 mg/dL Current Medications Medications (Trade) Dose Ordered Sig/Ruchi Route PRN Reason Start Time Stop Time Status Last Admin Dose Admin Acetaminophen (Tylenol) 650 mg PRN Q6HRS PRN PO MILD PAIN / TEMP > 100.3'F 07/03/21 04:30 07/03/21 07:19 DC Multi-Ingredient Ointment (Analgesic [place]) 1 mara PRN QID PRN TP MUSCLE PAIN 07/03/21 04:30 Al Hydroxide/Mg Hydroxide (Mylanta Plus Xs) 15 ml PRN AFTMEALHC PRN PO DYSPEPSIA 07/03/21 04:30 Magnesium Hydroxide (Milk Of Magnesia) 2,400 mg PRN QHS PRN PO CONSTIPATION 2ND CHOICE 07/03/21 04:30 Polyethylene Glycol (miraLAX) 17 gm PRN DAILY PRN PO CONSTIPATION 1ST CHOICE 07/03/21 04:30 Buspirone HCl (Buspar) 7.5 mg TID PO 07/03/21 09:00 07/15/21 16:56 DC 07/15/21 13:28 Gabapentin (Neurontin) 300 mg BID PO 07/03/21 09:00 07/11/21 21:47 DC 07/11/21 20:19 Acetaminophen/ Hydrocodone Bitart (Lortab 5/325) 1 tab PRN Q6HRS PRN PO PAIN MODERATE/SEVERE 07/03/21 04:45 07/18/21 18:33 Levothyroxine Sodium (Synthroid) 150 mcg DAILY07 PO 07/03/21 07:00 07/21/21 05:36 Lidocaine (Lidoderm) 1 patch PRN DAILY PRN TP pain in lower back 07/03/21 04:45 07/15/21 09:49 Melatonin (Melatonin) 6 mg HS PO 07/03/21 21:00 07/21/21 20:35 Artificial Tears (Artificial Tears) 2 drop TID OU 07/03/21 09:00 07/21/21 20:38 Quetiapine Fumarate (SEROquel) 75 mg DAILY@0900,1700 PO 07/03/21 09:00 07/13/21 23:43 DC 07/13/21 17:12 Quetiapine Fumarate (SEROquel) 100 mg QHS PO 07/03/21 21:00 07/13/21 23:43 DC 07/13/21 19:50 Tamsulosin HCl (Flomax) 0.4 mg HS PO 07/03/21 21:00 07/21/21 20:35 Trazodone HCl (Desyrel) 12.5 mg PRN Q12HR PRN PO ANXIETY/2ND CHOICE AGITATION 07/03/21 04:45 Trazodone HCl (Desyrel) 100 mg HS PO 07/03/21 21:00 07/21/21 20:35 Acetaminophen (Tylenol) 500 mg PRN Q6HRS PRN PO MILD PAIN / TEMP > 100.3'F 07/03/21 05:15 07/19/21 20:49 Miscellaneous (Lidoderm Patch Removal) 1 ea QHS MC 07/03/21 21:00 07/21/21 20:34 Olanzapine (ZyPREXA) 2.5 mg PRN DAILY PRN PO PSYCHOSIS 07/03/21 09:15 07/03/21 13:26 DC 07/03/21 09:14 Olanzapine (ZyPREXA) 2.5 mg PRN Q2HR PRN PO PSYCHOSIS 07/03/21 14:10 07/16/21 14:56 DC 07/16/21 14:07 Trazodone HCl (Desyrel) 100 mg PRN QHS PRN PO for sleep 07/04/21 11:45 07/11/21 22:39 Vitamin D (Vitamin D3) 50,000 unit WEEKLY PO 07/05/21 09:00 07/19/21 07:52 Insulin Glargine (Lantus Syringe) 10 unit QHS SQ 07/04/21 21:00 07/21/21 20:37 Insulin Human Lispro (HumaLOG) 0-7 UNITS TIDWMEALS SQ 07/04/21 17:00 07/21/21 12:00 Dextrose (Dextrose 50%-Water Syringe) 12.5 gm PRN Q15MIN PRN IV SEE COMMENTS 07/04/21 15:00 Carbamazepine (TEGretol XR) 200 mg HS PO 07/05/21 21:00 07/09/21 17:34 DC 07/08/21 21:10 Amlodipine Besylate (Norvasc) 10 mg 1X ONCE PO 07/09/21 16:30 07/09/21 16:31 DC 07/09/21 16:56 Amlodipine Besylate (Norvasc) 10 mg DAILY PO 07/10/21 09:00 07/21/21 07:59 Carbamazepine (TEGretol XR) 400 mg BID PO 07/09/21 21:00 07/21/21 20:35 Gabapentin (Neurontin) 300 mg TIDAC PO 07/12/21 07:30 07/21/21 16:30 Quetiapine Fumarate (SEROquel) 100 mg TID@0900,1700,2100 PO 07/14/21 09:00 07/21/21 20:35 Buspirone HCl (Buspar) 15 mg TID PO 07/15/21 21:00 07/21/21 20:35 Olanzapine (ZyPREXA) 5 mg PRN Q2HRS PRN PO 1ST CHOICE AGITATION 07/16/21 14:45 07/16/21 16:28 Olanzapine (ZyPREXA) 2.5 mg 1X ONCE PO 07/16/21 15:00 07/16/21 15:01 DC Trazodone HCl (Desyrel) 25 mg TID PO 07/16/21 21:00 07/21/21 20:35 Neomycin/ Polymyxin/ Bacitracin (Triple Antibiotic Ointment) 1 pkt BID TP 07/19/21 21:00 07/21/21 20:35 I have reviewed the current psychotropics carefully including drug interactions. Risk benefit ratio favors no change other than as noted in my dictated progress note. Diagnosis: Problems: (1) Mild cognitive impairment (2) Bipolar affective, mixed, sev w/ psych (3) Anxiety disorder (4) Impulse control disorder GRAEME DIAZ MD July 21, 2021 21:46
[2021-07-22] MEDS: LEVOTHYROXINE 150 MCG TABLET PO SCH (05:13)
[2021-07-22 05:49] VITALS: BP 176/69
[2021-07-22 07:19] LABS: BASO # 0.1 x10^3/uL (0.0-0.2); BASO % 1 % (0-3); EOS # 0.2 x10^3/uL (0.0-0.7); EOS % 4 % (0-3); HEMATOCRIT 35.2 % (36.0-47.0); HEMOGLOBIN 11.5 g/dL (12.0-15.5); LYMPH % 15 % (24-48); MEAN CORPUSCULAR HEMOGLOBIN 28 pg (25-35); MEAN CORPUSCULAR HGB CONC 33 g/dL (31-37); MEAN CORPUSCULAR VOLUME 85 fL (79-100); MONO # 0.5 x10^3/uL (0.0-1.1); MONO % 8 % (0-9); NEUT # 4.5 x10^3uL (1.8-7.7); NEUT % 72 % (31-73); PLATELET COUNT 151 x10^3/uL (140-400); RED BLOOD COUNT 4.13 x10^6/uL (3.50-5.40); RED CELL DISTRIBUTION WIDTH 15.8 % (11.5-14.5); WHITE BLOOD COUNT 6.3 x10^3/uL (4.0-11.0)
[2021-07-22 07:32] LABS: ALBUMIN 3.3 g/dL (3.4-5.0); ALBUMIN/GLOBULIN RATIO 0.8 (1.0-1.7); CALCIUM 8.9 mg/dL (8.5-10.1); CREATININE 0.9 mg/dL (0.6-1.0); GFR 59.8; POTASSIUM 4.2 mmol/L (3.5-5.1); TOTAL BILIRUBIN 0.2 mg/dL (0.2-1.0); TOTAL PROTEIN 7.2 g/dL (6.4-8.2)
[2021-07-22] MEDS: NEOMY/BACITR/POLYMYXIN OINT PACKET. TP SCH ×2 (07:55→20:13)
[2021-07-22] MEDS: POLYVINYL ALCOHOL 1.4% OPHTH SOLUTION 15ML BOTTLE. OU SCH ×3 (07:55→20:13)
[2021-07-22] MEDS: busPIRone 15 MG TABLET. PO SCH ×3 (07:56→20:13)
[2021-07-22] MEDS: amLODIPine BESYLATE 10 MG TABLET PO SCH (07:56)
[2021-07-22] MEDS: traZODone 50 MG TABLET. PO SCH ×3 (07:56→20:14)
[2021-07-22] MEDS: QUEtiapine 100 MG TABLET. PO SCH ×3 (07:56→20:13)
[2021-07-22] MEDS: GABAPENTIN 300 MG CAPSULE. PO SCH ×3 (07:57→16:30)
[2021-07-22] MEDS: INSULIN LISPRO 300 UNITS/3 ML VIAL. SQ SCH ×3 (07:59→17:00)
--- NOTE | 2021-07-22 08:23 | PDOC ---
Exam Note: Darren Note: This note is a late entry for 07/20/2021 covers elements not covered in my initial note. Subjective: The patient was seen individually on 07/20/2021, discussed and reviewed the chart with Mariah HENDRICKSON. The patient slept 4 hours previous night. She is needy. She pulled her ostomy bag but did not dump it out. Overall she is calmer, yelling is less. I met with her in the dayroom. Review of Systems: Ambulation impaired, in wheelchair. Hard of hearing. No CV, , pulmonary, eye system symptoms on review. Mental Status Exam: Patient is oriented to herself and situation. She is less intense and obsessive about wanting to be discharged and I addressed this with her and she followed me on rounds to ask again but not as much as prior visits. Speech is rapid at times. Abstraction fair. Computation impaired. Language function intact. Mood and affect labile, paranoid. Laboratory Data: Reviewed. Impression: Bipolar 1 disorder, mixed with psychotic features. Mild cognitive impairment. Anxiety disorder unspecified. Impulse control disorder unspecified. Plan: Continue to adjust psychotropics as clinically indicated. Reviewed drug interactions and risk-benefit ratio. Assessment: Vital Signs/I&O: Vital Signs Date Time Temp Pulse Resp B/P (MAP) Pulse Ox O2 Delivery O2 Flow Rate FiO2 07/22/21 07:56 72 176/69 07/22/21 05:49 98.0 20 94 Room Air I & O 07/21/21 07/21/21 07/22/21 15:00 23:00 07:00 Intake Total 600 ml 1100 ml Balance 600 ml 1100 ml Labs: Laboratory Tests Test 07/21/21 11:56 07/21/21 16:38 07/21/21 19:21 07/22/21 06:45 Glucose (Fingerstick) 223 mg/dL (70-99) H 131 mg/dL (70-99) H 256 mg/dL (70-99) H White Blood Count 6.3 x10^3/uL (4.0-11.0) Red Blood Count 4.13 x10^6/uL (3.50-5.40) Hemoglobin 11.5 g/dL (12.0-15.5) L Hematocrit 35.2 % (36.0-47.0) L Mean Corpuscular Volume 85 fL (79-100) Mean Corpuscular Hemoglobin 28 pg (25-35) Mean Corpuscular Hemoglobin Concent 33 g/dL (31-37) Red Cell Distribution Width 15.8 % (11.5-14.5) H Platelet Count 151 x10^3/uL (140-400) Neutrophils (%) (Auto) 72 % (31-73) Lymphocytes (%) (Auto) 15 % (24-48) L Monocytes (%) (Auto) 8 % (0-9) Eosinophils (%) (Auto) 4 % (0-3) H Basophils (%) (Auto) 1 % (0-3) Neutrophils # (Auto) 4.5 x10^3uL (1.8-7.7) Lymphocytes # (Auto) 1.0 x10^3/uL (1.0-4.8) Monocytes # (Auto) 0.5 x10^3/uL (0.0-1.1) Eosinophils # (Auto) 0.2 x10^3/uL (0.0-0.7) Basophils # (Auto) 0.1 x10^3/uL (0.0-0.2) Sodium Level 137 mmol/L (136-145) Potassium Level 4.2 mmol/L (3.5-5.1) Chloride Level 101 mmol/L (98-107) Carbon Dioxide Level 28 mmol/L (21-32) Anion Gap 8 (6-14) Blood Urea Nitrogen 13 mg/dL (7-20) Creatinine 0.9 mg/dL (0.6-1.0) Estimated GFR (Cockcroft-Gault) 59.8 BUN/Creatinine Ratio 14 (6-20) Glucose Level 145 mg/dL (70-99) H Calcium Level 8.9 mg/dL (8.5-10.1) Total Bilirubin 0.2 mg/dL (0.2-1.0) Aspartate Amino Transferase (AST) 26 U/L (15-37) Alanine Aminotransferase (ALT) 41 U/L (14-59) Alkaline Phosphatase 106 U/L (46-116) Total Protein 7.2 g/dL (6.4-8.2) Albumin 3.3 g/dL (3.4-5.0) L Albumin/Globulin Ratio 0.8 (1.0-1.7) L Test 5/9/22 07:39 Glucose (Fingerstick) 147 mg/dL (70-99) H Current Medications: I have reviewed the current psychotropics carefully including drug interactions. Risk benefit ratio favors no change other than as noted in my dictated progress note. Diagnosis: Problems: (1) Mild cognitive impairment (2) Bipolar affective, mixed, sev w/ psych (3) Anxiety disorder (4) Impulse control disorder GRAEME DIAZ MD July 22, 2021 08:23
--- NOTE | 2021-07-22 08:53 | PDOC ---
Exam Note: Darren Note: This note is a late entry for 07/21/2021 covers elements not covered in my initial note. Subjective: The patient was seen individually on 07/21/2021, discussed and reviewed the chart with Vick HENDRICKSON. The patient slept 6-1/2 hours previous night. Overall reportedly she is doing about the same. She has been slightly less demanding since she has been started on scheduled trazodone. She pulls on her ostomy bag. Review of Systems: Ambulation impaired, in wheelchair. Hard of hearing. No CV, , pulmonary, eye system symptoms on review. Reliability poor. She is still obsessing about discharge plans. Mental Status Exam: Patient is oriented to herself and situation. Speech is coherent, rapid at times. Abstraction fair. Computation impaired. Language function intact. Mood and affect remains somewhat labile. Laboratory Data: Reviewed. Impression: Bipolar 1 disorder, mixed with psychotic features. Mild cognitive impairment. Anxiety disorder unspecified. Impulse control disorder unspecified. Plan: Continue to adjust psychotropics as clinically indicated. Reviewed drug interactions and risk-benefit ratio. Assessment: Vital Signs/I&O: Vital Signs Date Time Temp Pulse Resp B/P (MAP) Pulse Ox O2 Delivery O2 Flow Rate FiO2 07/22/21 07:56 72 176/69 07/22/21 05:49 98.0 20 94 Room Air I & O 07/21/21 07/21/21 07/22/21 15:00 23:00 07:00 Intake Total 600 ml 1100 ml Balance 600 ml 1100 ml Labs: Laboratory Tests Test 07/21/21 11:56 07/21/21 16:38 07/21/21 19:21 07/22/21 06:45 Glucose (Fingerstick) 223 mg/dL (70-99) H 131 mg/dL (70-99) H 256 mg/dL (70-99) H White Blood Count 6.3 x10^3/uL (4.0-11.0) Red Blood Count 4.13 x10^6/uL (3.50-5.40) Hemoglobin 11.5 g/dL (12.0-15.5) L Hematocrit 35.2 % (36.0-47.0) L Mean Corpuscular Volume 85 fL (79-100) Mean Corpuscular Hemoglobin 28 pg (25-35) Mean Corpuscular Hemoglobin Concent 33 g/dL (31-37) Red Cell Distribution Width 15.8 % (11.5-14.5) H Platelet Count 151 x10^3/uL (140-400) Neutrophils (%) (Auto) 72 % (31-73) Lymphocytes (%) (Auto) 15 % (24-48) L Monocytes (%) (Auto) 8 % (0-9) Eosinophils (%) (Auto) 4 % (0-3) H Basophils (%) (Auto) 1 % (0-3) Neutrophils # (Auto) 4.5 x10^3uL (1.8-7.7) Lymphocytes # (Auto) 1.0 x10^3/uL (1.0-4.8) Monocytes # (Auto) 0.5 x10^3/uL (0.0-1.1) Eosinophils # (Auto) 0.2 x10^3/uL (0.0-0.7) Basophils # (Auto) 0.1 x10^3/uL (0.0-0.2) Sodium Level 137 mmol/L (136-145) Potassium Level 4.2 mmol/L (3.5-5.1) Chloride Level 101 mmol/L (98-107) Carbon Dioxide Level 28 mmol/L (21-32) Anion Gap 8 (6-14) Blood Urea Nitrogen 13 mg/dL (7-20) Creatinine 0.9 mg/dL (0.6-1.0) Estimated GFR (Cockcroft-Gault) 59.8 BUN/Creatinine Ratio 14 (6-20) Glucose Level 145 mg/dL (70-99) H Calcium Level 8.9 mg/dL (8.5-10.1) Total Bilirubin 0.2 mg/dL (0.2-1.0) Aspartate Amino Transferase (AST) 26 U/L (15-37) Alanine Aminotransferase (ALT) 41 U/L (14-59) Alkaline Phosphatase 106 U/L (46-116) Total Protein 7.2 g/dL (6.4-8.2) Albumin 3.3 g/dL (3.4-5.0) L Albumin/Globulin Ratio 0.8 (1.0-1.7) L Test 07/22/21 07:39 Glucose (Fingerstick) 147 mg/dL (70-99) H Current Medications: I have reviewed the current psychotropics carefully including drug interactions. Risk benefit ratio favors no change other than as noted in my dictated progress note. Diagnosis: Problems: (1) Mild cognitive impairment (2) Bipolar affective, mixed, sev w/ psych (3) Anxiety disorder (4) Impulse control disorder GRAEME DIAZ MD July 22, 2021 08:53
[2021-07-22 16:01] VITALS: BP 135/62
[2021-07-22] MEDS: OLANZapine 2.5 MG TABLET PO PRN (16:40)
[2021-07-22] MEDS: MELATONIN 3 MG TABLET PO SCH (20:12)
[2021-07-22] MEDS: traZODone 100 MG TABLET. PO SCH (20:12)
[2021-07-22] MEDS: TAMSULOSIN 0.4 MG CAP.ER.24H. PO SCH (20:13)
[2021-07-22] MEDS: QUEtiapine 25 MG TABLET. PO SCH (20:13)
[2021-07-22] MEDS: PATCH REMOVAL. MC SCH (20:14)
[2021-07-22] MEDS: INSULIN GLARGINE SYRINGE. SQ SCH (21:03)
--- NOTE | 2021-07-22 21:26 | PDOC ---
Exam Note: Darren Note: Please also refer to the separate dictated note~for this date of service dictated separately.~Patient seen individually. Discussed the patient with Nursing staff reviewed the chart.~Reviewed interim history and current functioning. Reviewed vital signs,~Labs/ Radiology~and current medications noted below. Continue current treatment with the changes noted in the dictated addendum note Assessment: Vital Signs/I&O: Vital Signs Date Time Temp Pulse Resp B/P (MAP) Pulse Ox O2 Delivery O2 Flow Rate FiO2 07/22/21 16:01 97.7 74 16 135/62 (86) 97 Room Air I & O 07/21/21 07/21/21 07/22/21 15:00 23:00 07:00 Intake Total 600 ml 1100 ml Balance 600 ml 1100 ml Labs: Laboratory Tests Test 07/22/21 06:45 07/22/21 07:39 07/22/21 12:02 07/22/21 17:33 White Blood Count 6.3 x10^3/uL (4.0-11.0) Red Blood Count 4.13 x10^6/uL (3.50-5.40) Hemoglobin 11.5 g/dL (12.0-15.5) L Hematocrit 35.2 % (36.0-47.0) L Mean Corpuscular Volume 85 fL (79-100) Mean Corpuscular Hemoglobin 28 pg (25-35) Mean Corpuscular Hemoglobin Concent 33 g/dL (31-37) Red Cell Distribution Width 15.8 % (11.5-14.5) H Platelet Count 151 x10^3/uL (140-400) Neutrophils (%) (Auto) 72 % (31-73) Lymphocytes (%) (Auto) 15 % (24-48) L Monocytes (%) (Auto) 8 % (0-9) Eosinophils (%) (Auto) 4 % (0-3) H Basophils (%) (Auto) 1 % (0-3) Neutrophils # (Auto) 4.5 x10^3uL (1.8-7.7) Lymphocytes # (Auto) 1.0 x10^3/uL (1.0-4.8) Monocytes # (Auto) 0.5 x10^3/uL (0.0-1.1) Eosinophils # (Auto) 0.2 x10^3/uL (0.0-0.7) Basophils # (Auto) 0.1 x10^3/uL (0.0-0.2) Sodium Level 137 mmol/L (136-145) Potassium Level 4.2 mmol/L (3.5-5.1) Chloride Level 101 mmol/L (98-107) Carbon Dioxide Level 28 mmol/L (21-32) Anion Gap 8 (6-14) Blood Urea Nitrogen 13 mg/dL (7-20) Creatinine 0.9 mg/dL (0.6-1.0) Estimated GFR (Cockcroft-Gault) 59.8 BUN/Creatinine Ratio 14 (6-20) Glucose Level 145 mg/dL (70-99) H Calcium Level 8.9 mg/dL (8.5-10.1) Total Bilirubin 0.2 mg/dL (0.2-1.0) Aspartate Amino Transferase (AST) 26 U/L (15-37) Alanine Aminotransferase (ALT) 41 U/L (14-59) Alkaline Phosphatase 106 U/L (46-116) Total Protein 7.2 g/dL (6.4-8.2) Albumin 3.3 g/dL (3.4-5.0) L Albumin/Globulin Ratio 0.8 (1.0-1.7) L Glucose (Fingerstick) 147 mg/dL (70-99) H 196 mg/dL (70-99) H 219 mg/dL (70-99) H Test 07/22/21 19:10 Glucose (Fingerstick) 218 mg/dL (70-99) H Current Medications: Meds: Laboratory Tests Test 07/22/21 06:45 07/22/21 07:39 07/22/21 12:02 07/22/21 17:33 White Blood Count 6.3 x10^3/uL Red Blood Count 4.13 x10^6/uL Hemoglobin 11.5 g/dL Hematocrit 35.2 % Mean Corpuscular Volume 85 fL Mean Corpuscular Hemoglobin 28 pg Mean Corpuscular Hemoglobin Concent 33 g/dL Red Cell Distribution Width 15.8 % Platelet Count 151 x10^3/uL Neutrophils (%) (Auto) 72 % Lymphocytes (%) (Auto) 15 % Monocytes (%) (Auto) 8 % Eosinophils (%) (Auto) 4 % Basophils (%) (Auto) 1 % Neutrophils # (Auto) 4.5 x10^3uL Lymphocytes # (Auto) 1.0 x10^3/uL Monocytes # (Auto) 0.5 x10^3/uL Eosinophils # (Auto) 0.2 x10^3/uL Basophils # (Auto) 0.1 x10^3/uL Sodium Level 137 mmol/L Potassium Level 4.2 mmol/L Chloride Level 101 mmol/L Carbon Dioxide Level 28 mmol/L Anion Gap 8 Blood Urea Nitrogen 13 mg/dL Creatinine 0.9 mg/dL Estimated GFR (Cockcroft-Gault) 59.8 BUN/Creatinine Ratio 14 Glucose Level 145 mg/dL Calcium Level 8.9 mg/dL Total Bilirubin 0.2 mg/dL Aspartate Amino Transf (AST/SGOT) 26 U/L Alanine Aminotransferase (ALT/SGPT) 41 U/L Alkaline Phosphatase 106 U/L Total Protein 7.2 g/dL Albumin 3.3 g/dL Albumin/Globulin Ratio 0.8 Glucose (Fingerstick) 147 mg/dL 196 mg/dL 219 mg/dL Test 07/22/21 19:10 Glucose (Fingerstick) 218 mg/dL Current Medications Medications (Trade) Dose Ordered Sig/Ruchi Route PRN Reason Start Time Stop Time Status Last Admin Dose Admin Acetaminophen (Tylenol) 650 mg PRN Q6HRS PRN PO MILD PAIN / TEMP > 100.3'F 07/03/21 04:30 07/03/21 07:19 DC Multi-Ingredient Ointment (Analgesic [place]) 1 mara PRN QID PRN TP MUSCLE PAIN 07/03/21 04:30 Al Hydroxide/Mg Hydroxide (Mylanta Plus Xs) 15 ml PRN AFTMEALHC PRN PO DYSPEPSIA 07/03/21 04:30 Magnesium Hydroxide (Milk Of Magnesia) 2,400 mg PRN QHS PRN PO CONSTIPATION 2ND CHOICE 07/03/21 04:30 Polyethylene Glycol (miraLAX) 17 gm PRN DAILY PRN PO CONSTIPATION 1ST CHOICE 07/03/21 04:30 Buspirone HCl (Buspar) 7.5 mg TID PO 07/03/21 09:00 07/15/21 16:56 DC 07/15/21 13:28 Gabapentin (Neurontin) 300 mg BID PO 07/03/21 09:00 07/11/21 21:47 DC 07/11/21 20:19 Acetaminophen/ Hydrocodone Bitart (Lortab 5/325) 1 tab PRN Q6HRS PRN PO PAIN MODERATE/SEVERE 07/03/21 04:45 07/18/21 18:33 Levothyroxine Sodium (Synthroid) 150 mcg DAILY07 PO 07/03/21 07:00 07/22/21 05:13 Lidocaine (Lidoderm) 1 patch PRN DAILY PRN TP pain in lower back 07/03/21 04:45 07/15/21 09:49 Melatonin (Melatonin) 6 mg HS PO 07/03/21 21:00 07/22/21 20:12 Artificial Tears (Artificial Tears) 2 drop TID OU 07/03/21 09:00 07/22/21 20:13 Quetiapine Fumarate (SEROquel) 75 mg DAILY@0900,1700 PO 07/03/21 09:00 07/13/21 23:43 DC 07/13/21 17:12 Quetiapine Fumarate (SEROquel) 100 mg QHS PO 07/03/21 21:00 07/13/21 23:43 DC 07/13/21 19:50 Tamsulosin HCl (Flomax) 0.4 mg HS PO 07/03/21 21:00 07/22/21 20:13 Trazodone HCl (Desyrel) 12.5 mg PRN Q12HR PRN PO ANXIETY/2ND CHOICE AGITATION 07/03/21 04:45 Trazodone HCl (Desyrel) 100 mg HS PO 07/03/21 21:00 07/22/21 20:12 Acetaminophen (Tylenol) 500 mg PRN Q6HRS PRN PO MILD PAIN / TEMP > 100.3'F 07/03/21 05:15 07/19/21 20:49 Miscellaneous (Lidoderm Patch Removal) 1 ea QHS MC 07/03/21 21:00 07/22/21 20:14 Olanzapine (ZyPREXA) 2.5 mg PRN DAILY PRN PO PSYCHOSIS 07/03/21 09:15 07/03/21 13:26 DC 07/03/21 09:14 Olanzapine (ZyPREXA) 2.5 mg PRN Q2HR PRN PO PSYCHOSIS 07/03/21 14:10 07/16/21 14:56 DC 07/16/21 14:07 Trazodone HCl (Desyrel) 100 mg PRN QHS PRN PO for sleep 07/04/21 11:45 07/11/21 22:39 Vitamin D (Vitamin D3) 50,000 unit WEEKLY PO 07/05/21 09:00 07/19/21 07:52 Insulin Glargine (Lantus Syringe) 10 unit QHS SQ 07/04/21 21:00 07/22/21 21:03 Insulin Human Lispro (HumaLOG) 0-7 UNITS TIDWMEALS SQ 07/04/21 17:00 07/22/21 17:00 Dextrose (Dextrose 50%-Water Syringe) 12.5 gm PRN Q15MIN PRN IV SEE COMMENTS 07/04/21 15:00 Carbamazepine (TEGretol XR) 200 mg HS PO 07/05/21 21:00 07/09/21 17:34 DC 07/08/21 21:10 Amlodipine Besylate (Norvasc) 10 mg 1X ONCE PO 07/09/21 16:30 07/09/21 16:31 DC 07/09/21 16:56 Amlodipine Besylate (Norvasc) 10 mg DAILY PO 07/10/21 09:00 07/22/21 07:56 Carbamazepine (TEGretol XR) 400 mg BID PO 07/09/21 21:00 07/22/21 20:12 Gabapentin (Neurontin) 300 mg TIDAC PO 07/12/21 07:30 07/22/21 16:30 Quetiapine Fumarate (SEROquel) 100 mg TID@0900,1700,2100 PO 07/14/21 09:00 07/22/21 17:32 DC 07/22/21 16:40 Buspirone HCl (Buspar) 15 mg TID PO 07/15/21 21:00 07/22/21 20:13 Olanzapine (ZyPREXA) 5 mg PRN Q2HRS PRN PO 1ST CHOICE AGITATION 07/16/21 14:45 07/22/21 16:40 Olanzapine (ZyPREXA) 2.5 mg 1X ONCE PO 07/16/21 15:00 07/16/21 15:01 DC Trazodone HCl (Desyrel) 25 mg TID PO 07/16/21 21:00 5/9/22 20:14 Neomycin/ Polymyxin/ Bacitracin (Triple Antibiotic Ointment) 1 pkt BID TP 07/19/21 21:00 07/22/21 20:13 Quetiapine Fumarate (SEROquel) 100 mg TID@0900,1700,2100 PO 07/22/21 21:00 07/22/21 20:13 Quetiapine Fumarate (SEROquel) 25 mg TID@0900,1700,2100 PO 07/22/21 21:00 07/22/21 20:13 Current Medications Medications (Trade) Dose Ordered Sig/Ruchi Route PRN Reason Start Time Stop Time Status Last Admin Dose Admin Quetiapine Fumarate (SEROquel) 100 mg TID@0900,1700,2100 PO 07/22/21 21:00 07/22/21 20:13 Quetiapine Fumarate (SEROquel) 25 mg TID@0900,1700,2100 PO 07/22/21 21:00 07/22/21 20:13 I have reviewed the current psychotropics carefully including drug interactions. Risk benefit ratio favors no change other than as noted in my dictated progress note. Diagnosis: Problems: (1) Mild cognitive impairment (2) Bipolar affective, mixed, sev w/ psych (3) Anxiety disorder (4) Impulse control disorder GRAEME DIAZ MD July 22, 2021 21:26
[2021-07-23] MEDS: LEVOTHYROXINE 150 MCG TABLET PO SCH (05:47)
[2021-07-23 06:07] VITALS: BP 160/63
[2021-07-23] MEDS: INSULIN LISPRO 300 UNITS/3 ML VIAL. SQ SCH ×3 (08:00→18:10)
[2021-07-23] MEDS: amLODIPine BESYLATE 10 MG TABLET PO SCH (08:15)
[2021-07-23] MEDS: GABAPENTIN 300 MG CAPSULE. PO SCH ×3 (08:15→18:06)
[2021-07-23] MEDS: QUEtiapine 25 MG TABLET. PO SCH ×3 (08:16→20:21)
[2021-07-23] MEDS: traZODone 50 MG TABLET. PO SCH ×3 (08:17→20:23)
[2021-07-23] MEDS: busPIRone 15 MG TABLET. PO SCH ×3 (08:17→20:21)
[2021-07-23] MEDS: QUEtiapine 100 MG TABLET. PO SCH ×3 (08:17→20:21)
[2021-07-23] MEDS: NEOMY/BACITR/POLYMYXIN OINT PACKET. TP SCH ×2 (08:18→20:22)
[2021-07-23] MEDS: POLYVINYL ALCOHOL 1.4% OPHTH SOLUTION 15ML BOTTLE. OU SCH ×3 (08:19→20:22)
--- NOTE | 2021-07-23 08:35 | PDOC ---
Exam Note: Darren Note: This note is a late entry for 07/22/2021 covers elements not covered in my initial note. Subjective: The patient was seen individually on 07/22/2021, discussed and reviewed the chart with Mariah HENDRICKSON. The patient slept 6-3/4 hours previous night. She had a difficult day. She has been agitated, yelling at times, very needy and anxious, obsessive about discharge plans. I met with her in the dayroom. She was seated in the wheelchair in front of the TV that was playing but was dropping off to sleep. Review of Systems: Ambulation impaired, in wheelchair. Hard of hearing. No CV, , pulmonary, eye system symptoms on review. Mental Status Exam: Patient is oriented to herself and situation. She is quite obsessive, ruminative, repeatedly asking about discharge plans during the day. Speech is coherent, rapid at times. Abstraction fair. Computation impaired. Language function intact. Mood and affect remains somewhat labile. Laboratory Data: Reviewed. Impression: Bipolar 1 disorder, mixed with psychotic features. Mild cognitive impairment. Anxiety disorder unspecified. Impulse control disorder unspecified. Plan: Continue to adjust psychotropics as clinically indicated. Reviewed drug interactions and risk-benefit ratio. Increase Seroquel from 100 mg t.i.d. to 125 mg t.i.d. Maintain rest of the psychotropics per initial note. Assessment: Vital Signs/I&O: Vital Signs Date Time Temp Pulse Resp B/P (MAP) Pulse Ox O2 Delivery O2 Flow Rate FiO2 07/23/21 08:15 67 160/63 07/23/21 06:07 97.6 20 96 Room Air I & O 07/22/21 07/22/21 07/23/21 14:59 22:59 06:59 Intake Total 960 ml 600 ml Balance 960 ml 600 ml Labs: Laboratory Tests Test 07/22/21 12:02 07/22/21 17:33 07/22/21 19:10 07/23/21 07:22 Glucose (Fingerstick) 196 mg/dL (70-99) H 219 mg/dL (70-99) H 218 mg/dL (70-99) H 146 mg/dL (70-99) H Current Medications: Meds: Current Medications Medications (Trade) Dose Ordered Sig/Ruchi Route PRN Reason Start Time Stop Time Status Last Admin Dose Admin Quetiapine Fumarate (SEROquel) 100 mg TID@0900,1700,2100 PO 07/22/21 21:00 07/23/21 08:17 Quetiapine Fumarate (SEROquel) 25 mg TID@0900,1700,2100 PO 07/22/21 21:00 07/23/21 08:16 I have reviewed the current psychotropics carefully including drug interactions. Risk benefit ratio favors no change other than as noted in my dictated progress note. Diagnosis: Problems: (1) Mild cognitive impairment (2) Bipolar affective, mixed, sev w/ psych (3) Anxiety disorder (4) Impulse control disorder GRAEME DIAZ MD July 23, 2021 08:35
[2021-07-23] MEDS: OLANZapine 2.5 MG TABLET PO PRN (09:50)
[2021-07-23 11:35] VITALS: BP 176/83
[2021-07-23 16:06] VITALS: BP 186/75
[2021-07-23] MEDS: MELATONIN 3 MG TABLET PO SCH (20:21)
[2021-07-23] MEDS: TAMSULOSIN 0.4 MG CAP.ER.24H. PO SCH (20:21)
[2021-07-23] MEDS: traZODone 100 MG TABLET. PO SCH (20:22)
[2021-07-23] MEDS: PATCH REMOVAL. MC SCH (20:23)
[2021-07-23] MEDS: INSULIN GLARGINE SYRINGE. SQ SCH (20:59)
--- NOTE | 2021-07-23 21:29 | PDOC ---
Exam Note: Darren Note: Please also refer to the separate dictated note~for this date of service dictated separately.~Patient seen individually. Discussed the patient with Nursing staff reviewed the chart.~Reviewed interim history and current functioning. Reviewed vital signs,~Labs/ Radiology~and current medications noted below. Continue current treatment with the changes noted in the dictated addendum note Assessment: Vital Signs/I&O: Vital Signs Date Time Temp Pulse Resp B/P (MAP) Pulse Ox O2 Delivery O2 Flow Rate FiO2 07/23/21 16:06 98.9 77 16 186/75 (112) 96 Room Air I & O 07/22/21 07/22/21 07/23/21 15:00 23:00 07:00 Intake Total 960 ml 600 ml Balance 960 ml 600 ml Labs: Laboratory Tests Test 07/23/21 07:00 07/23/21 07:22 07/23/21 11:30 07/23/21 17:09 POC SARS CoV-2 Antigen Negative (NEGATIVE) Glucose (Fingerstick) 146 mg/dL (70-99) H 202 mg/dL (70-99) H 183 mg/dL (70-99) H Test 07/23/21 19:18 Glucose (Fingerstick) 217 mg/dL (70-99) H Current Medications: Meds: Laboratory Tests Test 07/23/21 07:00 07/23/21 07:22 07/23/21 11:30 07/23/21 17:09 POC SARS CoV-2 Antigen Negative Glucose (Fingerstick) 146 mg/dL 202 mg/dL 183 mg/dL Test 07/23/21 19:18 Glucose (Fingerstick) 217 mg/dL Current Medications Medications (Trade) Dose Ordered Sig/Ruchi Route PRN Reason Start Time Stop Time Status Last Admin Dose Admin Acetaminophen (Tylenol) 650 mg PRN Q6HRS PRN PO MILD PAIN / TEMP > 100.3'F 07/03/21 04:30 07/03/21 07:19 DC Multi-Ingredient Ointment (Analgesic [place]) 1 mara PRN QID PRN TP MUSCLE PAIN 07/03/21 04:30 Al Hydroxide/Mg Hydroxide (Mylanta Plus Xs) 15 ml PRN AFTMEALHC PRN PO DYSPEPSIA 07/03/21 04:30 Magnesium Hydroxide (Milk Of Magnesia) 2,400 mg PRN QHS PRN PO CONSTIPATION 2ND CHOICE 07/03/21 04:30 Polyethylene Glycol (miraLAX) 17 gm PRN DAILY PRN PO CONSTIPATION 1ST CHOICE 07/03/21 04:30 Buspirone HCl (Buspar) 7.5 mg TID PO 07/03/21 09:00 07/15/21 16:56 DC 07/15/21 13:28 Gabapentin (Neurontin) 300 mg BID PO 07/03/21 09:00 07/11/21 21:47 DC 07/11/21 20:19 Acetaminophen/ Hydrocodone Bitart (Lortab 5/325) 1 tab PRN Q6HRS PRN PO PAIN MODERATE/SEVERE 07/03/21 04:45 07/18/21 18:33 Levothyroxine Sodium (Synthroid) 150 mcg DAILY07 PO 07/03/21 07:00 07/23/21 05:47 Lidocaine (Lidoderm) 1 patch PRN DAILY PRN TP pain in lower back 07/03/21 04:45 07/15/21 09:49 Melatonin (Melatonin) 6 mg HS PO 07/03/21 21:00 07/23/21 20:21 Artificial Tears (Artificial Tears) 2 drop TID OU 07/03/21 09:00 07/23/21 20:22 Quetiapine Fumarate (SEROquel) 75 mg DAILY@0900,1700 PO 07/03/21 09:00 07/13/21 23:43 DC 07/13/21 17:12 Quetiapine Fumarate (SEROquel) 100 mg QHS PO 07/03/21 21:00 07/13/21 23:43 DC 07/13/21 19:50 Tamsulosin HCl (Flomax) 0.4 mg HS PO 07/03/21 21:00 07/23/21 20:21 Trazodone HCl (Desyrel) 12.5 mg PRN Q12HR PRN PO ANXIETY/2ND CHOICE AGITATION 07/03/21 04:45 Trazodone HCl (Desyrel) 100 mg HS PO 07/03/21 21:00 07/23/21 20:22 Acetaminophen (Tylenol) 500 mg PRN Q6HRS PRN PO MILD PAIN / TEMP > 100.3'F 07/03/21 05:15 07/19/21 20:49 Miscellaneous (Lidoderm Patch Removal) 1 ea QHS MC 07/03/21 21:00 07/23/21 20:23 Olanzapine (ZyPREXA) 2.5 mg PRN DAILY PRN PO PSYCHOSIS 07/03/21 09:15 07/03/21 13:26 DC 07/03/21 09:14 Olanzapine (ZyPREXA) 2.5 mg PRN Q2HR PRN PO PSYCHOSIS 07/03/21 14:10 07/16/21 14:56 DC 07/16/21 14:07 Trazodone HCl (Desyrel) 100 mg PRN QHS PRN PO for sleep 07/04/21 11:45 07/11/21 22:39 Vitamin D (Vitamin D3) 50,000 unit WEEKLY PO 07/05/21 09:00 07/19/21 07:52 Insulin Glargine (Lantus Syringe) 10 unit QHS SQ 07/04/21 21:00 07/23/21 20:59 Insulin Human Lispro (HumaLOG) 0-7 UNITS TIDWMEALS SQ 07/04/21 17:00 07/23/21 18:10 Dextrose (Dextrose 50%-Water Syringe) 12.5 gm PRN Q15MIN PRN IV SEE COMMENTS 07/04/21 15:00 Carbamazepine (TEGretol XR) 200 mg HS PO 07/05/21 21:00 07/09/21 17:34 DC 07/08/21 21:10 Amlodipine Besylate (Norvasc) 10 mg 1X ONCE PO 07/09/21 16:30 07/09/21 16:31 DC 07/09/21 16:56 Amlodipine Besylate (Norvasc) 10 mg DAILY PO 07/10/21 09:00 07/23/21 08:15 Carbamazepine (TEGretol XR) 400 mg BID PO 07/09/21 21:00 07/23/21 20:21 Gabapentin (Neurontin) 300 mg TIDAC PO 07/12/21 07:30 07/23/21 18:06 Quetiapine Fumarate (SEROquel) 100 mg TID@0900,1700,2100 PO 07/14/21 09:00 07/22/21 17:32 DC 07/22/21 16:40 Buspirone HCl (Buspar) 15 mg TID PO 07/15/21 21:00 07/23/21 20:21 Olanzapine (ZyPREXA) 5 mg PRN Q2HRS PRN PO 1ST CHOICE AGITATION 07/16/21 14:45 07/23/21 09:50 Olanzapine (ZyPREXA) 2.5 mg 1X ONCE PO 07/16/21 15:00 07/16/21 15:01 DC Trazodone HCl (Desyrel) 25 mg TID PO 07/16/21 21:00 07/23/21 20:23 Neomycin/ Polymyxin/ Bacitracin (Triple Antibiotic Ointment) 1 pkt BID TP 07/19/21 21:00 07/23/21 20:22 Quetiapine Fumarate (SEROquel) 100 mg TID@0900,1700,2100 PO 07/22/21 21:00 07/23/21 20:21 Quetiapine Fumarate (SEROquel) 25 mg TID@0900,1700,2100 PO 07/22/21 21:00 07/23/21 20:21 I have reviewed the current psychotropics carefully including drug interactions. Risk benefit ratio favors no change other than as noted in my dictated progress note. Diagnosis: Problems: (1) Mild cognitive impairment (2) Bipolar affective, mixed, sev w/ psych (3) Anxiety disorder (4) Impulse control disorder GRAEME DIAZ MD July 23, 2021 21:29
[2021-07-23] MEDS: HYDROcodone/APAP 5/325MG 1 TAB TABLET PO PRN (22:28)
[2021-07-24] MEDS: LIDOCAINE (700MG/PATCH) PATCH. TP PRN (03:15)
[2021-07-24] MEDS: ACETAMINOPHEN 500 MG TABLET PO PRN ×2 (03:15→20:03)
[2021-07-24 06:01] VITALS: BP 145/66
[2021-07-24] MEDS: LEVOTHYROXINE 150 MCG TABLET PO SCH (06:22)
[2021-07-24] MEDS: INSULIN LISPRO 300 UNITS/3 ML VIAL. SQ SCH ×3 (07:51→17:00)
[2021-07-24] MEDS: QUEtiapine 100 MG TABLET. PO SCH ×3 (07:55→20:02)
[2021-07-24] MEDS: traZODone 50 MG TABLET. PO SCH ×3 (07:55→20:03)
[2021-07-24] MEDS: QUEtiapine 25 MG TABLET. PO SCH ×3 (07:56→20:02)
[2021-07-24] MEDS: GABAPENTIN 300 MG CAPSULE. PO SCH ×3 (07:56→16:30)
[2021-07-24] MEDS: busPIRone 15 MG TABLET. PO SCH ×3 (07:57→20:02)
[2021-07-24] MEDS: amLODIPine BESYLATE 10 MG TABLET PO SCH (07:57)
[2021-07-24] MEDS: POLYVINYL ALCOHOL 1.4% OPHTH SOLUTION 15ML BOTTLE. OU SCH ×3 (07:58→20:01)
[2021-07-24] MEDS: NEOMY/BACITR/POLYMYXIN OINT PACKET. TP SCH ×2 (07:58→20:02)
--- NOTE | 2021-07-24 08:42 | PDOC ---
Exam Note: Darren Note: This note is a late entry for 07/23/2021 covers elements not covered in my initial note. Subjective: The patient was seen individually on 07/23/2021, discussed and reviewed the chart with Mony HENDRICKSON. There has been Covid exposure on the unit and the unit has been placed on quarantine as determined by Infectious Disease Department. The patient slept 4-1/2 hours previous night. Overall she remains somewhat intense, obsessive, repeatedly asking me about discharge plans. I addressed this with her. She is unable to comprehend about the quarantine. She is trying to transfer herself, is a fall risk. She did slide herself to the floor earlier in the day. Review of Systems: Ambulation impaired, in wheelchair. Hard of hearing. No CV, , pulmonary, eye system symptoms on review. Mental Status Exam: Patient is oriented to herself and situation. I met with her in the dining room. Speech is coherent, rapid at times. Abstraction fair. Computation impaired. Language function intact. Mood and affect remains somewhat labile. Laboratory Data: Reviewed. Impression: Bipolar 1 disorder, mixed with psychotic features. Mild cognitive impairment. Anxiety disorder unspecified. Impulse control disorder unspecified. Plan: Continue to adjust psychotropics as clinically indicated. Reviewed drug interactions and risk-benefit ratio. Assessment: Vital Signs/I&O: Vital Signs Date Time Temp Pulse Resp B/P (MAP) Pulse Ox O2 Delivery O2 Flow Rate FiO2 07/24/21 07:57 107 145/66 07/24/21 06:01 97.9 18 93 Room Air I & O 07/23/21 07/23/21 07/24/21 14:59 22:59 06:59 Intake Total 1000 ml 840 ml Balance 1000 ml 840 ml Labs: Laboratory Tests Test 07/23/21 11:30 07/23/21 17:09 07/23/21 19:18 07/24/21 07:33 Glucose (Fingerstick) 202 mg/dL (70-99) H 183 mg/dL (70-99) H 217 mg/dL (70-99) H 136 mg/dL (70-99) H Current Medications: I have reviewed the current psychotropics carefully including drug interactions. Risk benefit ratio favors no change other than as noted in my dictated progress note. Diagnosis: Problems: (1) Mild cognitive impairment (2) Bipolar affective, mixed, sev w/ psych (3) Anxiety disorder (4) Impulse control disorder GRAEME DIAZ MD July 24, 2021 08:42
[2021-07-24 16:42] VITALS: BP 167/83
[2021-07-24] MEDS: MELATONIN 3 MG TABLET PO SCH (20:01)
[2021-07-24] MEDS: traZODone 100 MG TABLET. PO SCH (20:02)
[2021-07-24] MEDS: TAMSULOSIN 0.4 MG CAP.ER.24H. PO SCH (20:02)
[2021-07-24] MEDS: PATCH REMOVAL. MC SCH (21:00)
[2021-07-24] MEDS: INSULIN GLARGINE SYRINGE. SQ SCH (21:02)
--- NOTE | 2021-07-24 21:51 | PDOC ---
Exam Note: Darren Note: Please also refer to the separate dictated note~for this date of service dictated separately.~Patient seen individually. Discussed the patient with Nursing staff reviewed the chart.~Reviewed interim history and current functioning. Reviewed vital signs,~Labs/ Radiology~and current medications noted below. Continue current treatment with the changes noted in the dictated addendum note Assessment: Vital Signs/I&O: Vital Signs Date Time Temp Pulse Resp B/P (MAP) Pulse Ox O2 Delivery O2 Flow Rate FiO2 07/24/21 16:42 97.7 73 18 167/83 (111) 96 07/24/21 06:01 Room Air I & O 07/23/21 07/23/21 07/24/21 15:00 23:00 07:00 Intake Total 1000 ml 840 ml Balance 1000 ml 840 ml Labs: Laboratory Tests Test 07/24/21 07:33 07/24/21 11:53 07/24/21 16:55 07/24/21 19:03 Glucose (Fingerstick) 136 mg/dL (70-99) H 162 mg/dL (70-99) H 191 mg/dL (70-99) H 246 mg/dL (70-99) H Current Medications: Meds: Laboratory Tests Test 07/24/21 07:33 07/24/21 11:53 07/24/21 16:55 07/24/21 19:03 Glucose (Fingerstick) 136 mg/dL 162 mg/dL 191 mg/dL 246 mg/dL Current Medications Medications (Trade) Dose Ordered Sig/Ruchi Route PRN Reason Start Time Stop Time Status Last Admin Dose Admin Acetaminophen (Tylenol) 650 mg PRN Q6HRS PRN PO MILD PAIN / TEMP > 100.3'F 07/03/21 04:30 07/03/21 07:19 DC Multi-Ingredient Ointment (Analgesic [place]) 1 mara PRN QID PRN TP MUSCLE PAIN 07/03/21 04:30 Al Hydroxide/Mg Hydroxide (Mylanta Plus Xs) 15 ml PRN AFTMEALHC PRN PO DYSPEPSIA 07/03/21 04:30 Magnesium Hydroxide (Milk Of Magnesia) 2,400 mg PRN QHS PRN PO CONSTIPATION 2ND CHOICE 07/03/21 04:30 Polyethylene Glycol (miraLAX) 17 gm PRN DAILY PRN PO CONSTIPATION 1ST CHOICE 07/03/21 04:30 Buspirone HCl (Buspar) 7.5 mg TID PO 07/03/21 09:00 07/15/21 16:56 DC 07/15/21 13:28 Gabapentin (Neurontin) 300 mg BID PO 07/03/21 09:00 07/11/21 21:47 DC 07/11/21 20:19 Acetaminophen/ Hydrocodone Bitart (Lortab 5/325) 1 tab PRN Q6HRS PRN PO PAIN MODERATE/SEVERE 07/03/21 04:45 07/23/21 22:28 Levothyroxine Sodium (Synthroid) 150 mcg DAILY07 PO 07/03/21 07:00 07/24/21 06:22 Lidocaine (Lidoderm) 1 patch PRN DAILY PRN TP pain in lower back 07/03/21 04:45 07/24/21 03:15 Melatonin (Melatonin) 6 mg HS PO 07/03/21 21:00 07/24/21 20:01 Artificial Tears (Artificial Tears) 2 drop TID OU 07/03/21 09:00 07/24/21 20:01 Quetiapine Fumarate (SEROquel) 75 mg DAILY@0900,1700 PO 07/03/21 09:00 07/13/21 23:43 DC 07/13/21 17:12 Quetiapine Fumarate (SEROquel) 100 mg QHS PO 07/03/21 21:00 07/13/21 23:43 DC 07/13/21 19:50 Tamsulosin HCl (Flomax) 0.4 mg HS PO 07/03/21 21:00 07/24/21 20:02 Trazodone HCl (Desyrel) 12.5 mg PRN Q12HR PRN PO ANXIETY/2ND CHOICE AGITATION 07/03/21 04:45 Trazodone HCl (Desyrel) 100 mg HS PO 07/03/21 21:00 07/24/21 20:02 Acetaminophen (Tylenol) 500 mg PRN Q6HRS PRN PO MILD PAIN / TEMP > 100.3'F 07/03/21 05:15 07/24/21 20:03 Miscellaneous (Lidoderm Patch Removal) 1 ea QHS MC 07/03/21 21:00 07/24/21 21:00 Olanzapine (ZyPREXA) 2.5 mg PRN DAILY PRN PO PSYCHOSIS 07/03/21 09:15 07/03/21 13:26 DC 07/03/21 09:14 Olanzapine (ZyPREXA) 2.5 mg PRN Q2HR PRN PO PSYCHOSIS 07/03/21 14:10 07/16/21 14:56 DC 07/16/21 14:07 Trazodone HCl (Desyrel) 100 mg PRN QHS PRN PO for sleep 07/04/21 11:45 07/11/21 22:39 Vitamin D (Vitamin D3) 50,000 unit WEEKLY PO 07/05/21 09:00 07/19/21 07:52 Insulin Glargine (Lantus Syringe) 10 unit QHS SQ 07/04/21 21:00 07/24/21 21:02 Insulin Human Lispro (HumaLOG) 0-7 UNITS TIDWMEALS SQ 07/04/21 17:00 07/24/21 17:00 Dextrose (Dextrose 50%-Water Syringe) 12.5 gm PRN Q15MIN PRN IV SEE COMMENTS 07/04/21 15:00 Carbamazepine (TEGretol XR) 200 mg HS PO 07/05/21 21:00 07/09/21 17:34 DC 07/08/21 21:10 Amlodipine Besylate (Norvasc) 10 mg 1X ONCE PO 07/09/21 16:30 07/09/21 16:31 DC 07/09/21 16:56 Amlodipine Besylate (Norvasc) 10 mg DAILY PO 07/10/21 09:00 07/24/21 07:57 Carbamazepine (TEGretol XR) 400 mg BID PO 07/09/21 21:00 07/24/21 20:02 Gabapentin (Neurontin) 300 mg TIDAC PO 07/12/21 07:30 07/24/21 16:30 Quetiapine Fumarate (SEROquel) 100 mg TID@0900,1700,2100 PO 07/14/21 09:00 07/22/21 17:32 DC 07/22/21 16:40 Buspirone HCl (Buspar) 15 mg TID PO 07/15/21 21:00 07/24/21 20:02 Olanzapine (ZyPREXA) 5 mg PRN Q2HRS PRN PO 1ST CHOICE AGITATION 07/16/21 14:45 07/23/21 09:50 Olanzapine (ZyPREXA) 2.5 mg 1X ONCE PO 07/16/21 15:00 07/16/21 15:01 DC Trazodone HCl (Desyrel) 25 mg TID PO 07/16/21 21:00 07/24/21 20:03 Neomycin/ Polymyxin/ Bacitracin (Triple Antibiotic Ointment) 1 pkt BID TP 07/19/21 21:00 07/24/21 20:02 Quetiapine Fumarate (SEROquel) 100 mg TID@0900,1700,2100 PO 07/22/21 21:00 07/24/21 20:02 Quetiapine Fumarate (SEROquel) 25 mg TID@0900,1700,2100 PO 07/22/21 21:00 07/24/21 20:02 I have reviewed the current psychotropics carefully including drug interactions. Risk benefit ratio favors no change other than as noted in my dictated progress note. Diagnosis: Problems: (1) Mild cognitive impairment (2) Bipolar affective, mixed, sev w/ psych (3) Anxiety disorder (4) Impulse control disorder GRAEME DIAZ MD July 24, 2021 21:51
[2021-07-25 06:04] VITALS: BP 155/69
[2021-07-25] MEDS: LEVOTHYROXINE 150 MCG TABLET PO SCH (06:23)
[2021-07-25] MEDS: QUEtiapine 100 MG TABLET. PO SCH ×3 (07:50→20:02)
[2021-07-25] MEDS: GABAPENTIN 300 MG CAPSULE. PO SCH ×3 (07:50→15:49)
[2021-07-25] MEDS: busPIRone 15 MG TABLET. PO SCH ×3 (07:50→20:02)
[2021-07-25] MEDS: QUEtiapine 25 MG TABLET. PO SCH ×3 (07:50→20:02)
[2021-07-25] MEDS: traZODone 50 MG TABLET. PO SCH ×3 (07:50→20:03)
[2021-07-25] MEDS: amLODIPine BESYLATE 10 MG TABLET PO SCH (07:51)
[2021-07-25] MEDS: NEOMY/BACITR/POLYMYXIN OINT PACKET. TP SCH ×2 (07:51→21:03)
[2021-07-25] MEDS: POLYVINYL ALCOHOL 1.4% OPHTH SOLUTION 15ML BOTTLE. OU SCH ×3 (07:51→20:04)
[2021-07-25] MEDS: INSULIN LISPRO 300 UNITS/3 ML VIAL. SQ SCH ×3 (08:00→17:00)
--- NOTE | 2021-07-25 08:25 | PDOC ---
Exam Note: Darren Note: This note is a late entry for 07/24/2021 covers elements not covered in my initial note. Subjective: The patient was seen individually on 07/24/2021, discussed and reviewed the chart with Mariah HENDRICKSON. There has been Covid exposure on the unit and the unit has been placed on quarantine as determined by Infectious Disease Department. The patient slept 6-1/4 hours previous night. She was seen in the dining room, drowsy, taking cat naps, less yelling. She remains obsessive regarding discharge. She followed me around the unit asking me several times about her discharge date but the unit is on Covid quarantine and I tried to explain to her and she is unwilling to accept this. Review of Systems: Ambulation impaired, in wheelchair. Hard of hearing. No CV, , pulmonary, eye system symptoms on review. Mental Status Exam: Patient is oriented to herself and situation. Speech is coherent, rapid at times. Abstraction fair. Computation impaired. Language function intact. Mood and affect remains somewhat labile. Laboratory Data: Reviewed. Impression: Bipolar 1 disorder, mixed with psychotic features. Mild cognitive impairment. Anxiety disorder unspecified. Impulse control disorder u nspecified. Plan: Continue to adjust psychotropics as clinically indicated. Reviewed drug interactions and risk-benefit ratio. Assessment: Vital Signs/I&O: Vital Signs Date Time Temp Pulse Resp B/P (MAP) Pulse Ox O2 Delivery O2 Flow Rate FiO2 07/25/21 07:51 64 155/69 07/25/21 06:04 97.2 18 95 07/24/21 06:01 Room Air I & O 07/24/21 07/24/21 07/25/21 15:00 23:00 07:00 Intake Total 900 ml 600 ml 240 ml Balance 900 ml 600 ml 240 ml Labs: Laboratory Tests Test 07/24/21 11:53 07/24/21 16:55 07/24/21 19:03 07/25/21 07:42 Glucose (Fingerstick) 162 mg/dL (70-99) H 191 mg/dL (70-99) H 246 mg/dL (70-99) H 163 mg/dL (70-99) H Current Medications: I have reviewed the current psychotropics carefully including drug interactions. Risk benefit ratio favors no change other than as noted in my dictated progress note. Diagnosis: Problems: (1) Mild cognitive impairment (2) Bipolar affective, mixed, sev w/ psych (3) Anxiety disorder (4) Impulse control disorder GRAEME DIAZ MD July 25, 2021 08:25
[2021-07-25 16:38] VITALS: BP 154/67
[2021-07-25] MEDS: PATCH REMOVAL. MC SCH (20:01)
[2021-07-25] MEDS: TAMSULOSIN 0.4 MG CAP.ER.24H. PO SCH (20:02)
[2021-07-25] MEDS: MELATONIN 3 MG TABLET PO SCH (20:02)
[2021-07-25] MEDS: ACETAMINOPHEN 500 MG TABLET PO PRN (20:03)
[2021-07-25] MEDS: traZODone 100 MG TABLET. PO SCH (20:03)
--- NOTE | 2021-07-25 21:00 | PDOC ---
Exam Note: Darren Note: Please also refer to the separate dictated note~for this date of service dictated separately.~Patient seen individually. Discussed the patient with Nursing staff reviewed the chart.~Reviewed interim history and current functioning. Reviewed vital signs,~Labs/ Radiology~and current medications noted below. Continue current treatment with the changes noted in the dictated addendum note Assessment: Vital Signs/I&O: Vital Signs Date Time Temp Pulse Resp B/P (MAP) Pulse Ox O2 Delivery O2 Flow Rate FiO2 07/25/21 16:38 97.5 64 18 154/67 (96) 97 07/24/21 06:01 Room Air I & O 07/24/21 07/24/21 07/25/21 15:00 23:00 07:00 Intake Total 900 ml 600 ml 240 ml Balance 900 ml 600 ml 240 ml Labs: Laboratory Tests Test 07/25/21 07:42 07/25/21 11:58 07/25/21 17:21 07/25/21 19:18 Glucose (Fingerstick) 163 mg/dL (70-99) H 201 mg/dL (70-99) H 174 mg/dL (70-99) H 259 mg/dL (70-99) H Current Medications: Meds: Laboratory Tests Test 07/25/21 07:42 07/25/21 11:58 07/25/21 17:21 07/25/21 19:18 Glucose (Fingerstick) 163 mg/dL 201 mg/dL 174 mg/dL 259 mg/dL Current Medications Medications (Trade) Dose Ordered Sig/Ruchi Route PRN Reason Start Time Stop Time Status Last Admin Dose Admin Acetaminophen (Tylenol) 650 mg PRN Q6HRS PRN PO MILD PAIN / TEMP > 100.3'F 07/03/21 04:30 07/03/21 07:19 DC Multi-Ingredient Ointment (Analgesic [place]) 1 mara PRN QID PRN TP MUSCLE PAIN 07/03/21 04:30 Al Hydroxide/Mg Hydroxide (Mylanta Plus Xs) 15 ml PRN AFTMEALHC PRN PO DYSPEPSIA 07/03/21 04:30 Magnesium Hydroxide (Milk Of Magnesia) 2,400 mg PRN QHS PRN PO CONSTIPATION 2ND CHOICE 07/03/21 04:30 Polyethylene Glycol (miraLAX) 17 gm PRN DAILY PRN PO CONSTIPATION 1ST CHOICE 07/03/21 04:30 Buspirone HCl (Buspar) 7.5 mg TID PO 07/03/21 09:00 07/15/21 16:56 DC 07/15/21 13:28 Gabapentin (Neurontin) 300 mg BID PO 07/03/21 09:00 07/11/21 21:47 DC 07/11/21 20:19 Acetaminophen/ Hydrocodone Bitart (Lortab 5/325) 1 tab PRN Q6HRS PRN PO PAIN MODERATE/SEVERE 07/03/21 04:45 07/23/21 22:28 Levothyroxine Sodium (Synthroid) 150 mcg DAILY07 PO 07/03/21 07:00 07/25/21 06:23 Lidocaine (Lidoderm) 1 patch PRN DAILY PRN TP pain in lower back 07/03/21 04:45 07/24/21 03:15 Melatonin (Melatonin) 6 mg HS PO 07/03/21 21:00 07/25/21 20:02 Artificial Tears (Artificial Tears) 2 drop TID OU 07/03/21 09:00 07/25/21 14:00 Quetiapine Fumarate (SEROquel) 75 mg DAILY@0900,1700 PO 07/03/21 09:00 07/13/21 23:43 DC 07/13/21 17:12 Quetiapine Fumarate (SEROquel) 100 mg QHS PO 07/03/21 21:00 07/13/21 23:43 DC 07/13/21 19:50 Tamsulosin HCl (Flomax) 0.4 mg HS PO 07/03/21 21:00 07/25/21 20:02 Trazodone HCl (Desyrel) 12.5 mg PRN Q12HR PRN PO ANXIETY/2ND CHOICE AGITATION 07/03/21 04:45 Trazodone HCl (Desyrel) 100 mg HS PO 07/03/21 21:00 07/25/21 20:03 Acetaminophen (Tylenol) 500 mg PRN Q6HRS PRN PO MILD PAIN / TEMP > 100.3'F 07/03/21 05:15 07/25/21 20:03 Miscellaneous (Lidoderm Patch Removal) 1 ea QHS MC 07/03/21 21:00 07/24/21 21:00 Olanzapine (ZyPREXA) 2.5 mg PRN DAILY PRN PO PSYCHOSIS 07/03/21 09:15 07/03/21 13:26 DC 07/03/21 09:14 Olanzapine (ZyPREXA) 2.5 mg PRN Q2HR PRN PO PSYCHOSIS 07/03/21 14:10 07/16/21 14:56 DC 07/16/21 14:07 Trazodone HCl (Desyrel) 100 mg PRN QHS PRN PO for sleep 07/04/21 11:45 07/11/21 22:39 Vitamin D (Vitamin D3) 50,000 unit WEEKLY PO 07/05/21 09:00 07/19/21 07:52 Insulin Glargine (Lantus Syringe) 10 unit QHS SQ 07/04/21 21:00 07/24/21 21:02 Insulin Human Lispro (HumaLOG) 0-7 UNITS TIDWMEALS SQ 07/04/21 17:00 07/25/21 17:00 Dextrose (Dextrose 50%-Water Syringe) 12.5 gm PRN Q15MIN PRN IV SEE COMMENTS 07/04/21 15:00 Carbamazepine (TEGretol XR) 200 mg HS PO 07/05/21 21:00 07/09/21 17:34 DC 07/08/21 21:10 Amlodipine Besylate (Norvasc) 10 mg 1X ONCE PO 07/09/21 16:30 07/09/21 16:31 DC 07/09/21 16:56 Amlodipine Besylate (Norvasc) 10 mg DAILY PO 07/10/21 09:00 07/25/21 07:51 Carbamazepine (TEGretol XR) 400 mg BID PO 07/09/21 21:00 07/25/21 20:04 Gabapentin (Neurontin) 300 mg TIDAC PO 07/12/21 07:30 07/25/21 15:49 Quetiapine Fumarate (SEROquel) 100 mg TID@0900,1700,2100 PO 07/14/21 09:00 07/22/21 17:32 DC 07/22/21 16:40 Buspirone HCl (Buspar) 15 mg TID PO 07/15/21 21:00 07/25/21 20:02 Olanzapine (ZyPREXA) 5 mg PRN Q2HRS PRN PO 1ST CHOICE AGITATION 07/16/21 14:45 07/23/21 09:50 Olanzapine (ZyPREXA) 2.5 mg 1X ONCE PO 07/16/21 15:00 07/16/21 15:01 DC Trazodone HCl (Desyrel) 25 mg TID PO 07/16/21 21:00 07/25/21 20:03 Neomycin/ Polymyxin/ Bacitracin (Triple Antibiotic Ointment) 1 pkt BID TP 07/19/21 21:00 07/25/21 07:51 Quetiapine Fumarate (SEROquel) 100 mg TID@0900,1700,2100 PO 07/22/21 21:00 07/25/21 20:02 Quetiapine Fumarate (SEROquel) 25 mg TID@0900,1700,2100 PO 07/22/21 21:00 07/25/21 20:02 Fluvoxamine Maleate (Luvox) 25 mg DAILY PO 07/26/21 09:00 I have reviewed the current psychotropics carefully including drug interactions. Risk benefit ratio favors no change other than as noted in my dictated progress note. Diagnosis: Problems: (1) Mild cognitive impairment (2) Bipolar affective, mixed, sev w/ psych (3) Anxiety disorder (4) Impulse control disorder GRAEME DIAZ MD July 25, 2021 21:00
[2021-07-25] MEDS: INSULIN GLARGINE SYRINGE. SQ SCH (21:04)
[2021-07-26] MEDS: LEVOTHYROXINE 150 MCG TABLET PO SCH (05:12)
[2021-07-26 06:22] VITALS: BP 157/78
[2021-07-26] MEDS: GABAPENTIN 300 MG CAPSULE. PO SCH ×3 (07:35→17:26)
[2021-07-26] MEDS: QUEtiapine 25 MG TABLET. PO SCH ×3 (07:35→20:32)
[2021-07-26] MEDS: CHOLECALCIFEROL (VITAMIN D3) 50,000 UNIT CAPSULE PO SCH (07:35)
[2021-07-26] MEDS: busPIRone 15 MG TABLET. PO SCH ×3 (07:35→20:33)
[2021-07-26] MEDS: QUEtiapine 100 MG TABLET. PO SCH ×3 (07:36→20:35)
[2021-07-26] MEDS: traZODone 50 MG TABLET. PO SCH ×3 (07:36→20:34)
[2021-07-26] MEDS: NEOMY/BACITR/POLYMYXIN OINT PACKET. TP SCH ×2 (07:36→20:33)
[2021-07-26] MEDS: amLODIPine BESYLATE 10 MG TABLET PO SCH (07:36)
[2021-07-26] MEDS: POLYVINYL ALCOHOL 1.4% OPHTH SOLUTION 15ML BOTTLE. OU SCH ×3 (07:37→20:33)
[2021-07-26] MEDS: INSULIN LISPRO 300 UNITS/3 ML VIAL. SQ SCH ×3 (08:00→17:00)
[2021-07-26] MEDS: OLANZapine 2.5 MG TABLET PO PRN (10:38)
[2021-07-26 16:19] VITALS: BP 177/75
[2021-07-26] MEDS: PATCH REMOVAL. MC SCH (20:02)
[2021-07-26] MEDS: traZODone 100 MG TABLET. PO SCH (20:33)
[2021-07-26] MEDS: MELATONIN 3 MG TABLET PO SCH (20:34)
[2021-07-26] MEDS: TAMSULOSIN 0.4 MG CAP.ER.24H. PO SCH (20:35)
[2021-07-26] MEDS: INSULIN GLARGINE SYRINGE. SQ SCH (20:36)
--- NOTE | 2021-07-26 21:36 | PDOC ---
Exam Note: Darren Note: This note is a late entry for 07/25/2021 covers elements not covered in my initial note. Subjective: The patient was reviewed at treatment team meeting individually in the morning on 07/25/2021 with Payal Perez, Teresita Arce, and Oneyda Engel (social welfare clerk), Lissa, activity therapy, and Ruthy RN, and her daughter Alma attended the meeting, discussed and reviewed the chart. The patient slept 7 hours previous night. She has been yelling at times, wanting snacks, coffee and food. She was at times been banging on the lock door, screaming for her daughter Alma wanting to be discharged. I met with her at some length in the evening in the dayroom, addressed this with her. She is quite forgetful and she followed me around the unit to ask the same questions again. She is also quite obsessive per nursing report. Review of Systems: Ambulation impaired, in wheelchair. Hard of hearing. No CV, , pulmonary, eye system symptoms on review. Mental Status Exam: Patient is oriented to herself and situation. I met with her in the dayroom. Speech is coherent. Abstraction fair. Computation impaired. Language function intact. Mood and affect remains somewhat labile. Laboratory Data: Reviewed. Impression: Bipolar 1 disorder, mixed with psychotic features. Mild cognitive impairment. Anxiety disorder unspecified. Impulse control disorder unspecified. Plan: Continue to adjust psychotropics as clinically indicated. Reviewed drug interactions and risk-benefit ratio. Given some of her obsessive symptoms, we will start Luvox 25 mg a day. We do not want to use very high dosages of SSRIs since it might worsen her bipolar symptoms. We will adjust as clinically indic ated. Assessment: Vital Signs/I&O: Vital Signs Date Time Temp Pulse Resp B/P (MAP) Pulse Ox O2 Delivery O2 Flow Rate FiO2 07/26/21 16:19 97.8 70 20 177/75 (109) 97 07/26/21 06:22 Room Air I & O 07/25/21 07/25/21 07/26/21 15:00 23:00 07:00 Intake Total 1160 ml 720 ml Balance 1160 ml 720 ml Labs: Laboratory Tests Test 07/26/21 07:44 07/26/21 11:18 07/26/21 17:11 07/26/21 19:28 Glucose (Fingerstick) 153 mg/dL (70-99) H 154 mg/dL (70-99) H 151 mg/dL (70-99) H 352 mg/dL (70-99) H Current Medications: Meds: Current Medications Medications (Trade) Dose Ordered Sig/Ruchi Route PRN Reason Start Time Stop Time Status Last Admin Dose Admin Fluvoxamine Maleate (Luvox) 25 mg DAILY PO 07/26/21 09:00 07/26/21 07:36 I have reviewed the current psychotropics carefully including drug interactions. Risk benefit ratio favors no change other than as noted in my dictated progress note. Diagnosis: Problems: (1) Mild cognitive impairment (2) Bipolar affective, mixed, sev w/ psych (3) Anxiety disorder (4) Impulse control disorder GRAEME DIAZ MD July 26, 2021 21:36
--- NOTE | 2021-07-26 21:58 | PDOC ---
Exam Note: Darren Note: Please also refer to the separate dictated note~for this date of service dictated separately.~Patient seen individually. Discussed the patient with Nursing staff reviewed the chart.~Reviewed interim history and current functioning. Reviewed vital signs,~Labs/ Radiology~and current medications noted below. Continue current treatment with the changes noted in the dictated addendum note Assessment: Vital Signs/I&O: Vital Signs Date Time Temp Pulse Resp B/P (MAP) Pulse Ox O2 Delivery O2 Flow Rate FiO2 07/26/21 16:19 97.8 70 20 177/75 (109) 97 07/26/21 06:22 Room Air I & O 07/25/21 07/25/21 07/26/21 15:00 23:00 07:00 Intake Total 1160 ml 720 ml Balance 1160 ml 720 ml Labs: Laboratory Tests Test 07/26/21 07:44 07/26/21 11:18 07/26/21 17:11 07/26/21 19:28 Glucose (Fingerstick) 153 mg/dL (70-99) H 154 mg/dL (70-99) H 151 mg/dL (70-99) H 352 mg/dL (70-99) H Current Medications: Meds: Laboratory Tests Test 07/26/21 07:44 07/26/21 11:18 07/26/21 17:11 07/26/21 19:28 Glucose (Fingerstick) 153 mg/dL 154 mg/dL 151 mg/dL 352 mg/dL Current Medications Medications (Trade) Dose Ordered Sig/Ruchi Route PRN Reason Start Time Stop Time Status Last Admin Dose Admin Acetaminophen (Tylenol) 650 mg PRN Q6HRS PRN PO MILD PAIN / TEMP > 100.3'F 07/03/21 04:30 07/03/21 07:19 DC Multi-Ingredient Ointment (Analgesic [place]) 1 mara PRN QID PRN TP MUSCLE PAIN 07/03/21 04:30 Al Hydroxide/Mg Hydroxide (Mylanta Plus Xs) 15 ml PRN AFTMEALHC PRN PO DYSPEPSIA 07/03/21 04:30 Magnesium Hydroxide (Milk Of Magnesia) 2,400 mg PRN QHS PRN PO CONSTIPATION 2ND CHOICE 07/03/21 04:30 Polyethylene Glycol (miraLAX) 17 gm PRN DAILY PRN PO CONSTIPATION 1ST CHOICE 07/03/21 04:30 Buspirone HCl (Buspar) 7.5 mg TID PO 07/03/21 09:00 07/15/21 16:56 DC 07/15/21 13:28 Gabapentin (Neurontin) 300 mg BID PO 07/03/21 09:00 07/11/21 21:47 DC 07/11/21 20:19 Acetaminophen/ Hydrocodone Bitart (Lortab 5/325) 1 tab PRN Q6HRS PRN PO PAIN MODERATE/SEVERE 07/03/21 04:45 07/23/21 22:28 Levothyroxine Sodium (Synthroid) 150 mcg DAILY07 PO 07/03/21 07:00 07/26/21 05:12 Lidocaine (Lidoderm) 1 patch PRN DAILY PRN TP pain in lower back 07/03/21 04:45 07/24/21 03:15 Melatonin (Melatonin) 6 mg HS PO 07/03/21 21:00 07/26/21 20:34 Artificial Tears (Artificial Tears) 2 drop TID OU 07/03/21 09:00 07/26/21 20:33 Quetiapine Fumarate (SEROquel) 75 mg DAILY@0900,1700 PO 07/03/21 09:00 07/13/21 23:43 DC 07/13/21 17:12 Quetiapine Fumarate (SEROquel) 100 mg QHS PO 07/03/21 21:00 07/13/21 23:43 DC 07/13/21 19:50 Tamsulosin HCl (Flomax) 0.4 mg HS PO 07/03/21 21:00 07/26/21 20:35 Trazodone HCl (Desyrel) 12.5 mg PRN Q12HR PRN PO ANXIETY/2ND CHOICE AGITATION 07/03/21 04:45 Trazodone HCl (Desyrel) 100 mg HS PO 07/03/21 21:00 07/26/21 20:33 Acetaminophen (Tylenol) 500 mg PRN Q6HRS PRN PO MILD PAIN / TEMP > 100.3'F 07/03/21 05:15 07/25/21 20:03 Miscellaneous (Lidoderm Patch Removal) 1 ea QHS MC 07/03/21 21:00 07/26/21 20:02 Olanzapine (ZyPREXA) 2.5 mg PRN DAILY PRN PO PSYCHOSIS 07/03/21 09:15 07/03/21 13:26 DC 07/03/21 09:14 Olanzapine (ZyPREXA) 2.5 mg PRN Q2HR PRN PO PSYCHOSIS 07/03/21 14:10 07/16/21 14:56 DC 07/16/21 14:07 Trazodone HCl (Desyrel) 100 mg PRN QHS PRN PO for sleep 07/04/21 11:45 07/11/21 22:39 Vitamin D (Vitamin D3) 50,000 unit WEEKLY PO 07/05/21 09:00 07/26/21 07:35 Insulin Glargine (Lantus Syringe) 10 unit QHS SQ 07/04/21 21:00 07/26/21 20:36 Insulin Human Lispro (HumaLOG) 0-7 UNITS TIDWMEALS SQ 07/04/21 17:00 07/26/21 17:00 Dextrose (Dextrose 50%-Water Syringe) 12.5 gm PRN Q15MIN PRN IV SEE COMMENTS 07/04/21 15:00 Carbamazepine (TEGretol XR) 200 mg HS PO 07/05/21 21:00 07/09/21 17:34 DC 07/08/21 21:10 Amlodipine Besylate (Norvasc) 10 mg 1X ONCE PO 07/09/21 16:30 07/09/21 16:31 DC 07/09/21 16:56 Amlodipine Besylate (Norvasc) 10 mg DAILY PO 07/10/21 09:00 07/26/21 07:36 Carbamazepine (TEGretol XR) 400 mg BID PO 07/09/21 21:00 07/26/21 20:32 Gabapentin (Neurontin) 300 mg TIDAC PO 07/12/21 07:30 07/26/21 17:26 Quetiapine Fumarate (SEROquel) 100 mg TID@0900,1700,2100 PO 07/14/21 09:00 07/22/21 17:32 DC 07/22/21 16:40 Buspirone HCl (Buspar) 15 mg TID PO 07/15/21 21:00 07/26/21 20:33 Olanzapine (ZyPREXA) 5 mg PRN Q2HRS PRN PO 1ST CHOICE AGITATION 07/16/21 14:45 07/26/21 10:38 Olanzapine (ZyPREXA) 2.5 mg 1X ONCE PO 07/16/21 15:00 07/16/21 15:01 DC Trazodone HCl (Desyrel) 25 mg TID PO 07/16/21 21:00 07/26/21 20:34 Neomycin/ Polymyxin/ Bacitracin (Triple Antibiotic Ointment) 1 pkt BID TP 07/19/21 21:00 07/26/21 20:33 Quetiapine Fumarate (SEROquel) 100 mg TID@0900,1700,2100 PO 07/22/21 21:00 07/26/21 20:35 Quetiapine Fumarate (SEROquel) 25 mg TID@0900,1700,2100 PO 07/22/21 21:00 07/26/21 20:32 Fluvoxamine Maleate (Luvox) 25 mg DAILY PO 07/26/21 09:00 07/26/21 07:36 Current Medications Medications (Trade) Dose Ordered Sig/Ruchi Route PRN Reason Start Time Stop Time Status Last Admin Dose Admin Fluvoxamine Maleate (Luvox) 25 mg DAILY PO 07/26/21 09:00 07/26/21 07:36 I have reviewed the current psychotropics carefully including drug interactions. Risk benefit ratio favors no change other than as noted in my dictated progress note. Diagnosis: Problems: (1) Mild cognitive impairment (2) Bipolar affective, mixed, sev w/ psych (3) Anxiety disorder (4) Impulse control disorder GRAEME DIAZ MD July 26, 2021 21:58
[2021-07-27] MEDS: LEVOTHYROXINE 150 MCG TABLET PO SCH (05:08)
[2021-07-27 06:01] VITALS: BP 163/81
[2021-07-27] MEDS: busPIRone 15 MG TABLET. PO SCH ×3 (07:28→20:45)
[2021-07-27] MEDS: POLYVINYL ALCOHOL 1.4% OPHTH SOLUTION 15ML BOTTLE. OU SCH ×3 (07:29→20:43)
[2021-07-27] MEDS: QUEtiapine 25 MG TABLET. PO SCH ×3 (07:29→20:44)
[2021-07-27] MEDS: NEOMY/BACITR/POLYMYXIN OINT PACKET. TP SCH ×2 (07:29→20:47)
[2021-07-27] MEDS: amLODIPine BESYLATE 10 MG TABLET PO SCH (07:29)
[2021-07-27] MEDS: QUEtiapine 100 MG TABLET. PO SCH ×3 (07:29→20:45)
[2021-07-27] MEDS: GABAPENTIN 300 MG CAPSULE. PO SCH ×3 (07:29→16:08)
[2021-07-27] MEDS: traZODone 50 MG TABLET. PO SCH ×3 (07:30→20:44)
[2021-07-27] MEDS: INSULIN LISPRO 300 UNITS/3 ML VIAL. SQ SCH ×3 (07:34→17:00)
--- NOTE | 2021-07-27 08:33 | PDOC ---
Exam Note: Darren Note: This note is a late entry for 07/26/2021 covers elements not covered in my initial note. Subjective: The patient was seen individually on 07/26/2021, discussed and reviewed the chart with Aleida HENDRICKSON. The patient slept 4-3/4 hours previous night. She remains somewhat obsessive, anxious, repeatedly asking when she would be going home. I have discussed with her at four different occasions today as she followed me around the unit, and in fact that is what she brings up each time we visit. Luvox has been started hopefully to address some of her obsessiveness. She received Zyprexa p.r.n. at 10.30 a.m. for agitation. Review of Systems: Ambulation impaired, in wheelchair. Hard of hearing. No CV, , pulmonary, eye system symptoms on review. Mental Status Exam: Patient is oriented to herself and situation. Speech is coherent. Abstraction fair. Computation impaired. Language function intact. Mood and affect remains somewhat labile. Laboratory Data: Reviewed. Impression: Bipolar 1 disorder, mixed with psychotic features. Mild cognitive impairment. Anxiety disorder unspecified. Impulse control disorder unspecified. Plan: Continue to adjust psychotropics as clinically indicated. Reviewed drug interactions and risk-benefit ratio. Dr. Cantu will cover for me from 07/27/2021 until 08/13/2021. Assessment: Vital Signs/I&O: Vital Signs Date Time Temp Pulse Resp B/P (MAP) Pulse Ox O2 Delivery O2 Flow Rate FiO2 07/27/21 07:29 60 163/81 07/27/21 06:01 97.7 20 100 07/26/21 06:22 Room Air I & O 07/26/21 07/26/21 07/27/21 15:00 23:00 07:00 Intake Total 1060 ml 1080 ml Balance 1060 ml 1080 ml Labs: Laboratory Tests Test 07/26/21 11:18 07/26/21 17:11 07/26/21 19:28 07/27/21 07:28 Glucose (Fingerstick) 154 mg/dL (70-99) H 151 mg/dL (70-99) H 352 mg/dL (70-99) H 121 mg/dL (70-99) H Current Medications: Meds: Current Medications Medications (Trade) Dose Ordered Sig/Ruchi Route PRN Reason Start Time Stop Time Status Last Admin Dose Admin Fluvoxamine Maleate (Luvox) 25 mg DAILY PO 07/26/21 09:00 07/27/21 07:28 I have reviewed the current psychotropics carefully including drug interactions. Risk benefit ratio favors no change other than as noted in my dictated progress note. Diagnosis: Problems: (1) Mild cognitive impairment (2) Bipolar affective, mixed, sev w/ psych (3) Anxiety disorder (4) Impulse control disorder GRAEME DIAZ MD July 27, 2021 08:33
[2021-07-27] MEDS: OLANZapine 2.5 MG TABLET PO PRN ×2 (09:36→16:16)
[2021-07-27 15:46] VITALS: BP 140/66
[2021-07-27] MEDS: PATCH REMOVAL. MC SCH (19:36)
[2021-07-27] MEDS: TAMSULOSIN 0.4 MG CAP.ER.24H. PO SCH (20:43)
[2021-07-27] MEDS: traZODone 100 MG TABLET. PO SCH (20:43)
[2021-07-27] MEDS: MELATONIN 3 MG TABLET PO SCH (20:45)
[2021-07-27] MEDS: INSULIN GLARGINE SYRINGE. SQ SCH (20:48)
[2021-07-28] MEDS: LEVOTHYROXINE 150 MCG TABLET PO SCH (05:19)
[2021-07-28 06:12] VITALS: BP 151/57
[2021-07-28] MEDS: QUEtiapine 100 MG TABLET. PO SCH ×3 (07:29→20:44)
[2021-07-28] MEDS: POLYVINYL ALCOHOL 1.4% OPHTH SOLUTION 15ML BOTTLE. OU SCH ×3 (07:29→20:42)
[2021-07-28] MEDS: QUEtiapine 25 MG TABLET. PO SCH ×3 (07:29→20:43)
[2021-07-28] MEDS: NEOMY/BACITR/POLYMYXIN OINT PACKET. TP SCH ×2 (07:29→20:44)
[2021-07-28] MEDS: busPIRone 15 MG TABLET. PO SCH ×3 (07:30→20:42)
[2021-07-28] MEDS: traZODone 50 MG TABLET. PO SCH ×3 (07:30→20:42)
[2021-07-28] MEDS: GABAPENTIN 300 MG CAPSULE. PO SCH ×3 (07:30→16:30)
[2021-07-28] MEDS: amLODIPine BESYLATE 10 MG TABLET PO SCH (07:30)
[2021-07-28] MEDS: INSULIN LISPRO 300 UNITS/3 ML VIAL. SQ SCH ×3 (08:00→17:00)
[2021-07-28] MEDS: HYDROcodone/APAP 5/325MG 1 TAB TABLET PO PRN (09:31)
--- NOTE | 2021-07-28 09:39 | PN ---
DATE: 07/27/2021 SUBJECTIVE: The patient was seen today, met with the staff. Chart reviewed and also covering for Dr. Meier. The patient continues to exhibit disorganized thinking, repetitive behaviors and also obsessive compulsive behaviors. She also had a fall recently without any injuries. The patient also not taking care of her colostomy bag, tried to pull it out. She is medication compliant. OBSERVATION: VITAL SIGNS: Temperature 97.7, blood pressure 163/81, pulse 60, respirations 20, O2 sat 100%. GENERAL: Slept about 6 hours last night. The patient's appetite improved. The patient currently not exhibiting any major physical problems. The patient's appetite is fair. CURRENT MEDICATIONS: Include fluvoxamine 25 mg daily, Seroquel 25 mg 3 times a day and Seroquel 100 mg 3 times a day, trazodone 25 mg 3 times a day, BuSpar 15 mg 3 times a day, gabapentin 300 mg 3 times a day, Tegretol 400 mg twice a day, trazodone 100 mg at night and p.r.n., melatonin 6 mg at night. She is also on olanzapine 5 mg q. 2 hours p.r.n. LABORATORY DATA: The patient's lab reviewed. The patient's hemoglobin was 11.5 and the patient's lab values remains the same. ASSESSMENT: 1. Bipolar disorder type 1, mixed, with psychotic features. 2. Mild cognitive disorder. 3. Anxiety disorder, unspecified. PLAN: To continue with the treatment. LENGTH OF STAY: Five to seven days. MONICA DR: Jaycob TID: [id number]
[2021-07-28] MEDS ORDERED: LISINOPRIL 5 MG TABLET. PO ONE (14:15)
[2021-07-28 15:37] VITALS: BP 126/67
[2021-07-28] MEDS: OLANZapine 2.5 MG TABLET PO PRN (18:21)
[2021-07-28] MEDS: PATCH REMOVAL. MC SCH (19:40)
[2021-07-28] MEDS: INSULIN GLARGINE SYRINGE. SQ SCH (20:41)
[2021-07-28] MEDS: traZODone 100 MG TABLET. PO SCH (20:42)
[2021-07-28] MEDS: MELATONIN 3 MG TABLET PO SCH (20:45)
[2021-07-28] MEDS: TAMSULOSIN 0.4 MG CAP.ER.24H. PO SCH (20:45)
[2021-07-29 05:44] VITALS: BP 174/79
--- NOTE | 2021-07-29 05:49 | PN ---
DATE: 07/28/2021 SUBJECTIVE: The patient was seen today, met with the staff. Chart reviewed and also covering for Dr. Meier. The patient's behavior is slightly improved and staff reports she is pleasantly confused and she is compliant with her medications and assessments and no major behavior problems today. OBSERVATION: VITAL SIGNS: Temperature 98.2, blood pressure 151/57, pulse 67, respirations 18, O2 sat 93%. GENERAL: Slept about 6 hours last night. CURRENT MEDICATIONS: The patient's current medications include fluvoxamine 25 mg daily, Seroquel 25 mg 3 times a day, Seroquel 100 mg 3 times a day, trazodone 25 mg 3 times a day, gabapentin 300 mg 3 times a day, and BuSpar 15 mg 3 times daily. The patient is also on Tegretol 400 mg twice a day, trazodone 100 mg at night p.r.n., and melatonin 6 mg at night p.r.n. The patient is not having any side effects to medications. LABORATORY DATA: The patient's lab reviewed. ASSESSMENT: 1. Bipolar disorder type 1, mixed, with psychotic features. 2. Mild cognitive disorder. 3. Anxiety disorder, unspecified. PLAN: To continue treatment. LENGTH OF STAY: Five to seven days. RONNIE/ZACHARIAH/HERMAN DR: RONNIE/mello TID: [id number]
[2021-07-29] MEDS: LEVOTHYROXINE 150 MCG TABLET PO SCH (06:06)
[2021-07-29 07:12] LABS: BASO # 0.1 x10^3/uL (0.0-0.2); BASO % 1 % (0-3); EOS # 0.2 x10^3/uL (0.0-0.7); EOS % 3 % (0-3); HEMOGLOBIN 10.2 g/dL (12.0-15.5); LYMPH # 1.1 x10^3/uL (1.0-4.8); LYMPH % 21 % (24-48); MEAN CORPUSCULAR HEMOGLOBIN 28 pg (25-35); MEAN CORPUSCULAR HGB CONC 33 g/dL (31-37); MEAN CORPUSCULAR VOLUME 85 fL (79-100); MONO # 0.5 x10^3/uL (0.0-1.1); MONO % 9 % (0-9); NEUT # 3.7 x10^3uL (1.8-7.7); NEUT % 66 % (31-73); PLATELET COUNT 120 x10^3/uL (140-400); RED BLOOD COUNT 3.64 x10^6/uL (3.50-5.40); RED CELL DISTRIBUTION WIDTH 15.6 % (11.5-14.5); WHITE BLOOD COUNT 5.5 x10^3/uL (4.0-11.0)
[2021-07-29 07:25] LABS: ALBUMIN/GLOBULIN RATIO 0.9 (1.0-1.7); CALCIUM 8.4 mg/dL (8.5-10.1); POTASSIUM 4.2 mmol/L (3.5-5.1); TOTAL BILIRUBIN 0.2 mg/dL (0.2-1.0); TOTAL PROTEIN 6.4 g/dL (6.4-8.2)
[2021-07-29] MEDS: INSULIN LISPRO 300 UNITS/3 ML VIAL. SQ SCH ×3 (08:00→17:25)
[2021-07-29] MEDS: busPIRone 15 MG TABLET. PO SCH ×3 (08:03→19:42)
[2021-07-29] MEDS: amLODIPine BESYLATE 10 MG TABLET PO SCH (08:04)
[2021-07-29] MEDS: NEOMY/BACITR/POLYMYXIN OINT PACKET. TP SCH ×2 (08:04→19:43)
[2021-07-29] MEDS: GABAPENTIN 300 MG CAPSULE. PO SCH ×3 (08:04→17:24)
[2021-07-29] MEDS: QUEtiapine 100 MG TABLET. PO SCH ×3 (08:05→19:43)
[2021-07-29] MEDS: traZODone 50 MG TABLET. PO SCH ×3 (08:05→19:42)
[2021-07-29] MEDS: QUEtiapine 25 MG TABLET. PO SCH ×3 (08:05→19:43)
[2021-07-29] MEDS: LISINOPRIL 5 MG TABLET. PO SCH (08:06)
[2021-07-29] MEDS: POLYVINYL ALCOHOL 1.4% OPHTH SOLUTION 15ML BOTTLE. OU SCH ×3 (08:06→19:41)
[2021-07-29 15:50] VITALS: BP 132/93
[2021-07-29] MEDS: PATCH REMOVAL. MC SCH (19:41)
[2021-07-29] MEDS: traZODone 100 MG TABLET. PO SCH (19:42)
[2021-07-29] MEDS: MELATONIN 3 MG TABLET PO SCH (19:42)
[2021-07-29] MEDS: TAMSULOSIN 0.4 MG CAP.ER.24H. PO SCH (19:42)
[2021-07-29] MEDS: INSULIN GLARGINE SYRINGE. SQ SCH (20:05)
[2021-07-30] MEDS: LEVOTHYROXINE 150 MCG TABLET PO SCH (05:52)
[2021-07-30 06:12] VITALS: BP 114/51
[2021-07-30] MEDS: amLODIPine BESYLATE 10 MG TABLET PO SCH (08:45)
[2021-07-30] MEDS: traZODone 50 MG TABLET. PO SCH ×3 (08:45→19:51)
[2021-07-30] MEDS: QUEtiapine 100 MG TABLET. PO SCH ×3 (08:46→19:51)
[2021-07-30] MEDS: GABAPENTIN 300 MG CAPSULE. PO SCH ×3 (08:46→17:04)
[2021-07-30] MEDS: QUEtiapine 25 MG TABLET. PO SCH ×3 (08:46→19:51)
[2021-07-30] MEDS: LISINOPRIL 5 MG TABLET. PO SCH (08:46)
[2021-07-30] MEDS: busPIRone 15 MG TABLET. PO SCH ×3 (08:46→19:51)
[2021-07-30] MEDS: POLYVINYL ALCOHOL 1.4% OPHTH SOLUTION 15ML BOTTLE. OU SCH ×3 (08:47→19:52)
[2021-07-30] MEDS: INSULIN LISPRO 300 UNITS/3 ML VIAL. SQ SCH ×3 (08:49→17:07)
--- NOTE | 2021-07-30 09:28 | PN ---
DATE: 07/29/2021 SUBJECTIVE: The patient was seen today, met with the staff. Chart reviewed and also covering for Dr. Meier. The patient continues to have behavioral problems. She is confused, but medication compliant. The patient also gets agitated easily, intrusive, demanding. The patient, however, is pleasant, able to hold a conversation. The patient continues to exhibit poor impulse control, low frustration tolerance, sometimes very emotional and angry. The patient also aggressive at times towards the staff. OBSERVATION: VITAL SIGNS: Temperature 97.8, blood pressure 174/79, pulse 67, respiration 18, O2 sat 95%. GENERAL: Slept about 4 hours last night. CURRENT MEDICATIONS: Include fluvoxamine 25 mg daily, Seroquel 25 mg 3 times a day and 100 mg 3 times a day, trazodone 25 mg 3 times a day, BuSpar 15 mg 3 times a day, gabapentin 300 mg 3 times a day, Tegretol 400 mg twice a day and trazodone 100 mg at night. The patient also on melatonin 6 mg at night and p.r.n. trazodone and olanzapine. The patient is not having any side effects to medications. LABORATORY DATA: The patient's lab reviewed. The patient's hemoglobin level was 10.2. ASSESSMENT: 1. Bipolar disorder type 1, mixed, with psychotic features. 2. Mild cognitive disorder. 3. Anxiety disorder, unspecified. PLAN: To continue with the treatment. LENGTH OF STAY: 5-[address]: Jaycob TID: [id number] [id number]
[2021-07-30] MEDS: HYDROcodone/APAP 5/325MG 1 TAB TABLET PO PRN ×2 (13:54→21:09)
[2021-07-30 15:59] VITALS: BP 158/93
[2021-07-30] MEDS: MELATONIN 3 MG TABLET PO SCH (19:50)
[2021-07-30] MEDS: traZODone 100 MG TABLET. PO SCH (19:51)
[2021-07-30] MEDS: TAMSULOSIN 0.4 MG CAP.ER.24H. PO SCH (19:51)
[2021-07-30] MEDS: PATCH REMOVAL. MC SCH (20:02)
[2021-07-30] MEDS: INSULIN GLARGINE SYRINGE. SQ SCH (21:04)
[2021-07-31] MEDS: LEVOTHYROXINE 150 MCG TABLET PO SCH (05:19)
[2021-07-31 05:26] VITALS: BP 104/62
[2021-07-31] MEDS: QUEtiapine 100 MG TABLET. PO SCH ×3 (08:01→20:15)
[2021-07-31] MEDS: busPIRone 15 MG TABLET. PO SCH ×3 (08:01→20:16)
[2021-07-31] MEDS: traZODone 50 MG TABLET. PO SCH ×3 (08:01→20:14)
[2021-07-31] MEDS: amLODIPine BESYLATE 10 MG TABLET PO SCH (08:01)
[2021-07-31] MEDS: QUEtiapine 25 MG TABLET. PO SCH ×3 (08:01→20:15)
[2021-07-31] MEDS: LISINOPRIL 5 MG TABLET. PO SCH (08:02)
[2021-07-31] MEDS: GABAPENTIN 300 MG CAPSULE. PO SCH ×3 (08:02→17:20)
[2021-07-31] MEDS: POLYVINYL ALCOHOL 1.4% OPHTH SOLUTION 15ML BOTTLE. OU SCH ×3 (08:02→20:16)
[2021-07-31] MEDS: INSULIN LISPRO 300 UNITS/3 ML VIAL. SQ SCH ×3 (08:10→17:22)
[2021-07-31] MEDS ORDERED: OLANZapine 7.5 MG TABLET PO SCH (09:00)
--- NOTE | 2021-07-31 15:38 | PN ---
DATE: 07/30/2021 SUBJECTIVE: The patient was seen today, met with the staff. Chart reviewed and covering for Dr. Meier. Staff reports she has been cooperative, less agitation and pleasant, but during this afternoon her behavior has changed. She has become very loud, demanding, wanting the staff to open the door and she is not wanting to be here. Staff also reports she is difficult to control and the patient also explosive with the temper. OBSERVATION: VITAL SIGNS: Temperature 98.3, blood pressure 158/83, pulse 73, respirations 18 and O2 sat 94%. GENERAL: Slept about 7 hours last night. CURRENT MEDICATIONS: The patient's current medication remains the same. The patient already taking fairly good dose of Seroquel, Tegretol and gabapentin. The patient has not received any p.r.n. Zyprexa, decided to start her on Zyprexa 7.5 mg at night to control her behavior and will make necessary changes in the next couple of days whether to decrease the Seroquel and eventually discontinue. LABORATORY DATA: The patient's lab reviewed. ASSESSMENT: 1. Bipolar disorder type 1, mixed, with psychotic features. 2. Mild cognitive disorder. 3. Anxiety disorder, unspecified. PLAN: To continue treatment. LENGTH OF STAY: 5 to 7 days. RONNIE/SHAHNAZ/GIA DR: RONNIE/mello TID: [id number] [facility]
[2021-07-31 16:02] VITALS: BP 125/51
[2021-07-31] MEDS: MELATONIN 3 MG TABLET PO SCH (20:14)
[2021-07-31] MEDS: TAMSULOSIN 0.4 MG CAP.ER.24H. PO SCH (20:15)
[2021-07-31] MEDS: OLANZapine 7.5 MG TABLET PO SCH (20:16)
[2021-07-31] MEDS: PATCH REMOVAL. MC SCH (20:16)
[2021-07-31] MEDS: traZODone 100 MG TABLET. PO SCH (20:16)
[2021-07-31] MEDS: INSULIN GLARGINE SYRINGE. SQ SCH (20:18)
[2021-08-01 05:45] VITALS: BP 124/71
--- NOTE | 2021-08-01 06:37 | PN ---
DATE: 07/31/2021 SUBJECTIVE: The patient was seen today, met with the staff. Chart was reviewed and covering for Dr. Meier. Staff reports she has been cooperative, less agitated and pleasant. The patient also had episodes of agitation, pacing, intrusive behaviors. OBSERVATION: VITAL SIGNS: Temperature 98.1, blood pressure 104/62, pulse 64, respirations 20, O2 sat 97%. GENERAL: Slept about 5 hours last night. LABORATORY DATA: The patient's lab reviewed. CURRENT MEDICATIONS: Include Seroquel 25 mg 3 times a day and 100 mg 3 times a day, fluvoxamine 25 mg daily, olanzapine 7.5 mg at night, trazodone 25 mg 3 times a day, BuSpar 15 mg 3 times a day, gabapentin 300 mg t.i.d., carbamazepine 400 mg twice a day, trazodone 100 mg at night. The patient is also on melatonin 6 mg at night. The patient is not having any side effects. ASSESSMENT: 1. Bipolar disorder type I, mixed, with psychotic features. 2. Mild cognitive disorder. 3. Anxiety disorder, unspecified. PLAN: To continue treatment. LENGTH OF STAY: Five to seven days. RONNIE/GARY/CARLITA DR: Jaycob TID: [id number]
[2021-08-01] MEDS: LEVOTHYROXINE 150 MCG TABLET PO SCH (07:00)
[2021-08-01] MEDS: busPIRone 15 MG TABLET. PO SCH ×3 (07:58→20:49)
[2021-08-01] MEDS: GABAPENTIN 300 MG CAPSULE. PO SCH ×3 (07:58→16:02)
[2021-08-01] MEDS: LISINOPRIL 5 MG TABLET. PO SCH (07:58)
[2021-08-01] MEDS: POLYVINYL ALCOHOL 1.4% OPHTH SOLUTION 15ML BOTTLE. OU SCH ×3 (07:59→20:50)
[2021-08-01] MEDS: QUEtiapine 25 MG TABLET. PO SCH ×3 (07:59→20:48)
[2021-08-01] MEDS: QUEtiapine 100 MG TABLET. PO SCH ×3 (07:59→20:48)
[2021-08-01] MEDS: amLODIPine BESYLATE 10 MG TABLET PO SCH (07:59)
[2021-08-01] MEDS: traZODone 50 MG TABLET. PO SCH ×3 (08:00→20:49)
[2021-08-01] MEDS: INSULIN LISPRO 300 UNITS/3 ML VIAL. SQ SCH ×3 (08:00→17:00)
[2021-08-01] MEDS: HYDROcodone/APAP 5/325MG 1 TAB TABLET PO PRN (14:01)
[2021-08-01 16:01] VITALS: BP 117/74
--- NOTE | 2021-08-01 17:43 | TX PLAN ---
Interdisciplinary Tx Plan Admission Information Jul 03, 2021 at 03:33 Legal Status (on Admission): Voluntary DPOA/Guardian Name: Alma Ford Contact Other Contact Name: Sharla Higginbotham Other Contact Verified Code Status: DNR Allergies: Coded Allergies: Penicillins (Verified Allergy, Intermediate, 08/31/18) Sulfa (Sulfonamide Antibiotics) (Verified Allergy, Intermediate, 08/31/18) ciprofloxacin (Verified Allergy, Intermediate, 03/14/16) levofloxacin (Verified Allergy, Intermediate, 03/14/16) lorazepam (Verified Allergy, Intermediate, 03/14/16) Carbapenems (Verified Allergy, Unknown, 07/03/21) Carbonic Anhydrase Inhibitors (Verified Allergy, Unknown, 07/03/21) Cephalosporins (Verified Allergy, Unknown, 07/03/21) Sulfonylureas (Verified Allergy, Unknown, 07/03/21) Thiazides (Verified Allergy, Unknown, 07/03/21) amlexanox (Verified Allergy, Unknown, 07/03/21) alphalosporine diuretics mirtazapine (Verified Allergy, Unknown, 07/03/21) prednisone (Verified Allergy, Unknown, 07/03/21) tramadol (Verified Allergy, Unknown, 07/03/21) Diagnoses Primary Diagnosis: Bipolar type I, Dementia unspecified Problem in Patient's Words: They cannot meet her needs at her current placement and continue to mess up her meds. Additional Admission Comments: According to the intake, pt is anxious, name calling, beligerent, scratching staff, agitated, pushed a staff member, paranoid that others are talking about her, telling peers to shut up. Problems Active Problems: confused restless exit seeking agitated Inactive Problems: medication management Pt Strengths/Limitations Ability for [place]: Poor Cognitive Functioning/Ability: Fair Communication Skills/Ability: Fair Financial Resources: Fair Insight/Judgement: Poor Intellectual Ability: Fair Physical Health: Poor Social Skills: Poor Stability in Family: Excellent Stability in School/Work: Poor Verbal Skills: Fair Discharge Criteria Discharge Criteria: No need for close observ., Adequate arrangements @DC, Improved behavior, Improved mood/thought Preliminary Discharge Plan Preliminary DC Plan: Placement Needed Special Precautions Fall Risk: Moderate Initial D/C Plan Pt may need referrals to a higher level of care Identified Discharge Needs: Follow Up with PCP. Currently Utilized Resources Currently Utilized Resources/P: PCP Identified Problems/Hx/Goals Objectives/Short-Term Goals Short Term Goals: Dec. Aggression, Dec. Outbursts, Medication Stabilization, Monitor Med Effects, Promote Coping Skill Short Term Goals in Patient's: N/A Interventions/Frequency Staff Interventions/Frequency&: Psychiatrist to assess pt at least 3x per week for medication management. Social work to assess pt at least 2x per week to identify barriers to care and finalize discharge plans. Nursing to assess medication effects, modification of behaviors, and complete 15 minute checks daily. Encourage participation in group activities (if applicable) or 1:1 engagement based off activity dept. 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 No other work history has been noted. Education: Pt. reports she quit school in the "8th grade." Community Follow-up PCP Treatment Plan Explained Patient/Medical Intern had this treatment plan explained to him/her as indicated by the signature below and has been given the opportunity to ask questions and make suggestions: Date: Patient/Medical Intern Signature: Status Update Update Pt is eating 100% of meals and sleeping on average 6 hours per night. Pt continues to be cooperative with cares and medications. However, pt does continue to ruminate on finding her dtr Alma, snacks and drinks. Pt consiste ntly asks for those three items throughout the day and can be difficult to redirect. Pt will at times, try the door handles and yell "Alma, it's me. Let me in". Pt may be able to discharge back to [facility]; however, pt family has requested a referral be sent to [facility] to see if they would be able to accept pt as it is a better facility to manage pt behaviors. PRIMITIVO will continue to work with Alma on this and look to discharge pt next week. CHICHO WRIGHT August 01, 2021 17:43
[2021-08-01] MEDS: OLANZapine 7.5 MG TABLET PO SCH (20:48)
[2021-08-01] MEDS: MELATONIN 3 MG TABLET PO SCH (20:48)
[2021-08-01] MEDS: TAMSULOSIN 0.4 MG CAP.ER.24H. PO SCH (20:49)
[2021-08-01] MEDS: traZODone 100 MG TABLET. PO SCH (20:49)
[2021-08-01] MEDS: PATCH REMOVAL. MC SCH (21:00)
[2021-08-01] MEDS: INSULIN GLARGINE SYRINGE. SQ SCH (21:44)
[2021-08-02] MEDS: LEVOTHYROXINE 150 MCG TABLET PO SCH (05:58)
[2021-08-02 05:59] VITALS: BP 147/56
[2021-08-02] MEDS: INSULIN LISPRO 300 UNITS/3 ML VIAL. SQ SCH ×3 (08:00→17:00)
[2021-08-02] MEDS: QUEtiapine 100 MG TABLET. PO SCH ×3 (08:14→20:03)
[2021-08-02] MEDS: QUEtiapine 25 MG TABLET. PO SCH ×3 (08:16→20:03)
[2021-08-02] MEDS: LISINOPRIL 5 MG TABLET. PO SCH (08:16)
[2021-08-02] MEDS: busPIRone 15 MG TABLET. PO SCH ×3 (08:17→20:04)
[2021-08-02] MEDS: GABAPENTIN 300 MG CAPSULE. PO SCH ×3 (08:17→17:43)
[2021-08-02] MEDS: CHOLECALCIFEROL (VITAMIN D3) 50,000 UNIT CAPSULE PO SCH (08:17)
[2021-08-02] MEDS: traZODone 50 MG TABLET. PO SCH ×3 (08:17→20:03)
[2021-08-02] MEDS: amLODIPine BESYLATE 10 MG TABLET PO SCH (08:18)
[2021-08-02] MEDS: POLYVINYL ALCOHOL 1.4% OPHTH SOLUTION 15ML BOTTLE. OU SCH ×3 (08:21→20:04)
--- NOTE | 2021-08-02 09:23 | PN ---
DATE: 08/01/2021 SUBJECTIVE: The patient was seen today, met with the staff, chart reviewed. Also, covering for Dr. Meier. Staff reports no major behavior problems except for repetitive behaviors and fixation on foods and snack, constantly confused, disorganized, but medication compliant. OBSERVATION: VITAL SIGNS: Temperature 98.9, blood pressure 117/74, pulse 66, respirations 16, O2 sat 97%. GENERAL: Slept about 7 hours last night. CURRENT MEDICATIONS: Seroquel 25 mg 3 times a day and 100 mg 3 times a day, Peroxamine 25 mg daily, olanzapine 7.5 mg at night and trazodone 25 mg 3 times a day. The patient is also on BuSpar 15 mg 3 times a day, gabapentin 300 mg t.i.d. The patient is also on carbamazepine 400 mg twice a day and trazodone 100 mg at night. The patient also gets melatonin 6 mg at night for sleep. The patient denies any side effects. DIAGNOSES: 1. Bipolar disorder type 1, mixed with psychotic features. 2. Mild cognitive disorder. 3. Anxiety disorder, unspecified. PLAN: To continue with the treatment. LENGTH OF STAY: Five to seven days. RONNIE/GARY/CHARLOTTE DR: RONNIE/mello TID: [id number]
[2021-08-02 15:32] VITALS: BP 150/61
[2021-08-02] MEDS: TAMSULOSIN 0.4 MG CAP.ER.24H. PO SCH (20:03)
[2021-08-02] MEDS: traZODone 100 MG TABLET. PO SCH (20:03)
[2021-08-02] MEDS: OLANZapine 7.5 MG TABLET PO SCH (20:04)
[2021-08-02] MEDS: MELATONIN 3 MG TABLET PO SCH (20:04)
[2021-08-02] MEDS: PATCH REMOVAL. MC SCH (21:00)
[2021-08-02] MEDS: INSULIN GLARGINE SYRINGE. SQ SCH (22:12)
[2021-08-03] MEDS: LEVOTHYROXINE 150 MCG TABLET PO SCH (05:48)
[2021-08-03 06:01] VITALS: BP 127/65
[2021-08-03] MEDS: INSULIN LISPRO 300 UNITS/3 ML VIAL. SQ SCH ×3 (08:00→17:00)
[2021-08-03] MEDS: traZODone 50 MG TABLET. PO SCH ×4 (08:27→21:00)
[2021-08-03] MEDS: amLODIPine BESYLATE 10 MG TABLET PO SCH (08:28)
[2021-08-03] MEDS: busPIRone 15 MG TABLET. PO SCH ×4 (08:28→21:00)
[2021-08-03] MEDS: QUEtiapine 25 MG TABLET. PO SCH ×4 (08:28→21:00)
[2021-08-03] MEDS: LISINOPRIL 5 MG TABLET. PO SCH (08:28)
[2021-08-03] MEDS: QUEtiapine 100 MG TABLET. PO SCH ×4 (08:28→21:00)
[2021-08-03] MEDS: GABAPENTIN 300 MG CAPSULE. PO SCH ×3 (08:29→17:17)
[2021-08-03] MEDS: POLYVINYL ALCOHOL 1.4% OPHTH SOLUTION 15ML BOTTLE. OU SCH ×3 (08:30→20:28)
--- NOTE | 2021-08-03 13:48 | PN ---
DATE: 08/02/2021 SUBJECTIVE: The patient was seen today, met with the staff. Chart was reviewed and covering for Dr. Meier. Staff reports no major issues today, no falls, but continues to be obsessive compulsive with her behaviors and fixation on food snacks and confused and disorganized. She is medication compliant. OBSERVATION: VITAL SIGNS: Temperature 97.2, blood pressure 150/61, pulse 68, respirations 18, O2 sat 94. CURRENT MEDICATIONS: Seroquel 25 mg 3 times a day and 100 mg 3 times a day, fluvoxamine 25 mg daily, olanzapine 7.5 mg at night, and trazodone 25 mg 3 times a day and BuSpar 15 mg 3 times a day. She is also on gabapentin 300 mg 3 times a day, carbamazepine 400 mg twice a day and trazodone 100 mg at night. The patient is also on melatonin 6 mg at night for sleep. The patient is not having any side effects to medications. LABORATORY DATA: The patient's lab reviewed. ASSESSMENT: 1. Bipolar disorder type I, mixed, with psychotic feature. 2. Mild cognitive disorder. 3. Anxiety disorder, unspecified. PLAN: To continue with treatment. LENGTH OF STAY: Five to seven days. RONNIE/LAUREN/DAGOBERTO DR: Jaycob TID: [id number]
[2021-08-03 16:34] VITALS: BP 154/80
[2021-08-03] MEDS: MELATONIN 3 MG TABLET PO SCH ×2 (20:26→21:00)
[2021-08-03] MEDS: traZODone 100 MG TABLET. PO SCH ×2 (20:27→21:00)
[2021-08-03] MEDS: OLANZapine 7.5 MG TABLET PO SCH ×2 (20:27→21:00)
[2021-08-03] MEDS: TAMSULOSIN 0.4 MG CAP.ER.24H. PO SCH ×2 (20:27→21:00)
[2021-08-03] MEDS: PATCH REMOVAL. MC SCH (20:29)
[2021-08-03] MEDS: INSULIN GLARGINE SYRINGE. SQ SCH (21:00)
--- NOTE | 2021-08-04 03:51 | PN ---
DATE: 08/03/2021 SUBJECTIVE: The patient was seen today, met with the staff. Chart was reviewed and covering for Dr. Meier. Staff reports no major behavior problems except for obsessive compulsive behaviors, keep repeating and fixation on food; however, is improved. Also confused and disorganized. OBSERVATION: VITAL SIGNS: Temperature 97.4, blood pressure 127/65, pulse 57, respirations 18, O2 sat 94%. GENERAL: Slept about 8 hours last night. The patient's appetite improved. CURRENT MEDICATIONS: Seroquel 25 mg 3 times a day and 100 mg 3 times a day, fluvoxamine 25 mg daily, olanzapine 7.5 mg at night, and trazodone 25 mg 3 times a day and BuSpar 15 mg 3 times a day. The patient is also on carbamazepine 400 mg twice a day and trazodone 100 mg at night and gabapentin 300 mg 3 times a day. The patient is not having any side effects to medications. LABORATORY DATA: The patient's lab reviewed. ASSESSMENT: 1. Bipolar disorder type I, mixed, with psychotic features. 2. Mild cognitive disorder. 3. Anxiety disorder, unspecified. PLAN: To continue treatment. LENGTH OF STAY: Five to seven days. NILO DR: Jaycob TID: [id number]
[2021-08-04 05:47] VITALS: BP 162/74
[2021-08-04] MEDS: LEVOTHYROXINE 150 MCG TABLET PO SCH (05:49)
[2021-08-04 08:02] LABS: BASO # 0.1 x10^3/uL (0.0-0.2); BASO % 1 % (0-3); EOS # 0.2 x10^3/uL (0.0-0.7); EOS % 3 % (0-3); HEMATOCRIT 35.7 % (36.0-47.0); HEMOGLOBIN 11.7 g/dL (12.0-15.5); LYMPH # 0.9 x10^3/uL (1.0-4.8); LYMPH % 14 % (24-48); MEAN CORPUSCULAR HEMOGLOBIN 29 pg (25-35); MEAN CORPUSCULAR HGB CONC 33 g/dL (31-37); MEAN CORPUSCULAR VOLUME 87 fL (79-100); MONO # 0.5 x10^3/uL (0.0-1.1); MONO % 8 % (0-9); NEUT # 4.8 x10^3uL (1.8-7.7); NEUT % 74 % (31-73); PLATELET COUNT 146 x10^3/uL (140-400); RED CELL DISTRIBUTION WIDTH 16.3 % (11.5-14.5); WHITE BLOOD COUNT 6.5 x10^3/uL (4.0-11.0)
[2021-08-04 08:04] LABS: ALBUMIN 3.3 g/dL (3.4-5.0); ALBUMIN/GLOBULIN RATIO 0.8 (1.0-1.7); CALCIUM 8.7 mg/dL (8.5-10.1); CREATININE 0.9 mg/dL (0.6-1.0); GFR 59.8; POTASSIUM 4.7 mmol/L (3.5-5.1); TOTAL BILIRUBIN 0.2 mg/dL (0.2-1.0); TOTAL PROTEIN 7.2 g/dL (6.4-8.2)
[2021-08-04] MEDS: QUEtiapine 100 MG TABLET. PO SCH ×3 (08:20→19:23)
[2021-08-04] MEDS: QUEtiapine 25 MG TABLET. PO SCH ×3 (08:20→19:23)
[2021-08-04] MEDS: LISINOPRIL 5 MG TABLET. PO SCH (08:21)
[2021-08-04] MEDS: busPIRone 15 MG TABLET. PO SCH ×3 (08:21→19:23)
[2021-08-04] MEDS: traZODone 50 MG TABLET. PO SCH ×3 (08:21→19:23)
[2021-08-04] MEDS: amLODIPine BESYLATE 10 MG TABLET PO SCH (08:21)
[2021-08-04] MEDS: GABAPENTIN 300 MG CAPSULE. PO SCH ×3 (08:22→17:25)
[2021-08-04] MEDS: POLYVINYL ALCOHOL 1.4% OPHTH SOLUTION 15ML BOTTLE. OU SCH ×3 (08:22→19:24)
[2021-08-04] MEDS: INSULIN LISPRO 300 UNITS/3 ML VIAL. SQ SCH ×3 (08:23→17:27)
[2021-08-04 16:01] VITALS: BP 151/68
[2021-08-04] MEDS: OLANZapine 7.5 MG TABLET PO SCH (19:23)
[2021-08-04] MEDS: MELATONIN 3 MG TABLET PO SCH (19:24)
[2021-08-04] MEDS: traZODone 100 MG TABLET. PO SCH (19:24)
[2021-08-04] MEDS: TAMSULOSIN 0.4 MG CAP.ER.24H. PO SCH (19:24)
[2021-08-04] MEDS: PATCH REMOVAL. MC SCH (19:25)
[2021-08-04] MEDS: INSULIN GLARGINE SYRINGE. SQ SCH (20:48)
--- NOTE | 2021-08-04 23:52 | PN ---
DATE: 08/04/2021 SUBJECTIVE: The patient was seen today, met with the staff. Chart was reviewed and covering for Dr. Meier. The patient apparently been very drowsy today. Her medication was held and she was more alert in the morning. The patient continues to have obsessive compulsive behaviors, keeps repeating and fixated on food. The patient continues to be having disorganized thinking. OBSERVATION: VITAL SIGNS: Temperature 97.7, blood pressure 162/74, pulse 57, respirations 18, O2 sat 95%. GENERAL: Slept about 8 hours last night. CURRENT MEDICATIONS: Seroquel 25 mg 3 times daily, 100 mg 3 times a day; fluvoxamine 25 mg daily, olanzapine 7.5 mg at night, trazodone 25 mg 3 times a day and BuSpar 15 mg 3 times a day. She is also on carbamazepine 400 mg twice a day, trazodone 100 mg at night and gabapentin 300 mg 3 times a day. No major side effects except for some sedation. No falls. LABORATORY DATA: The patient's lab reviewed. ASSESSMENT: 1. Bipolar disorder type I, mixed, with psychotic features. 2. Mild cognitive disorder, unspecified. PLAN: To continue with the treatment. LENGTH OF STAY: Five to seven days. RAE DR: Jaycob TID: [id number]
[2021-08-05] MEDS: GABAPENTIN 300 MG CAPSULE. PO SCH ×3 (05:21→17:22)
[2021-08-05] MEDS: POLYVINYL ALCOHOL 1.4% OPHTH SOLUTION 15ML BOTTLE. OU SCH ×3 (05:21→19:55)
[2021-08-05] MEDS: LEVOTHYROXINE 150 MCG TABLET PO SCH (05:21)
[2021-08-05 05:54] VITALS: BP 152/66
[2021-08-05] MEDS: QUEtiapine 25 MG TABLET. PO SCH ×3 (07:41→19:53)
[2021-08-05] MEDS: LISINOPRIL 5 MG TABLET. PO SCH (07:41)
[2021-08-05] MEDS: traZODone 50 MG TABLET. PO SCH ×3 (07:41→19:52)
[2021-08-05] MEDS: busPIRone 15 MG TABLET. PO SCH ×3 (07:41→19:53)
[2021-08-05] MEDS: QUEtiapine 100 MG TABLET. PO SCH ×3 (07:41→19:53)
[2021-08-05] MEDS: amLODIPine BESYLATE 10 MG TABLET PO SCH (07:42)
[2021-08-05] MEDS: INSULIN LISPRO 300 UNITS/3 ML VIAL. SQ SCH ×3 (08:17→17:24)
[2021-08-05 16:02] VITALS: BP 177/76
[2021-08-05 16:50] VITALS: BP 140/82
[2021-08-05] MEDS: OLANZapine 2.5 MG TABLET PO PRN (17:46)
[2021-08-05] MEDS: MELATONIN 3 MG TABLET PO SCH (19:52)
[2021-08-05] MEDS: TAMSULOSIN 0.4 MG CAP.ER.24H. PO SCH (19:52)
[2021-08-05] MEDS: OLANZapine 7.5 MG TABLET PO SCH (19:53)
[2021-08-05] MEDS: traZODone 100 MG TABLET. PO SCH (19:53)
[2021-08-05] MEDS: PATCH REMOVAL. MC SCH (19:56)
[2021-08-05] MEDS: INSULIN GLARGINE SYRINGE. SQ SCH (21:16)
--- NOTE | 2021-08-06 05:21 | PN ---
DATE: 08/05/2021 SUBJECTIVE: The patient was seen today, met with the staff, chart reviewed, and covering for Dr. Meier. The patient continues to have behavior problems, demanding, attention seeking, some emotional lability and also impulsive, constantly asking for discharge. Otherwise, no major behavior problems: OBJECTIVE: VITAL SIGNS: Temperature 98.0, blood pressure 177/76, pulse 66, respirations 20, O2 sat 95%. GENERAL: Slept about 8 hours last night. The patient's appetite is normal. CURRENT MEDICATIONS: Seroquel 25 mg 3 times a day, 100 mg 3 times a day; fluvoxamine 25 mg daily, olanzapine 7.5 mg at night, trazodone 25 mg 3 times a day, BuSpar 15 mg 3 times daily, trazodone 100 mg at night, gabapentin 300 mg 3 times a day, and carbamazepine 400 mg twice a day. The patient is not having any side effects. LABORATORY DATA: The patient's lab reviewed. The patient's hemoglobin is 11.7. ASSESSMENT: 1. Bipolar disorder type 1, mixed with psychotic features. 2. Mild cognitive disorder, unspecified. PLAN: To continue with treatment. LENGTH OF STAY: 5-[address]: Jaycob TID: [id number]
[2021-08-06 05:56] VITALS: BP 150/70
[2021-08-06] MEDS: LEVOTHYROXINE 150 MCG TABLET PO SCH (06:28)
[2021-08-06] MEDS: GABAPENTIN 300 MG CAPSULE. PO SCH ×3 (07:53→16:30)
[2021-08-06] MEDS: amLODIPine BESYLATE 10 MG TABLET PO SCH (07:54)
[2021-08-06] MEDS: busPIRone 15 MG TABLET. PO SCH ×3 (07:55→20:09)
[2021-08-06] MEDS: LISINOPRIL 5 MG TABLET. PO SCH (07:55)
[2021-08-06] MEDS: QUEtiapine 100 MG TABLET. PO SCH ×3 (07:55→20:09)
[2021-08-06] MEDS: QUEtiapine 25 MG TABLET. PO SCH ×3 (07:55→20:09)
[2021-08-06] MEDS: POLYVINYL ALCOHOL 1.4% OPHTH SOLUTION 15ML BOTTLE. OU SCH ×3 (07:55→20:08)
[2021-08-06] MEDS: traZODone 50 MG TABLET. PO SCH ×3 (07:56→20:10)
[2021-08-06] MEDS: INSULIN LISPRO 300 UNITS/3 ML VIAL. SQ SCH ×3 (08:00→17:00)
[2021-08-06 15:59] VITALS: BP 141/63
[2021-08-06] MEDS: MELATONIN 3 MG TABLET PO SCH (20:09)
[2021-08-06] MEDS: OLANZapine 7.5 MG TABLET PO SCH (20:09)
[2021-08-06] MEDS: PATCH REMOVAL. MC SCH (20:10)
[2021-08-06] MEDS: traZODone 100 MG TABLET. PO SCH (20:10)
[2021-08-06] MEDS: TAMSULOSIN 0.4 MG CAP.ER.24H. PO SCH (20:10)
[2021-08-06] MEDS: INSULIN GLARGINE SYRINGE. SQ SCH (20:57)
[2021-08-07 06:11] VITALS: BP 135/66
[2021-08-07] MEDS: QUEtiapine 25 MG TABLET. PO SCH ×3 (07:42→20:15)
[2021-08-07] MEDS: QUEtiapine 100 MG TABLET. PO SCH ×3 (07:43→20:15)
[2021-08-07] MEDS: LISINOPRIL 5 MG TABLET. PO SCH (07:43)
[2021-08-07] MEDS: amLODIPine BESYLATE 10 MG TABLET PO SCH (07:43)
[2021-08-07] MEDS: busPIRone 15 MG TABLET. PO SCH ×3 (07:44→20:13)
[2021-08-07] MEDS: GABAPENTIN 300 MG CAPSULE. PO SCH ×3 (07:44→17:29)
[2021-08-07] MEDS: INSULIN LISPRO 300 UNITS/3 ML VIAL. SQ SCH ×3 (07:44→17:00)
[2021-08-07] MEDS: POLYVINYL ALCOHOL 1.4% OPHTH SOLUTION 15ML BOTTLE. OU SCH ×3 (07:44→20:12)
[2021-08-07] MEDS: traZODone 50 MG TABLET. PO SCH ×3 (07:44→20:14)
[2021-08-07] MEDS: LEVOTHYROXINE 150 MCG TABLET PO SCH (07:44)
--- NOTE | 2021-08-07 13:10 | PN ---
DATE: 08/06/2021 SUBJECTIVE: The patient was seen today, met with the staff, chart reviewed and covering for Dr. Meier. Staff reports increased confusion, disorganized thinking, forgetful, fixated on food and snacks and drinks, attention seeking, demanding. OBSERVATION: VITAL SIGNS: Temperature 97.3, blood pressure 141/63, pulse 62, respirations 18, O2 sat 95%. GENERAL: Slept about 7 hours last night. LABORATORY DATA: The patient's lab reviewed. CURRENT MEDICATIONS: Seroquel 25 mg 3 times a day and 100 mg 3 times a day, fluvoxamine 25 mg daily, olanzapine 7.5 mg at night, trazodone 25 mg 3 times a day, BuSpar 15 mg 3 times daily, trazodone 100 mg at night, gabapentin 300 mg 3 times a day and carbamazepine 400 mg twice a day. She is not having any side effects. ASSESSMENT: 1. Bipolar disorder type I, mixed, with psychotic features. 2. Mild cognitive disorder, unspecified. PLAN: To continue with the treatment. She is planned for discharge in the next couple of days. LENGTH OF STAY: Two to three days. MARCELA DR: RONNIE/mello TID: [id number]
[2021-08-07 16:17] VITALS: BP 157/75
[2021-08-07] MEDS: PATCH REMOVAL. MC SCH (20:11)
[2021-08-07] MEDS: traZODone 100 MG TABLET. PO SCH (20:14)
[2021-08-07] MEDS: MELATONIN 3 MG TABLET PO SCH (20:15)
[2021-08-07] MEDS: TAMSULOSIN 0.4 MG CAP.ER.24H. PO SCH (20:15)
[2021-08-07] MEDS: OLANZapine 7.5 MG TABLET PO SCH (20:18)
[2021-08-07] MEDS: INSULIN GLARGINE SYRINGE. SQ SCH (20:20)
[2021-08-08] MEDS ORDERED: AMLO-187 PO (01:55)
[2021-08-08] MEDS ORDERED: LISI10TA16 PO (01:56)
[2021-08-08] MEDS ORDERED: CARB400T PO (01:58)
[2021-08-08] MEDS ORDERED: FLUV50TA21 PO (02:00)
[2021-08-08] MEDS ORDERED: TRAZ-120 PO (02:02)
[2021-08-08] MEDS ORDERED: OLAN5TAB67 PO (02:05)
[2021-08-08] MEDS ORDERED: OLAN5TAB99 PO (02:07)
[2021-08-08] MEDS ORDERED: INSU100I13 SQ (02:09)
[2021-08-08] MEDS ORDERED: CHOL500021 PO (02:10)
[2021-08-08] MEDS ORDERED: INSU100V SQ (02:17)
[2021-08-08 06:12] VITALS: BP 131/71
[2021-08-08] MEDS: LEVOTHYROXINE 150 MCG TABLET PO SCH (06:29)
[2021-08-08] MEDS ORDERED: DIPHENOXYLATE/ATROPINE TABLET. PO PRN (06:30)
[2021-08-08] MEDS: amLODIPine BESYLATE 10 MG TABLET PO SCH (07:34)
[2021-08-08] MEDS: traZODone 50 MG TABLET. PO SCH ×3 (07:35→20:45)
[2021-08-08] MEDS: LISINOPRIL 5 MG TABLET. PO SCH (07:35)
[2021-08-08] MEDS: GABAPENTIN 300 MG CAPSULE. PO SCH ×3 (07:35→16:25)
[2021-08-08] MEDS: POLYVINYL ALCOHOL 1.4% OPHTH SOLUTION 15ML BOTTLE. OU SCH ×3 (07:35→20:44)
[2021-08-08] MEDS: QUEtiapine 25 MG TABLET. PO SCH ×3 (07:35→20:45)
[2021-08-08] MEDS: QUEtiapine 100 MG TABLET. PO SCH ×3 (07:35→20:45)
[2021-08-08] MEDS: busPIRone 15 MG TABLET. PO SCH ×3 (07:35→20:44)
[2021-08-08] MEDS: INSULIN LISPRO 300 UNITS/3 ML VIAL. SQ SCH ×3 (08:00→17:00)
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
[2021-08-08 16:29] VITALS: BP 162/72
[2021-08-08] MEDS: PATCH REMOVAL. MC SCH (20:43)
[2021-08-08] MEDS: traZODone 100 MG TABLET. PO SCH (20:44)
[2021-08-08] MEDS: TAMSULOSIN 0.4 MG CAP.ER.24H. PO SCH (20:45)
[2021-08-08] MEDS: MELATONIN 3 MG TABLET PO SCH (20:45)
[2021-08-08] MEDS: OLANZapine 7.5 MG TABLET PO SCH (20:46)
[2021-08-08] MEDS: INSULIN GLARGINE SYRINGE. SQ SCH (20:49)
[2021-08-09] MEDS: HYDROcodone/APAP 5/325MG 1 TAB TABLET PO PRN (00:14)
--- NOTE | 2021-08-09 03:44 | PN ---
DATE: 08/08/2021 SUBJECTIVE: The patient was seen today, met with the staff. Chart reviewed, covering for Dr. Meier. Also, discussed in the treatment review today, the patient eating 100% of her meals, sleeping average of 6.5 hours at night and she has been cooperative with the care and medication compliant. Still has periods of confusion, disorganized thinking and also repetitive behaviors. The patient is attending some of the groups. The patient was planned for discharge today, it was postponed until tomorrow. OBSERVATION: VITAL SIGNS: Temperature 97.8, blood pressure 162/72, pulse 65, respirations 18, O2 sat 97%. LABORATORY DATA: The patient's lab reviewed. CURRENT MEDICATIONS: Seroquel 25 mg 3 times a day and 100 mg 3 times a day, fluvoxamine 25 mg daily, olanzapine 7.5 mg at night, trazodone 25 mg 3 times a day, BuSpar 15 mg 3 times daily, trazodone 100 mg at night and gabapentin 300 mg 3 times a day and carbamazepine 400 mg twice a day. She is not having any side effects to medications. ASSESSMENT: 1. Bipolar disorder type I, mixed, with psychotic features. 2. Mild cognitive disorder, unspecified. PLAN: To continue with the treatment hoping she will be discharged tomorrow and social service is working on the discharge plans. LENGTH OF STAY: [address]: Jaycob TID: [id number]
[2021-08-09 05:37] VITALS: BP 152/68
[2021-08-09] MEDS: LEVOTHYROXINE 150 MCG TABLET PO SCH (05:53)
[2021-08-09] MEDS: GABAPENTIN 300 MG CAPSULE. PO SCH ×2 (07:18→11:22)
[2021-08-09] MEDS: CHOLECALCIFEROL (VITAMIN D3) 50,000 UNIT CAPSULE PO SCH (07:18)
[2021-08-09] MEDS: LISINOPRIL 5 MG TABLET. PO SCH (07:19)
[2021-08-09] MEDS: QUEtiapine 25 MG TABLET. PO SCH (07:19)
[2021-08-09] MEDS: QUEtiapine 100 MG TABLET. PO SCH (07:19)
[2021-08-09] MEDS: busPIRone 15 MG TABLET. PO SCH (07:19)
[2021-08-09 07:20] VITALS: BP 152/68
[2021-08-09] MEDS: traZODone 50 MG TABLET. PO SCH (07:20)
[2021-08-09] MEDS: amLODIPine BESYLATE 10 MG TABLET PO SCH (07:20)
[2021-08-09] MEDS: POLYVINYL ALCOHOL 1.4% OPHTH SOLUTION 15ML BOTTLE. OU SCH ×2 (07:20→11:22)
[2021-08-09] MEDS: INSULIN LISPRO 300 UNITS/3 ML VIAL. SQ SCH ×2 (08:00→12:00)
== END 2021-08-09 13:55 | disposition home or self-care (01) | DRG 885 ==
LOC: GEROPSY 03:33
PROVIDERS: ADMIT Psychiatry & Neurology Psychiatry; ATTEND Psychiatry & Neurology Psychiatry
DX: F31.64 Bipolar disorder, current episode mixed, severe, with psychotic features (principal); Z93.3 Colostomy status; D64.9 Anemia, unspecified; D69.6 Thrombocytopenia, unspecified; E11.9 Type 2 diabetes mellitus without complications; E78.00 Pure hypercholesterolemia, unspecified; E78.1 Pure hyperglyceridemia; E78.5 Hyperlipidemia, unspecified; E86.0 Dehydration; E89.0 Postprocedural hypothyroidism; F03.90 Unspecified dementia, unspecified severity, without behavioral disturbance, psychotic disturbance, mood disturbance, and anxiety; F09 Unspecified mental disorder due to known physiological condition; F41.9 Anxiety disorder, unspecified; F63.9 Impulse disorder, unspecified; I10 Essential (primary) hypertension; J44.9 Chronic obstructive pulmonary disease, unspecified; K21.9 Gastro-esophageal reflux disease without esophagitis; M19.90 Unspecified osteoarthritis, unspecified site; Z66 Do not resuscitate; Z79.4 Long term (current) use of insulin; Z79.890 Hormone replacement therapy; Z79.899 Other long term (current) drug therapy; Z90.710 Acquired absence of both cervix and uterus; Z91.81 History of falling; Z96.653 Presence of artificial knee joint, bilateral; Z98.41 Cataract extraction status, right eye; Z98.42 Cataract extraction status, left eye; G89.29 Other chronic pain
CPT/HCPCS: 36415; 80053; 80061; 81001; 82306; 82947; 83036; 83540; 83550; 83735; 84436; 84443; 84480; 85025; 85379; 86592; 87086; 87177; 87209; 87425; 87505; 93005; J1815; U0003; 92610; 97530